=== PATIENT | male | born 1945 | race Caucasian/White ===

== ENCOUNTER 2020-09-03 13:20 | Inpatient (IN) | payer MEDICARE ==
[~2020-09-03] VITALS: Ht 175.3 cm; Wt 95.6 kg
[2020-09-03] MEDS ORDERED: IV NORMAL SALINE 1,000ML 1,000 ML IV ONE ×2 (13:30→19:00)
--- NOTE | 2020-09-03 13:43 | EKG ---
[address] [address] Test Date: 2020-09-03 Test Time: 13:32:31 Pat Name: ADONAY AUSTIN Department: Room: Gender: M Cob Sawyer: EMELIA : 1945 Requested By: SOLEDAD MAHAN Order Number: [id number] Reading MD: Rigo Schmid Measurements Intervals [place] Rate: 87 P: 11 FL: 168 QRS: -2 QRSD: 84 T: 39 QT: 340 QTc: 410 Interpretive Statements SINUS RHYTHM LEFTWARD AXIS Electronically Signed On 09-04-2020 13:36:28 CERTIFIED EMERGENCY VEHICLE TECHNICIAN by Rigo Schmid
[2020-09-03 14:07] LABS: BASO % 1 % (0-3); EOS % 0 % (0-3); HEMATOCRIT 41.8 % (39.0-53.0); HEMOGLOBIN 13.5 g/dL (13.0-17.5); LYMPH # 0.8 x10^3/uL (1.0-4.8); LYMPH % 10 % (24-48); MEAN CORPUSCULAR HEMOGLOBIN 28 pg (25-35); MEAN CORPUSCULAR HGB CONC 32 g/dL (31-37); MEAN CORPUSCULAR VOLUME 88 fL (79-100); MONO # 0.5 x10^3/uL (0.0-1.1); MONO % 7 % (0-9); NEUT # 6.6 x10^3uL (1.8-7.7); NEUT % 82 % (31-73); PLATELET COUNT 279 x10^3/uL (140-400); RED BLOOD COUNT 4.77 x10^6/uL (4.30-5.70); RED CELL DISTRIBUTION WIDTH 15.3 % (11.5-14.5)
--- NOTE | 2020-09-03 14:21 | RAD ---
EXAM: Chest, single view. HISTORY: Hyperglycemia. COMPARISON: 01/29/2017 FINDINGS: A frontal view of the chest obtained. There is suspected left basilar atelectasis. There is no infiltrate, pleural effusion or pneumothorax. There is a prominent cardiac silhouette, likely acc entuated due to decreased lung volumes. IMPRESSION: Decreased lung volumes with associated basilar atelectasis. Electronically signed by: Mandy Marcial MD (09/03/2020 2:18 PM) [id number]
[2020-09-03 14:25] LABS: CALCIUM 8.1 mg/dL (8.5-10.1); CREATININE 1.8 mg/dL (0.7-1.3); GFR 37.1; POTASSIUM 5.1 mmol/L (3.5-5.1)
[2020-09-03 14:54] LABS: ALBUMIN 2.9 g/dL (3.4-5.0); ALBUMIN/GLOBULIN RATIO 0.9 (1.0-1.7); TOTAL PROTEIN 6.2 g/dL (6.4-8.2)
[2020-09-03 14:56] LABS: TOTAL BILIRUBIN 0.6 mg/dL (0.2-1.0)
[2020-09-03 15:30] LABS: BARBITURATES NEG (NEG); BENZODIAZEPINES NEG (NEG); CANNABINOIDS NEG (NEG); COCAINE NEG (NEG); METHADONE NEG (NEG); OPIATES NEG (NEG); PHENCYCLIDINE NEG (NEG)
[2020-09-03 15:32] LABS: AMPHETAMINE/METHAMPHETAMINE NEG (NEG)
[2020-09-03 15:46] LABS: BILIRUBIN,URINE NEG (NEG); CLARITY,URINE CLEAR; COLOR,URINE COLORLESS; GLUCOSE,URINE >=1000 mg/dL (NEG)
[2020-09-03 15:47] LABS: NITRITE,URINE NEG (NEG); UROBILINOGEN,URINE 0.2 mg/dL (0.2 mg/dL)
[2020-09-03 15:49] LABS: BACTERIA,URINE 0 /HPF (0-FEW); RBC,URINE 0 /HPF (0-2); WBC,URINE 0 /HPF (0-4)
--- NOTE | 2020-09-03 16:14 | PHYS DOC ---
Past History Past Medical History: Diabetes, Hypertension Past Surgical History: No Surgical History Alcohol Use: None General Adult EDM: Chief Complaint: BLOOD SUGAR PROBLEM HPI: HPI: 75-year-old male past medical history of poorly controlled diabetes presents to the ED brought in by EMS with concern for hyperglycemia, glucose in the 600s. EMS reports 911 was called by leonardo with concern for patient's wellbeing, a welfare check. Patient is a very poor historian and cannot recall any home medications. Patient usually follows at the [facility]. RN called Junior patterson, who is known patient for more than 10 years. Patient has not been seen for approximately 1 month, was not responding to his door which is unlike him. Pt has a h/o dementia and lives alone. Review of Systems: Review of Systems: Declines all review of systems although not reliable given dementia Constitutional: Denies fever or chills Eyes: Denies change in visual acuity HENT: Denies nasal congestion or sore throat Respiratory: Denies cough or shortness of breath Cardiovascular: Denies chest pain or edema GI: Denies abdominal pain, nausea, vomiting, bloody stools or diarrhea : Denies dysuria Musculoskeletal: Denies back pain or joint pain Integument: Denies rash Neurologic: Denies headache, focal weakness or sensory changes Endocrine: Denies polyuria or polydipsia Lymphatic: Denies swollen glands Psychiatric: Denies depression or anxiety Current Medications: Current Meds: Current Medications Medications (Trade) Dose Ordered Sig/Connie Start Time Stop Time Status Last Admin Dose Admin Sodium Chloride 1,000 ml @ 1,000 mls/hr 1X ONCE 09/03/20 13:30 09/03/20 14:29 DC 09/03/20 14:09 1,000 MLS/HR Allergies: Allergies: Allergies Coded Allergies Type Severity Reaction Last Updated Verified No Known Drug Allergies 09/03/20 No Physical Exam: PE: Constitutional: Unkept, sold appearance, likely has not showered in weeks HENT: Normocephalic, atraumatic, dry mucous membranes, no signs of trauma Eyes: EOMI, conjunctiva normal, no discharge. Neck: Normal range of motion, supple, Cardiovascular: S1/2 present, regular rhythm Lungs & Thorax: Speaking in full sentences, bilateral equal chest rise, no tachypnea or increased work of breathing Abdomen: soft, no tenderness, obese Skin: Warm, dry, no erythema, no rash. [] Back: No midline tenderness, no CVA tenderness. [] Extremities: No tenderness, no cyanosis, bl equal le edema Neurologic: Alert to name but not to year, month, situation or hospital (even after repeat questioning), steady gait, moves all 4 extremities Psychologic: Affect normal, judgement normal, mood-grumpy on arrival/yellow nurse when she placed his IV Current Patient Data: Labs: Laboratory Tests Test 09/03/20 13:40 09/03/20 13:41 Urine Collection Type Unknown Urine Color Colorless Urine Clarity Clear Urine pH 6.0 Urine Specific [place] 1.010 Urine Protein Neg (NEG-TRACE) Urine Glucose (UA) >=1000 mg/dL (NEG) Urine Ketones (Stick) Neg mg/dL (NEG) Urine Blood Small (NEG) Urine Nitrite Neg (NEG) Urine Bilirubin Neg (NEG) Urine Urobilinogen Dipstick 0.2 mg/dL (0.2 mg/dL) Urine Leukocyte Esterase Neg (NEG) Urine RBC 0 /HPF (0-2) Urine WBC 0 /HPF (0-4) Urine Squamous Epithelial Cells None /LPF Urine Bacteria 0 /HPF (0-FEW) Urine Opiates Screen Neg (NEG) Urine Methadone Screen Neg (NEG) Urine Barbiturates Neg (NEG) Urine Phencyclidine Screen Neg (NEG) Urine Amphetamine/Methamphetamine Neg (NEG) Urine Benzodiazepines Screen Neg (NEG) Urine Cocaine Screen Neg (NEG) Urine Cannabinoids Screen Neg (NEG) Urine Ethyl Alcohol Neg (NEG) White Blood Count 8.0 x10^3/uL (4.0-11.0) Red Blood Count 4.77 x10^6/uL (4.30-5.70) Hemoglobin 13.5 g/dL (13.0-17.5) Hematocrit 41.8 % (39.0-53.0) Mean Corpuscular Volume 88 fL (79-100) Mean Corpuscular Hemoglobin 28 pg (25-35) Mean Corpuscular Hemoglobin Concent 32 g/dL (31-37) Red Cell Distribution Width 15.3 % (11.5-14.5) H Platelet Count 279 x10^3/uL (140-400) Neutrophils (%) (Auto) 82 % (31-73) H Lymphocytes (%) (Auto) 10 % (24-48) L Monocytes (%) (Auto) 7 % (0-9) Eosinophils (%) (Auto) 0 % (0-3) Basophils (%) (Auto) 1 % (0-3) Neutrophils # (Auto) 6.6 x10^3uL (1.8-7.7) Lymphocytes # (Auto) 0.8 x10^3/uL (1.0-4.8) L Monocytes # (Auto) 0.5 x10^3/uL (0.0-1.1) Eosinophils # (Auto) 0.0 x10^3/uL (0.0-0.7) Basophils # (Auto) 0.0 x10^3/uL (0.0-0.2) Sodium Level 124 mmol/L (136-145) L Potassium Level 5.1 mmol/L (3.5-5.1) Chloride Level 88 mmol/L (98-107) L Carbon Dioxide Level 29 mmol/L (21-32) Anion Gap 7 (6-14) Blood Urea Nitrogen 26 mg/dL (8-26) Creatinine 1.8 mg/dL (0.7-1.3) H Estimated GFR (Cockcroft-Gault) 37.1 BUN/Creatinine Ratio 14 (6-20) Glucose Level 498 mg/dL (70-99) H Calcium Level 8.1 mg/dL (8.5-10.1) L Total Bilirubin 0.6 mg/dL (0.2-1.0) Aspartate Amino Transferase (AST) 8 U/L (15-37) L Alanine Aminotransferase (ALT) 20 U/L (16-63) Alkaline Phosphatase 167 U/L (46-116) H Creatine Kinase 29 U/L (39-308) L Troponin I Quantitative < 0.017 ng/mL (0-0.055) Total Protein 6.2 g/dL (6.4-8.2) L Albumin 2.9 g/dL (3.4-5.0) L Albumin/Globulin Ratio 0.9 (1.0-1.7) L Lipase 171 U/L (73-393) Acetone Level Neg (NEG) Vital Signs: Vital Signs Date Time Temp Pulse Resp B/P (MAP) Pulse Ox O2 Delivery O2 Flow Rate FiO2 09/03/20 15:56 84 17 147/90 (109) 96 Room Air 09/03/20 13:35 97.6 EKG: EKG: Sinus rhythm 87 bpm, left axis deviation, normal intervals, no T wave inversions, no ST elevations or ST depressions Radiology/Procedures: Radiology/Procedures: IMAGING REPORT Signed PATIENT: ADONAY AUSTIN ACCOUNT: [id number] : 1945 LOCATION: ER AGE: 75 SEX: M EXAM STATUS: REG ER ORD. PHYSICIAN: SOLEDAD MAHAN DO REASON: ALTERED MENTAL STATUS PROCEDURE: CT HEAD WO CONTRAST EXAM: Head CT without contrast. HISTORY: Altered mental status. TECHNIQUE: Computed tomographic images of the head were obtained without contrast. *One or more of the following individualized dose reduction techniques were utilized for this examination: 1. Automated exposure control. 2. Adjustment of the mA and/or kV according to patient size. 3. Use of iterative reconstruction technique. COMPARISON: None. FINDINGS: There is no acute or subacute extra-axial or intraparenchymal hemorrhage. There is no mass effect or midline shift. There is no hydrocephalus. There are extensive areas of decreased attenuation within the cerebral white matter, nonspecific and likely related to chronic small vessel disease. There is cerebral volume loss. There is focal encephalomalacia within the left cerebellum likely due to chronic infarction. The visualized portions of the orbits, paranasal sinuses and mastoid air cells are unremarkable. No suspicious calvarial lesion is seen. IMPRESSION: 1. No acute intracranial finding. Note is made that MRI is more sensitive for acute infarction. 2. Bilateral cerebral white matter changes, likely due to chronic small vessel disease. 3. Cerebral volume loss. 4. 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 Electronically signed by: Mandy Jernigan MD (09/03/2020 5:12 PM) [id number] DICTATED AND SIGNED BY: MANDY JERNIGAN MD DATE: 09/03/201710 CC: PCP,NO; SOLEDAD MAHAN DO ~MTH0 0 IMAGING REPORT Signed PATIENT: ADONAY AUSTIN ACCOUNT: [id number] : 1945 LOCATION: ER AGE: 75 SEX: M EXAM STATUS: REG ER ORD. PHYSICIAN: SOLEDAD MAHAN DO REASON: high glucosde PROCEDURE: PORTABLE CHEST 1V EXAM: Chest, single view. HISTORY: Hyperglycemia. COMPARISON: 01/29/2017 FINDINGS: A frontal view of the chest obtained. There is suspected left basilar atelectasis. There is no infiltrate, pleural effusion or pneumothorax. There is a prominent cardiac silhouette, likely accentuated due to decreased lung vol umes. IMPRESSION: Decreased lung volumes with associated basilar atelectasis. Electronically signed by: Mandy Jernigan MD (09/03/2020 2:18 PM) [id number] DICTATED AND SIGNED BY: MANDY JERNIGAN MD DATE: 09/03/20 1418 CC: [facility]CP[facility]; SOLEDAD MAHAN DO ~MTH0 0 Heart Score: Risk Factors: Risk Factors: DM, Current or recent (<one month) smoker, HTN, HLP, family history of CAD, obesity. Risk Scores: Score 0 - 3: 2.5% MACE over next 6 weeks - Discharge Home Score 4 - 6: 20.3% MACE over next 6 weeks - Admit for Clinical Observation Score 7 - 10: 72.7% MACE over next 6 weeks - Early Invasive Strategies Course & Med Decision Making: Course & Med Decision Making Pertinent Labs and Imaging studies reviewed. (See chart for details) Concern for dementia, patient not alert to date, month, year, situation or location. Was found at home down at covered in stool, suspect hasn't eaten in awhile. Labs show nonketotic uncontrolled diabetes with renal insufficiency (no baseline for comparison), and hyponatremia. Pt not safe to dc home-Adult Protective Services were called. Will admit for further medical management, accepted by Dr. Leroy. Yu Disclaimer: Yu Disclaimer: This electronic medical record was generated, in whole or in part, using a voice recognition dictation system. Departure Departure: Impression: Primary Impression: Nonketotic hyperglycinemia Additional Impressions: Uncontrolled diabetes mellitus Renal insufficiency Hyponatremia Dementia Disposition: ADMITTED INPT THIS HOSP Admitting Physician: Gokul eLroy Condition: STABLE Referrals: [facility] (PCP) SOLEDAD MAHAN DO Sep 03, 2020 16:14
--- NOTE | 2020-09-03 17:15 | RAD ---
EXAM: Head CT without contrast. HISTORY: Altered mental status. TECHNIQUE: Computed tomographic images of the head were obtained without contrast. *One or more of the following individualized dose reduction techniques were utilized for this examina tion: 1. Automated exposure control. 2. Adjustment of the mA and/or kV according to patient size. 3. Use of iterative reconstruction technique. COMPARISON: None. FINDINGS: There is no acute or subacute extra-axial or intraparenchymal hemorrhage. There is no mass effect or midline shift. There is no hydrocephalus. There are extensive areas of decreased attenuation within the cerebral white matter, nonspecific and likely related to chronic small vessel disease. There is cerebral volume loss. There is focal encepha lomalacia within the left cerebellum likely due to chronic infarction. The visualized portions of the orbits, paranasal sinuses and mastoid air cells are unremarkable. No s uspicious calvarial lesion is seen. IMPRESSION: 1. No acute intracranial finding. Note is made that MRI is more sensitive for acute infarction. 2. Bilateral cerebral white matter changes, likely due to chronic small vessel disease. 3. Cerebral volume loss. 4. 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 Electronically signed by: Mandy Marcial MD (09/03/2020 5:12 PM) [id number]
[2020-09-03 18:31] VITALS: BP 144/84
--- NOTE | 2020-09-03 19:05 | HP ---
ADMIT DATE: 09/03/2020 HISTORY OF PRESENT ILLNESS: The patient is a 75-year-old male patient, a resident at [facility]. He was brought by the EMS with concern for hyperglycemia. His glucose was 600. Per EMS report, 911 was called by the landlord with concern for the patient's well-being, a welfare check. The patient is a very poor historian and cannot recall any home medications. He usually follows at the [facility]. He was investigated in the Emergency Room, the patient was very unkempt. He was found covered in his feces according to the ER physician. He was extensively investigated in the Emergency Room, has had lab work done, which showed that he has hyperglycemia and probably dilutional hyponatremia, mild hyperkalemia and impaired kidney function. His white cell count was normal. Urinalysis was unremarkable. Toxic screen was negative. He has had a CT scan of the head that showed no acute intracranial finding, bilateral cerebral white matter changes, likely to chronic small vessel disease, cerebral volume loss, suspect a small chronic infarct within the left cerebellum. His chest x-ray was unremarkable and the patient was admitted with nonketotic hyperosmolar hyperglycemia, uncontrolled diabetes mellitus, renal insufficiency, dilutional hyponatremia and altered mental status, probably dementia. PAST MEDICAL HISTORY: Significant for type 2 diabetes mellitus and hypertension according to him. SURGICAL HISTORY: Unremarkable. ALLERGIES: He has no known drug allergies. MEDICATIONS: He is currently on the following medications: He is on glipizide 10 mg twice a day, metformin 1000 mg twice a day, amlodipine 10 mg once a day and lisinopril 40 mg, takes half a tablet daily. REVIEW OF SYSTEMS: The patient is very demented, does not really give any useful information. FAMILY HISTORY/SOCIAL HISTORY: He said he used to live with a girlfriend but that is no longer the case. He now lives with his friend that takes care of him. He used to smoke and drink alcohol, but that is long time ago. 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 PHYSICAL EXAMINATION: GENERAL: When I saw him this afternoon on arrival to the hospital, he was resting slightly propped up in bed, in no apparent distress. There was no pallor, jaundice, cyanosis or thyromegaly. No jugular venous distention. Mild bilateral lower limb edema. VITAL SIGNS: Her heart rate was 78, blood pressure 144/84, temperature was 97.5, respiratory rate was 18, and oxygen saturation 100%. HEAD, EYES, EARS, NOSE AND THROAT: Normocephalic, atraumatic. NECK: Supple. HEART: Showed normal first and second heart sounds. No gallop or murmur. CHEST: Clear to auscultation. No crepitation or rhonchi. ABDOMEN: Distended, soft, nontender. NEUROLOGIC: He was awake, alert, but very confused and does not really give any useful information. All his cranial nerves are intact. He moves his upper extremities to much good extent than lower extremities. He has both lower extremities are swollen and red. The right leg and foot is warm to touch. He has also some superficial laceration of the left leg. LABORATORY DATA: Showed a white cell count of 8000, hemoglobin 13.5, hematocrit 42, MCV 88 and platelet count 279,000. Serum sodium was 124, potassium 5.1, chloride 88, bicarbonate 29, anion gap of 7, BUN 26, creatinine 1.8, estimated GFR was 37 mL per minute. His glucose was 498, calcium was 8.1. Total bilirubin, AST, ALT, alkaline phosphatase were normal. His total protein was 6.2, albumin was 2.9. Serum lipase is 171. Urinalysis showed the urine was colorless, clear with a pH of 6, specific gravity of 1.010. The urine was negative for protein. There was large amount of glucose, negative for ketones, small amount of blood, negative for nitrite and leukocyte esterase. There are no rbc's, no wbc's, and no bacteria and urine toxic screen was essentially negative. His chest x-ray showed decreased lung volumes with associated bibasilar atelectasis and his CT scan of the head showed that the patient has no acute intracranial finding, bilateral cerebral white matter changes, likely to chronic small vessel disease, cerebral volume loss and suspected small chronic infarct within the left cerebellum. The patient was given a liter of normal saline. We will continue give another liter of normal saline and continue with IV fluid in the form of normal saline at 150 mL per hour. We will start him on sliding scale every 4 hours overnight and we will start him also on IV antibiotic for possible cellulitis in the right leg. I will start him also on heparin for DVT prophylaxis and we will repeat all his labs tomorrow. PATSY OSULLIVAN MD DR: JAN/christine JOB#: [id number] / [id number]
[2020-09-03] MEDS ORDERED: DEXTROSE 50% 25 GM / 50ML DISP.SYRIN. IV PRN (19:30)
[2020-09-03] MEDS: INSULIN LISPRO 300 UNITS/3 ML VIAL. SQ SCH ×2 (19:42→21:20)
[2020-09-03] MEDS: IV NORMAL SALINE 1,000ML 1,000 ML IV SCH (19:44)
[2020-09-03 20:21] LABS: ALBUMIN 2.7 g/dL (3.4-5.0); ALBUMIN/GLOBULIN RATIO 0.9 (1.0-1.7); CALCIUM 7.9 mg/dL (8.5-10.1); CREATININE 1.5 mg/dL (0.7-1.3); GFR 45.7; TOTAL BILIRUBIN 0.7 mg/dL (0.2-1.0); TOTAL PROTEIN 5.7 g/dL (6.4-8.2)
[2020-09-03] MEDS: VANCOMYCIN PER PHARMACY MC PRN (20:36)
[2020-09-03] MEDS ORDERED: INSULIN LISPRO 300 UNITS/3 ML VIAL. SQ ONE (20:45)
[2020-09-03] MEDS ORDERED: VANCOMYCIN 2 GM in IV NORMAL SALINE 500ML 500 ML IV ONE (21:00)
[2020-09-03] MEDS: HEPARIN for SUB-Q USE 5,000 UNIT/ML VIAL. SQ SCH (21:21)
--- NOTE | 2020-09-03 21:43 | NUR ---
Pharmacy Vancomycin Dosing Note S:Consulted to monitor and dose vancomycin started 09/03/20. O:ADONAY AUSTIN is a 75 year old M with Cellulitis, . Height: 5 feet, 9 inches Weight: 95.6 kg Silas Body Weight: 70.70 Adjusted Body Weight: 80.66 Dosing Weight: Actual Other Antibiotics: LABS: Last BUN: 26 Last Creatinine: 1.8 Creatinine Clearance: 41.08 Last WBC: 8.0 Vancomycin Dosing: Loading Dose: 2000 mg x1 Dosing Weight: Actual Target Trough: 10-20 A: Based on: Actual weight, renal function, and diagnosi P: 1. Begin Vancomycin 1500 mg IV q24h 2. Follow up Trough level on 09/05/20 at 2030 3. Pharmacy will continue to monitor, follow and adjust therapy as needed. ALEXI PATTERSON, 09/03/20 [id number]
--- NOTE | 2020-09-03 22:25 | NUR ---
Pt admitted to 111 before shift change. Pt was calm and cooperative during assessment but only orientated to self. Pt had no complaints of pain during assessment. Pt has BLE cellulitis. Pictures taken and placed in chart. Call light in reach, will continue to monitor.
[2020-09-04 00:11] VITALS: BP 134/93
[2020-09-04] MEDS: INSULIN LISPRO 300 UNITS/3 ML VIAL. SQ SCH ×7 (00:15→20:43)
[2020-09-04] MEDS: IV NORMAL SALINE 1,000ML 1,000 ML IV SCH ×2 (01:55→08:35)
[2020-09-04] MEDS: HEPARIN for SUB-Q USE 5,000 UNIT/ML VIAL. SQ SCH ×3 (05:07→21:30)
[2020-09-04 05:36] VITALS: BP 138/83
[2020-09-04 07:48] LABS: CALCIUM 7.8 mg/dL (8.5-10.1); CREATININE 1.3 mg/dL (0.7-1.3); POTASSIUM 4.3 mmol/L (3.5-5.1)
--- NOTE | 2020-09-04 09:26 | NUR ---
THIS RN SPOKE TO ADULT PROTECTION SERVICES SPECIALIST DENISHA STEVENS WHO INFORMED THAT PATIENT WAS NOT ABLE TO TAKE CARE OF HIMSELF FOR THE LAST TWO MONTHS, PATIENT HAS [employer] WHO IS ALSO HIS FRIEND THAT WOULD USUALLY COME AND BRING SOME FOOD AND OTHER PATIENT CARE SUPPLIES SUCH DIAPERS. PATIENT IS NOT COMPLIANT WITH HIS MEDICATIONS. CASE MANAGEMENT NOTIFIED.
[2020-09-04 10:30] VITALS: BP 125/76
[2020-09-04] MEDS: ACETAMINOPHEN 325 MG TABLET PO PRN (13:05)
[2020-09-04 14:40] VITALS: BP 135/84
--- NOTE | 2020-09-04 16:44 | RAD ---
Examination: Bilateral venous Doppler Indication: Leg swelling Technique: Ultrasound evaluation of the bilateral lower extremities was performed from the groin to t he upper calf with ferris scale, spectral and color doppler evaluation. Comparison: None Findings: There is normal venous flow and compressibility of bilateral common femoral veins, femoral veins, popliteal veins, and visualized proximal calf veins. Impression: No evidence for deep vein thrombosis of bilateral lower extremities from the level of the calf veins to the groins. Electronically signed by: Alessandro Tran MD (09/04/2020 4:41 PM) [id number]
--- NOTE | 2020-09-04 18:00 | NUR ---
Wound Care Wound Type/Assessment: patient seen per wound care consult. see wound assessment. patient has bilateral lower leg stasis ulcers- the patient has multiple small open areas on the legs, the areas were cleaned, measured, pictured and redressed with recommendations of Medihoney alginate with abd pads, Kerlix and tape, change every 2-3 days. patient also has DFU to the right great toe- no open area noted the wound is a blanched dusky red and purple area, recommendations of skin prep daily and leave CAFE [employer]ER Treatment Recommendations/Plan: left and right lower leg- Recommendations of cleansing the wounds then apply Medihoney alginate with abd pads with Kerlix and tape, change every 2-3 days. right great toe- recommendations of skin prep daily and leave KATARINA. Recommended Referrals/Tests: Referral to wound care factory superintendent. Notified RN about the POC and wound care will continue to f/u for changes.
--- NOTE | 2020-09-04 18:29 | PN ---
DATE: SUBJECTIVE: The patient is resting, slightly propped up in bed, in no apparent distress. He is definitely more awake, alert, responding appropriately. His main complaint is that he is hungry and would like more food. His legs are more swollen, erythematous with blisters, so we are going to stop the IV fluid. PHYSICAL EXAMINATION: GENERAL: When I examined him, he looked well and was clearly in no apparent distress. No pallor, jaundice, cyanosis or thyromegaly. No jugular venous distention. With bilateral lower limb edema. VITAL SIGNS: His heart rate was 103, blood pressure was 135/84, temperature was 98, respiratory rate was 24, and oxygen saturation was 97% on room air. HEAD, EYES, EARS, NOSE, AND THROAT: Showed normocephalic, atraumatic. NECK: Supple. HEART: Showed normal first and second heart sounds. No gallop, rub or murmur. CHEST: Clear to auscultation. No crepitation or rhonchi. ABDOMEN: Distended, soft, nontender. NEUROLOGIC: He is definitely more awake, alert, responding appropriately. All cranial nerves are intact. EXTREMITIES: He moves his upper extremities to much good extent than lower extremities. Examination of the lower extremities showed no clubbing, cyanosis, but he has bilateral lower limb edema with erythema and blisters. His intake over the last 24 hours was 1840, no output was recorded. LABORATORY DATA: As of yesterday showed a white cell count of 8000, hemoglobin 13.5, hematocrit 42, MCV 88 and platelet count 279,000 with a manual differential showed 82% polymorphs, 10% lymphocytes. His chemistry this morning showed a serum sodium 130, potassium 4.3, chloride 96, bicarbonate 26, anion gap of 8, BUN 20, creatinine 1.3, estimated GFR was 54 mL per minute. His glucose 246. Calcium was 7.8. His rapid coronavirus testing was negative. IMAGING DATA: Chest x-ray was unremarkable and CT scan of the head was unremarkable. ASSESSMENT: 1. Nonketotic hyperosmolar hyperglycemia, improving slowly. 2. Dilutional hyponatremia, improving. His serum sodium is up from 24 to 130. 3. Acute kidney injury. His creatinine is down from 1.8 to 1.3. 4. The patient is known to have hypertension. 5. The patient has bilateral lower extremity cellulitis and bilateral lower extremity edema with blisters and wounds, mostly on the anterior aspect of the left leg. PLAN: My plan is to arrange for him to have a venous Doppler ultrasound of both lower extremities. We will discontinue IV fluid. I will increase the coverage for his antibiotic adding perhaps ertapenem as well as to continue with vancomycin. I will also adjust his insulin sliding scale and adding scheduled insulin, both short and longer acting. Our social media specialist is working on placement. PATSY OSULLIVAN MD DR: JAN/christine JOB#: [id number] / [id number]
[2020-09-04 19:40] VITALS: BP 126/78
[2020-09-04] MEDS: VANCOMYCIN 1.5 GM in IV NORMAL SALINE 500ML 500 ML IV SCH (20:44)
[2020-09-04] MEDS: INSULIN GLARGINE SYRINGE. SQ SCH (21:00)
[2020-09-04] MEDS: PIPERACILLIN/TAZOBACTAM 3.375 GM in IV NORMAL SALINE 50ML 50 ML IV SCH (21:31)
[2020-09-05 00:30] VITALS: BP 127/79
[2020-09-05] MEDS: INSULIN LISPRO 300 UNITS/3 ML VIAL. SQ SCH ×9 (04:55→22:02)
[2020-09-05] MEDS: PIPERACILLIN/TAZOBACTAM 3.375 GM in IV NORMAL SALINE 50ML 50 ML IV SCH ×3 (05:14→22:00)
[2020-09-05] MEDS: HEPARIN for SUB-Q USE 5,000 UNIT/ML VIAL. SQ SCH ×3 (05:14→22:02)
[2020-09-05 05:43] VITALS: BP 137/80
[2020-09-05 06:52] LABS: HEMATOCRIT 36.5 % (39.0-53.0); HEMOGLOBIN 12.1 g/dL (13.0-17.5); RED BLOOD COUNT 4.27 x10^6/uL (4.30-5.70); RED CELL DISTRIBUTION WIDTH 14.8 % (11.5-14.5); WHITE BLOOD COUNT 8.8 x10^3/uL (4.0-11.0)
[2020-09-05 06:56] LABS: ALBUMIN 2.1 g/dL (3.4-5.0); ALBUMIN/GLOBULIN RATIO 0.6 (1.0-1.7); CALCIUM 7.6 mg/dL (8.5-10.1); CREATININE 1.5 mg/dL (0.7-1.3); GFR 45.7; POTASSIUM 3.8 mmol/L (3.5-5.1); TOTAL BILIRUBIN 0.6 mg/dL (0.2-1.0); TOTAL PROTEIN 5.7 g/dL (6.4-8.2)
--- NOTE | 2020-09-05 08:57 | PN ---
DATE: 09/05/2020 ATTENDING PHYSICIAN: Dr. Leroy and Dr. Loredo. SUBJECTIVE: The patient is relatively alert. He is confused. His thought process is very tangential. He does not want to go to a rehab, but unfortunately he lives alone and cannot take care of himself. OBJECTIVE: VITAL SIGNS: Blood pressure is 127/79, pulse is 89 and regular, temperature 97.6 degrees Fahrenheit, oxygen saturation 96% on room air. HEENT: Head is without trauma. Pupils are reactive. Sclerae nonicteric. Oropharynx clear. NECK: Supple, no bruits. LUNGS: Clear. CARDIOVASCULAR: Showed regular heart tones. No gallops. ABDOMEN: Soft. EXTREMITIES: Show 3+ pitting edema with stasis dermatitis, horrible neglect and the hygiene. SKIN: Warm and dry. LABORATORY STUDIES: Nonfasting blood sugar is 347 today. The sodium is up to 127. Transaminases were normal. Potassium 3.8 mEq. ASSESSMENT: 1. A 75-year-old gentleman with hyperosmolar nonketotic coma. 2. Neglect. 3. Underlying dementia. 4. Type 2 diabetes with poor control. 5. Stasis dermatitis. 6. Generalized debilitation. PLAN: 1. Continue antibiotics ordered. 2. Serial chemistries. 3. He will need some diuretics at some time. 4. Diet as tolerated. 5. Working on placement, but he is not competent and therefore is not willing to go. We will see how he responds to get into rehabilitation. JULIANA LOREDO MD DR: LYNNETTE/christine JOB#: [id number] / [id number]
[2020-09-05] MEDS: ACETAMINOPHEN 325 MG TABLET PO PRN ×3 (10:04→23:54)
[2020-09-05 11:12] VITALS: BP 126/82
--- NOTE | 2020-09-05 14:37 | PDOC2 ---
CONSULT DOS: DATE: 09/05/20 TIME: 14:23 Reason for Consult: BLE wounds with associated cellulitis Referring Physician: Dr Leroy Chief Complaint Bilateral lower extremity cellulitis with open wounds Source: Chart review, Patient Problem List Problems Medical Problems: (1) AMS (altered mental status) Status: Acute (2) Dementia Status: Acute (3) Hyponatremia Status: Acute (4) Nonketotic hyperglycinemia Status: Acute (5) Renal insufficiency Status: Acute (6) Uncontrolled diabetes mellitus Status: Acute History of Present Illness Patient admitted to [facility] following ER visit for hyperglycemia and hyponatremia. Patient with bilateral lower extremity cellulitis with open wounds. Patient with underlying dementia and is a poor historian. Patient denies painful symptoms of his legs at the current time. Patient ambulates with a 4 cane walker. Patient does not have family who looks after him however has a landlord who was checking on him frequently and expressed concerns of patient's decline in mental status. Adult Protective Services has been notified of pat yoelnt's steady decline and inability to care for self at home. Past Medical History Per patient, diabetes and hypertension. Family History Unknown Social History As noted in HPI, patient lived at home and was independent with ADLs. Patient had landlord who check on him frequently and was concerned of patient's date Matias in mental status. Adult Protective Services has been notified. Patient states history of alcohol and tobacco use however denies current use. Patient states that he was and had 1 daughter however they left him when his daughter was very young and he has not been in contact with him since. Current Medications Current Medications Sodium Chloride 1,000 ml @ 1,000 mls/hr 1X ONCE IV Last administered on 09/03/20at 14:09; Start 09/03/20 at 13:30; Stop 09/03/20 at 14:29; Status DC Sodium Chloride 1,000 ml @ 1,000 mls/hr 1X ONCE IV Last administered on 09/03/20at 19:00; Start 09/03/20 at 19:00; Stop 09/03/20 at 19:59; Status DC Sodium Chloride 1,000 ml @ 150 mls/hr Q6H40M IV Last administered on 09/04/20at 08:35; Start 09/03/20 at 19:15; Stop 09/04/20 at 15:01; Status DC Heparin Sodium (Porcine) (Heparin Sodium) 5,000 unit Q8HRS SQ Last administered on 09/05/20at 13:19; Start 09/03/20 at 22:00 Vancomycin HCl (Vanco Per Pharmacy) 1 each PRN DAILY PRN MC SEE COMMENTS Last administered on 09/03/20at 20:36; Start 09/03/20 at 19:15 Insulin Human Lispro (HumaLOG) 0-9 UNITS Q4HRS SQ Last administered on 09/05/20at 04:55; Start 09/03/20 at 20:00; Stop 09/05/20 at 07:41; Status DC Dextrose (Dextrose 50%-Water Syringe) 12.5 gm PRN Q15MIN PRN IV SEE COMMENTS; Start 09/03/20 at 19:30 Vancomycin HCl 2 gm/Sodium Chloride 500 ml @ 250 mls/hr 1X ONCE IV Last administered on 09/03/20at 22:09; Start 09/03/20 at 21:00; Stop 09/03/20 at 22:59; Status DC Vancomycin HCl 1.5 gm/Sodium Chloride 500 ml @ 250 mls/hr Q24H IV Last administered on 09/04/20at 20:44; Start 09/04/20 at 21:00 Vancomycin HCl (Vancomycin Trough Level) 1 each 1X ONCE MC ; Start 09/05/20 at 20:30; Stop 09/05/20 at 20:31 Insulin Human Lispro (HumaLOG) 15 units 1X ONCE SQ Last administered on 09/03/20at 20:45; Start 09/03/20 at 20:45; Stop 09/03/20 at 20:54; Status DC Acetaminophen (Tylenol) 650 mg PRN Q6HRS PRN PO MILD PAIN / TEMP > 100.3'F Last administered on 09/05/20at 10:04; Start 09/04/20 at 13:00 Insulin Human Lispro (HumaLOG) 10 units TIDAC SQ Last administered on 09/05/20at 11:49; Start 09/04/20 at 16:30 Insulin Glargine (Lantus Syringe) 30 unit QHS SQ Last administered on 09/04/20at 21:00; Start 09/04/20 at 21:00 Piperacillin Sod/ Tazobactam Sod 3.375 gm/Sodium Chloride 50 ml @ 100 mls/hr Q8HRS IV Last administered on 09/05/20at 13:12; Start 09/04/20 at 22:00 Insulin Human Lispro (HumaLOG) 0-9 UNITS QIDACHS SQ Last administered on 09/05/20at 11:50; Start 09/05/20 at 07:45 Active Scripts Active Reported No Known Medications Prior To Admisstion (Info) Each 1 Each Allergies: Coded Allergies: No Known Drug Allergies (Unverified , 09/03/20) Review of System May be unreliable secondary to patient's underlying dementia. Patient denies pain at this time. Patient states that he has had a good appetite without nausea, vomiting or diarrhea. Patient denies cough or shortness of breath. Patient states that he has been sleeping well. Physical Exam Patient awake and alert 75-year-old male in no apparent distress. Patient pleasant in conversation however is demented and frequently repeats self. Vital signs are stable. Patient is afebrile. WBC remains within normal limits. Upon admission fingerstick blood sugars were 600. Now are in the 300s. Respirations are even and unlabored. Patient is on room air not requiring supplemental oxygen. Abdomen is soft, nondistended and nontender. Skin is warm, dry and pink. Toenails are overgrown with underlying onychomycosis. Bilateral lower extremities with erythema and warmth and associated edema. The left lower extremity presents with an open wound measuring 1.2 x 1.2 which is 100% slough covered. The medial aspect of the left lower extremity with multiple small vesicles. The entire area is oozing serous drainage, mild maceration noted of area. There is no odor following cleansing. The right lower extremity presents with erythema around the ankle area. This is warm to touch and has associated edema. There are multiple small, less than 1 cm open ulcerations which are covered with 100% slough. Area is oozing serous drainage, mild maceration of areas noted. There is no odor following cleansing. Following application of topical lidocaine and patient consent, slough covered wounds debrided with sterile curette. Nonviable tissue and minimal viable tissue removed. Patient tolerated without painful symptoms. Minimal bleeding controlled with pressure. Following bedside debridement, wound is now 100% granulated tissue. Wounds remain superficial with a max depth of 0.2 cm. VITALS Vital Signs Date Time Temp Pulse Resp B/P (MAP) Pulse Ox O2 Delivery O2 Flow Rate FiO2 09/05/20 11:12 98.6 110 20 126/82 (97) 96 Room Air Labs Laboratory Tests Test 09/03/20 18:11 09/03/20 21:43 09/04/20 00:03 09/04/20 03:50 Sodium Level 126 mmol/L (136-145) Potassium Level 5.0 mmol/L (3.5-5.1) Chloride Level 92 mmol/L (98-107) Carbon Dioxide Level 29 mmol/L (21-32) Anion Gap 5 (6-14) Blood Urea Nitrogen 25 mg/dL (8-26) Creatinine 1.5 mg/dL (0.7-1.3) Estimated GFR (Cockcroft-Gault) 45.7 BUN/Creatinine Ratio 17 (6-20) Glucose Level 712 mg/dL (70-99) Calcium Level 7.9 mg/dL (8.5-10.1) Total Bilirubin 0.7 mg/dL (0.2-1.0) Aspartate Amino Transf (AST/SGOT) 10 U/L (15-37) Alanine Aminotransferase (ALT/SGPT) 19 U/L (16-63) Alkaline Phosphatase 141 U/L (46-116) Troponin I Quantitative < 0.017 ng/mL (0-0.055) < 0.017 ng/mL (0-0.055) Total Protein 5.7 g/dL (6.4-8.2) Albumin 2.7 g/dL (3.4-5.0) Albumin/Globulin Ratio 0.9 (1.0-1.7) Glucose (Fingerstick) 246 mg/dL (70-99) 161 mg/dL (70-99) Test 09/04/20 07:10 09/04/20 07:43 09/04/20 11:40 09/04/20 12:58 Sodium Level 130 mmol/L (136-145) Potassium Level 4.3 mmol/L (3.5-5.1) Chloride Level 96 mmol/L (98-107) Carbon Dioxide Level 26 mmol/L (21-32) Anion Gap 8 (6-14) Blood Urea Nitrogen 20 mg/dL (8-26) Creatinine 1.3 mg/dL (0.7-1.3) Estimated GFR (Cockcroft-Gault) 54.0 Glucose Level 246 mg/dL (70-99) Calcium Level 7.8 mg/dL (8.5-10.1) Glucose (Fingerstick) 245 mg/dL (70-99) 393 mg/dL (70-99) SARS-CoV-2 Antigen (Rapid) Negative (NEGATIVE) Test 09/04/20 15:44 09/04/20 20:39 09/04/20 21:04 09/04/20 23:21 Glucose (Fingerstick) 354 mg/dL (70-99) 389 mg/dL (70-99) 429 mg/dL (70-99) 376 mg/dL (70-99) Test 09/05/20 04:49 09/05/20 06:25 09/05/20 07:59 09/05/20 11:45 Glucose (Fingerstick) 334 mg/dL (70-99) 347 mg/dL (70-99) 323 mg/dL (70-99) White Blood Count 8.8 x10^3/uL (4.0-11.0) Red Blood Count 4.27 x10^6/uL (4.30-5.70) Hemoglobin 12.1 g/dL (13.0-17.5) Hematocrit 36.5 % (39.0-53.0) Mean Corpuscular Volume 86 fL (79-100) Mean Corpuscular Hemoglobin 28 pg (25-35) Mean Corpuscular Hemoglobin Concent 33 g/dL (31-37) Red Cell Distribution Width 14.8 % (11.5-14.5) Platelet Count 250 x10^3/uL (140-400) Sodium Level 127 mmol/L (136-145) Potassium Level 3.8 mmol/L (3.5-5.1) Chloride Level 96 mmol/L (98-107) Carbon Dioxide Level 25 mmol/L (21-32) Anion Gap 6 (6-14) Blood Urea Nitrogen 24 mg/dL (8-26) Creatinine 1.5 mg/dL (0.7-1.3) Estimated GFR (Cockcroft-Gault) 45.7 BUN/Creatinine Ratio 16 (6-20) Glucose Level 279 mg/dL (70-99) Calcium Level 7.6 mg/dL (8.5-10.1) Total Bilirubin 0.6 mg/dL (0.2-1.0) Aspartate Amino Transf (AST/SGOT) 13 U/L (15-37) Alanine Aminotransferase (ALT/SGPT) 16 U/L (16-63) Alkaline Phosphatase 108 U/L (46-116) Total Protein 5.7 g/dL (6.4-8.2) Albumin 2.1 g/dL (3.4-5.0) Albumin/Globulin Ratio 0.6 (1.0-1.7) Assessment/Plan Bilateral lower extremity cellulitis with open wounds -Nonviable tissue and minimal viable tissue removed at bedside using sterile curette. Patient tolerated without painful symptoms. -DC Medihoney alginate due to maceration. Cleanse and pat dry. Apply skin prep to surrounding tissue. Cover with ABD and secure with Kerlix. Change twice daily or as needed if dressing loose or saturated. -Size F Tubigrip's for mild compression, change daily. Encourage patient to keep legs up and elevated to encourage natural lymph drainage -Due to patient's underlying history of diabetes and hypertension, obtain arterial Doppler to rule out arterial insufficiency. Venous Doppler negative for DVTs. -PCP addressing diabetic concerns -Patient currently on vancomycin and Zosyn IV for cellulitis [facility] wound care team will continue to follow patient until discharge. Pending arterial Doppler results and resolution of cellulitis, patient may benefit from lymph wraps or Unna boots for lower extremity edema. SOLEDAD ESQUEDA SHIP RUNNER Sep 05, 2020 14:37
[2020-09-05 15:47] VITALS: BP 134/83
--- NOTE | 2020-09-05 16:08 | RAD ---
EXAM: Lower extremity arterial Doppler sonogram. HISTORY: Nonhealing leg wound. Peripheral vascular disease. TECHNIQUE: Doppler sonographic evaluation of the lower extremities was performed and pressure reading s were assessed. FINDINGS: There are normal triphasic and biphasic waveforms and peak systolic velocities throughout t he bilateral lower extremity arteries. The left peroneal artery is not seen, possibly obscured due to soft tissue edema. IMPRESSION: 1. Nonvisualization of the left peroneal artery. This may be obscured due to soft tissue edema. 2. Normal waveforms and peak systolic velocities throughout the remainder of the lower extremity deirdre ginny. No severe stenosis or occlusion is seen. Electronically signed by: Mandy Marcial MD (09/05/2020 4:06 PM) [id number]
[2020-09-05 19:29] VITALS: BP 145/79
[2020-09-05 21:55] LABS: VANC TR 11.7 mcg/mL (10.0-20.0)
[2020-09-05] MEDS: INSULIN GLARGINE SYRINGE. SQ SCH (22:01)
[2020-09-05] MEDS: VANCOMYCIN PER PHARMACY MC PRN (22:26)
[2020-09-05] MEDS: VANCOMYCIN 1.5 GM in IV NORMAL SALINE 500ML 500 ML IV SCH (22:29)
--- NOTE | 2020-09-05 22:29 | NUR ---
Pharmacy Vancomycin Dosing Note S:Consulted to monitor and dose vancomycin started 09/03/20. O:ADONAY AUSTIN is a 75 year old M with Cellulitis, . Height: 5 feet, 9 inches Weight: 95.6 kg Rosalia Body Weight: 70.70 Adjusted Body Weight: 80.66 Dosing Weight: Actual Other Antibiotics: Zosyn LABS: Last BUN: 24 Last Creatinine: 1.5 Creatinine Clearance: 49.29 Last WBC: 8.8 Last Procalcitonin: Tmax (past 24 hours): Microbiology: I/O: Drug Levels: Last Trough level: 11.7 on 09/05/20 at 2030 Last dose given at Vancomycin Dosing: Loading Dose: 2000 mg x1 Dosing Weight: Actual Target Trough: 10-20 A: Based on: Trough, renal function, and indication P: 1. Continue Vancomycin 1500 mg IV q24h 2. Follow up Trough level on 09/07/20 at 2030 3. Pharmacy will continue to monitor, follow and adjust therapy as needed. ALEXI PATTERSON, 09/05/20 [id number]
[2020-09-05 23:35] VITALS: BP 138/74
[2020-09-06] MEDS: PIPERACILLIN/TAZOBACTAM 3.375 GM in IV NORMAL SALINE 50ML 50 ML IV SCH (06:00)
[2020-09-06] MEDS: HEPARIN for SUB-Q USE 5,000 UNIT/ML VIAL. SQ SCH (06:00)
[2020-09-06 06:34] VITALS: BP 151/81
[2020-09-06] MEDS: ACETAMINOPHEN 325 MG TABLET PO PRN (07:14)
[2020-09-06] MEDS: INSULIN LISPRO 300 UNITS/3 ML VIAL. SQ SCH ×4 (08:40→11:54)
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
[2020-09-06] MEDS ORDERED: FUROSEMIDE 80 MG TABLET PO SCH (09:45)
[2020-09-06] MEDS ORDERED: POTASSIUM CHLORIDE 20 MEQ TABLET.ER. PO SCH (09:45)
[2020-09-06] MEDS ORDERED: AMOXICILLIN/K CLAV 875/125MG TABLET. PO SCH (10:30)
[2020-09-06 10:51] VITALS: BP 144/88
--- NOTE | 2020-09-06 14:58 | NUR ---
NSG NOTE; DISCHARGE TO SKILLED UNIT AT [facility] [place] REPORT CALLED TO RAMONA HUFF AT 1403 PAPER COPY OF CHART INCLUDING MED REC SENT WITH PT DISCHARGED AT 1445 VIA CART ACCOMP BY EMS PERSONNEL TWO NEW BAGS OF BELONGINGS THAT WERE BROUGHT IN TODAY BY THE PT'S [place] WERE SENT WITH HIM
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
[2020-09-06] MEDS ORDERED: LACTOBACILLUS RHAMNOSUS GG 1 CAPSULE. PO SCH (21:00)
== END 2020-09-06 14:45 | DRG 637 ==
LOC: ER 13:20 → 1 SOUTH 17:21
PROVIDERS: ADMIT Internal Medicine; ATTEND Internal Medicine
PROC: 0HBNXZZ Excision of Left Foot Skin, External Approach (ICD-10-PCS; principal; 2020-09-05)
DX: E11.00 Type 2 diabetes mellitus with hyperosmolarity without nonketotic hyperglycemic-hyperosmolar coma (NKHHC) (principal); N17.0 Acute kidney failure with tubular necrosis; L03.116 Cellulitis of left lower limb; J98.11 Atelectasis; L03.115 Cellulitis of right lower limb; E11.628 Type 2 diabetes mellitus with other skin complications; L30.9 Dermatitis, unspecified; E11.51 Type 2 diabetes mellitus with diabetic peripheral angiopathy without gangrene; E11.65 Type 2 diabetes mellitus with hyperglycemia; E87.5 Hyperkalemia; F03.90 Unspecified dementia, unspecified severity, without behavioral disturbance, psychotic disturbance, mood disturbance, and anxiety; I10 Essential (primary) hypertension; I87.2 Venous insufficiency (chronic) (peripheral); Z91.14 Patient's other noncompliance with medication regimen; Z79.4 Long term (current) use of insulin; Z60.2 Problems related to living alone; S81.812A Laceration without foreign body, left lower leg, initial encounter; X58.XXXA Exposure to other specified factors, initial encounter; Y99.8 Other external cause status; Y93.89 Activity, other specified; Y92.89 Other specified places as the place of occurrence of the external cause; Z20.822 Contact with and (suspected) exposure to COVID-19
CPT/HCPCS: 36415; 70450; 71045; 80048; 80053; 80202; 80307; 81001; 82010; 82550; 82947; 83690; 84484; 85025; 85027; 87426; 93005; 93923; 93970; 96360; J1644; J1815; J2543; J3370; J7040; U0003; 97110; 97530; 97535; 99285-25; J7030

== ENCOUNTER 2020-11-03 13:04 | Inpatient (IN) | payer MEDICARE, OTHER ==
[~2020-11-03] VITALS: Ht 182.9 cm; Wt 101.6 kg
[2020-11-03] MEDS ORDERED: IV NORMAL SALINE 1,000ML 1,000 ML IV ONE ×2 (13:15→16:45)
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
[2020-11-03] MEDS ORDERED: HALOPERIDOL LACT 5 MG/ML VIAL. IVP ONE ×2 (13:30)
--- NOTE | 2020-11-03 14:15 | RAD ---
XR CHEST 1V 11/03/2020 1:21 PM INDICATION: Altered mental status, falls COMPARISON: 09/03/2020 TECHNIQUE: Portable frontal view of the chest is provided. FINDINGS: The cardiomediastinal silhouette is within normal limits. Lungs are clear. There are no significant pleural effusions. There is no pulmonary vascular congestion. No pneumothora x. No suspicious osseous abnormality. IMPRESSION: There is no acute cardiopulmonary process. Electronically signed by: Shruthi Olivas MD (11/03/2020 2:12 PM) [id number]
--- NOTE | 2020-11-03 14:17 | RAD ---
EXAM: CT Head without IV contrast CLINICAL HISTORY: Reason: Altered mental status, confusion, combative / Spl. Instructions: / History : COMPARISON: None. TECHNIQUE: Routine CT of the head without contrast. PQRS compliance statement - One or more of the following individualized dose reduction techniques wer e utilized for this study: 1. Automated exposure control 2. Adjustment of the mA and/or kV according to patient size 3. Use of iterative reconstruction technique FINDINGS: There is no evidence of hemorrhage, mass or extra-axial fluid collection. Can-white differentiation is maintained with no evidence of edema. Subcortical, periventricular as w ell as deep white matter hypoattenuation likely changes of chronic small vessel disease. There is no mass effect or shift of the intracranial structures. The ventricles, basilar cisterns and cortical sulci are normal in size and configuration for the mariam ents stated age. The brainstem is unremarkable. Left cerebellar infarct. The calvarium demonstrates no evidence of fracture or focal lesion. There is normal aeration of the visualized paranasal sinuses and mastoid air cells. The visualized portions of the orbits are normal. Atherosclerotic calcifications of the intracranial internal carotid and vertebral arteries is seen. IMPRESSION: 1. No evidence for acute intracranial process. 2. White matter changes likely chronic small vessel disease. 3. Wedge-shaped left cerebellar low attenuation likely cerebellar infarct, possibly chronic. If ther e is clinical concern for superimposed acute infarct, MRI is recommended. Electronically signed by: Alessandro Tran MD (11/03/2020 2:15 PM) MELANIE
--- NOTE | 2020-11-03 14:23 | RAD ---
XR PELVIS 1-2V 11/03/2020 1:52 PM INDICATION: Fall, altered mental status COMPARISON: None available. TECHNIQUE: AP view the pelvis is provided. FINDINGS/ IMPRESSION: There is no acute fracture or dislocation. Joint spaces are maintained. Bone mineralization is within normal limits. Regional soft tissues are within normal limits. There is no soft tissue gas or osseou s erosion. No radiopaque foreign body. Vascular calcifications are present. Electronically signed by: Shruthi Olivas MD (11/03/2020 2:21 PM) [id number]
--- NOTE | 2020-11-03 15:26 | EKG ---
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
[2020-11-03 16:23] LABS: BASO % 1 % (0-3); EOS % 0 % (0-3); HEMATOCRIT 38.6 % (39.0-53.0); HEMOGLOBIN 12.4 g/dL (13.0-17.5); LYMPH # 0.7 x10^3/uL (1.0-4.8); LYMPH % 14 % (24-48); MEAN CORPUSCULAR HEMOGLOBIN 29 pg (25-35); MEAN CORPUSCULAR HGB CONC 32 g/dL (31-37); MEAN CORPUSCULAR VOLUME 90 fL (79-100); MONO # 0.4 x10^3/uL (0.0-1.1); MONO % 8 % (0-9); NEUT # 3.7 x10^3uL (1.8-7.7); NEUT % 77 % (31-73); PLATELET COUNT 217 x10^3/uL (140-400); RED BLOOD COUNT 4.29 x10^6/uL (4.30-5.70); RED CELL DISTRIBUTION WIDTH 15.6 % (11.5-14.5); WHITE BLOOD COUNT 4.8 x10^3/uL (4.0-11.0)
[2020-11-03 16:30] LABS: CALCIUM 8.3 mg/dL (8.5-10.1); GFR 20.6; POTASSIUM 4.7 mmol/L (3.5-5.1)
[2020-11-03 16:44] LABS: ALBUMIN 3.4 g/dL (3.4-5.0); ALBUMIN/GLOBULIN RATIO 1.1 (1.0-1.7); BARBITURATES NEG (NEG); BENZODIAZEPINES NEG (NEG); CANNABINOIDS NEG (NEG); COCAINE NEG (NEG); MAGNESIUM 2.6 mg/dL (1.8-2.4); METHADONE NEG (NEG); OPIATES NEG (NEG); PHENCYCLIDINE NEG (NEG); PHOSPHORUS 4.6 mg/dL (2.6-4.7); TOTAL BILIRUBIN 0.6 mg/dL (0.2-1.0); TOTAL PROTEIN 6.5 g/dL (6.4-8.2)
[2020-11-03 16:45] LABS: CLARITY,URINE CLEAR; COLOR,URINE YELLOW
[2020-11-03 16:46] LABS: BACTERIA,URINE 0 /HPF (0-FEW); BILIRUBIN,URINE NEG (NEG); GLUCOSE,URINE >=1000 mg/dL (NEG); NITRITE,URINE NEG (NEG); RBC,URINE 0 /HPF (0-2); UROBILINOGEN,URINE 0.2 mg/dL (0.2 mg/dL); WBC,URINE 0 /HPF (0-4)
[2020-11-03 16:47] LABS: AMPHETAMINE/METHAMPHETAMINE NEG (NEG)
[2020-11-03 16:48] LABS: ACETAMIN < 2.0 mcg/mL (10-30); SALIC < 2.8 mg/dL (2.8-20.0)
[2020-11-03] MEDS ORDERED: MIDAZOLAM HCL PF 5 MG/5 ML VIAL. IV ONE ×3 (17:30→19:45)
--- NOTE | 2020-11-03 17:57 | RAD ---
EXAM: CT Abdomen and Pelvis without IV contrast CLINICAL HISTORY: Reason: mir - obstruction?, abdomen distention, combative behavior . COMPARISON: none TECHNIQUE: Helical CT of the abdomen and pelvis without intravenous contrast. Axial, coronal and sagi ttal reformatted images were generated. PQRS compliance statement - One or more of the following individualized dose reduction techniques wer e utilized for this study: 1. Automated exposure control 2. Adjustment of the mA and/or kV according to patient size 3. Use of iterative reconstruction technique FINDINGS: Lack of intravenous contrast limits evaluation of solid organs, vasculature, and lymph nodes. Lower chest: Patchy opacities lower lobes and lingula likely atelectasis or developing consolidation. Coronary destini cifications are seen. Abdomen and Pelvis: No focal liver lesion. High density material dependently within the gallbladder likely sludge or smal l gallstones. No biliary duct dilatation. Pancreas is unremarkable. Spleen is normal in appearance. A drenal glands are unremarkable. No focal renal lesion. Right upper pole renal cyst is seen. Moderate hydronephrosis and hydroureter b ilaterally. The bladder is markedly distended. No renal tract calculus. Prostate measures 4.2 cm in t ransverse dimension. No small or large bowel dilatation to suggest bowel obstruction. Eccentric soft tissue nodularity is seen within the distal rectum No abdominal or pelvic lymphadenopathy. Aortic calcifications are seen. Inguinal hernias are seen bilaterally containing fat. Small fat-containing periumbilical hernia. Bones: Decreased bone mineral density. Multilevel degenerative changes of the spine are seen. No aggressive osseous lesion is seen. IMPRESSION: 1. Moderate hydronephrosis and hydroureter bilaterally. Marked distention of bladder. Consolation of findings suggests bladder outlet obstruction although other causes of altered or involuntary urinary retention should be considered.. 2. Patchy opacities lower lobes and lingula likely atelectasis or developing consolidation. 3. Eccentric soft tissue mass within the rectum measures approximately 1.6 cm, can be correlated wit h clinical examination and colonoscopy as clinically indicated. Electronically signed by: Alessandro Tran MD (11/03/2020 5:54 PM) MELANIE
[2020-11-03] MEDS: IV NORMAL SALINE 1,000ML 1,000 ML IV SCH (18:14)
--- NOTE | 2020-11-03 20:00 | NUR ---
The patient, ADONAY AUSTIN, 75 y/o, M admitted by JULIANA LOREDO MD, to room 124, was given written information regarding hospital policies, unit procedures and contact persons. No valuables brought with the patient. Pt fluids resumed. Telemetry applied to pt. He is agitated, yelling curse words and insults. Pt made comfortable, alarm set. Will continue to monitor.
[2020-11-03 20:16] VITALS: BP 116/69
[2020-11-03] MEDS ORDERED: FURO80TA3 PO (21:12)
[2020-11-03] MEDS ORDERED: CANA300T PO (21:12)
[2020-11-03] MEDS ORDERED: POTA20TA4 PO (21:12)
[2020-11-03] MEDS ORDERED: QUET100T4 PO (21:12)
[2020-11-03] MEDS ORDERED: TRAM50TA PO (21:12)
[2020-11-03] MEDS ORDERED: VALS40TA2 PO (21:12)
[2020-11-03] MEDS ORDERED: LORA2ORA2 PO (21:12)
[2020-11-03] MEDS ORDERED: ACET500T68 PO (21:12)
[2020-11-03] MEDS ORDERED: RISP0.5T24 PO (21:12)
[2020-11-03] MEDS ORDERED: TRAZ-120 PO (21:12)
[2020-11-03 22:27] VITALS: BP 119/65
[2020-11-04 05:45] VITALS: BP 135/94
--- NOTE | 2020-11-04 06:26 | NUR ---
Pt slept soundly through the night. Pt refuses to eat anything besides vanilla ice cream. He asks for only ice cream for breakfast. Pt awoke to toilet about 0500. He is stable with standby assist. Pt refused shower this night but agrees to take a shower after breakfast. When slab puller came to draw blood, pt screamed and jerked his arm away yelling insults, looking for a reaction "whomitch, nate, Get that nigger off me!" Orientation questions: "Do you know where you are Jagjit? [place]" "Do you know what day it is? Depends on what yesterday was." "Just leave me alone and let me sleep." Will continue to monitor.
--- NOTE | 2020-11-04 06:38 | NUR ---
Pt c/o "brain hurting when you talk" and foot pain when toileting. Picture taken of right great toe wound and long toe nails growing into toes.
[2020-11-04] MEDS: IV NORMAL SALINE 1,000ML 1,000 ML IV SCH (06:42)
[2020-11-04] MEDS ORDERED: HALOPERIDOL LACT 5 MG/ML VIAL. IVP ONE ×2 (06:54→08:45)
[2020-11-04] MEDS ORDERED: HALOPERIDOL LACT 5 MG/ML VIAL. IVP PRN ×2 (07:15→08:00)
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
[2020-11-04 11:02] LABS: CALCIUM 8.3 mg/dL (8.5-10.1); CREATININE 2.4 mg/dL (0.7-1.3); GFR 26.6; POTASSIUM 4.6 mmol/L (3.5-5.1)
[2020-11-04 11:10] VITALS: BP 145/81
[2020-11-04 14:56] VITALS: BP 156/88
[2020-11-04 20:12] VITALS: BP 145/92
[2020-11-04] MEDS ORDERED: OLANZapine IM 10 MG VIAL. IM ONE (20:45)
--- NOTE | 2020-11-04 22:00 | NUR ---
PT with increased agitation, calling out, tachypneic. Upon reassessment including palpation of abdomen, distention noted to bladder. PT bladder scanned. Greater than 999 mL noted. PRN for straight cath order noted. PT straight cathed with 1550 mL out. PT's brief had also been wet. PT cleaned, changed, repositioned. Oxygen applied 2L per NC. PT with improved work of breathing noted but still agitated. Will continue to monitor.
--- NOTE | 2020-11-04 22:18 | PDOC ---
Exam Note: Marcos Note: Please also refer to the separate dictated note~for this date of service dictated separately. Discussed the patient with Nursing staff reviewed the chart.~Reviewed interim history and current functioning. Reviewed vital signs,~Labs/ Radiology~and current medications noted below. Continue current treatment with the changes noted in the dictated addendum note Assessment: Vital Signs/I&O: Vital Signs Date Time Temp Pulse Resp B/P (MAP) Pulse Ox O2 Delivery O2 Flow Rate FiO2 11/04/20 20:12 96 32 145/92 (109) 11/04/20 20:06 Room Air 11/04/20 14:56 98.8 11/04/20 11:10 92 I & O 11/03/20 11/03/20 11/04/20 14:59 22:59 06:59 Intake Total 2360 ml 1660 ml Balance 2360 ml 1660 ml Labs: Laboratory Tests Test 11/04/20 07:24 11/04/20 10:47 11/04/20 16:19 11/04/20 20:05 Glucose (Fingerstick) 276 mg/dL (70-99) H 207 mg/dL (70-99) H 169 mg/dL (70-99) H Sodium Level 140 mmol/L (136-145) Potassium Level 4.6 mmol/L (3.5-5.1) Chloride Level 104 mmol/L (98-107) Carbon Dioxide Level 26 mmol/L (21-32) Anion Gap 10 (6-14) Blood Urea Nitrogen 44 mg/dL (8-26) H Creatinine 2.4 mg/dL (0.7-1.3) H Estimated GFR (Cockcroft-Gault) 26.6 Glucose Level 268 mg/dL (70-99) H Calcium Level 8.3 mg/dL (8.5-10.1) L Current Medications: Meds: Current Medications Medications (Trade) Dose Ordered Sig/Connie Route PRN Reason Start Time Stop Time Status Last Admin Dose Admin Haloperidol Lactate (Haldol) 5 mg 1X ONCE IVP 11/04/20 06:54 11/04/20 06:58 DC 11/04/20 06:59 Haloperidol Lactate (Haldol) 5 mg PRN 1X PRN IVP agitation 11/04/20 07:15 11/04/20 07:43 DC 11/04/20 07:10 Haloperidol Lactate (Haldol) 5 mg PRN Q6HRS PRN IVP AGITATION 11/04/20 08:00 11/04/20 20:48 DC 11/04/20 08:09 Haloperidol Lactate (Haldol) 5 mg 1X ONCE IVP 11/04/20 08:45 11/04/20 08:46 DC 11/04/20 08:45 Lorazepam (Ativan Inj) 1 mg PRN Q1HR PRN IVP ANXIETY / AGITATION 11/04/20 08:45 11/04/20 15:12 DC 11/04/20 14:52 Lorazepam (Ativan Inj) 2 mg PRN Q1HR PRN IVP ANXIETY / AGITATION 11/04/20 15:15 11/04/20 18:23 I have reviewed the current psychotropics carefully including drug interactions. Risk benefit ratio favors no change other than as noted in my dictated progress note. Diagnosis: Problems: (1) Major neurocognitive disorder (2) Dementia in Alzheimer's disease with delirium (3) Dementia in Alzheimer's disease with delusions (4) Dementia in Alzheimer's disease with early onset with behavioral disturbance (5) Dementia, vascular, with delusions (6) Dementia, vascular, with depression MARIA DE JESUS LEMON MD Nov 04, 2020 22:18
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
--- NOTE | 2020-11-05 05:54 | NUR ---
PT noted incontinent but with bladder distention again. Bladder scanned. Over 900 noted. Straight cath performed. PT very resistive to any cares/procedures. Urine noted to be keyanna colored at this time.
--- NOTE | 2020-11-05 05:58 | NUR ---
Telephoned [facility] and spoke with nurse who takes care of PT on academic intern. Per nurse, PT had a fall on 11/02 at 1745 with no injury noted. PT is also supposed to use a walker but does not. PT is normally incontinent. When asked about if they bladder scan or straight cath the PT, nurse stated they do not do either at the facility. As for lack of nail care, nurse stated they cannot have a combatant diver officer at the facility at this time due to "stuff in the air from doing the nails". Nurse stated his normal orientation is only to self but is always verbally and physically aggressive to staff as well as confused and forgetful.
[2020-11-05 06:07] LABS: CREATININE 2.2 mg/dL (0.7-1.3); GFR 29.4; POTASSIUM 4.5 mmol/L (3.5-5.1)
[2020-11-05 06:09] VITALS: BP 168/77
[2020-11-05 06:18] LABS: CALCIUM 8.2 mg/dL (8.5-10.1)
[2020-11-05] MEDS ORDERED: ACETAMINOPHEN 650 MG SUPP.RECT. PR PRN (06:45)
[2020-11-05] MEDS: IV DEXTROSE 5% 1,000 ML IV SCH ×2 (07:15→21:33)
--- NOTE | 2020-11-05 07:23 | NUR ---
Pt straight cathed twice throughout night with large amounts out each time. Night RN stated that catheterization was getting harder each time and pt continued to retain Flores inserted at 07:00 with 450ml out of bloody urine initially.
[2020-11-05 09:26] VITALS: BP 113/75
--- NOTE | 2020-11-05 10:06 | RAD ---
EXAM: Chest, single view. HISTORY: Increased oxygen demand. COMPARISON: 11/03/2020. FINDINGS: A frontal view of the chest is obtained. There is a suspected trace left pleural effusion w ith bilateral basilar atelectasis or interstitial infiltrate. The superimposed on stable diffuse inte rstitial prominence. There is no pneumothorax. The heart is normal in size. IMPRESSION: Suspected trace left pleural effusion with bilateral basilar atelectasis or interstitial infiltrate. Electronically signed by: Mandy Marcial MD (11/05/2020 10:04 AM) [id number]
--- NOTE | 2020-11-05 10:54 | NUR ---
Pt physically and verbally aggressive attempting to punch and grab staff with mitts applied. Repeatedly calls staff "dirty whores" and " crazy bitch".
[2020-11-05] MEDS ORDERED: DEXTROSE 50% 25 GM / 50ML DISP.SYRIN. IV PRN (13:00)
[2020-11-05] MEDS: INSULIN LISPRO 300 UNITS/3 ML VIAL. SQ SCH ×2 (14:05→18:10)
[2020-11-05 14:09] VITALS: BP 116/75
--- NOTE | 2020-11-05 16:10 | NUR ---
NSG NOTE; ADVERSE BEHAVIORS PT YELLING OUT HELP AND CALLING STAFF "DIRTY WHORES". SWINGING TRYING TO HIT STAFF. KICKING. REFUSING CARES. ATIVAN GIVEN
[2020-11-05 18:56] VITALS: BP 117/74
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
[2020-11-05 22:27] VITALS: BP 108/71
[2020-11-06 05:14] VITALS: BP 109/69
[2020-11-06 06:03] LABS: CALCIUM 8.4 mg/dL (8.5-10.1); GFR 32.8; POTASSIUM 4.2 mmol/L (3.5-5.1)
[2020-11-06] MEDS: INSULIN LISPRO 300 UNITS/3 ML VIAL. SQ SCH ×3 (08:19→16:45)
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
--- NOTE | 2020-11-06 09:45 | NUR ---
Pt attempting to crawl out of bed and wrapping leg around Flores. Pt calling care providers "you dirty Whore".
--- NOTE | 2020-11-06 09:59 | NUR ---
Pt hitting side rales of bed and telling care providers "come here you whore" and " take these off your Whore" referring to his mitts
[2020-11-06 10:02] VITALS: BP 124/84
[2020-11-06] MEDS: IV DEXTROSE 5% 1,000 ML IV SCH ×2 (10:09→23:45)
--- NOTE | 2020-11-06 10:42 | NUR ---
Pt calling nurses "bitches" and "dirty whores". Pt pulling at IV with gloves on. Pt hitting and kicking at staff.
[2020-11-06 15:02] VITALS: BP 121/75
--- NOTE | 2020-11-06 15:47 | NUR ---
Pt awake and stated "I'm so sorry ,I'm so sorry you are good people" Pt appears calm at this time will continue to monitor
--- NOTE | 2020-11-06 16:50 | NUR ---
Pt calm and cooperative and awake with One mitt removed, and alert to person and place. will continue to monitor.
[2020-11-06 19:16] VITALS: BP 121/80
--- NOTE | 2020-11-06 21:34 | NUR ---
At start of shift, PT's urine was straw-colored and clear. Currently, urine output is keyanna, bloody with clots noted. Flores still in position draining. PT is not complaining of pain. PT is talking to staff appropriately. PT given appropriate snacks, tolerated well.
[2020-11-06 22:21] VITALS: BP 132/76
[2020-11-07 05:43] VITALS: BP 118/74
[2020-11-07] MEDS: INSULIN LISPRO 300 UNITS/3 ML VIAL. SQ SCH ×3 (08:47→17:18)
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
[2020-11-07] MEDS: LACTOBACILLUS RHAMNOSUS GG 1 CAPSULE. PO SCH ×2 (09:00→20:11)
[2020-11-07 10:04] VITALS: BP 115/74
[2020-11-07] MEDS: IV DEXTROSE 5% 1,000 ML IV SCH ×2 (12:35→20:11)
[2020-11-07 13:30] VITALS: BP 118/75
[2020-11-07 15:56] LABS: CALCIUM 8.2 mg/dL (8.5-10.1); CREATININE 1.7 mg/dL (0.7-1.3); GFR 39.6; POTASSIUM 3.8 mmol/L (3.5-5.1)
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
[2020-11-07 19:38] VITALS: BP 133/72
[2020-11-07 22:05] VITALS: BP 121/77
--- NOTE | 2020-11-08 01:56 | NUR ---
Pt dozing intermittently at beginning of shift; when awake, pt mood labile. Pt began to become restless, requesting mitts removed, attempting to get out of bed. When reoriented to reasoning for mitts and location, pt verbally aggressive to this RN. Pt also repeated "Go away" and pushing against this RN with hands. PRN Ativan given; when no/minimal improvement, prn zyprexa given. Pt currently sleeping.
[2020-11-08 05:12] VITALS: BP 134/93
[2020-11-08] MEDS: IV DEXTROSE 5% 1,000 ML IV SCH (06:41)
[2020-11-08 07:23] LABS: HEMATOCRIT 38.1 % (39.0-53.0); HEMOGLOBIN 12.4 g/dL (13.0-17.5); RED BLOOD COUNT 4.3 x10^6/uL (4.30-5.70); RED CELL DISTRIBUTION WIDTH 14.5 % (11.5-14.5); WHITE BLOOD COUNT 8.4 x10^3/uL (4.0-11.0)
[2020-11-08 07:36] LABS: ALBUMIN 2.9 g/dL (3.4-5.0); ALBUMIN/GLOBULIN RATIO 0.8 (1.0-1.7); CALCIUM 8.3 mg/dL (8.5-10.1); CREATININE 1.6 mg/dL (0.7-1.3); GFR 42.5; POTASSIUM 3.8 mmol/L (3.5-5.1); TOTAL BILIRUBIN 0.4 mg/dL (0.2-1.0); TOTAL PROTEIN 6.5 g/dL (6.4-8.2)
[2020-11-08] MEDS: LACTOBACILLUS RHAMNOSUS GG 1 CAPSULE. PO SCH ×2 (07:38→20:30)
[2020-11-08] MEDS: INSULIN LISPRO 300 UNITS/3 ML VIAL. SQ SCH ×3 (07:48→16:34)
[2020-11-08 10:28] VITALS: BP 124/74
[2020-11-08 15:31] VITALS: BP 120/76
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
[2020-11-08 20:02] VITALS: BP 121/81
[2020-11-08] MEDS: LORazepam 0.5 MG TABLET PO SCH (20:30)
[2020-11-08] MEDS: POTASSIUM CHLORIDE 20 MEQ TABLET.ER. PO SCH (20:30)
[2020-11-08] MEDS: risperiDONE 0.25 MG TABLET. PO SCH (20:30)
[2020-11-08] MEDS: QUEtiapine 100 MG TABLET. PO SCH (20:30)
[2020-11-08] MEDS: traZODone 50 MG TABLET. PO SCH (20:30)
--- NOTE | 2020-11-09 03:42 | NUR ---
PT RESTING QUIETLY IN BED WHEN APPROACHED FOR ASSESSMENT. HS MEDS WHERE CRUSHED AND MIXED IN VANILLA PUDDING. PT TOLERATED HS MEDS WELL. PT HAS BEEN SLEEPING ALL THROUGHOUT THE NIGHT W/O BEHAVIORS.
[2020-11-09 04:53] VITALS: BP 105/66
[2020-11-09 06:32] LABS: HEMATOCRIT 37.7 % (39.0-53.0); HEMOGLOBIN 12.4 g/dL (13.0-17.5); RED BLOOD COUNT 4.24 x10^6/uL (4.30-5.70); RED CELL DISTRIBUTION WIDTH 14.3 % (11.5-14.5); WHITE BLOOD COUNT 7.2 x10^3/uL (4.0-11.0)
[2020-11-09 06:54] LABS: ALBUMIN 2.7 g/dL (3.4-5.0); ALBUMIN/GLOBULIN RATIO 0.8 (1.0-1.7); CALCIUM 8.3 mg/dL (8.5-10.1); CREATININE 1.5 mg/dL (0.7-1.3); GFR 45.7; POTASSIUM 4.1 mmol/L (3.5-5.1); TOTAL BILIRUBIN 0.4 mg/dL (0.2-1.0)
[2020-11-09] MEDS: INSULIN LISPRO 300 UNITS/3 ML VIAL. SQ SCH ×3 (08:30→17:22)
[2020-11-09] MEDS: risperiDONE 0.25 MG TABLET. PO SCH ×2 (08:55→19:42)
[2020-11-09] MEDS: LORazepam 0.5 MG TABLET PO SCH ×2 (08:55→19:41)
[2020-11-09] MEDS: LACTOBACILLUS RHAMNOSUS GG 1 CAPSULE. PO SCH ×2 (08:55→19:41)
[2020-11-09] MEDS: POTASSIUM CHLORIDE 20 MEQ TABLET.ER. PO SCH ×2 (08:55→19:41)
[2020-11-09 14:46] VITALS: BP 119/85
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
[2020-11-09] MEDS: QUEtiapine 100 MG TABLET. PO SCH (19:41)
[2020-11-09] MEDS: TAMSULOSIN 0.4 MG CAP.ER.24H. PO SCH (19:41)
[2020-11-09] MEDS: traZODone 50 MG TABLET. PO SCH (19:41)
[2020-11-09 19:47] VITALS: BP 126/84
[2020-11-10] MEDS: FINASTERIDE 5 MG TABLET. PO SCH (08:16)
[2020-11-10] MEDS: LORazepam 0.5 MG TABLET PO SCH ×2 (08:16→20:05)
[2020-11-10] MEDS: LACTOBACILLUS RHAMNOSUS GG 1 CAPSULE. PO SCH ×2 (08:16→20:05)
[2020-11-10] MEDS: risperiDONE 0.25 MG TABLET. PO SCH ×2 (08:17→20:05)
[2020-11-10] MEDS: traMADol 50 MG TABLET PO PRN (08:17)
[2020-11-10] MEDS: POTASSIUM CHLORIDE 20 MEQ TABLET.ER. PO SCH ×2 (08:18→20:05)
[2020-11-10] MEDS: INSULIN LISPRO 300 UNITS/3 ML VIAL. SQ SCH ×3 (08:26→17:25)
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
[2020-11-10 16:29] VITALS: BP 115/77
[2020-11-10 17:55] LABS: CALCIUM 8.7 mg/dL (8.5-10.1); CREATININE 1.5 mg/dL (0.7-1.3); GFR 45.7; POTASSIUM 4.6 mmol/L (3.5-5.1)
[2020-11-10] MEDS: traZODone 50 MG TABLET. PO SCH (20:05)
[2020-11-10] MEDS: QUEtiapine 100 MG TABLET. PO SCH (20:05)
[2020-11-10] MEDS: TAMSULOSIN 0.4 MG CAP.ER.24H. PO SCH (20:05)
--- NOTE | 2020-11-11 05:27 | NUR ---
Pt in bed yelling, when asked what was wrong pt demand to get up to pee. Attempted to reeducated on his crowell, and pt repositioned. Pt continues to call out for help, attempted to administer PRN zyprexa. Pt spit medication out at staff, stating, "You are just a bunch of whores". PRN ativan given as ordered. Bed alarm in place.
[2020-11-11 06:10] VITALS: BP 102/62
[2020-11-11] MEDS: INSULIN LISPRO 300 UNITS/3 ML VIAL. SQ SCH ×3 (08:00→16:58)
[2020-11-11] MEDS: FINASTERIDE 5 MG TABLET. PO SCH (08:29)
[2020-11-11] MEDS: risperiDONE 0.25 MG TABLET. PO SCH ×2 (08:29→19:53)
[2020-11-11] MEDS: POTASSIUM CHLORIDE 20 MEQ TABLET.ER. PO SCH ×2 (08:29→19:55)
[2020-11-11] MEDS: LORazepam 0.5 MG TABLET PO SCH ×2 (08:29→19:54)
[2020-11-11] MEDS: LACTOBACILLUS RHAMNOSUS GG 1 CAPSULE. PO SCH ×2 (08:29→19:54)
--- NOTE | 2020-11-11 08:36 | RAD ---
EXAM: Chest, single view. HISTORY: Shortness of breath. COMPARISON: 11/05/2020 FINDINGS: A frontal view of the chest is obtained. There is a suspected stable trace left pleural eff usion and left basilar atelectasis or interstitial infiltrate. There is a stable cardiac silhouette. There is no pneumothorax. IMPRESSION: Suspected trace left pleural effusion and left basilar atelectasis or interstitial infilt rate. Electronically signed by: Mandy Marcial MD (11/11/2020 8:34 AM) [id number]
[2020-11-11 09:11] LABS: ALBUMIN 3.1 g/dL (3.4-5.0); ALBUMIN/GLOBULIN RATIO 0.8 (1.0-1.7); CALCIUM 8.7 mg/dL (8.5-10.1); CREATININE 1.7 mg/dL (0.7-1.3); GFR 39.6; POTASSIUM 5.4 mmol/L (3.5-5.1); TOTAL BILIRUBIN 0.4 mg/dL (0.2-1.0); TOTAL PROTEIN 6.8 g/dL (6.4-8.2)
[2020-11-11 09:20] LABS: BASO # 0.1 x10^3/uL (0.0-0.2); BASO % 1 % (0-3); EOS # 0.2 x10^3/uL (0.0-0.7); EOS % 2 % (0-3); HEMATOCRIT 39.7 % (39.0-53.0); HEMOGLOBIN 12.8 g/dL (13.0-17.5); LYMPH # 1.4 x10^3/uL (1.0-4.8); LYMPH % 14 % (24-48); MEAN CORPUSCULAR HEMOGLOBIN 29 pg (25-35); MEAN CORPUSCULAR HGB CONC 32 g/dL (31-37); MEAN CORPUSCULAR VOLUME 89 fL (79-100); MONO # 0.7 x10^3/uL (0.0-1.1); MONO % 7 % (0-9); NEUT # 7.2 x10^3uL (1.8-7.7); NEUT % 76 % (31-73); PLATELET COUNT 319 x10^3/uL (140-400); RED BLOOD COUNT 4.45 x10^6/uL (4.30-5.70); RED CELL DISTRIBUTION WIDTH 14.6 % (11.5-14.5); WHITE BLOOD COUNT 9.5 x10^3/uL (4.0-11.0)
[2020-11-11 09:37] VITALS: BP 118/76
[2020-11-11 13:02] LABS: % ATYL 4 % (0-0); % BANDS 4 % (0-9); % EOS 1 % (0-5); % LYMPHS 19 % (24-48); % MONOS 6 % (0-10); % MYELOS 5 % (0-0); % SEGS 61 % (35-66)
[2020-11-11 14:26] LABS: PLATELET CLUMP PRESENT; PLT ESTIMATE ADEQUATE (ADEQUATE)
--- NOTE | 2020-11-11 16:02 | RAD ---
EXAM: Bilateral lower extremity venous Doppler. HISTORY: Bilateral lower extremity pain/swelling. Hypoxia, tachycardia. COMPARISON: None. FINDINGS: Grayscale and Doppler analysis of the both lower extremity deep venous systems was performe d with graded compression and augmentation. The common femoral, greater saphenous, superficial femora l, popliteal and calf veins were assessed. There is deep venous thrombosis within a left posterior tibial vein. There is no deep venous thrombos is on the right. IMPRESSION: 1. Deep venous thrombosis within the left posterior tibial vein. These findings were called to Dr. Mercedes by Gonzalo Burrell on 11/11/2020 at 3:58 PM. FOR INTERNAL CODING PURPOSES RESULT CODE: (C) Electronically signed by: Peggy Burrell MD (11/11/2020 4:00 PM) [facility]
[2020-11-11] MEDS: PIPERACILLIN/TAZOBACTAM 2.25 GM in IV NORMAL SALINE 50ML 50 ML IV SCH (16:51)
[2020-11-11] MEDS ORDERED: VANCOMYCIN 2 GM in IV NORMAL SALINE 500ML 500 ML IV ONE (17:00)
[2020-11-11] MEDS: VANCOMYCIN PER PHARMACY MC PRN (17:45)
--- NOTE | 2020-11-11 17:46 | NUR ---
Pharmacy Vancomycin Dosing Note S:Consulted to monitor and dose vancomycin started 11/11/20. O:ADONAY AUSTIN is a 75 year old M with Pneumonia, . Height: 6 feet, 0 inches Weight: 104.0 kg [place] Body Weight: 98.30 Adjusted Body Weight: 100.58 Dosing Weight: Actual Other Antibiotics: ZOSYN 2.25GM IV Q8HR LABS: Last BUN: 22 Last Creatinine: 1.7 Creatinine Clearance: 47.54 Last WBC: 9.5 Vancomycin Dosing: Loading Dose: 2000 mg x1 Dosing Weight: Actual Target Trough: 15-20 A: Based on: Actual weight, renal function, and indication P: 1. Begin Vancomycin 1500 mg IV q24h 2. Follow up Trough level on 11/13/20 at 1730 3. Pharmacy will continue to monitor, follow and adjust therapy as needed. ALEXI PATTERSON, 11/11/20 [id number]
[2020-11-11] MEDS: TAMSULOSIN 0.4 MG CAP.ER.24H. PO SCH (19:53)
[2020-11-11] MEDS: ENOXAPARIN ** NOTE DOSE ** SYRINGE SQ SCH (19:54)
[2020-11-11] MEDS: traZODone 50 MG TABLET. PO SCH (19:54)
[2020-11-11] MEDS: QUEtiapine 100 MG TABLET. PO SCH (19:54)
--- NOTE | 2020-11-11 20:00 | NUR ---
lab called non critical troponin values. Labs are trending down. Will continue with same plan of care.
[2020-11-11 20:05] VITALS: BP 129/88
--- NOTE | 2020-11-11 23:26 | PN ---
DATE: 11/11/2020 SUBJECTIVE: The patient was noted by the nursing staff to be hypoxic, tachycardic. A chest x-ray was done, which showed suspected trace left pleural effusion, left basilar atelectasis or interstitial infiltrate. His D-dimer was found to be high at 7.87. His chemistry showed slightly elevated potassium and his troponin was slightly elevated and also his lactic acid went up to 2.9. Given the clinical presentation and the x-ray finding, pulmonary embolism is highly likely, so I did start him on Lovenox and also arrange for him to have venous Doppler ultrasound of both lower extremities and started him also on Zosyn and vancomycin to cover possibility of aspiration pneumonia as he is also a high risk aspiration. PHYSICAL EXAMINATION: GENERAL: When I saw him this afternoon, he was clearly tachypneic, tachycardic, pale, but no jaundice, cyanosis or thyromegaly. No jugular venous distention or limb edema. VITAL SIGNS: His heart rate was 123, blood pressure was 118/76, temperature was 98.2, respiratory rate was 34 and oxygen saturation was 92% on 4 liters of oxygen. HEAD, EYES, EARS, NOSE AND THROAT: Showed normocephalic, atraumatic. NECK: Supple. HEART: Showed normal first and second heart sounds. No gallop or murmur. CHEST: Shows central trachea, equal bilateral expansion, air entry, vesicular sounds. I could not appreciate any crepitation or rhonchi. However, the patient is clearly tachypneic. ABDOMEN: Distended, soft, nontender. NEUROLOGIC: He was awake, alert, responding appropriately at times, although he continued to be sometimes very combative, aggressive, calling names; however, grossly all the cranial nerves are intact. He moves extremities without difficulty. LABORATORY DATA: His lab work this morning showed a white cell count 9400, hemoglobin 12.8, hematocrit 39, MCV 89, platelet count 319,000. His D-dimer was 7.87. His chemistry showed a serum sodium 141, potassium 5.4, chloride 108, bicarbonate 24, anion gap of 9, BUN 22, creatinine 1.7, estimated GFR was 39 mL per minute. His glucose was 383, calcium was 8.7. Total bilirubin, AST, ALT, alkaline phosphatase were normal. First set of cardiac enzymes showed troponin to be 0.092. Total protein 6.8, albumin was 3.1. ASSESSMENT: 1. Acute hypoxic respiratory failure, likely due to: A. Pulmonary embolism. B. Aspiration pneumonia. 2. Other medical problems include type 2 diabetes mellitus, acute on chronic kidney injury. His creatinine has risen up from 1.5-1.7. He has lactic acidosis. PLAN: My plan is to start him on Lovenox 100 mg subcutaneously twice a day. I added also Zosyn and vancomycin. We will do stat venous Doppler ultrasound. Continue with oxygen supplementation and monitor him closely. PATSY OSULLIVAN MD DR: JAN/christine JOB#: [id number] / [id number]
[2020-11-12] MEDS: PIPERACILLIN/TAZOBACTAM 2.25 GM in IV NORMAL SALINE 50ML 50 ML IV SCH ×3 (00:30→16:40)
--- NOTE | 2020-11-12 04:31 | NUR ---
Pt was agitated at the beginning shift telling nurses to "get out of here". Pt is on 5L NC sating 92%. Pt will remove NC and not allow staff to replace it. Pt did take his HS meds crushed in vanilla pudding. Has slept all night. Will continue to monitor.
[2020-11-12 06:37] LABS: HEMOGLOBIN 12.6 g/dL (13.0-17.5); RED BLOOD COUNT 4.37 x10^6/uL (4.30-5.70); WHITE BLOOD COUNT 8.5 x10^3/uL (4.0-11.0)
[2020-11-12 06:52] LABS: ALBUMIN 2.9 g/dL (3.4-5.0); ALBUMIN/GLOBULIN RATIO 0.9 (1.0-1.7); CALCIUM 8.5 mg/dL (8.5-10.1); CREATININE 1.6 mg/dL (0.7-1.3); GFR 42.5; POTASSIUM 4.8 mmol/L (3.5-5.1); TOTAL BILIRUBIN 0.5 mg/dL (0.2-1.0); TOTAL PROTEIN 6.3 g/dL (6.4-8.2)
[2020-11-12] MEDS: LORazepam 0.5 MG TABLET PO SCH ×2 (07:35→20:40)
[2020-11-12] MEDS: POTASSIUM CHLORIDE 20 MEQ TABLET.ER. PO SCH ×2 (07:38→20:40)
[2020-11-12] MEDS: risperiDONE 0.25 MG TABLET. PO SCH ×2 (07:38→20:40)
[2020-11-12] MEDS: FINASTERIDE 5 MG TABLET. PO SCH (07:38)
[2020-11-12] MEDS: LACTOBACILLUS RHAMNOSUS GG 1 CAPSULE. PO SCH ×2 (07:38→20:40)
[2020-11-12] MEDS: ENOXAPARIN ** NOTE DOSE ** SYRINGE SQ SCH ×2 (07:55→20:41)
[2020-11-12] MEDS: INSULIN LISPRO 300 UNITS/3 ML VIAL. SQ SCH ×3 (08:04→17:00)
--- NOTE | 2020-11-12 09:08 | PDOC2 ---
JOSE DUBOIS [facility] 11/12/20 0908: CARDIAC CONSULT DATE OF CONSULT DOS: DATE: 11/12/20 TIME: 08:59 REASON FOR CONSULT Reason for Consult Elevated troponin REFERRING PHYSICIAN Referring Physician Dr. Leroy SOURCE Source: Chart review, Patient HPI History of Present Illness This is a 75 yo male who presented from [facility] secondary to altered mental status and increased agitation. Troponin was noted to be mildly elevated, which prompted this consult. He presently denies any chest pain, shortness of breath, dizziness, diaphoresis, or nausea/vomiting. Is oriented to self only and unable to provide any additional history. PAST MEDICAL HISTORY CENTRAL NERVOUS SYSTEM: Dementia Renal/: Chronic renal insuff Endocrine: Diabetes PAST SURGICAL HISTORY Past Surgical History: No pertinent history FAMILY HISTORY Family History: Family History Unknown SOCIAL HISTORY ALCOHOL: none Drugs: None Lives: Prison CURRENT MEDICATIONS Current Medications Current Medications Sodium Chloride 1,000 ml @ 1,000 mls/hr 1X ONCE IV Last administered on 11/03/20at 13:45; Start 11/03/20 at 13:15; Stop 11/03/20 at 14:14; Status DC Haloperidol Lactate (Haldol) 5 mg 1X ONCE IVP Last administered on 11/03/20at 13:32; Start 11/03/20 at 13:30; Stop 11/03/20 at 13:31; Status DC Haloperidol Lactate (Haldol) 5 mg 1X ONCE IVP Last administered on 11/03/20at 13:37; Start 11/03/20 at 13:30; Stop 11/03/20 at 13:31; Status DC Sodium Chloride 1,000 ml @ 1,000 mls/hr 1X ONCE IV Last administered on 11/03/20at 16:48; Start 11/03/20 at 16:45; Stop 11/03/20 at 17:44; Status DC Midazolam HCl (Versed) 2 mg 1X ONCE IV Last administered on 11/03/20at 17:22; Start 11/03/20 at 17:30; Stop 11/03/20 at 17:31; Status DC Midazolam HCl (Versed) 2 mg 1X ONCE IV ; Start 11/03/20 at 17:30; Stop 11/03/20 at 17:31; Status DC Sodium Chloride 1,000 ml @ 75 mls/hr [id number] IV Last administered on 11/04/20at 06:42; Start 11/03/20 at 18:00; Stop 11/04/20 at 17:59; Status DC Midazolam HCl (Versed) 3 mg 1X ONCE IV Last administered on 11/03/20at 20:15; Start 11/03/20 at 19:45; Stop 11/03/20 at 19:46; Status DC Lorazepam (Ativan Inj) 0.5 mg PRN Q2HR PRN IVP ANXIETY / AGITATION Last administered on 11/04/20at 06:56; Start 11/03/20 at 21:30; Stop 11/04/20 at 08:44; Status DC Haloperidol Lactate (Haldol) 5 mg 1X ONCE IVP Last administered on 11/04/20at 06:59; Start 11/04/20 at 06:54; Stop 11/04/20 at 06:58; Status DC Haloperidol Lactate (Haldol) 5 mg PRN 1X PRN IVP agitation Last administered on 11/04/20at 07:10; Start 11/04/20 at 07:15; Stop 11/04/20 at 07:43; Status DC Haloperidol Lactate (Haldol) 5 mg PRN Q6HRS PRN IVP AGITATION Last administered on 11/04/20at 08:09; Start 11/04/20 at 08:00; Stop 11/04/20 at 20:48; Status DC Haloperidol Lactate (Haldol) 5 mg 1X ONCE IVP Last administered on 11/04/20at 08:45; Start 11/04/20 at 08:45; Stop 11/04/20 at 08:46; Status DC Lorazepam (Ativan Inj) 1 mg PRN Q1HR PRN IVP ANXIETY / AGITATION Last administered on 11/04/20at 14:52; Start 11/04/20 at 08:45; Stop 11/04/20 at 15:12; Status DC Lorazepam (Ativan Inj) 2 mg PRN Q1HR PRN IVP ANXIETY / AGITATION Last administered on 11/11/20at 15:19; Start 11/04/20 at 15:15 Olanzapine (ZyPREXA IM) 5 mg PRN 1X ONCE IM Last administered on 11/05/20at 00:43; Start 11/04/20 at 20:45; Stop 11/04/20 at 20:53; Status DC Olanzapine (ZyPREXA ZYDIS) 2.5 mg PRN Q2HRS PRN PO PSYCHOSIS Last administered on 11/11/20at 19:53; Start 11/04/20 at 20:45 Dextrose 1,000 ml @ 75 mls/hr [id number] IV Last administered on 11/08/20at 06:41; Start 11/05/20 at 07:15; Stop 11/08/20 at 15:07; Status DC Acetaminophen (Tylenol Supp) 650 mg PRN Q6HRS PRN [place] MILD PAIN / TEMP > 100.3'F Last administered on 11/05/20at 07:15; Start 11/05/20 at 06:45 Ceftriaxone Sodium 1 gm/ Sodium Chloride 50 ml @ 100 mls/hr Q24H IV Last administered on 11/08/20at 07:38; Start 11/05/20 at 08:00; Stop 11/08/20 at 15:07; Status DC Insulin Human Lispro (HumaLOG) 0-9 UNITS TIDWMEALS SQ Last administered on 11/12/20at 08:04; Start 11/05/20 at 13:45 Dextrose (Dextrose 50%-Water Syringe) 12.5 gm PRN Q15MIN PRN IV SEE COMMENTS; Start 11/05/20 at 13:00 Lactobacillus Rhamnosus (Culturelle) 1 cap BID PO Last administered on 11/12/20at 07:38; Start 11/07/20 at 09:00 Acetaminophen (Tylenol) 500 mg PRN Q6HRS PRN PO mild pain or fever; Start 11/08/20 at 14:45 Lorazepam (Ativan) 0.25 mg BID PO Last administered on 11/12/20at 07:35; Start 11/08/20 at 21:00 Potassium Chloride (Klor-Con) 20 meq BID PO Last administered on 11/12/20 07:38; Start 11/08/20 at 21:00 Quetiapine Fumarate (SEROquel) 100 mg QHS PO Last administered on 11/11/20at 19:54; Start 11/08/20 at 21:00 Risperidone (RisperDAL) 0.25 mg BID PO Last administered on 11/12/20at 07:38; Start 11/08/20 at 21:00 Tramadol HCl (Ultram) 50 mg PRN Q6HRS PRN PO MODERATE PAIN 4-6 Last administered on 11/10/20at 08:17; Start 11/08/20 at 14:45 Trazodone HCl (Desyrel) 50 mg QHS PO Last administered on 11/11/20at 19:54; Start 11/08/20 at 21:00 Tamsulosin HCl (Flomax) 0.8 mg QHS PO Last administered on 11/11/20at 19:53; Start 11/09/20 at 21:00 Finasteride (Proscar) 5 mg DAILY PO Last administered on 11/12/20at 07:38; Start 11/10/20 at 09:00 Piperacillin Sod/ Tazobactam Sod 2.25 gm/Sodium Chloride 50 ml @ 100 mls/hr Q8H IV Last administered on 11/12/20at 07:55; Start 11/11/20 at 16:00 Vancomycin HCl (Vanco Per Pharmacy) 1 each PRN DAILY PRN MC SEE COMMENTS Last administered on 11/11/20at 17:45; Start 11/11/20 at 14:45 Enoxaparin Sodium (Lovenox 100mg Syringe) 100 mg Q12HR SQ Last administered on 11/12/20at 07:55; Start 11/11/20 at 21:00 Vancomycin HCl 2 gm/Sodium Chloride 500 ml @ 250 mls/hr 1X ONCE IV Last administered on 11/11/20at 17:41; Start 11/11/20 at 17:00; Stop 11/11/20 at 18:59; Status DC Vancomycin HCl (Vancomycin Trough Level) 1 each 1X ONCE MC ; Start 11/13/20 at 17:30; Stop 11/13/20 at 17:31 Vancomycin HCl 1.5 gm/Sodium Chloride 500 ml @ 250 mls/hr Q24H IV ; Start 11/12/20 at 18:00 Active Scripts Active Reported Trazodone Hcl 50 Mg Tablet 1 Tab PO QHS Tramadol Hcl (Tramadol HCl) 50 Mg Tablet 50 Mg PO PRN Q6HRS PRN Seroquel (Quetiapine Fumarate) 100 Mg Tablet 1 Tab PO QHS Risperdal (Risperidone) 0.5 Mg Tablet 0.5 Tab PO BID 30 Days Klor-Con M20 (Potassium Chloride) 20 Meq Tab.er.prt 20 Meq PO BID Lorazepam 2 Mg/1 Ml Oral.conc 0.25 Mg PO BID Invokana (Canagliflozin) 300 Mg Tablet 1 Tab PO DAILY 30 Days Furosemide 80 Mg Tablet 1 Tab PO BID Diovan (Valsartan) 40 Mg Tablet 1 Tab PO DAILY Acetaminophen 500 Mg Tablet 1 Tab PO PRN Q6HRS PRN 15 Days No Known Medications Prior To Admisstion (Info) Each 1 Each MC ALLERGIES Allergies: Coded Allergies: No Known Drug Allergies (Unverified , 09/03/20) ROS Review of Systems 14 point ROS conducted with pertinent positives noted above in HPI, although limited due to dementia PHYSICAL EXAM General: Alert, No acute distress, Other (oriented to self only ) Lungs: Other (diminished bases, tachypneic ) Heart: Regular rate Abdomen: Soft Extremities: Other (trace bilateral LE edema ) Neuro: Normal speech, Sensation intact Psych/Mental Status: Other (flat affect, agitated intermittently ) MUSCULOSKELETAL: Osteoarthritic changes both hands VITALS Vital Signs Vital Signs Date Time Temp Pulse Resp B/P (MAP) Pulse Ox O2 Delivery O2 Flow Rate FiO2 11/11/20 20:05 110 32 129/88 (102) 90 Nasal Cannula 5.0 11/11/20 09:37 98.2 LABS LABS Laboratory Tests Test 11/10/20 15:33 11/10/20 17:15 11/10/20 17:35 11/10/20 20:16 Glucose (Fingerstick) 266 mg/dL (70-99) 297 mg/dL (70-99) 199 mg/dL (70-99) Sodium Level 142 mmol/L (136-145) Potassium Level 4.6 mmol/L (3.5-5.1) Chloride Level 107 mmol/L (98-107) Carbon Dioxide Level 26 mmol/L (21-32) Anion Gap 9 (6-14) Blood Urea Nitrogen 21 mg/dL (8-26) Creatinine 1.5 mg/dL (0.7-1.3) Estimated GFR (Cockcroft-Gault) 45.7 Glucose Level 310 mg/dL (70-99) Calcium Level 8.7 mg/dL (8.5-10.1) Test 11/11/20 07:46 11/11/20 08:05 11/11/20 12:05 11/11/20 12:10 Glucose (Fingerstick) 324 mg/dL (70-99) 284 mg/dL (70-99) White Blood Count 9.5 x10^3/uL (4.0-11.0) Red Blood Count 4.45 x10^6/uL (4.30-5.70) Hemoglobin 12.8 g/dL (13.0-17.5) Hematocrit 39.7 % (39.0-53.0) Mean Corpuscular Volume 89 fL (79-100) Mean Corpuscular Hemoglobin 29 pg (25-35) Mean Corpuscular Hemoglobin Concent 32 g/dL (31-37) Red Cell Distribution Width 14.6 % (11.5-14.5) Platelet Count 319 x10^3/uL (140-400) Neutrophils (%) (Auto) 76 % (31-73) Lymphocytes (%) (Auto) 14 % (24-48) Monocytes (%) (Auto) 7 % (0-9) Eosinophils (%) (Auto) 2 % (0-3) Basophils (%) (Auto) 1 % (0-3) Neutrophils # (Auto) 7.2 x10^3uL (1.8-7.7) Lymphocytes # (Auto) 1.4 x10^3/uL (1.0-4.8) Monocytes # (Auto) 0.7 x10^3/uL (0.0-1.1) Eosinophils # (Auto) 0.2 x10^3/uL (0.0-0.7) Basophils # (Auto) 0.1 x10^3/uL (0.0-0.2) Segmented Neutrophils % 61 % (35-66) Band Neutrophils % 4 % (0-9) Lymphocytes % 19 % (24-48) Atypical Lymphocytes % (Manual) 4 % (0-0) Monocytes % 6 % (0-10) Eosinophils % 1 % (0-5) Myelocytes % 5 % (0-0) Platelet Estimate Adequate (ADEQUATE) Platelet Clumps, EDTA Present D-Dimer (Hansa) 7.87 mg/L (0.00-0.50) Sodium Level 141 mmol/L (136-145) Potassium Level 5.4 mmol/L (3.5-5.1) Chloride Level 108 mmol/L (98-107) Carbon Dioxide Level 24 mmol/L (21-32) Anion Gap 9 (6-14) Blood Urea Nitrogen 22 mg/dL (8-26) Creatinine 1.7 mg/dL (0.7-1.3) Estimated GFR (Cockcroft-Gault) 39.6 BUN/Creatinine Ratio 13 (6-20) Glucose Level 383 mg/dL (70-99) Lactic Acid Level 2.1 mmol/L (0.4-2.0) 2.9 mmol/L (0.4-2.0) Calcium Level 8.7 mg/dL (8.5-10.1) Total Bilirubin 0.4 mg/dL (0.2-1.0) Aspartate Amino Transf (AST/SGOT) 13 U/L (15-37) Alanine Aminotransferase (ALT/SGPT) 18 U/L (16-63) Alkaline Phosphatase 82 U/L (46-116) Troponin I Quantitative 0.092 ng/mL (0-0.055) Total Protein 6.8 g/dL (6.4-8.2) Albumin 3.1 g/dL (3.4-5.0) Albumin/Globulin Ratio 0.8 (1.0-1.7) Test 11/11/20 15:15 11/11/20 19:25 11/11/20 20:20 11/12/20 06:05 Troponin I Quantitative 0.089 ng/mL (0-0.055) 0.079 ng/mL (0-0.055) Glucose (Fingerstick) 220 mg/dL (70-99) White Blood Count 8.5 x10^3/uL (4.0-11.0) Red Blood Count 4.37 x10^6/uL (4.30-5.70) Hemoglobin 12.6 g/dL (13.0-17.5) Hematocrit 39.0 % (39.0-53.0) Mean Corpuscular Volume 89 fL (79-100) Mean Corpuscular Hemoglobin 29 pg (25-35) Mean Corpuscular Hemoglobin Concent 32 g/dL (31-37) Red Cell Distribution Width 15.0 % (11.5-14.5) Platelet Count 283 x10^3/uL (140-400) Sodium Level 144 mmol/L (136-145) Potassium Level 4.8 mmol/L (3.5-5.1) Chloride Level 110 mmol/L (98-107) Carbon Dioxide Level 26 mmol/L (21-32) Anion Gap 8 (6-14) Blood Urea Nitrogen 20 mg/dL (8-26) Creatinine 1.6 mg/dL (0.7-1.3) Estimated GFR (Cockcroft-Gault) 42.5 BUN/Creatinine Ratio 13 (6-20) Glucose Level 303 mg/dL (70-99) Calcium Level 8.5 mg/dL (8.5-10.1) Total Bilirubin 0.5 mg/dL (0.2-1.0) Aspartate Amino Transf (AST/SGOT) 10 U/L (15-37) Alanine Aminotransferase (ALT/SGPT) 18 U/L (16-63) Alkaline Phosphatase 70 U/L (46-116) Total Protein 6.3 g/dL (6.4-8.2) Albumin 2.9 g/dL (3.4-5.0) Albumin/Globulin Ratio 0.9 (1.0-1.7) Test 11/12/20 07:51 Glucose (Fingerstick) 283 mg/dL (70-99) ASSESSMENT/PLAN Assessment/Plan 1. Dementia with increased agitation 2. LOREN on CKD; improved with IVFs 3. Mild acute probable diastolic CHF 4. Mild troponin elevation; peak 0.092. Most probable type II, demand ischemia. CP free 5. Elevated d-dimer; suspicion for PE. On Lovenox. Unable to have CTA due to RI. Would not cooperate for VQ scan 6. Left posterior tibial DVT 7. Sinus tachycardia 8. Diabetes, II Recommendations TSH, Mg level Mild diuresis; monitor renal function closely Continue anticoagulation therapy Outpatient echo Supportive care SHANTI CALL MD 11/12/20 1706: CARDIAC CONSULT ASSESSMENT/PLAN Assessment/Plan Patient seen and examined. Agree with above nurse practitioner note. Supportive care. JOSE DUBOIS APRN Nov 12, 2020 09:08 SHANTI CALL MD Nov 12, 2020 17:06
[2020-11-12] MEDS ORDERED: FUROSEMIDE 40 MG/4 ML VIAL IVP ONE (09:15)
[2020-11-12 10:27] VITALS: BP 122/87
--- NOTE | 2020-11-12 11:37 | NUR ---
Pt calling staff "whores" , "Bitches" telling staff "go to hell", And " you should shoot yourself" and asking staff if they "want to be killed". Pt trying to hit at staff, hitting bed rails, and kicking staff. Pt trying to grad IV pole to "hit you with"
--- NOTE | 2020-11-12 12:17 | PN ---
DATE: 11/12/2020 SUBJECTIVE: The patient is resting, slightly propped up in bed, clearly tachypneic, tachycardic. He is pale, but no jaundice, cyanosis or thyromegaly. No jugular venous distention or limb edema. OBJECTIVE: VITAL SIGNS: His heart rate was 111, blood pressure was 122/87, temperature was 98, respiratory rate was 24, and oxygen saturation was 90% on 5 liters of oxygen. HEAD, EYES, EARS, NOSE AND THROAT: Showed normocephalic, atraumatic. NECK: Supple. HEART: Normal first and second heart sounds. No gallop or murmur. CHEST: Shows central trachea, equal bilateral expansion, air entry, vesicular breath sounds, bilateral bases crepitation could not appreciate any rhonchi. ABDOMEN: Distended, soft, nontender. NEUROLOGIC: He is demented, but without any obvious lateralizing sign. He did have a venous Doppler ultrasound showing that the patient has deep venous thrombosis within the left posterior tibial vein. There is no deep vein thrombosis on the right. LABORATORY DATA: His lab work this morning showed a white cell count of 8500; hemoglobin 13; hematocrit 39; MCV 89 and platelet count 283,000. Serum sodium 144, potassium 4.8, chloride 110, bicarbonate 26, anion gap of 8, BUN 20, creatinine 1.6, estimated GFR was 42 mL per minute. His glucose was 303, calcium was 8.5, magnesium was 1.9. Total bilirubin, AST, ALT, alkaline phosphatase were normal. Total protein was 6.3, albumin 2.9. ASSESSMENT: 1. Acute hypoxic respiratory failure. 2. Acute on chronic kidney injury, elevated D-dimer, suspicious for pulmonary embolism and I started him on Lovenox and left posterior tibial deep venous thrombosis, possible acute congestive heart failure. PLAN: My plan will start him on IV Lasix. Continue with therapeutic dose of Lovenox. Continue with vancomycin and Zosyn. We will monitor him closely on a daily basis. Unfortunately, we could not do CT angio given his impaired kidney function and I do not think he would cooperate with V/Q scan. PATSY OSULLIVAN MD DR: JAN/christine JOB#: [id number] / [id number]
--- NOTE | 2020-11-12 13:00 | NUR ---
Pt calling staff "jose m macias"
[2020-11-12] MEDS: VANCOMYCIN 1.5 GM in IV NORMAL SALINE 500ML 500 ML IV SCH (17:48)
--- NOTE | 2020-11-12 18:14 | NUR ---
Pt admitted to floor at 1350 from ED [address] [facility] for near syncope and weakness. Addendum: 11/12/20 at 1817 by ANALI MOSLEY RN incorrect pt
--- NOTE | 2020-11-12 18:33 | NUR ---
NSG NOTE; NO URINE RETENTION PT'S VILLANUEVA REMOVED AT 904. PT VOIDED AND HAD BM ON BSC THIS AM HE'S BEEN INCONT OF URINE X2. LAST CHANGED AT 1830. BLADDER SCAN AT THIS TIME SHOWS NO URINE RETENTION
[2020-11-12 20:14] VITALS: BP 123/79
[2020-11-12] MEDS: TAMSULOSIN 0.4 MG CAP.ER.24H. PO SCH (20:40)
[2020-11-12] MEDS: traZODone 50 MG TABLET. PO SCH (20:40)
[2020-11-12] MEDS: QUEtiapine 100 MG TABLET. PO SCH (20:40)
[2020-11-13] MEDS: PIPERACILLIN/TAZOBACTAM 2.25 GM in IV NORMAL SALINE 50ML 50 ML IV SCH ×3 (00:20→19:11)
--- NOTE | 2020-11-13 01:28 | NUR ---
PT WOULDN'T SWALLOW HIS MEDS CRUSHED IN PUDDING, HE SPIT THEM OUT IN TO A SHEET. PT ALSO SPAT ON AID AND CONTINUED TRYING TO SPIT ON NURSE. THIS NURSE CONTINUED TO ASK THE PT TO STOP SPITTING AND TO KEEP IN NASAL CANNULA IN. PT DID EVENTUALLY STOP SPITTING BUT WOULDN'T STOP TAKING OUT HIS CANNULA. THIS NURSE THEN APPLIED MITTS TO PTS HANDS. PT CONTINUED TO LAY IN BED EVENTUALLY FALLING ASLEEP WITH MITTS ON. WHEN PT WOKE UP HE WAS MUCH CALMING ASKING FOR MITTS TO BE OFF AND STATING HE WOULDN'T TAKE OUT HIS OXYGEN. MITTS ARE CURRENTLY OFF AND CANNULA HAS STAYED IN PTS NOSE. PT IS CURRENTLY SLEEPING IN BED. WILL CONTINUE TO MONITOR.
--- NOTE | 2020-11-13 06:05 | NUR ---
WAS ABLE TO GET PT CHANGED THIS AM BEFORE HE BECAME AGITATED AND COMBATIVE AGAIN CALLING RN A BITCH AND WHORE, TRYING TO HIT, AND BITE. UNABLE TO BLADDER SCAN PT AT THIS TIME.
--- NOTE | 2020-11-13 07:56 | PDOC ---
CARDIO Progress Notes Date & Time Date of Service DATE: 11/13/20 TIME: 07:55 Time of Evaluation 07:55 Subjective Notes Combative this morning with nursing staff Vitals Vitals Vital Signs Date Time Temp Pulse Resp B/P (MAP) Pulse Ox O2 Delivery O2 Flow Rate FiO2 11/12/20 20:14 98.9 113 24 123/79 (94) 85 Nasal Cannula 5.0 Weight Weight [ ] Input and Output I.O. Intake and Output 11/13/20 07:00 Intake Total 1990 ml Output Total 860 ml Balance 1130 ml Intake Oral 1440 ml IV Total 550 ml Output Urine Total 860 ml # Voids 4 Laboratory Labs Laboratory Tests Test 11/11/20 08:05 11/11/20 12:05 11/11/20 12:10 11/11/20 15:15 White Blood Count 9.5 x10^3/uL (4.0-11.0) Red Blood Count 4.45 x10^6/uL (4.30-5.70) Hemoglobin 12.8 g/dL (13.0-17.5) Hematocrit 39.7 % (39.0-53.0) Mean Corpuscular Volume 89 fL (79-100) Mean Corpuscular Hemoglobin 29 pg (25-35) Mean Corpuscular Hemoglobin Concent 32 g/dL (31-37) Red Cell Distribution Width 14.6 % (11.5-14.5) Platelet Count 319 x10^3/uL (140-400) Neutrophils (%) (Auto) 76 % (31-73) Lymphocytes (%) (Auto) 14 % (24-48) Monocytes (%) (Auto) 7 % (0-9) Eosinophils (%) (Auto) 2 % (0-3) Basophils (%) (Auto) 1 % (0-3) Neutrophils # (Auto) 7.2 x10^3uL (1.8-7.7) Lymphocytes # (Auto) 1.4 x10^3/uL (1.0-4.8) Monocytes # (Auto) 0.7 x10^3/uL (0.0-1.1) Eosinophils # (Auto) 0.2 x10^3/uL (0.0-0.7) Basophils # (Auto) 0.1 x10^3/uL (0.0-0.2) Segmented Neutrophils % 61 % (35-66) Band Neutrophils % 4 % (0-9) Lymphocytes % 19 % (24-48) Atypical Lymphocytes % (Manual) 4 % (0-0) Monocytes % 6 % (0-10) Eosinophils % 1 % (0-5) Myelocytes % 5 % (0-0) Platelet Estimate Adequate (ADEQUATE) Platelet Clumps, EDTA Present D-Dimer (Hansa) 7.87 mg/L (0.00-0.50) Sodium Level 141 mmol/L (136-145) Potassium Level 5.4 mmol/L (3.5-5.1) Chloride Level 108 mmol/L (98-107) Carbon Dioxide Level 24 mmol/L (21-32) Anion Gap 9 (6-14) Blood Urea Nitrogen 22 mg/dL (8-26) Creatinine 1.7 mg/dL (0.7-1.3) Estimated GFR (Cockcroft-Gault) 39.6 BUN/Creatinine Ratio 13 (6-20) Glucose Level 383 mg/dL (70-99) Lactic Acid Level 2.1 mmol/L (0.4-2.0) 2.9 mmol/L (0.4-2.0) Calcium Level 8.7 mg/dL (8.5-10.1) Total Bilirubin 0.4 mg/dL (0.2-1.0) Aspartate Amino Transf (AST/SGOT) 13 U/L (15-37) Alanine Aminotransferase (ALT/SGPT) 18 U/L (16-63) Alkaline Phosphatase 82 U/L (46-116) Troponin I Quantitative 0.092 ng/mL (0-0.055) 0.089 ng/mL (0-0.055) Total Protein 6.8 g/dL (6.4-8.2) Albumin 3.1 g/dL (3.4-5.0) Albumin/Globulin Ratio 0.8 (1.0-1.7) Glucose (Fingerstick) 284 mg/dL (70-99) Test 11/11/20 19:25 11/11/20 20:20 11/12/20 06:05 11/12/20 07:51 Troponin I Quantitative 0.079 ng/mL (0-0.055) Glucose (Fingerstick) 220 mg/dL (70-99) 283 mg/dL (70-99) White Blood Count 8.5 x10^3/uL (4.0-11.0) Red Blood Count 4.37 x10^6/uL (4.30-5.70) Hemoglobin 12.6 g/dL (13.0-17.5) Hematocrit 39.0 % (39.0-53.0) Mean Corpuscular Volume 89 fL (79-100) Mean Corpuscular Hemoglobin 29 pg (25-35) Mean Corpuscular Hemoglobin Concent 32 g/dL (31-37) Red Cell Distribution Width 15.0 % (11.5-14.5) Platelet Count 283 x10^3/uL (140-400) Sodium Level 144 mmol/L (136-145) Potassium Level 4.8 mmol/L (3.5-5.1) Chloride Level 110 mmol/L (98-107) Carbon Dioxide Level 26 mmol/L (21-32) Anion Gap 8 (6-14) Blood Urea Nitrogen 20 mg/dL (8-26) Creatinine 1.6 mg/dL (0.7-1.3) Estimated GFR (Cockcroft-Gault) 42.5 BUN/Creatinine Ratio 13 (6-20) Glucose Level 303 mg/dL (70-99) Calcium Level 8.5 mg/dL (8.5-10.1) Magnesium Level 1.9 mg/dL (1.8-2.4) Total Bilirubin 0.5 mg/dL (0.2-1.0) Aspartate Amino Transf (AST/SGOT) 10 U/L (15-37) Alanine Aminotransferase (ALT/SGPT) 18 U/L (16-63) Alkaline Phosphatase 70 U/L (46-116) Total Protein 6.3 g/dL (6.4-8.2) Albumin 2.9 g/dL (3.4-5.0) Albumin/Globulin Ratio 0.9 (1.0-1.7) Thyroid Stimulating Hormone (TSH) 1.798 uIU/mL (0.358-3.740) Test 11/12/20 12:52 11/12/20 20:52 Glucose (Fingerstick) 300 mg/dL (70-99) 288 mg/dL (70-99) Microbiology Micro Microbiology 11/03/20 Blood Culture - Final, Complete NO GROWTH AFTER 5 DAYS... Physical Exams HEENT: Neck Supple W Full Motion Chest: Symmetric Lungs: Clear to Auscultation Heart: RRR Abdomen: Soft N/T Extremities: No Edema Neurology: alert, other (agitated ) Assessment Assessment 1. Dementia with increased agitation 2. LOREN on CKD; improved with IVFs 3. Mild acute probable diastolic CHF s/p Lasix. Patient refusing repeat labs this morning 4. Mild troponin elevation; peak 0.092. Most probable type II, demand ischemia. CP free 5. Elevated d-dimer; suspicion for PE. On Lovenox. Unable to have CTA due to RI. Would not cooperate for VQ scan 6. Left posterior tibial DVT 7. Sinus tachycardia 8. Diabetes, II Recommendations Continue anticoagulation therapy Outpatient echo Supportive care JOSE DUBOIS APRN Nov 13, 2020 07:56
[2020-11-13] MEDS: POTASSIUM CHLORIDE 20 MEQ TABLET.ER. PO SCH ×2 (08:05→19:29)
[2020-11-13] MEDS: LORazepam 0.5 MG TABLET PO SCH ×2 (08:05→19:29)
[2020-11-13] MEDS: FINASTERIDE 5 MG TABLET. PO SCH (08:06)
[2020-11-13] MEDS: risperiDONE 0.25 MG TABLET. PO SCH ×2 (08:06→19:29)
[2020-11-13] MEDS: ENOXAPARIN ** NOTE DOSE ** SYRINGE SQ SCH ×2 (08:06→19:28)
[2020-11-13] MEDS: LACTOBACILLUS RHAMNOSUS GG 1 CAPSULE. PO SCH ×2 (08:06→19:28)
[2020-11-13] MEDS: INSULIN LISPRO 300 UNITS/3 ML VIAL. SQ SCH ×3 (08:36→19:16)
[2020-11-13 10:55] VITALS: BP 115/81
--- NOTE | 2020-11-13 12:49 | NUR ---
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 VERBALLY ABUSIVE. YELLING OUT AND REFUSING CARES. REFUSED TO EAT MEALS BUT DEMANDS ICE CREAM. PT DIABETIC WITH FSBS 217 AT [place] BUT REFUSES INSULIN WHILE ATTEMPING TO HIT ME AND CALLING OBSCENE NAMES. ATIVAN GIVEN
[2020-11-13 16:22] VITALS: BP 123/80
--- NOTE | 2020-11-13 17:46 | NUR ---
NSG NOTE; VILLANUEVA INSERTION PT HAS HAD SEVERAL SATURATED BRIEFS TODAY. THE BLADDER SCAN AT 1600 SHOWS 930+ URINE RETENTION. PT UNABLE TO VOID. VILLANUEVA CATH INSERTED WITH 1000+ ML URINE RETURNED
[2020-11-13 18:29] LABS: HEMATOCRIT 37.3 % (39.0-53.0); RED BLOOD COUNT 4.15 x10^6/uL (4.30-5.70); RED CELL DISTRIBUTION WIDTH 14.7 % (11.5-14.5); WHITE BLOOD COUNT 8.5 x10^3/uL (4.0-11.0)
[2020-11-13 18:40] LABS: VANC TR 14.6 mcg/mL (10.0-20.0)
[2020-11-13 18:48] LABS: ALBUMIN 2.8 g/dL (3.4-5.0); ALBUMIN/GLOBULIN RATIO 0.8 (1.0-1.7); CALCIUM 8.2 mg/dL (8.5-10.1); CREATININE 1.9 mg/dL (0.7-1.3); GFR 34.8; POTASSIUM 4.5 mmol/L (3.5-5.1); TOTAL BILIRUBIN 0.4 mg/dL (0.2-1.0); TOTAL PROTEIN 6.5 g/dL (6.4-8.2)
[2020-11-13] MEDS: VANCOMYCIN PER PHARMACY MC PRN (19:05)
--- NOTE | 2020-11-13 19:08 | NUR ---
Pharmacy Vancomycin Dosing Note S:Consulted to monitor and dose vancomycin started 11/11/20. O:ADONAY AUSTIN is a 75 year old M with Pneumonia, . Height: 6 feet, 0 inches Weight: 104.0 kg [place] Body Weight: 98.30 Adjusted Body Weight: 100.58 Dosing Weight: Actual Other Antibiotics: ZOSYN 2.25GM IV Q8HR LABS: Last BUN: 20 Last Creatinine: 1.6 Creatinine Clearance: 50.51 Last WBC: 8.5 Drug Levels: Last Trough level: 14.6 on 11/13/20 at 1730 Last dose given at Vancomycin Dosing: Loading Dose: 2000 mg x1 Dosing Weight: Actual Target Trough: 15-20 A: Based on: Trough and renal function P: 1. Continue Vancomycin 1500 mg IV q24h 2. Follow up Trough level on 11/15/20 at 1730 3. Pharmacy will continue to monitor, follow and adjust therapy as needed. ALEXI PATTERSON, 11/13/20 1712
[2020-11-13] MEDS: VANCOMYCIN 1.5 GM in IV NORMAL SALINE 500ML 500 ML IV SCH (19:12)
[2020-11-13] MEDS: traZODone 50 MG TABLET. PO SCH (19:28)
[2020-11-13] MEDS: QUEtiapine 100 MG TABLET. PO SCH (19:29)
[2020-11-13] MEDS: TAMSULOSIN 0.4 MG CAP.ER.24H. PO SCH (19:29)
[2020-11-14] MEDS: PIPERACILLIN/TAZOBACTAM 2.25 GM in IV NORMAL SALINE 50ML 50 ML IV SCH ×3 (00:59→16:08)
[2020-11-14] MEDS: LACTOBACILLUS RHAMNOSUS GG 1 CAPSULE. PO SCH ×2 (08:35→19:48)
--- NOTE | 2020-11-14 08:35 | PDOC ---
CARDIO Progress Notes Date & Time Date of Service DATE: 11/14/20 TIME: 08:32 Time of Evaluation 08:32 Subjective Notes No complaints, yelling out for help Vitals Vitals Vital Signs Date Time Temp Pulse Resp B/P (MAP) Pulse Ox O2 Delivery O2 Flow Rate FiO2 11/14/20 08:19 Nasal Cannula 5.0 11/13/20 16:22 97.9 103 24 123/80 (94) 93 Weight Weight [ ] Input and Output I.O. Intake and Output 11/14/20 07:00 Intake Total 1800 ml Output Total 1650 ml Balance 150 ml Intake Oral 1200 ml IV Total 600 ml Output Urine Total 1650 ml # Voids 1 Laboratory Labs Laboratory Tests Test 11/12/20 12:52 11/12/20 20:52 11/13/20 08:30 11/13/20 12:00 Glucose (Fingerstick) 300 mg/dL (70-99) 288 mg/dL (70-99) 268 mg/dL (70-99) 217 mg/dL (70-99) Test 11/13/20 16:59 11/13/20 18:15 Glucose (Fingerstick) 285 mg/dL (70-99) White Blood Count 8.5 x10^3/uL (4.0-11.0) Red Blood Count 4.15 x10^6/uL (4.30-5.70) Hemoglobin 12.0 g/dL (13.0-17.5) Hematocrit 37.3 % (39.0-53.0) Mean Corpuscular Volume 90 fL (79-100) Mean Corpuscular Hemoglobin 29 pg (25-35) Mean Corpuscular Hemoglobin Concent 32 g/dL (31-37) Red Cell Distribution Width 14.7 % (11.5-14.5) Platelet Count 274 x10^3/uL (140-400) Sodium Level 145 mmol/L (136-145) Potassium Level 4.5 mmol/L (3.5-5.1) Chloride Level 108 mmol/L (98-107) Carbon Dioxide Level 28 mmol/L (21-32) Anion Gap 9 (6-14) Blood Urea Nitrogen 27 mg/dL (8-26) Creatinine 1.9 mg/dL (0.7-1.3) Estimated GFR (Cockcroft-Gault) 34.8 BUN/Creatinine Ratio 14 (6-20) Glucose Level 377 mg/dL (70-99) Calcium Level 8.2 mg/dL (8.5-10.1) Total Bilirubin 0.4 mg/dL (0.2-1.0) Aspartate Amino Transf (AST/SGOT) 11 U/L (15-37) Alanine Aminotransferase (ALT/SGPT) 18 U/L (16-63) Alkaline Phosphatase 69 U/L (46-116) EM-Rmo-L-Type Natriuretic Peptide 1840 pg/mL (0-124) Total Protein 6.5 g/dL (6.4-8.2) Albumin 2.8 g/dL (3.4-5.0) Albumin/Globulin Ratio 0.8 (1.0-1.7) Vancomycin Level Trough 14.6 mcg/mL (10.0-20.0) Vancomycin Last Dose Date 11/12/20 Vancomycin Last Dose Time 1800 Microbiology Micro Microbiology 11/03/20 Blood Culture - Final, Complete NO GROWTH AFTER 5 DAYS... Physical Exams HEENT: Neck Supple W Full Motion Chest: Symmetric Lungs: Other (diminished bases) Heart: RRR Abdomen: Soft N/T Extremities: No Edema Neurology: alert, other (anxious, agitated ) Assessment Assessment 1. Dementia with increased agitation 2. LOREN on CKD; improved with IVFs 3. Mild acute probable diastolic CHF s/p Lasix. Patient refusing repeat labs this morning 4. Mild troponin elevation; peak 0.092. Most probable type II, demand ischemia. CP free 5. Elevated d-dimer; suspicion for PE. On Lovenox. Unable to have CTA due to RI. Would not cooperate for VQ scan 6. Left posterior tibial DVT 7. Diabetes, II Recommendations Continue anticoagulation therapy Outpatient echo Supportive care JOSE DUBOIS APRN Nov 14, 2020 08:35
[2020-11-14] MEDS: FINASTERIDE 5 MG TABLET. PO SCH (08:36)
[2020-11-14] MEDS: risperiDONE 0.25 MG TABLET. PO SCH ×2 (08:36→19:48)
[2020-11-14] MEDS: LORazepam 0.5 MG TABLET PO SCH ×2 (08:36→19:49)
[2020-11-14] MEDS: POTASSIUM CHLORIDE 20 MEQ TABLET.ER. PO SCH ×2 (08:36→19:48)
[2020-11-14] MEDS: ENOXAPARIN ** NOTE DOSE ** SYRINGE SQ SCH ×2 (08:37→19:48)
[2020-11-14] MEDS: INSULIN LISPRO 300 UNITS/3 ML VIAL. SQ SCH ×3 (08:39→17:05)
--- NOTE | 2020-11-14 09:24 | PN ---
DATE: 11/14/2020 ATTENDING PHYSICIAN: Dr. Loredo. SUBJECTIVE: The patient remains confused, agitated and trying to climb out of bed. He has been here 12 days now. Unfortunately, he cannot have placement because there is no guardianship. We are in the process of obtaining court appointed guardianship. OBJECTIVE FINDINGS: VITAL SIGNS: Blood pressure today is 123/80, pulse was 91 and regular. He is afebrile, oxygen saturation 94% on room air. HEENT: Head is without trauma. Pupils are reactive. Sclerae nonicteric. Oropharynx is clear. NECK: Supple. LUNGS: Coarse breath sounds bilaterally. CARDIOVASCULAR: Showed regular heart tones. No gallops. ABDOMEN: Remains soft. EXTREMITIES: Showed 2+ edema. NEUROLOGIC: Profoundly confused and agitated. LABORATORY DATA: Last creatinine was 1.9 mg/dL. Doppler did show a left tibial deep vein thrombosis. ASSESSMENT: 1. A 75-year-old gentleman with acute hypoxemic respiratory failure, now resolved with adequate saturations on room air. 2. Recent finding of deep vein thrombosis in the left posterior tibial vein, on anticoagulation. 3. Chronic alcoholism. 4. Profound dementia. 5. 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 PLAN: 1. Continue Lovenox has been ordered. 2. Await placement and guardianship for [facility] placement. 3. Diet as tolerated. 4. Antibiotics will be continued. JULIANA LOREDO MD DR: LYNNETTE/christine JOB#: [id number] / [id number]
[2020-11-14] MEDS: INSULIN GLARGINE SYRINGE. SQ SCH ×2 (09:43→20:11)
[2020-11-14 10:05] VITALS: BP 116/78
[2020-11-14] MEDS ORDERED: HALOPERIDOL LACT 5 MG/ML VIAL. IVP PRN (10:15)
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
[2020-11-14] MEDS: VANCOMYCIN 1.5 GM in IV NORMAL SALINE 500ML 500 ML IV SCH (18:02)
[2020-11-14] MEDS: QUEtiapine 100 MG TABLET. PO SCH (19:48)
[2020-11-14] MEDS: AMOXICILLIN/K CLAV 875/125MG TABLET. PO SCH (19:48)
[2020-11-14] MEDS: TAMSULOSIN 0.4 MG CAP.ER.24H. PO SCH (19:48)
[2020-11-14] MEDS: traZODone 50 MG TABLET. PO SCH (19:49)
[2020-11-14 20:13] VITALS: BP 141/88
[2020-11-15] MEDS: LACTOBACILLUS RHAMNOSUS GG 1 CAPSULE. PO SCH ×2 (07:56→19:57)
[2020-11-15] MEDS: ENOXAPARIN ** NOTE DOSE ** SYRINGE SQ SCH ×2 (07:56→19:58)
[2020-11-15] MEDS: POTASSIUM CHLORIDE 20 MEQ TABLET.ER. PO SCH ×2 (07:56→19:55)
[2020-11-15] MEDS: INSULIN LISPRO 300 UNITS/3 ML VIAL. SQ SCH ×3 (07:57→16:48)
[2020-11-15] MEDS: FINASTERIDE 5 MG TABLET. PO SCH (07:57)
[2020-11-15] MEDS: LORazepam 0.5 MG TABLET PO SCH ×2 (07:57→19:57)
[2020-11-15] MEDS: risperiDONE 0.25 MG TABLET. PO SCH ×2 (07:57→19:58)
[2020-11-15] MEDS: AMOXICILLIN/K CLAV 875/125MG TABLET. PO SCH ×2 (07:57→19:58)
--- NOTE | 2020-11-15 08:44 | PN ---
DATE: 11/15/2020 ATTENDING PHYSICIAN: Dr. Loredo. SUBJECTIVE: The patient is snoring. He had to be sedated last night because he was very agitated, requiring the security forces to calm him down. He pulled his IVs out. We had to give intramuscular as well as oral doses of sedatives. OBJECTIVE FINDINGS: This morning: VITAL SIGNS: His blood pressure is 141/66, pulse 90 and regular, temperature 98.9 degrees Fahrenheit, oxygen saturation 92% on 5 liters by nasal cannula. HEENT: Head is without trauma. Pupils are reactive. Sclerae nonicteric. Oropharynx clear. NECK: Supple, no bruits identified. LUNGS: Otherwise clear with shallow respirations. CARDIOVASCULAR: Showed distant heart tones. No gallops. ABDOMEN: Soft. EXTREMITIES: Without edema. NEUROLOGIC: The patient is asleep, we cannot assess his full neurologic exam. SKIN: Otherwise warm and dry. LABORATORY DATA: Repeat CBC and chem basic has been ordered for tomorrow morning. ASSESSMENT: 1. A 75-year-old gentleman with hypoxemic respiratory failure. 2. Recent deep vein thrombosis in the left posterior tibial vein, on anticoagulation. 3. Chronic alcoholism. 4. Profound dementia. 5. Wernicke-Korsakoff syndrome. 6. Initial admission with dehydration. 7. Chronic kidney disease. Last creatinine was 1.9 mg/dL. PLAN: 1. He will need to continue the subcutaneous Lovenox as he is asleep right now, and cannot take his medications. 2. We are still awaiting guardianship for placement. 3. Recommendations by Psychiatry services for sedation and agitation. 4. Prognosis remains poor. We have no discharge plans because there is no guardian that can sign any papers for him. JULIANA LOREDO MD DR: LYNNETTE/christine JOB#: [id number] / [id number]
[2020-11-15] MEDS: INSULIN GLARGINE SYRINGE. SQ SCH ×2 (09:28→19:55)
[2020-11-15 11:29] VITALS: BP 138/82
[2020-11-15 19:07] VITALS: BP 141/84
[2020-11-15] MEDS: TAMSULOSIN 0.4 MG CAP.ER.24H. PO SCH (19:57)
[2020-11-15] MEDS: traZODone 50 MG TABLET. PO SCH (19:57)
[2020-11-15] MEDS: QUEtiapine 100 MG TABLET. PO SCH (19:58)
[2020-11-16] MEDS: LORazepam 0.5 MG TABLET PO SCH ×2 (07:41→20:27)
[2020-11-16] MEDS: LACTOBACILLUS RHAMNOSUS GG 1 CAPSULE. PO SCH ×2 (07:41→20:26)
[2020-11-16] MEDS: AMOXICILLIN/K CLAV 875/125MG TABLET. PO SCH ×2 (07:41→20:27)
[2020-11-16] MEDS: FINASTERIDE 5 MG TABLET. PO SCH (07:42)
[2020-11-16] MEDS: risperiDONE 0.25 MG TABLET. PO SCH ×2 (07:42→20:26)
[2020-11-16] MEDS: POTASSIUM CHLORIDE 20 MEQ TABLET.ER. PO SCH ×2 (07:42→20:26)
[2020-11-16] MEDS: INSULIN GLARGINE SYRINGE. SQ SCH ×2 (07:43→20:41)
[2020-11-16] MEDS: ENOXAPARIN ** NOTE DOSE ** SYRINGE SQ SCH (07:44)
[2020-11-16] MEDS: INSULIN LISPRO 300 UNITS/3 ML VIAL. SQ SCH ×3 (07:44→16:54)
[2020-11-16 09:17] VITALS: BP 131/83
--- NOTE | 2020-11-16 10:49 | PN ---
DATE: 11/16/2020 ATTENDING PHYSICIAN: Dr. Juliana Loredo SUBJECTIVE: He is calmer today. He is actually awake. He is asking when he will be released. We had actually normal conversation. He is still taking swings of the nurses, but he is rather cooperative this morning. OBJECTIVE FINDINGS: VITAL SIGNS: Blood pressure today is 141/84, pulse 80 and regular, temperature 98.5 degrees Fahrenheit, and his oxygen saturation are 93% on 5 liters of nasal cannula. HEENT: Head is without trauma. Pupils are reactive. Sclerae nonicteric. Oropharynx clear. NECK: Supple. LUNGS: Good breath sounds. CARDIOVASCULAR: Showed regular heart tones. No gallops. ABDOMEN: Soft. EXTREMITIES: Without edema. NEUROLOGIC: Profound confusion. SKIN: Otherwise warm and dry. LABORATORY DATA: I ordered lab work this morning, he refused to be stopped. We will try again later. ASSESSMENT: 1. A 75-year-old gentleman with acute on chronic hypoxemic respiratory failure. 2. Recent deep venous thrombosis. 3. Chronic alcoholism. 4. Profound dementia. 5. Wernicke-Korsakoff syndrome. 6. Dehydration. 7. Chronic kidney disease. PLAN: 1. We will switch to subcutaneous Lovenox to oral Eliquis. 2. Awaiting guardianship for placement. 3. Recommendations per Psychiatry. 4. Sedation agitation. 5. Diet as tolerated. JULIANA LOREDO MD DR: LYNNETTE/christine JOB#: [id number] / [id number]
[2020-11-16 16:36] LABS: BASO # 0.1 x10^3/uL (0.0-0.2); BASO % 1 % (0-3); EOS # 0.2 x10^3/uL (0.0-0.7); EOS % 3 % (0-3); HEMATOCRIT 38.7 % (39.0-53.0); HEMOGLOBIN 12.5 g/dL (13.0-17.5); LYMPH % 13 % (24-48); MEAN CORPUSCULAR HEMOGLOBIN 29 pg (25-35); MEAN CORPUSCULAR HGB CONC 32 g/dL (31-37); MEAN CORPUSCULAR VOLUME 89 fL (79-100); MONO # 0.5 x10^3/uL (0.0-1.1); MONO % 6 % (0-9); NEUT # 6.3 x10^3uL (1.8-7.7); NEUT % 78 % (31-73); PLATELET COUNT 288 x10^3/uL (140-400); RED BLOOD COUNT 4.34 x10^6/uL (4.30-5.70); RED CELL DISTRIBUTION WIDTH 14.8 % (11.5-14.5); WHITE BLOOD COUNT 8.1 x10^3/uL (4.0-11.0)
[2020-11-16 16:46] LABS: CALCIUM 8.6 mg/dL (8.5-10.1); CREATININE 1.4 mg/dL (0.7-1.3); GFR 49.5; POTASSIUM 4.9 mmol/L (3.5-5.1)
[2020-11-16 16:48] VITALS: BP 146/90
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
[2020-11-16] MEDS: QUEtiapine 100 MG TABLET. PO SCH (20:26)
[2020-11-16] MEDS: TAMSULOSIN 0.4 MG CAP.ER.24H. PO SCH (20:26)
[2020-11-16] MEDS: traZODone 50 MG TABLET. PO SCH (20:27)
[2020-11-16] MEDS: APIXABAN 5 MG TABLET. PO SCH (20:27)
[2020-11-17] MEDS: LORazepam 0.5 MG TABLET PO SCH ×2 (08:11→20:01)
[2020-11-17] MEDS: FINASTERIDE 5 MG TABLET. PO SCH (08:12)
[2020-11-17] MEDS: LACTOBACILLUS RHAMNOSUS GG 1 CAPSULE. PO SCH ×2 (08:12→20:02)
[2020-11-17] MEDS: POTASSIUM CHLORIDE 20 MEQ TABLET.ER. PO SCH ×2 (08:12→20:02)
[2020-11-17] MEDS: AMOXICILLIN/K CLAV 875/125MG TABLET. PO SCH ×2 (08:12→20:02)
[2020-11-17] MEDS: APIXABAN 5 MG TABLET. PO SCH ×2 (08:12→20:02)
[2020-11-17] MEDS: risperiDONE 0.25 MG TABLET. PO SCH ×2 (08:12→20:02)
[2020-11-17] MEDS: INSULIN LISPRO 300 UNITS/3 ML VIAL. SQ SCH ×3 (08:13→17:05)
[2020-11-17] MEDS: INSULIN GLARGINE SYRINGE. SQ SCH ×2 (08:14→20:03)
--- NOTE | 2020-11-17 08:47 | PN ---
DATE: 11/17/2020 ATTENDING PHYSICIAN: Dr. Loredo. SUBJECTIVE: He is less talkative today. Yesterday, he was rather pleasant. Today, he seems a bit short. He has no acute distress. OBJECTIVE FINDINGS: VITAL SIGNS: Blood pressure this morning is 146/90 mmHg, pulse 90 and regular. He is afebrile. Oxygen saturation 93% on 4 liters by nasal cannula. HEENT: Head is without trauma. Pupils are reactive. Sclerae nonicteric. Oropharynx is clear. NECK: Supple. LUNGS: Shallow respirations. CARDIOVASCULAR: Showed regular heart tones. No gallops. ABDOMEN: Soft. EXTREMITIES: Without edema. NEUROLOGIC: Pleasantly confused. SKIN: Otherwise warm and dry. ASSESSMENT: 1. A 75-year-old gentleman with acute on chronic hypoxemic respiratory failure, improved with decreased oxygen requirements. 2. Recent deep venous thrombosis, on anticoagulation. 3. Chronic alcoholism. 4. Profound dementia. 5. Wernicke-Korsakoff syndrome. 6. Dehydration, rehydrated. 7. Chronic kidney disease. PLAN: 1. I have switched him to oral Eliquis. 2. Await guardianship. 3. Recommendation per Psychiatry. 4. Sedation for agitation. 5. Diet as tolerated. JULIANA LOREDO MD DR: LYNNETTE/christine JOB#: [id number] / [id number]
--- NOTE | 2020-11-17 09:24 | NUR ---
Pt up and sitting in broda chair in his room. He has been cooperative and pleasant at times this morning but has also had many outbursts of foul language and aggression towards staff. He has attempted to bunch, bite, and grab staff a few times. These are not always directly related to ADL cares. Pt took his medications crushed in applesauce without difficult this am. Pt eats very well and is able to feed himself. Pt was given Ativan IM to help with the aggression and agitation. Pt is sitting in chair watching tv and was given juice; will continue to monitor closely.
[2020-11-17 15:00] VITALS: BP 130/83
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
[2020-11-17] MEDS: traZODone 50 MG TABLET. PO SCH (20:02)
[2020-11-17] MEDS: TAMSULOSIN 0.4 MG CAP.ER.24H. PO SCH (20:02)
[2020-11-17] MEDS: QUEtiapine 100 MG TABLET. PO SCH (20:02)
[2020-11-17 20:19] VITALS: BP 133/87
--- NOTE | 2020-11-18 03:15 | NUR ---
Nursing note: Pt calling out at beginning of shift for ice cream/snacks. Pt given multiple snacks and medications crushed in applesauce. Pt compliant with assessment, medications. Pt rested comfortably through much of shift.
[2020-11-18 05:21] VITALS: BP 131/85
[2020-11-18] MEDS: HALOPERIDOL LACT 5 MG/ML VIAL. IM PRN ×2 (07:38→16:26)
[2020-11-18] MEDS: LORazepam 0.5 MG TABLET PO SCH ×2 (08:33→19:47)
[2020-11-18] MEDS: LACTOBACILLUS RHAMNOSUS GG 1 CAPSULE. PO SCH ×2 (08:33→19:47)
[2020-11-18] MEDS: AMOXICILLIN/K CLAV 875/125MG TABLET. PO SCH ×2 (08:33→19:48)
[2020-11-18] MEDS: FINASTERIDE 5 MG TABLET. PO SCH (08:33)
[2020-11-18] MEDS: risperiDONE 0.25 MG TABLET. PO SCH ×2 (08:33→19:48)
[2020-11-18] MEDS: APIXABAN 5 MG TABLET. PO SCH ×2 (08:33→19:47)
[2020-11-18] MEDS: INSULIN LISPRO 300 UNITS/3 ML VIAL. SQ SCH ×3 (08:34→17:00)
[2020-11-18] MEDS: POTASSIUM CHLORIDE 20 MEQ TABLET.ER. PO SCH ×2 (08:34→19:47)
[2020-11-18] MEDS: INSULIN GLARGINE SYRINGE. SQ SCH ×2 (09:14→21:31)
--- NOTE | 2020-11-18 10:19 | PN ---
DATE: 11/18/2020 SUBJECTIVE: The patient is sedated. He is sleeping and snoring, still agitated, requiring sedation. OBJECTIVE FINDINGS: VITAL SIGNS: Blood pressure today is 131/85, pulse 100 and regular, temperature 97.8 degrees Fahrenheit, oxygen saturation 94% on 4 liters by nasal cannula. HEENT: Head is without trauma. Pupils are reactive. NECK: Supple. No stridor. LUNGS: Shallow respirations. CARDIOVASCULAR: Regular heart tones. No gallops. ABDOMEN: Soft. EXTREMITIES: Show trace edema. NEUROLOGIC: Profoundly confused, currently sedated and sleeping. Sugars are adequate. ASSESSMENT: 1. A 75-year-old gentleman with [id number] hypoxemic respiratory failure, improved. 2. Recent deep vein thrombosis, switched to Eliquis. 3. Chronic alcoholism. 4. Profound dementia. 5. Wernicke-Korsakoff syndrome. 6. Dehydration, rehydrated. 7. Chronic kidney disease. PLAN: 1. Continue p.o. Eliquis if he is able to take it. 2. Await guardianship. 3. Supplemental oxygen. 4. Sedation per Psychiatry. JULIANA LOREDO MD DR: LYNNETTE/christine JOB#: [id number] / [id number]
[2020-11-18 15:07] VITALS: BP 127/83
[2020-11-18] MEDS: traZODone 50 MG TABLET. PO SCH (19:47)
[2020-11-18] MEDS: QUEtiapine 100 MG TABLET. PO SCH (19:48)
[2020-11-18] MEDS: TAMSULOSIN 0.4 MG CAP.ER.24H. PO SCH (19:48)
[2020-11-19 06:29] VITALS: BP 124/83
[2020-11-19] MEDS: LORazepam 0.5 MG TABLET PO SCH ×2 (08:06→20:01)
[2020-11-19] MEDS: LACTOBACILLUS RHAMNOSUS GG 1 CAPSULE. PO SCH ×2 (08:06→20:01)
[2020-11-19] MEDS: APIXABAN 5 MG TABLET. PO SCH ×2 (08:06→20:01)
[2020-11-19] MEDS: AMOXICILLIN/K CLAV 875/125MG TABLET. PO SCH ×2 (08:06→20:01)
[2020-11-19] MEDS: risperiDONE 0.25 MG TABLET. PO SCH ×2 (08:06→20:01)
[2020-11-19] MEDS: FINASTERIDE 5 MG TABLET. PO SCH (08:07)
[2020-11-19] MEDS: POTASSIUM CHLORIDE 20 MEQ TABLET.ER. PO SCH ×2 (08:07→20:01)
[2020-11-19] MEDS: INSULIN LISPRO 300 UNITS/3 ML VIAL. SQ SCH ×3 (08:16→17:00)
[2020-11-19] MEDS: INSULIN GLARGINE SYRINGE. SQ SCH ×2 (09:42→20:02)
--- NOTE | 2020-11-19 11:07 | PN ---
DATE: 11/19/2020 ATTENDING PHYSICIAN: Dr. Loredo. SUBJECTIVE: The patient is little more agitated today. He is trying to climb out of bed and screaming. He remains quite confused to person and time. OBJECTIVE FINDINGS: VITAL SIGNS: Blood pressure this morning is 124/83. He is afebrile, pulse is 92 and regular, oxygen saturation 96% on 4 liters nasal cannula. HEENT: Head is without trauma. Pupils are reactive. Sclerae nonicteric. Oropharynx clear. NECK: Supple. No stridor. LUNGS: Actually clear with good breath sounds. CARDIOVASCULAR: Showed regular heart tones. No gallops or murmurs. Peripheral pulses are palpable and full. ABDOMEN: Soft, scaphoid, nontender, no organomegaly. Bowel sounds are hypoactive. EXTREMITIES: Showed no edema. NEUROLOGIC: Profoundly agitated, trying to climb out of bed. ASSESSMENT: 1. A 75-year-old gentleman with acute on chronic respiratory failure, improved, still requiring supplemental oxygen by nasal cannula. 2. Recent deep vein thrombosis, switch to Eliquis. 3. Chronic alcoholism. 4. Wernicke-Korsakoff syndrome. 5. Dementia. 6. Dehydration, rehydrated. 7. Chronic kidney disease. PLAN: 1. We are sedating him to the minimum as we can so that he does not hurt himself. 2. Continue Eliquis. 3. Trying to wean down supplemental oxygen. 4. Recs for Psychiatry. 5. We are waiting for placement to [facility]. JULIANA LOREDO MD DR: LYNNETTE/christine JOB#: [id number] / [id number]
[2020-11-19] MEDS: HALOPERIDOL LACT 5 MG/ML VIAL. IM PRN (11:55)
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
[2020-11-19 13:33] VITALS: BP 124/81
[2020-11-19] MEDS: traMADol 50 MG TABLET PO PRN (14:51)
--- NOTE | 2020-11-19 14:53 | NUR ---
NURSING NOTE PT C/O PAIN IN PENIS AREA AFTER ATTEMPTING TO PULL CATHETER OUT. THIS NURSE GOT BACK FROM LUNCH AND FOUND PT BED ALARM OFF AND PT IN THE BATHROOM WITH THE DOOR LOCKED. THIS NURSE PHONED SECURITY TO UNLOCK THE DOOR AND EDUCATED NURSING AID THAT BED ALARM MUST BE ON AT ALL TIMES. PT FINALLY OPENED THE DOOR, ASSISTED PT BACK TO BED, PT YELLING "MY PENIS HURTS", AND WHEN OFFERED PAIN MEDS PT STATED YES PLEASE. PT GIVEN PRN TRAMADOL AND PRN ZYPREXA. PT MITS PUT ON D/T PT ATTEMPTING TO HIT STAFF AND PULLING OUT CATHETER. WILL CONTINUE TO MONITOR. REFUGIO FRANCO.
--- NOTE | 2020-11-19 15:34 | NUR ---
NURSING NOTE PT CONTINUING TO YELL OUT, RESTLESS, CURSING AT STAFF WITH CARES, STATING "JUST KILL ME NOW". PT PULLED MITS OFF WITH HIS TEETH AND CONTINUING TO PULL ON CATHETER. PRN ATIVAN WILL BE ADMINISTERED TO HELP PT RELAX. REFUGIO FRANCO.
[2020-11-19 19:00] VITALS: BP 135/87
[2020-11-19] MEDS: QUEtiapine 100 MG TABLET. PO SCH (20:01)
[2020-11-19] MEDS: TAMSULOSIN 0.4 MG CAP.ER.24H. PO SCH (20:01)
[2020-11-19] MEDS: traZODone 50 MG TABLET. PO SCH (20:01)
[2020-11-20] MEDS: traMADol 50 MG TABLET PO PRN (05:41)
[2020-11-20] MEDS: INSULIN LISPRO 300 UNITS/3 ML VIAL. SQ SCH ×4 (08:26→20:09)
[2020-11-20] MEDS: INSULIN GLARGINE SYRINGE. SQ SCH ×2 (08:26→21:32)
[2020-11-20] MEDS: POTASSIUM CHLORIDE 20 MEQ TABLET.ER. PO SCH ×2 (08:30→20:07)
[2020-11-20] MEDS: APIXABAN 5 MG TABLET. PO SCH ×2 (08:30→20:08)
[2020-11-20] MEDS: LORazepam 0.5 MG TABLET PO SCH ×2 (08:30→20:08)
[2020-11-20] MEDS: risperiDONE 0.25 MG TABLET. PO SCH ×2 (08:30→20:08)
[2020-11-20] MEDS: LACTOBACILLUS RHAMNOSUS GG 1 CAPSULE. PO SCH ×2 (08:30→20:08)
[2020-11-20] MEDS: FINASTERIDE 5 MG TABLET. PO SCH (08:30)
[2020-11-20] MEDS: AMOXICILLIN/K CLAV 875/125MG TABLET. PO SCH ×2 (08:31→20:07)
[2020-11-20 10:11] VITALS: BP 113/73
--- NOTE | 2020-11-20 10:58 | PN ---
DATE: 11/20/2020 ATTENDING PHYSICIAN: Dr. Loredo SUBJECTIVE: The patient is still agitated, confused, requiring one-on-one patient's safety representative. He has been here since 11/04. We do not have guardianship yet, in the process of getting guardianship for him to [facility]. He is agitated still and taking ____ at nurses, cussing them out and being fairly uncooperative. OBJECTIVE FINDINGS: VITAL SIGNS: Blood pressure is 135/87, temperature 97.9, pulse ranges between 60 and 100, oxygen saturation 98% on 4 liters nasal cannula. HEENT: Head is without trauma. Pupils are reactive. Sclerae nonicteric. Oropharynx clear. LUNGS: Good breath sounds. CARDIOVASCULAR: Showed regular heart tones. ABDOMEN: Soft. EXTREMITIES: Without edema. NEUROLOGIC: Confused and agitated, requiring sedation. ASSESSMENT: 1. A 75-year-old gentleman with acute on chronic respiratory failure, improving, still requiring supplemental oxygen. 2. Recent deep vein thrombosis, on Eliquis. 3. Chronic alcoholism. 4. Wernicke-Korsakoff syndrome. 5. Profound dementia. 6. Dehydration, rehydrated. 7. Chronic kidney disease. PLAN: 1. We are sedating him as ordered. 2. Continue Eliquis. 3. Trying to wean down supplemental oxygen. 4. Rx per Psychiatry service. 5. We are awaiting for guardianship and placement. JULIANA LOREDO MD DR: LYNNETTE/christine JOB#: [id number] / [id number]
--- NOTE | 2020-11-20 14:39 | NUR ---
PATIENT IS RESTLESS , YELLING OUT, CURSING AT STAFF, CONTINUOUSLY TRYING TO PULL THE [place] CATHETER OUT. PATIENT WAS GIVEN ZYPREXA REPEATEDLY AND ATIVAN IM WITHOUT ANY THERAPEUTIC EFFECT NOTED. PATIENT KEEPS SWINGING HIS LEGS OVER THE BED RAIL TO GET UP. PATIENT WAS REDIRECTED AND REPOSITION SEVERAL TIMES , EDUCATED ABOUT FALL RISK AND SAFETY , EDUCATION WAS UNSUCCESSFUL. PATIENT IS ON 1: 1 OBSERVATION. CONTINUE TO MONITOR.
[2020-11-20] MEDS: ACETAMINOPHEN 500 MG TABLET PO PRN (18:56)
[2020-11-20 19:45] VITALS: BP 132/80
[2020-11-20] MEDS: TAMSULOSIN 0.4 MG CAP.ER.24H. PO SCH (20:07)
[2020-11-20] MEDS: traZODone 50 MG TABLET. PO SCH (20:08)
[2020-11-20] MEDS: QUEtiapine 100 MG TABLET. PO SCH (20:08)
[2020-11-21 03:55] VITALS: BP 109/72
--- NOTE | 2020-11-21 04:30 | NUR ---
At change of shift, pt yelling out and verbally aggressive with staff. Pt yelling out "Help...Help me...Help". When asked what Pt needed help with, Pt yelled "get out of here you dirty whore and get me food." Pt demanding to eat and offered ice cream and yogurt, which he ate independently with HS medications crushed in. Pt dozing intermittently after eating HS snack. After HS medications, Pt cooperative with vitals and assessment. Pt did finally fall asleep around 2115 till about 0230. When awake at 0230, pt's mood very labile. Pt became restless, pulling O2 off and attempting to get out of bed. When attempting to reorient and place O2 back on, pt verbally aggressive to staff, yelling "Go away....get out of here....GO!" and pushing against staff with hands and kicking legs in air. PRN IM Ativan given, with minimal improvement. Pt now requesting pudding, PRN Zyprexa given in pudding. Pt now calm resting in bed. Pt allowed AM vitals and gown/linen change. Pt back asleep around 0445. 1:1 staff at bedside and bed alarm on.
[2020-11-21] MEDS: HALOPERIDOL LACT 5 MG/ML VIAL. IM PRN ×2 (07:35→12:50)
[2020-11-21] MEDS: LACTOBACILLUS RHAMNOSUS GG 1 CAPSULE. PO SCH ×2 (08:05→21:00)
[2020-11-21] MEDS: LORazepam 0.5 MG TABLET PO SCH ×2 (08:05→21:00)
[2020-11-21] MEDS: AMOXICILLIN/K CLAV 875/125MG TABLET. PO SCH ×2 (08:05→21:00)
[2020-11-21] MEDS: POTASSIUM CHLORIDE 20 MEQ TABLET.ER. PO SCH ×2 (08:06→21:00)
[2020-11-21] MEDS: APIXABAN 5 MG TABLET. PO SCH ×2 (08:06→21:00)
[2020-11-21] MEDS: risperiDONE 0.25 MG TABLET. PO SCH ×2 (08:06→21:00)
[2020-11-21] MEDS: FINASTERIDE 5 MG TABLET. PO SCH (08:06)
[2020-11-21] MEDS: INSULIN LISPRO 300 UNITS/3 ML VIAL. SQ SCH ×3 (08:16→17:00)
[2020-11-21] MEDS ORDERED: OLANZapine IM 10 MG VIAL. IM SCH (09:00)
[2020-11-21] MEDS: INSULIN GLARGINE SYRINGE. SQ SCH ×2 (09:24→21:00)
--- NOTE | 2020-11-21 13:30 | NUR ---
Pt very agitated and aggressive, pulling on crowell catheter causing trauma to urethra, as a result there is bleeding in crowell bag and around tip of catheter. Pt yelling and cursing at nursing staff, attempted calm pt and get to get catheter away from pt, however pt hitting, kicking and pinching and inconsolable. Pt given IM Zyprexa, awaiting for pt to calm down to assess trauma. 1445 Pt more calm and able to redirect. No urine draining in bag, flushed crowell with 60ml of sterile water, 3-4 small clots in syringe. Urine now light pink and draining in bag. Pt rewarded with snack and is more calm and cooperative.
[2020-11-21] MEDS ORDERED: ZIPRASIDONE IM 20 MG VIAL. IM PRN (15:30)
[2020-11-21 15:43] VITALS: BP 130/82
--- NOTE | 2020-11-21 17:07 | PN ---
DATE: 11/21/2020 SUBJECTIVE: The patient is resting flat in bed, continued to be extremely agitated, restless and combative, swinging at the nursing staff and other healthcare provider, attempts to pull his catheter. He requires mittens and was treated with Ativan and Zyprexa. PHYSICAL EXAMINATION: GENERAL: When I examined him this afternoon, he looked well and was clearly in no apparent respiratory distress. No pallor, jaundice or cyanosis. No lymphadenopathy, no thyromegaly. No jugular venous distention. No lower limb edema. VITAL SIGNS: Her heart rate was 92, blood pressure was 109/72, temperature was 98.5, respiratory rate was 20, and oxygen saturation was 93% on 4 liters of oxygen by nasal cannula. HEAD, EYES, EARS, NOSE, AND THROAT: Showed normocephalic, atraumatic. NECK: Supple. HEART: Normal first and second heart sounds. No gallop, rub or murmur. CHEST: Clear to auscultation. No crepitation or rhonchi. ABDOMEN: Distended, soft, nontender. No guarding or rigidity. No organomegaly. All hernial orifice intact. Bowel sounds normal. NEUROLOGIC: He is awake, alert, but very confused, agitated. All his cranial nerves are intact. He moves extremities without difficulty, although he is mostly bedbound. He is very unsteady on his feet. He has an indwelling Flores catheter. His intake was 1270, output was 350. No lab works were done. Most recent lab work showed a white cell count of 8100, hemoglobin 13, hematocrit 39, MCV 89 and platelet count 288,000. His chemistry showed serum sodium 140, potassium 4.9, chloride 106, bicarbonate 25, anion gap of 9, BUN 14, creatinine 1.4, estimated GFR was 49 mL per minute. His glucose 162 and calcium was 8.6. ASSESSMENT: 1. A 75-year-old gentleman with [id number] respiratory failure, hypoxic, improving; however, continues to require 4 liters of oxygen. 2. Recent deep vein thrombosis, on Eliquis. 3. Chronic alcoholism. 4. Wernicke-Korsakoff syndrome. 5. Profound dementia. 5. Dehydration, resolved. 6. Chronic kidney disease. PLAN: I started him on ___ Geodon given that Haldol and Zyprexa not really effective. Continue with Eliquis. Continue with indwelling Flores catheter. Continue with psychotropic medication. Apparently, the patient has a court appointed guardian now and I have reconsulted Dr. Galvez to evaluate him and perhaps transfer [facility] to [facility] for [facility] psychiatric stabilization. PATSY OSULLIVAN MD DR: JAN/christine JOB#: [id number] / [id number]
[2020-11-21] MEDS: traMADol 50 MG TABLET PO PRN (18:34)
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
[2020-11-21] MEDS: TAMSULOSIN 0.4 MG CAP.ER.24H. PO SCH (21:00)
[2020-11-21] MEDS: traZODone 50 MG TABLET. PO SCH (21:00)
[2020-11-21] MEDS: QUEtiapine 100 MG TABLET. PO SCH (21:00)
--- NOTE | 2020-11-21 22:06 | PDOC ---
Exam Note: Marcos Note: Please also refer to the separate dictated note~for this date of service dictated separately.~Patient seen individually. Discussed the patient with Nursing staff reviewed the chart.~Reviewed interim history and current functioning. Reviewed vital signs,~Labs/ Radiology~and current medications noted below. Continue current treatment with the changes noted in the dictated addendum note Assessment: Vital Signs/I&O: Vital Signs Date Time Temp Pulse Resp B/P (MAP) Pulse Ox O2 Delivery O2 Flow Rate FiO2 11/21/20 19:34 93 Nasal Cannula 4.0 11/21/20 18:34 14 11/21/20 15:43 98.3 103 130/82 (98) I & O0 11/20/20 11/20/20 11/21/20 15:00 23:00 07:00 Intake Total 480 ml 240 ml 0 ml Output Total 400 ml 1125 ml Balance 480 ml -160 ml -1125 ml Labs: Laboratory Tests Test 11/21/20 07:26 11/21/20 12:24 11/21/20 16:38 11/21/20 20:01 Glucose (Fingerstick) 183 mg/dL (70-99) H 175 mg/dL (70-99) H 211 mg/dL (70-99) H 206 mg/dL (70-99) H Current Medications: Meds: Laboratory Tests Test 11/21/20 07:26 11/21/20 12:24 11/21/20 16:38 11/21/20 20:01 Glucose (Fingerstick) 183 mg/dL 175 mg/dL 211 mg/dL 206 mg/dL Current Medications Medications (Trade) Dose Ordered Sig/Connie Route PRN Reason Start Time Stop Time Status Last Admin Dose Admin Sodium Chloride 1,000 ml @ 1,000 mls/hr 1X ONCE IV 11/03/20 13:15 11/03/20 14:14 DC 11/03/20 13:45 Haloperidol Lactate (Haldol) 5 mg 1X ONCE IVP 11/03/20 13:30 11/03/20 13:31 DC 11/03/20 13:32 Haloperidol Lactate (Haldol) 5 mg 1X ONCE IVP 11/03/20 13:30 11/03/20 13:31 DC 11/03/20 13:37 Sodium Chloride 1,000 ml @ 1,000 mls/hr 1X ONCE IV 11/03/20 16:45 11/03/20 17:44 DC 11/03/20 16:48 Midazolam HCl (Versed) 2 mg 1X ONCE IV 11/03/20 17:30 11/03/20 17:31 DC 11/03/20 17:22 Midazolam HCl (Versed) 2 mg 1X ONCE IV 11/03/20 17:30 11/03/20 17:31 DC Sodium Chloride 1,000 ml @ 75 mls/hr [id number] IV 11/03/20 18:00 11/04/20 17:59 DC 11/04/20 06:42 Midazolam HCl (Versed) 3 mg 1X ONCE IV 11/03/20 19:45 11/03/20 19:46 DC 11/03/20 20:15 Lorazepam (Ativan Inj) 0.5 mg PRN Q2HR PRN IVP ANXIETY / AGITATION 11/03/20 21:30 11/04/20 08:44 DC 11/04/20 06:56 Haloperidol Lactate (Haldol) 5 mg 1X ONCE IVP 11/04/20 06:54 11/04/20 06:58 DC 11/04/20 06:59 Haloperidol Lactate (Haldol) 5 mg PRN 1X PRN IVP agitation 11/04/20 07:15 11/04/20 07:43 DC 11/04/20 07:10 Haloperidol Lactate (Haldol) 5 mg PRN Q6HRS PRN IVP AGITATION 11/04/20 08:00 11/04/20 20:48 DC 11/04/20 08:09 Haloperidol Lactate (Haldol) 5 mg 1X ONCE IVP 11/04/20 08:45 11/04/20 08:46 DC 11/04/20 08:45 Lorazepam (Ativan Inj) 1 mg PRN Q1HR PRN IVP ANXIETY / AGITATION 11/04/20 08:45 11/04/20 15:12 DC 11/04/20 14:52 Lorazepam (Ativan Inj) 2 mg PRN Q1HR PRN IVP ANXIETY / AGITATION 11/04/20 15:15 11/17/20 08:52 DC 11/14/20 16:00 Olanzapine (ZyPREXA IM) 5 mg PRN 1X ONCE IM 11/04/20 20:45 11/04/20 20:53 DC 11/05/20 00:43 Olanzapine (ZyPREXA ZYDIS) 2.5 mg PRN Q2HRS PRN PO PSYCHOSIS 11/04/20 20:45 11/21/20 15:30 DC 11/21/20 07:37 Dextrose 1,000 ml @ 75 mls/hr [id number] IV 11/05/20 07:15 11/08/20 15:07 DC 11/08/20 06:41 Acetaminophen (Tylenol Supp) 650 mg PRN Q6HRS PRN [place] MILD PAIN / TEMP > 100.3'F 11/05/20 06:45 11/05/20 07:15 Ceftriaxone Sodium 1 gm/ Sodium Chloride 50 ml @ 100 mls/hr Q24H IV 11/05/20 08:00 11/08/20 15:07 DC 11/08/20 07:38 Insulin Human Lispro (HumaLOG) 0-9 UNITS TIDWMEALS SQ 11/05/20 13:45 11/21/20 17:00 Dextrose (Dextrose 50%-Water Syringe) 12.5 gm PRN Q15MIN PRN IV SEE COMMENTS 11/05/20 13:00 Lactobacillus Rhamnosus (Culturelle) 1 cap BID PO 11/07/20 09:00 11/21/20 08:05 Acetaminophen (Tylenol) 500 mg PRN Q6HRS PRN PO mild pain or fever 11/08/20 14:45 11/20/20 18:56 Lorazepam (Ativan) 0.25 mg BID PO 11/08/20 21:00 11/21/20 08:05 Potassium Chloride (Klor-Con) 20 meq BID PO 11/08/20 21:00 11/21/20 08:06 Quetiapine Fumarate (SEROquel) 100 mg QHS PO 11/08/20 21:00 11/20/20 20:08 Risperidone (RisperDAL) 0.25 mg BID PO 11/08/20 21:00 11/21/20 08:06 Tramadol HCl (Ultram) 50 mg PRN Q6HRS PRN PO MODERATE PAIN 4-6 11/08/20 14:45 11/21/20 18:34 Trazodone HCl (Desyrel) 50 mg QHS PO 11/08/20 21:00 11/20/20 20:08 Tamsulosin HCl (Flomax) 0.8 mg QHS PO 11/09/20 21:00 11/20/20 20:07 Finasteride (Proscar) 5 mg DAILY PO 11/10/20 09:00 11/21/20 08:06 Piperacillin Sod/ Tazobactam Sod 2.25 gm/Sodium Chloride 50 ml @ 100 mls/hr Q8H IV 11/11/20 16:00 11/14/20 19:19 DC 11/14/20 16:08 Vancomycin HCl (Vanco Per Pharmacy) 1 each PRN DAILY PRN MC SEE COMMENTS 11/11/20 14:45 11/15/20 14:35 DC 11/13/20 19:05 Enoxaparin Sodium (Lovenox 100mg Syringe) 100 mg Q12HR SQ 11/11/20 21:00 11/16/20 09:22 DC 11/16/20 07:44 Vancomycin HCl 2 gm/Sodium Chloride 500 ml @ 250 mls/hr 1X ONCE IV 11/11/20 17:00 11/11/20 18:59 DC 11/11/20 17:41 Vancomycin HCl (Vancomycin Trough Level) 1 each 1X ONCE MC 11/13/20 17:30 11/13/20 17:31 DC 11/13/20 17:30 Vancomycin HCl 1.5 gm/Sodium Chloride 500 ml @ 250 mls/hr Q24H IV 11/12/20 18:00 11/14/20 19:19 DC 11/14/20 18:02 Furosemide (Lasix) 40 mg 1X ONCE IVP 11/12/20 09:15 11/12/20 09:18 DC 11/12/20 11:36 Vancomycin HCl (Vancomycin Trough Level) 1 each 1X ONCE MC 11/15/20 17:30 11/15/20 14:35 DC Insulin Glargine (Lantus Syringe) 20 unit BID SQ 11/14/20 09:00 11/21/20 09:24 Haloperidol Lactate (Haldol) 5 mg PRN Q6HRS PRN IVP AGITATION 11/14/20 10:15 11/18/20 06:21 DC 11/14/20 16:47 Amoxicillin/ Clavulanate Potassium (Augmentin 875/ 125mg) 1 tab BID PO 11/14/20 21:00 11/21/20 08:05 Apixaban (Eliquis) 5 mg BID PO 11/16/20 21:00 11/21/20 08:06 Lorazepam (Ativan Inj) 2 mg PRN Q1HR PRN IM ANXIETY / AGITATION 11/17/20 09:00 11/21/20 18:34 Haloperidol Lactate (Haldol) 5 mg PRN Q6HRS PRN IM AGITATION 11/18/20 06:30 11/21/20 15:30 DC 11/21/20 12:50 Olanzapine (ZyPREXA IM) 2.5 mg DAILY IM 11/21/20 09:00 11/21/20 16:09 DC 11/21/20 09:34 Ziprasidone (Geodon Im) 10 mg PRN Q4HRS PRN IM AGITATION 11/21/20 15:30 11/21/20 17:23 Olanzapine (ZyPREXA ZYDIS) 2.5 mg PRN Q2HRS PRN PO psychosis and aggitation 11/21/20 20:15 Current Medications Medications (Trade) Dose Ordered Sig/Connie Route PRN Reason Start Time Stop Time Status Last Admin Dose Admin Olanzapine (ZyPREXA IM) 2.5 mg DAILY IM 11/21/20 09:00 11/21/20 16:09 DC 11/21/20 09:34 Ziprasidone (Geodon Im) 10 mg PRN Q4HRS PRN IM AGITATION 11/21/20 15:30 11/21/20 17:23 I have reviewed the current psychotropics carefully including drug interactions. Risk benefit ratio favors no change other than as noted in my dictated progress note. Diagnosis: Problems: (1) Dementia, vascular, with depression (2) Dementia, vascular, with delusions (3) Dementia in Alzheimer's disease with delusions (4) Major neurocognitive disorder (5) Dementia in Alzheimer's disease with early onset with behavioral disturbance MARIA DE EJSUS LEMON MD Nov 21, 2020 22:06
--- NOTE | 2020-11-22 00:17 | NUR ---
Pt has been asleep since 194, no nighttime medications administered.
[2020-11-22 05:42] VITALS: BP 126/80
[2020-11-22] MEDS: traMADol 50 MG TABLET PO PRN ×3 (06:15→19:53)
[2020-11-22 06:50] LABS: BASO # 0.1 x10^3/uL (0.0-0.2); BASO % 1 % (0-3); EOS # 0.2 x10^3/uL (0.0-0.7); EOS % 3 % (0-3); HEMATOCRIT 37.5 % (39.0-53.0); HEMOGLOBIN 12.1 g/dL (13.0-17.5); LYMPH # 1.2 x10^3/uL (1.0-4.8); LYMPH % 16 % (24-48); MEAN CORPUSCULAR HEMOGLOBIN 29 pg (25-35); MEAN CORPUSCULAR HGB CONC 32 g/dL (31-37); MEAN CORPUSCULAR VOLUME 89 fL (79-100); MONO # 0.6 x10^3/uL (0.0-1.1); MONO % 8 % (0-9); NEUT # 5.2 x10^3uL (1.8-7.7); NEUT % 72 % (31-73); PLATELET COUNT 295 x10^3/uL (140-400); RED BLOOD COUNT 4.22 x10^6/uL (4.30-5.70); WHITE BLOOD COUNT 7.3 x10^3/uL (4.0-11.0)
[2020-11-22 06:52] LABS: ALBUMIN 2.7 g/dL (3.4-5.0); ALBUMIN/GLOBULIN RATIO 0.7 (1.0-1.7); CALCIUM 8.7 mg/dL (8.5-10.1); CREATININE 1.5 mg/dL (0.7-1.3); GFR 45.7; POTASSIUM 4.7 mmol/L (3.5-5.1); TOTAL BILIRUBIN 0.3 mg/dL (0.2-1.0); TOTAL PROTEIN 6.5 g/dL (6.4-8.2)
[2020-11-22] MEDS: AMOXICILLIN/K CLAV 875/125MG TABLET. PO SCH ×2 (08:05→19:29)
[2020-11-22] MEDS: FINASTERIDE 5 MG TABLET. PO SCH (08:06)
[2020-11-22] MEDS: LORazepam 0.5 MG TABLET PO SCH ×2 (08:06→19:29)
[2020-11-22] MEDS: APIXABAN 5 MG TABLET. PO SCH ×2 (08:06→19:29)
[2020-11-22] MEDS: LACTOBACILLUS RHAMNOSUS GG 1 CAPSULE. PO SCH ×2 (08:06→19:29)
[2020-11-22] MEDS: risperiDONE 0.25 MG TABLET. PO SCH ×2 (08:06→19:29)
[2020-11-22] MEDS: POTASSIUM CHLORIDE 20 MEQ TABLET.ER. PO SCH ×2 (08:06→19:29)
[2020-11-22] MEDS: INSULIN LISPRO 300 UNITS/3 ML VIAL. SQ SCH ×3 (08:15→17:00)
[2020-11-22] MEDS: INSULIN GLARGINE SYRINGE. SQ SCH ×2 (12:11→20:14)
--- NOTE | 2020-11-22 18:34 | NUR ---
Pt had a fairly good day today. Pt mood grumpy, although no name calling or cursing, minimal yelling out, and no hitting or kicking. Pt responded with please and thank you. Up to chair with lunch and dinner x2 assistance. Atempted to use commode twice with no bowel movement.
--- NOTE | 2020-11-22 18:39 | NUR ---
Assessment intake completed with Peggy on [facility], guardianship paperwork faxed to [facility].
--- NOTE | 2020-11-22 18:53 | PN ---
DATE: 11/22/2020 SUBJECTIVE: The patient is resting flat, sleeping comfortably, in no apparent distress. Nursing staff stated that he has been more pleasant and cooperative. He has managed to feed himself and he was not aggressive or combative, did not use any obscene words. Did complain of abdominal pain, but apparently has had bowel movement only 2 days ago. PHYSICAL EXAMINATION: GENERAL: When I examined him, he looked well and was clearly in no apparent respiratory distress, slightly pale, but no jaundice, cyanosis or thyromegaly. No jugular venous distension. No limb edema. VITAL SIGNS: His heart rate was 100, blood pressure was 126/80, temperature was 98.3, respiratory rate 20, and oxygen saturation was 92% on 4 liters of oxygen. HEENT: Showed normocephalic, atraumatic. NECK: Supple. HEART: Showed normal first and second heart sounds. No gallop, rub or murmur. CHEST: Showed central trachea, equal bilateral chest expansion, air entry, vesicular sounds. No crepitation or rhonchi. ABDOMEN: Distended, soft, nontender. NEUROLOGIC: He was sleepy, but arousable. All cranial nerves are intact. He moves extremities without difficulty. Has an indwelling Flores catheter. He is mostly bedbound, chair bound. His intake was 720, output was 1500. LABORATORY DATA: As of this morning showed a white cell count 7300, hemoglobin 12, hematocrit 37, MCV 89 and platelet count 295,000 with normal manual differential. His chemistry showed a serum sodium of 145, potassium 4.7, chloride 109, bicarbonate 30, anion gap of 6, BUN 18, creatinine 1.5, estimated GFR was 45 mL per minute. His glucose was 256, calcium was 8.7. Total bilirubin, AST, ALT, alkaline phosphatase were normal. Total protein 6.5, albumin was 2.7, his D-dimer was high at 0.87. ASSESSMENT: 1. A 75-year-old gentleman with acute on chronic respiratory failure, hypoxic, improving; however, he continues to require 4 liters of oxygen. 2. Recent deep vein thrombosis, questionable pulmonary emboli, on Eliquis. 3. Chronic alcoholism. 4. Chronic kidney disease. 5. Wernicke-Korsakoff psychosis. 6. Profound dementia. 7. Dehydration that has resolved. PLAN: To continue with Eliquis. Continue with an indwelling Flores catheter. Continue with psychotropic medication as recommended by Dr. Galvez and await evaluation for him to be transferred [facility]. PATSY OSULLIVAN MD DR: JAN/christine JOB#: [id number] / [id number]
[2020-11-22] MEDS: ACETAMINOPHEN 500 MG TABLET PO PRN (19:09)
[2020-11-22] MEDS: TAMSULOSIN 0.4 MG CAP.ER.24H. PO SCH (19:29)
[2020-11-22] MEDS: traZODone 50 MG TABLET. PO SCH (19:29)
[2020-11-22] MEDS: QUEtiapine 100 MG TABLET. PO SCH (19:29)
[2020-11-22 20:00] VITALS: BP 129/74
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
[2020-11-23] MEDS: traMADol 50 MG TABLET PO PRN (02:59)
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
[2020-11-23 07:00] VITALS: BP 124/82
[2020-11-23] MEDS: APIXABAN 5 MG TABLET. PO SCH (08:41)
[2020-11-23] MEDS: LACTOBACILLUS RHAMNOSUS GG 1 CAPSULE. PO SCH (08:41)
[2020-11-23] MEDS: FINASTERIDE 5 MG TABLET. PO SCH (08:41)
[2020-11-23] MEDS: LORazepam 0.5 MG TABLET PO SCH (08:42)
[2020-11-23] MEDS: risperiDONE 0.25 MG TABLET. PO SCH (08:42)
[2020-11-23] MEDS: INSULIN GLARGINE SYRINGE. SQ SCH (08:55)
[2020-11-23] MEDS: INSULIN LISPRO 300 UNITS/3 ML VIAL. SQ SCH ×2 (08:57→12:10)
--- NOTE | 2020-11-23 09:04 | PDOC ---
Exam Note: Marcos Note: This note is a late entry for 11/22/2020 covers elements not covered in my initial note. Subjective: The patient was reviewed on rounds on 11/22/2020. Discussed with nursing staff and reviewed the chart. He continues to be intermittently agitated, confused, aggressive. I had communicated a couple of times with Peggy Cole, environmental services coordinator of [facility] and coordination has been done with the patients guardian for possible transition to his [facility] ([facility]). Plan was to transition him to [facility] on 11/22 but I have been informed that this may be postponed to 11/23. Review of Systems: No CV, , pulmonary, eye system symptoms on review. Mental Status Exam: The patient is oriented to himself. He remains confused. Insight, judgment, recent and remote memory, attention and concentration, fund of knowledge is poor consistent with his diagnoses. Laboratory Data: Reviewed. Impression: Major neurocognitive disorder Alzheimer vascular with delusion, depression, behavioral disturbance. Past history of alcohol abuse. Plan: Continue current psychotropics. Transition to [facility] when medically stable. Assessment: Vital Signs/I&O: Vital Signs Date Time Temp Pulse Resp B/P (MAP) Pulse Ox O2 Delivery O2 Flow Rate FiO2 11/23/20 08:00 Nasal Cannula 4.0 11/23/20 03:59 94 11/22/20 20:00 98.2 99 20 129/74 (92) I & O 11/22/20 11/22/20 11/23/20 15:00 23:00 07:00 Intake Total 620 ml 240 ml Output Total 700 ml 500 ml Balance 620 ml -460 ml -500 ml Labs: Laboratory Tests Test 11/22/20 11:34 11/22/20 20:10 11/23/20 08:11 Glucose (Fingerstick) 230 mg/dL (70-99) H 335 mg/dL (70-99) H 185 mg/dL (70-99) H Current Medications: Meds: Laboratory Tests Test 11/22/20 11:34 11/22/20 20:10 11/23/20 08:11 Glucose (Fingerstick) 230 mg/dL 335 mg/dL 185 mg/dL Current Medications Medications (Trade) Dose Ordered Sig/Connie Route PRN Reason Start Time Stop Time Status Last Admin Dose Admin Sodium Chloride 1,000 ml @ 1,000 mls/hr 1X ONCE IV 11/03/20 13:15 11/03/20 14:14 DC 11/03/20 13:45 Haloperidol Lactate (Haldol) 5 mg 1X ONCE IVP 11/03/20 13:30 11/03/20 13:31 DC 11/03/20 13:32 Haloperidol Lactate (Haldol) 5 mg 1X ONCE IVP 11/03/20 13:30 11/03/20 13:31 DC 11/03/20 13:37 Sodium Chloride 1,000 ml @ 1,000 mls/hr 1X ONCE IV 11/03/20 16:45 11/03/20 17:44 DC 11/03/20 16:48 Midazolam HCl (Versed) 2 mg 1X ONCE IV 11/03/20 17:30 11/03/20 17:31 DC 11/03/20 17:22 Midazolam HCl (Versed) 2 mg 1X ONCE IV 11/03/20 17:30 11/03/20 17:31 DC Sodium Chloride 1,000 ml @ 75 mls/hr [id number] IV 11/03/20 18:00 11/04/20 17:59 DC 11/04/20 06:42 Midazolam HCl (Versed) 3 mg 1X ONCE IV 11/03/20 19:45 11/03/20 19:46 DC 11/03/20 20:15 Lorazepam (Ativan Inj) 0.5 mg PRN Q2HR PRN IVP ANXIETY / AGITATION 11/03/20 21:30 11/04/20 08:44 DC 11/04/20 06:56 Haloperidol Lactate (Haldol) 5 mg 1X ONCE IVP 11/04/20 06:54 11/04/20 06:58 DC 11/04/20 06:59 Haloperidol Lactate (Haldol) 5 mg PRN 1X PRN IVP agitation 11/04/20 07:15 11/04/20 07:43 DC 11/04/20 07:10 Haloperidol Lactate (Haldol) 5 mg PRN Q6HRS PRN IVP AGITATION 11/04/20 08:00 11/04/20 20:48 DC 11/04/20 08:09 Haloperidol Lactate (Haldol) 5 mg 1X ONCE IVP 11/04/20 08:45 11/04/20 08:46 DC 11/04/20 08:45 Lorazepam (Ativan Inj) 1 mg PRN Q1HR PRN IVP ANXIETY / AGITATION 11/04/20 08:45 11/04/20 15:12 DC 11/04/20 14:52 Lorazepam (Ativan Inj) 2 mg PRN Q1HR PRN IVP ANXIETY / AGITATION 11/04/20 15:15 11/17/20 08:52 DC 11/14/20 16:00 Olanzapine (ZyPREXA IM) 5 mg PRN 1X ONCE IM 11/04/20 20:45 11/04/20 20:53 DC 11/05/20 00:43 Olanzapine (ZyPREXA ZYDIS) 2.5 mg PRN Q2HRS PRN PO PSYCHOSIS 11/04/20 20:45 11/21/20 15:30 DC 11/21/20 07:37 Dextrose 1,000 ml @ 75 mls/hr [id number] IV 11/05/20 07:15 11/08/20 15:07 DC 11/08/20 06:41 Acetaminophen (Tylenol Supp) 650 mg PRN Q6HRS PRN FL MILD PAIN / TEMP > 100.3'F 11/05/20 06:45 11/05/20 07:15 Ceftriaxone Sodium 1 gm/ Sodium Chloride 50 ml @ 100 mls/hr Q24H IV 11/05/20 08:00 11/08/20 15:07 DC 11/08/20 07:38 Insulin Human Lispro (HumaLOG) 0-9 UNITS TIDWMEALS SQ 11/05/20 13:45 11/23/20 08:57 Dextrose (Dextrose 50%-Water Syringe) 12.5 gm PRN Q15MIN PRN IV SEE COMMENTS 11/05/20 13:00 Lactobacillus Rhamnosus (Culturelle) 1 cap BID PO 11/07/20 09:00 11/23/20 08:41 Acetaminophen (Tylenol) 500 mg PRN Q6HRS PRN PO mild pain or fever 11/08/20 14:45 11/22/20 19:09 Lorazepam (Ativan) 0.25 mg BID PO 11/08/20 21:00 11/23/20 08:42 Potassium Chloride (Klor-Con) 20 meq BID PO 11/08/20 21:00 11/22/20 19:29 Quetiapine Fumarate (SEROquel) 100 mg QHS PO 11/08/20 21:00 11/22/20 19:29 Risperidone (RisperDAL) 0.25 mg BID PO 11/08/20 21:00 11/23/20 08:42 Tramadol HCl (Ultram) 50 mg PRN Q6HRS PRN PO MODERATE PAIN 4-6 11/08/20 14:45 11/23/20 02:59 Trazodone HCl (Desyrel) 50 mg QHS PO 11/08/20 21:00 11/22/20 19:29 Tamsulosin HCl (Flomax) 0.8 mg QHS PO 11/09/20 21:00 11/22/20 19:29 Finasteride (Proscar) 5 mg DAILY PO 11/10/20 09:00 11/23/20 08:41 Piperacillin Sod/ Tazobactam Sod 2.25 gm/Sodium Chloride 50 ml @ 100 mls/hr Q8H IV 11/11/20 16:00 11/14/20 19:19 DC 11/14/20 16:08 Vancomycin HCl (Vanco Per Pharmacy) 1 each PRN DAILY PRN MC SEE COMMENTS 11/11/20 14:45 11/15/20 14:35 DC 11/13/20 19:05 Enoxaparin Sodium (Lovenox 100mg Syringe) 100 mg Q12HR SQ 11/11/20 21:00 11/16/20 09:22 DC 11/16/20 07:44 Vancomycin HCl 2 gm/Sodium Chloride 500 ml @ 250 mls/hr 1X ONCE IV 11/11/20 17:00 11/11/20 18:59 DC 11/11/20 17:41 Vancomycin HCl (Vancomycin Trough Level) 1 each 1X ONCE MC 11/13/20 17:30 11/13/20 17:31 DC 11/13/20 17:30 Vancomycin HCl 1.5 gm/Sodium Chloride 500 ml @ 250 mls/hr Q24H IV 11/12/20 18:00 11/14/20 19:19 DC 11/14/20 18:02 Furosemide (Lasix) 40 mg 1X ONCE IVP 11/12/20 09:15 11/12/20 09:18 DC 11/12/20 11:36 Vancomycin HCl (Vancomycin Trough Level) 1 each 1X ONCE MC 11/15/20 17:30 11/15/20 14:35 DC Insulin Glargine (Lantus Syringe) 20 unit BID SQ 11/14/20 09:00 11/23/20 08:55 Haloperidol Lactate (Haldol) 5 mg PRN Q6HRS PRN IVP AGITATION 11/14/20 10:15 11/18/20 06:21 DC 11/14/20 16:47 Amoxicillin/ Clavulanate Potassium (Augmentin 875/ 125mg) 1 tab BID PO 11/14/20 21:00 11/23/20 08:14 DC 11/22/20 19:29 Apixaban (Eliquis) 5 mg BID PO 11/16/20 21:00 11/23/20 08:41 Lorazepam (Ativan Inj) 2 mg PRN Q1HR PRN IM ANXIETY / AGITATION 11/17/20 09:00 11/23/20 06:18 Haloperidol Lactate (Haldol) 5 mg PRN Q6HRS PRN IM AGITATION 11/18/20 06:30 11/21/20 15:30 DC 11/21/20 12:50 Olanzapine (ZyPREXA IM) 2.5 mg DAILY IM 11/21/20 09:00 11/21/20 16:09 DC 11/21/20 09:34 Ziprasidone (Geodon Im) 10 mg PRN Q4HRS PRN IM AGITATION 11/21/20 15:30 11/21/20 17:23 Olanzapine (ZyPREXA ZYDIS) 2.5 mg PRN Q2HRS PRN PO psychosis and aggitation 11/21/20 20:15 11/23/20 08:42 I have reviewed the current psychotropics carefully including drug interactions. Risk benefit ratio favors no change other than as noted in my dictated progress note. Diagnosis: Problems: (1) Dementia, vascular, with depression (2) Dementia, vascular, with delusions (3) Dementia in Alzheimer's disease with delusions (4) Dementia in Alzheimer's disease with delirium (5) Major neurocognitive disorder (6) Dementia in Alzheimer's disease with early onset with behavioral disturbance MARIA DE JESUS LEMON MD Nov 23, 2020 09:04
--- NOTE | 2020-11-23 10:54 | DS ---
DATE OF DISCHARGE: 11/23/2020 HOSPITAL COURSE: The patient is a 75-year-old male patient who was originally admitted on 11/04/2020, he was sent from a [facility] with altered mental status, psychosis with delusional behavior. He was found to have a creatinine of 3 mg %. Blood pressure was marginal. He is a full code. He was admitted for hydration. He continued to be very agitated, throwing things around. He actually broke a window in his first hospital room. He had also to be restrained and Haldol and Ativan administered to have some calming effect. Anyhow, the patient's kidney function has dramatically improved. In fact, his creatinine came down from 3 to 1.5. He required obviously an indwelling Flores catheter as he was retaining urine and he also developed acute hypoxic respiratory failure and has had a venous Doppler ultrasound of his lower extremity, which showed that he has deep vein thrombosis within the left posterior tibial vein. Clinically, however, the patient also seemed to have pulmonary emboli because he became hypoxic and he continued to require 4 liters of oxygen. The patient continued to be extremely agitated, combative, restless, and he was evaluated by the psychiatrist, who felt that the patient might benefit from inpatient psychiatric stabilization and therefore, the patient was transferred to [facility] for inpatient psychiatric stabilization. PHYSICAL EXAMINATION: GENERAL: When I saw him today, he looked well and was clearly in no apparent respiratory distress. No pallor, jaundice, cyanosis or thyromegaly. No jugular venous distention. No lower limb edema. VITAL SIGNS: His heart rate was 105, blood pressure was 124/82, temperature was 98.2, respiratory rate 20, and oxygen saturation was 93% on 4 liters of oxygen. HEAD, EYES, EARS, NOSE AND THROAT: Showed normocephalic, atraumatic. NECK: Supple. HEART: Showed normal first and second heart sounds. No gallop, rub or murmur. CHEST: Clear to auscultation. No crepitation or rhonchi. ABDOMEN: Distended, soft, nontender. NEUROLOGIC: He was sleepy, but arousable. All cranial nerves intact. EXTREMITIES: He moves extremities spontaneously, although he is mostly bedbound. He has an indwelling Flores catheter. LABORATORY DATA: His most recent lab work showed a serum sodium 145, potassium 4.7, chloride 109, bicarbonate 30, anion gap of 6, BUN 18, creatinine 1.5, estimated GFR was 45 mL per minute. His glucose was 256, calcium was 8.7. Total bilirubin, AST, ALT, alkaline phosphatase were normal. Total protein 6.5, albumin was 2.7. His white cell count was 7300, hemoglobin 12, hematocrit 37, MCV 89 and platelet count 295,000. DISCHARGE MEDICATIONS: He was transferred to [facility] to continue olanzapine 2.5 mg every 2 hours as needed, lorazepam 2 mg every hour intramuscular as needed. He is on apixaban 5 mg twice a day, Lantus insulin 20 units twice a day, finasteride 5 mg daily, tamsulosin 0.8 mg at bedtime, trazodone 50 mg at bedtime, risperidone 0.25 mg twice a day, quetiapine fumarate 100 mg at bedtime, potassium chloride 20 mEq twice a day, lorazepam 0.25 mg twice a day, tramadol 50 mg every 6 hours, acetaminophen 500 mg every 6 hours, lactobacillus rhamnosus 1 capsule twice a day. He is on Humalog insulin as insulin sliding scale before meals and acetaminophen 650 mg every 6 hours. FINAL DISCHARGE DIAGNOSES: 1. [id number] hypoxic respiratory failure for which he continues to be on 4 liters of oxygen. 2. Recent deep vein thrombosis and questionable pulmonary emboli for which he is on Eliquis. 3. Chronic alcoholism. 4. Chronic kidney disease. 5. Wernicke-Korsakoff psychosis. 6. Profound dementia. 7. Acute kidney injury that has resolved. PATSY OSULLIVAN MD DR: JAN/christine JOB#: [id number] / [id number]
--- NOTE | 2020-11-23 12:45 | NUR ---
Discharged pt to [facility] report given to REFUGIO Eaton. Pt transferred in Bro chair to [facility] [address] [facility]. A/S, vital signs stable, very pleasant this morning zero hitting, kicking or name calling. Pt has no belongings.
[2020-11-23] MEDS ORDERED: FINA5TAB4 PO (16:14)
[2020-11-23] MEDS ORDERED: OLAN5TAB9 PO (16:14)
[2020-11-23] MEDS ORDERED: LACT1CAP14 PO (16:14)
[2020-11-23] MEDS ORDERED: APIX5TAB3 PO (16:14)
[2020-11-23] MEDS ORDERED: ZIPR20VI IM (16:14)
[2020-11-23] MEDS ORDERED: INSU100I13 SQ (16:14)
[2020-11-23] MEDS ORDERED: TAMS0.4C97 PO (16:14)
[2020-11-23] MEDS ORDERED: LORA0.5T21 PO (16:14)
== END 2020-11-23 12:44 | DRG 291 ==
LOC: ER 13:04 → 1 SOUTH 18:06
PROVIDERS: ADMIT Hospitalist; ATTEND Hospitalist
DX: I13.0 Hypertensive heart and chronic kidney disease with heart failure and stage 1 through stage 4 chronic kidney disease, or unspecified chronic kidney disease (principal); I26.99 Other pulmonary embolism without acute cor pulmonale; J69.0 Pneumonitis due to inhalation of food and vomit; J96.21 Acute and chronic respiratory failure with hypoxia; I50.31 Acute diastolic (congestive) heart failure; N17.9 Acute kidney failure, unspecified; F01.51 Vascular dementia, unspecified severity, with behavioral disturbance; E87.0 Hyperosmolality and hypernatremia; E87.2 Acidosis; F02.81 Dementia in other diseases classified elsewhere, unspecified severity, with behavioral disturbance; F23 Brief psychotic disorder; I24.8 Other forms of acute ischemic heart disease; E11.22 Type 2 diabetes mellitus with diabetic chronic kidney disease; E11.51 Type 2 diabetes mellitus with diabetic peripheral angiopathy without gangrene; E86.0 Dehydration; F10.26 Alcohol dependence with alcohol-induced persisting amnestic disorder; F32.9 Major depressive disorder, single episode, unspecified; G30.9 Alzheimer's disease, unspecified; N18.9 Chronic kidney disease, unspecified; R31.0 Gross hematuria; Z86.718 Personal history of other venous thrombosis and embolism; Z20.822 Contact with and (suspected) exposure to COVID-19; W18.39XA Other fall on same level, initial encounter; Y93.89 Activity, other specified; Y92.89 Other specified places as the place of occurrence of the external cause; Y99.8 Other external cause status
CPT/HCPCS: 36415; 70450; 71045; 72170; 74176; 80048; 80053; 80202; 80307; 80329; 81001; 82010; 82550; 82947; 83605; 83735; 83880; 84100; 84443; 84484; 85007; 85025; 85027; 85379; 85730; 87040; 87426; 93005; 93970; 96361; 96374; 96375; J0696; J1630; J1650; J1815; J1940; J2060; J2250; J2543; J3370; J3486; J3490; J7040; U0003; 99285-25; G0480; J7030

== ENCOUNTER 2020-11-23 12:00 | Inpatient (IN) | payer MEDICARE, OTHER ==
[~2020-11-23] VITALS: Ht 185.4 cm; Wt 104.7 kg
[~2020-11-23 12:00] MED LIST: ACET500T68 PO; CANA300T PO; FURO80TA3 PO; LORA2ORA2 PO; POTA20TA4 PO; QUET100T4 PO; RISP0.5T24 PO; TRAM50TA PO; TRAZ-120 PO; VALS40TA2 PO
[2020-11-23] MEDS ORDERED: MAG HYDROX/AL HYDROX/SIMETH 30 ML ORAL.SUSP PO PRN (13:00)
[2020-11-23] MEDS ORDERED: MAGNESIUM HYDROXIDE 2,400 MG/30 ML ORAL.SUSP. PO PRN (13:00)
[2020-11-23] MEDS ORDERED: METHYL SALICYLATE/MENTHOL TOPICAL OINTMENT 57GM TUBE. TP PRN (13:00)
--- NOTE | 2020-11-23 13:21 | NUR ---
Admission Note with Justification for Admission to [facility] Patient admitted to [facility] for protective oversight for emergency stabilization of acute psychiatric crisis. Pt admitted from: [facility] [address] Mode of arrival: Broda chair Accompanied By: [facility] Staff Precipitating behaviors that initiated intake and admission: Aggressive, punching and kicking staff, cursing, name calling, yelling, resisting cares Description of failure of out patient attempts at stabilization in previous setting list behavior and medication trials: Meds, calm environment, snacks, PRN medications Behaviors and assessment findings upon admission: Yelling out "help me", denies SI/HI, hitting nurse's hand, stating he wants to go home. A&OX4 Plan: Admit for protective oversight for adjustment and stabilization of medications, behaviors and mood. Intense treatment regimen including groups, medication adjustments, therapy, consistent regimen for ADL's, self care, and sleep hygiene. Daily monitoring by Inpatient staff, Psychiatry, and Medical Physician.
[2020-11-23 15:27] VITALS: BP 142/78
[2020-11-23] MEDS ORDERED: ACETAMINOPHEN 500 MG TABLET PO PRN (16:00)
[2020-11-23] MEDS ORDERED: LORA0.5T21 PO (16:14)
[2020-11-23] MEDS ORDERED: TAMS0.4C97 PO (16:14)
[2020-11-23] MEDS ORDERED: FINA5TAB4 PO (16:14)
[2020-11-23] MEDS ORDERED: INSU100I13 SQ (16:14)
[2020-11-23] MEDS ORDERED: OLAN5TAB9 PO (16:14)
[2020-11-23] MEDS ORDERED: LACT1CAP14 PO (16:14)
[2020-11-23] MEDS ORDERED: APIX5TAB3 PO (16:14)
[2020-11-23] MEDS ORDERED: ZIPR20VI IM (16:14)
[2020-11-23] MEDS ORDERED: DEXTROSE 50% 25 GM / 50ML DISP.SYRIN. IV PRN (16:15)
[2020-11-23] MEDS: INSULIN LISPRO 300 UNITS/3 ML VIAL. SQ SCH (17:00)
--- NOTE | 2020-11-23 18:14 | NUR ---
Pt has been restless most of afternoon. Yelling out at times. Pt trying to convince peers to help him out of chair. Also asking staff to give him scissors to cut off his arm band. Has not been combative.
[2020-11-23] MEDS ORDERED: ZIPRASIDONE IM 20 MG VIAL. IM PRN (18:30)
[2020-11-23] MEDS: QUEtiapine 100 MG TABLET. PO SCH (20:13)
[2020-11-23] MEDS: LACTOBACILLUS RHAMNOSUS GG 1 CAPSULE. PO SCH (20:13)
[2020-11-23] MEDS: POTASSIUM CHLORIDE 20 MEQ TABLET.ER. PO SCH (20:13)
[2020-11-23] MEDS: risperiDONE 0.25 MG TABLET. PO SCH (20:13)
[2020-11-23] MEDS: APIXABAN 5 MG TABLET. PO SCH (20:14)
[2020-11-23] MEDS: traZODone 50 MG TABLET. PO SCH (20:14)
[2020-11-23] MEDS: TAMSULOSIN 0.4 MG CAP.ER.24H. PO SCH (20:14)
[2020-11-23] MEDS: INSULIN GLARGINE SYRINGE. SQ SCH (21:26)
--- NOTE | 2020-11-23 21:34 | PDOC ---
Exam Note: Marcos Note: Please also refer to the separate dictated note~for this date of service dictated separately.~Patient seen individually. Discussed the patient with Nursing staff reviewed the chart.~Reviewed interim history and current functioning. Reviewed vital signs,~Labs/ Radiology~and current medications noted below. Continue current treatment with the changes noted in the dictated addendum note Assessment: Vital Signs/I&O: Vital Signs Date Time Temp Pulse Resp B/P (MAP) Pulse Ox O2 Delivery O2 Flow Rate FiO2 11/23/20 15:27 98.8 110 20 142/78 (99) 95 Nasal Cannula Labs: Laboratory Tests Test 11/23/20 16:23 11/23/20 21:23 Glucose (Fingerstick) 118 mg/dL (70-99) H 338 mg/dL (70-99) H Current Medications: Meds: Current Medications Medications (Trade) Dose Ordered Sig/Connie Route PRN Reason Start Time Stop Time Status Last Admin Dose Admin Potassium Chloride (Klor-Con) 20 meq BID PO 11/23/20 21:00 11/23/20 20:13 Quetiapine Fumarate (SEROquel) 100 mg QHS PO 11/23/20 21:00 11/23/20 20:13 Risperidone (RisperDAL) 0.25 mg BID PO 11/23/20 21:00 11/23/20 20:13 Trazodone HCl (Desyrel) 50 mg QHS PO 11/23/20 21:00 11/23/20 20:14 Apixaban (Eliquis) 5 mg BID PO 11/23/20 21:00 11/23/20 20:14 Tamsulosin HCl (Flomax) 0.8 mg HS PO 11/23/20 21:00 11/23/20 20:14 Insulin Glargine (Lantus Syringe) 20 unit BID SQ 11/23/20 21:00 11/23/20 21:26 Lactobacillus Rhamnosus (Culturelle) 1 cap BID PO 11/23/20 21:00 11/23/20 20:13 I have reviewed the current psychotropics carefully including drug interactions. Risk benefit ratio favors no change other than as noted in my dictated progress note. Diagnosis: Problems: (1) Dementia, vascular, with depression (2) Dementia, vascular, with delusions (3) Dementia in Alzheimer's disease with delusions (4) Dementia in Alzheimer's disease with delirium (5) Major neurocognitive disorder (6) Dementia in Alzheimer's disease with early onset with behavioral disturbance (7) Dementia with behavioral disturbance MARIA DE JESUS LEMON MD Nov 23, 2020 21:34
--- NOTE | 2020-11-23 22:44 | HP ---
ADMIT DATE: 11/23/2020 PSYCHIATRIC ADMISSION HISTORY/EVALUATION This note covers elements not covered in my initial note 11/23/2020. IDENTIFYING DATA: The patient is a 75-year-old male from [facility] in [place], referred by his family physician and psychiatrist on account of worsening confusion. DICTATION ENDS HERE MAN Pablo LEMON MD DR: LUCIEN/christine JOB#: [id number] / [id number]
--- NOTE | 2020-11-23 23:01 | HP ---
ADMIT DATE: 11/23/2020 PSYCHIATRIC ADMISSION HISTORY/EVALUATION IDENTIFYING DATA: The patient is a 75-year-old male, referred to us from [facility] by his primary care physician/psychiatrist on account of worsening confusion, agitation and aggression. The patient had been combative with staff, name calling and yelling out. He was repeatedly trying to get out of his Broda chair to ambulate himself and has a significant fall risk. He is wanting to go home, aggressive, disruptive, unmanageable at the facility, having failed outpatient psychiatric interventions. He was referred for inpatient psychiatric stabilization. CHIEF COMPLAINT: "Get me water." The patient was repeatedly obsessing about this as I initially went to visit with him. He is in a Broda chair. Oriented just to himself, anxious, restless, paranoid. HISTORY OF PRESENT ILLNESS: The patient has a history of dementia, Alzheimer's vascular type. He has been residing at the above facility for some time, recently getting more confused, paranoid, agitated and aggressive and disruptive. He has had sleep and appetite changes. No active suicidal or homicidal ideation. No clear history of bipolar disorder. PAST PSYCHIATRIC HISTORY: As above. MEDICAL HISTORY: History of cellulitis, diabetes mellitus, peripheral vascular disease, hypertension, hypernatremia, psychosis. ALLERGIES: Negative. CODE STATUS: Full code. DIET: Ground nectar. ACCU-CHEKS: Before meals and at bedtime. He is on Lantus and an SSRI. Ambulates x 2 assist. UA negative at admission. CURRENT PSYCHOTROPICS: Ativan 0.25 mg b.i.d., Zyprexa 2.5 mg q.2 hours p.r.n. psychosis, agitation; Seroquel 100 mg at bedtime, Geodon 10 mg IM q.4 hours p.r.n. was discontinued, Risperdal 0.25 mg b.i.d., trazodone 50 mg at bedtime. He is on 2 atypical antipsychotics, Seroquel and Risperdal, and after baseline assessment, we will attempt to discontinue one of these, perhaps use Depakote as a mood stabilizer and an SSRI agent as noted below. FAMILY HISTORY: Noncontributory. SOCIAL HISTORY: No history of alcohol, drug abuse, physical, sexual or elder abuse. He is not known to be a perpetrator. REACTION TO HOSPITALIZATION: The patient oblivious of this. ASSETS: Supportive family, stable living at the longterm. REVIEW OF SYSTEMS: Ambulation impaired. No CV, , pulmonary, eye, ENT system symptoms on review. MENTAL STATUS EXAMINATION: The patient is oriented to himself. Insight, judgment, recent and remote memory, attention, concentration, fund of knowledge poor, consistent with his diagnosis. IMPRESSION: Major neurocognitive disorder, Alzheimer vascular with delusion, depression, behavioral disturbance; anxiety disorder, unspecified; impulse control disorder, unspecified. Rest unchanged as above. PLAN: Admit to Gerops[facility]iatry Unit at [facility]. I will see the patient daily individually from a psychiatric standpoint. Medical followup with Dr. Leroy/Dr. Roman. Continue the patient on his current psychotropic. Stop the IM p.r.n. Geodon. Simplify the atypicals as noted above. Consider SSRIs and/or Depakote as a mood stabilizer. Make further adjustments as clinically indicated. ESTIMATED LENGTH OF STAY: 10-12 days. DISPOSITION: Plans back to longterm when stable. MAN Pablo LEMON MD DR: LUCIEN/christine JOB#: [id number] / [id number]
--- NOTE | 2020-11-24 | NUR ---
Pt was in the day room until bed time and was coopoerative with staff. Mes were given crushed in pudding. He was fairly cooperative with HS care and has been sleeping off and on. At times he calls out for help then doesn't need anything.
[2020-11-24 06:33] VITALS: BP 124/80
[2020-11-24] MEDS: ACETAMINOPHEN 325 MG TABLET PO PRN (08:34)
[2020-11-24] MEDS: APIXABAN 5 MG TABLET. PO SCH ×2 (08:34→19:26)
[2020-11-24] MEDS: LACTOBACILLUS RHAMNOSUS GG 1 CAPSULE. PO SCH ×2 (08:34→19:28)
[2020-11-24] MEDS: FINASTERIDE 5 MG TABLET. PO SCH (08:35)
[2020-11-24] MEDS: POTASSIUM CHLORIDE 20 MEQ TABLET.ER. PO SCH ×3 (08:35→19:33)
[2020-11-24] MEDS: SERTRALINE 25 MG TABLET. PO SCH (08:35)
[2020-11-24] MEDS: INSULIN GLARGINE SYRINGE. SQ SCH ×2 (08:35→19:33)
[2020-11-24] MEDS: risperiDONE 0.25 MG TABLET. PO SCH ×2 (08:35→19:31)
[2020-11-24] MEDS: INSULIN LISPRO 300 UNITS/3 ML VIAL. SQ SCH ×3 (08:36→17:00)
[2020-11-24] MEDS: LORazepam 0.5 MG TABLET PO PRN (12:26)
--- NOTE | 2020-11-24 13:15 | CONS ---
DATE OF CONSULTATION: 11/24/2020 REASON FOR CONSULTATION: Medical management. HISTORY OF PRESENT ILLNESS: The patient is a 75-year-old male patient who was transferred from [facility] after a prolonged stay there. The patient originally was brought by EMS with concern for hyperglycemia. His glucose was 600 per EMS report. 911 was called by the landlord with concern for the patient's well-being. He apparently was sent over from [facility] with altered mental status, psychosis with delusional behavior. He was found to have creatinine of 3 mg. His blood pressure was marginal. He is a full code. He was admitted for hydration and on the floor, the patient was very agitated, throwing things around. He actually broke the window in his first hospital room, had be restrained and Haldol and Ativan administered. He was started on IV fluid and his kidney function has gradually improved. He also developed the urine retention, has an indwelling Flores catheter and at one point in time, he became extremely tachypneic, hypoxic and his D-dimer was high at 7.87. At that time, he did also a Doppler ultrasound of his lower extremities and did show that the patient has deep vein thrombosis. The suspicion for pulmonary embolism was very high; however unfortunately, his kidney function was abnormal and the patient was very combative and was unlikely to cooperate with the V/Q scan and therefore, the patient was started empirically on Eliquis as the patient continued to be extremely agitated, combative, yelling, calling all the nurses' name. A decision was made to admit him to [facility] for inpatient psychiatric stabilization. PAST MEDICAL HISTORY: Significant for type 2 diabetes mellitus, hypertension, benign prostatic hypertrophy with bladder outlet obstruction. He has also DVT and pulmonary embolism and acute hypoxic respiratory failure. PAST SURGICAL HISTORY: Unremarkable. PAST PSYCHIATRIC HISTORY: Significant for progressive dementia. ALLERGIES: He has no known drug allergies. FAMILY HISTORY: Noncontributory. SOCIAL HISTORY: The patient is apparently residing at [facility]. He does not smoke, drink alcohol or use any recreational drugs. PHYSICAL EXAMINATION: GENERAL: When I examined him today, he looked well and was clearly in no apparent respiratory distress. He was pale. No jaundice, cyanosis or thyromegaly. No jugular venous distention or limb edema. VITAL SIGNS: Her heart rate was 96, blood pressure was 124/80, temperature 97.9, respiratory rate was 18 and oxygen saturation was 92% with 2 liters of oxygen. HEAD, EYES, EARS, NOSE AND THROAT: Showed normocephalic, atraumatic. NECK: Supple. HEART: Showed normal first and second heart sounds. No gallop or murmur. CHEST: Clear to auscultation. No crepitation or rhonchi. ABDOMEN: Distended, soft, nontender. NEUROLOGIC: He is awake, alert, very confused at times. All cranial nerves intact. EXTREMITIES: He moves his upper extremities to much good extent greater extent than his lower extremities. He is mostly bed bound, wheelchair bound. He has an indwelling Flores catheter. LABORATORY DATA: Showed white cell count 7300, hemoglobin 12, hematocrit 37, MCV 89 and platelet count of 295,000 with normal manual differential. His chemistry showed serum sodium of 145, potassium 4.7, chloride 109, bicarbonate 30, anion gap of 6, BUN 18, creatinine 1.5, estimated GFR was 45 mL per minute, his glucose 256, calcium was 8.7, phosphorus 4.6, magnesium was 1.9. Total bilirubin, AST, ALT, alkaline phosphatase were normal. His total protein is 6.5, albumin 2.7 and TSH was 1.798. His D-dimer was extremely high at 7.87. Urinalysis was essentially unremarkable and toxic screen was also unremarkable. IMPRESSION: In summary, this is a 75-year-old male patient who was admitted to [facility] for worsening agitation, confusion and aggression. The patient has been combative with staff, name calling and yelling out. He was repeatedly trying to get out of his Broda chair to ambulate himself. Has a significant fall risk. His past medical history significant for type 2 diabetes mellitus, peripheral vascular disease, hypertension, acute kidney injury on chronic kidney disease. He has also deep venous thrombosis and pulmonary emboli in acute hypoxic respiratory failure. PLAN: My plan is to continue with all his current management and we will follow him closely and decide the further management accordingly. PATSY OSULLIVAN MD DR: JAN/christine JOB#: [id number] / [id number]
[2020-11-24 16:33] VITALS: BP 148/95
--- NOTE | 2020-11-24 18:09 | PN ---
DATE: 11/24/2020 SUBJECTIVE: The patient was seen today, met with the staff, and also covering for Dr. Galvez. The patient continues to have problems with anxiety, increased agitation and she has been combative with the staff before. The patient also verbally abusive towards staff, screaming, yelling and increased agitation. The patient was given Ativan p.r.n. to calm her down. Staff reports no falls and no side effects to medications. OBSERVATION: VITAL SIGNS: Temperature 97.4, blood pressure 124/80, pulse 96, respiration 18, O2 sat 92%. Slept about 6 hours last night. The patient is also confused, constantly wanting to get out of his chair. He is a fall risk. MEDICATIONS: The patient's current medications include Seroquel 25 mg q. 6 hours p.r.n. started today and she will continue on Zoloft 25 mg daily, trazodone 50 mg at night, Risperdal 0.25 mg twice a day, Seroquel 100 mg at night, lorazepam 0.25 mg p.r.n. that will be discontinued. LABORATORY DATA: The patient's lab reviewed. ASSESSMENT: Dementia, Alzheimer's type with delirium, delusions, depression and behavior problems. Generalized anxiety disorder. PLAN: To continue with the current treatment. LENGTH OF STAY: 7-10 days. JAMILAH CONWAY MD DR: MARLO/christine JOB#: [id number] / [id number] TOMASZ
[2020-11-24] MEDS: QUEtiapine 100 MG TABLET. PO SCH (19:28)
[2020-11-24] MEDS: TAMSULOSIN 0.4 MG CAP.ER.24H. PO SCH (19:28)
[2020-11-24] MEDS: traZODone 50 MG TABLET. PO SCH (19:28)
--- NOTE | 2020-11-25 02:15 | NUR ---
Priyanka carlos has been sleeping without waking up and yelling as he did last night. He took meds crushed in ice cream and was cooperative with cares.
[2020-11-25 05:41] VITALS: BP 130/84
[2020-11-25] MEDS: INSULIN LISPRO 300 UNITS/3 ML VIAL. SQ SCH ×3 (08:00→17:00)
[2020-11-25] MEDS: SERTRALINE 25 MG TABLET. PO SCH (08:32)
[2020-11-25] MEDS: APIXABAN 5 MG TABLET. PO SCH ×2 (08:32→19:38)
[2020-11-25] MEDS: LACTOBACILLUS RHAMNOSUS GG 1 CAPSULE. PO SCH ×2 (08:32→19:38)
[2020-11-25] MEDS: FINASTERIDE 5 MG TABLET. PO SCH (08:32)
[2020-11-25] MEDS: risperiDONE 0.25 MG TABLET. PO SCH ×2 (08:32→19:38)
[2020-11-25] MEDS: traMADol 50 MG TABLET PO PRN (08:32)
[2020-11-25] MEDS: INSULIN GLARGINE SYRINGE. SQ SCH ×2 (09:00→19:40)
[2020-11-25 16:18] VITALS: BP 146/96
[2020-11-25] MEDS: TAMSULOSIN 0.4 MG CAP.ER.24H. PO SCH (19:38)
[2020-11-25] MEDS: QUEtiapine 100 MG TABLET. PO SCH (19:38)
[2020-11-25] MEDS: POTASSIUM CHLORIDE 20 MEQ TABLET.ER. PO SCH (19:38)
[2020-11-25] MEDS: traZODone 50 MG TABLET. PO SCH (19:38)
--- NOTE | 2020-11-25 19:48 | PN ---
DATE: 11/25/2020 SUBJECTIVE: The patient was seen today, met with the staff, chart reviewed and also covering for Dr. Galvez. The patient's behavior remains the same, get confused, also agitated easily, constantly trying to get out of his chair, but no falls recently. He also pulled his catheter last night. OBSERVATION: VITAL SIGNS: Temperature 97.5, blood pressure 130/84, pulse 91, respirations 20, O2 sat 95%. Slept about 4-1/2 hours last night. LABORATORY DATA: The patient's lab reviewed. The patient's glucose fingerstick was 287 this morning. MEDICATIONS: The patient's current medications include Seroquel 25 mg q. 6 hours p.r.n., Zoloft 25 mg daily, trazodone 50 mg at night, Risperdal 0.25 mg twice a day and Seroquel 100 mg at night. The patient is also on lorazepam 0.25 mg twice a day p.r.n. ASSESSMENT: 1. Dementia, most likely Alzheimer's with a delirium delusions, depression, and behavioral problems. 2. Generalized anxiety disorder. PLAN: To continue with the treatment. LENGTH OF STAY: 7-10 days. JAMILAH CONWAY MD DR: MARLO/christine JOB#: [id number] / [id number] TOMASZ
--- NOTE | 2020-11-25 22:16 | NUR ---
PT in his bathroom at time of assessment. PT was cooperative with medications crushed in pudding.
--- NOTE | 2020-11-26 03:55 | NUR ---
PT straight cath'd with 625 output, blood tinged.
[2020-11-26 06:37] VITALS: BP 121/70
[2020-11-26] MEDS: INSULIN LISPRO 300 UNITS/3 ML VIAL. SQ SCH ×3 (08:00→17:21)
[2020-11-26] MEDS: LACTOBACILLUS RHAMNOSUS GG 1 CAPSULE. PO SCH ×2 (08:54→20:55)
[2020-11-26] MEDS: risperiDONE 0.25 MG TABLET. PO SCH ×2 (08:54→20:55)
[2020-11-26] MEDS: SERTRALINE 25 MG TABLET. PO SCH (08:55)
[2020-11-26] MEDS: FINASTERIDE 5 MG TABLET. PO SCH (08:55)
[2020-11-26] MEDS: APIXABAN 5 MG TABLET. PO SCH ×2 (08:55→20:55)
[2020-11-26] MEDS: POTASSIUM CHLORIDE 20 MEQ TABLET.ER. PO SCH ×2 (08:55→20:55)
[2020-11-26] MEDS: INSULIN GLARGINE SYRINGE. SQ SCH ×2 (09:54→20:59)
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
--- NOTE | 2020-11-26 11:54 | NUR ---
Nursing note: Pt in the dining room for AM med pass and assessment. He is compliant with meds crushed in pudding and cooperative with assessment. He denies having any pain. While in the dining room, pt was continuously calling out. Pt was informed multiple times that he would get his meds, but I was working with other pt's at the time. Pt later worked with and was cooperative with physical therapy. Per physical therapy report, pt made a statement regarding wanting a gun to shoot self with. Upon reassessment, pt was in pleasant spirits and was no longer feeling this way. He is currently in the dining room for lunch. Will continue to monitor.
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
--- NOTE | 2020-11-26 12:42 | NUR ---
WEEKLY ACTIVITY THERAPY NOTE Date of Admission: 11/23/20 Date of AT Assessment: TBD Precipitating behaviors that initiated intake and admission:Aggressive, punching and kicking staff, cursing, name calling, yelling, resisting cares Goal aimed: TBD Initial Goal:TBD Weekly progress towards goal: NA Group participation level: NA Weekly highlights: arrived on [facility] Behaviors observed: Plan: meet/assess pt Beneficial adaptations:
[2020-11-26] MEDS: LORazepam 0.5 MG TABLET PO PRN ×2 (13:06→22:23)
--- NOTE | 2020-11-26 13:30 | NUR ---
Nursing note: Pt was bladder scanned and it showed >457mL. Straight cath completed with 700mL output. Pt tolerated procedure well.
--- NOTE | 2020-11-26 13:30 | NUR ---
ACTIVITY THERAPY ASSESSMENT completed based on notes, observation and interview. Pt was sitting in the day room where he was escorted to his room for being combative. Once in room pt was laid down by FOSTER CARE WORKER's and he requested to use the restroom. Pt did not urinate when assisted by CNAs. Pt was covered by blanket and then AT started to ask assessment questions. AT asked pt what activities he likes to do and he said games and "having sex with women who love me with condoms so they don't get " AT redirected pt and pt said that he liked to play volleyball. At this point in time pt had pulled penis out and started to shake it saying he had to urinate. AT told pt that he needed to put it away so he did. Pt repeatedly asked to urinate but AT explained that staff tried to let him urinate. Pt continued to pull penis out and said "as long as they don't cut it off." AT tried to redirect pt and asked about his family and he reports that he does not have much of a support system. Pt repeatedly pulled penis out even with directions to put it away so assessment was concluded. Per notes pt has been making SI statements and is agitated. Pt is taking his oxygen off as well. Pt did participate in an Activity Therapy group and was able to finish the phrases independently. Pt needed redirection during the beginning of group because he did not understand group rules yet pertaining to the TV. Initial goal aimed to increase socialization and relaxation skills. Pt will participate in at least three individual or group Activity Therapy sessions per week.
[2020-11-26] MEDS: QUEtiapine 25 MG TABLET. PO PRN (15:06)
--- NOTE | 2020-11-26 16:03 | NUR ---
PSYCHOSOCIAL ASSESSMENT ADMISSION DATE: 11/23/20 CONTACT INFORMATION: DPOA/Guardian Contact Name: Mohini Palma Contact Address: [address]; [place] [address] Contact Phone #: ETHNIC ORIGIN: REASONS FOR ADMISSION: Aggressive Combative Confusion/Disoriented Poor impulse control ADDITIONAL ADMISSION COMMENTS: According to the intake, pt is aggressive, pinching and kicking at nursing staff, cursing, name calling, yelling, resistive to cares. REASON FOR ADMISSION IN PATIENT/FAMILY'S OWN WORDS: He has been on a steady decline since July per neighbor's report PATIENT/FAMILY EXPECTATIONS FOR ADMISSION: Guardian request for medication and behavioral management; as well as placement LIVING SITUATION: Patient lives with: Alone Other living arrangements: Came to hospital from a brief SNF ([facility]) FAMILY RELATIONS: Marital Status: Single # of Marriages: 1 # of Children: 2 [facility] Family Support: Unavailable Additional Comments r/t Family: It is unknown as to where family is at this time. According to the guardian, reports show that pt lived in [place] for over 20 years where he was and had a few children; but unknown now where they are. SIGNIFICANT PSYCHIATRIC/MEDICAL HISTORY: Psychiatric/Treatment History: This is pt first psychiatric stay on [facility]. Pertinent Family History: Unknown HISTORICAL DATA: Childhood Environment: Other-see below; childhood hx unknown Childhood Environment Additional Comments: Unknown Trauma History: None Is Trauma: Additional Comments: Unknown Drug Abuse History last 12 months: Unknown Comment: records show possible alcoholism; cannot confirm PERSONAL HISTORY: Vocational history: Random jobs here and there service: [employer] background: Unknown Sexual orientation: Heterosexual Educational Level: Unknown Past/Present Interests/Hobbies: Unknown Financial support/resources: SS Disability [place] Benefits Monthly income: Person handling finances: conservator assigned by the courts Do you have a history of legal problems: N Cultural considerations: None SOCIAL RELATIONSHIPS-CURRENT/PAST: Psychiatrist: None PCP: Unknown; seen by facility PCP at [facility] Counselor/Therapist: None [facility] ER services; no current providers Support Group: None Labor Operator/Trouble Tracer: None Other relationships: None STRENGTHS & WEAKNESSES: Patient's strengths: Other Approachable Other patient strengths: received a court appointed guardian Patient's weaknesses: Lack of housing Poor family support Impulsive Health problems Physically Aggressive Verbally Aggressive Other patient weaknesses: PRELIMINARY PLAN OF TREATMENT: Preliminary plan: Promote Coping Skill Medication Stabilization Monitor Med Effects Dec. Outbursts Dec. Aggression Other preliminary treatment comments: DISCHARGE PLANNING: Discharge planning/disposition: Placement Needed Additional discharge needs identified: Psychiatric services ADDITIONAL INFORMATION: Other Pertinent Data: GAIL contacted Mohini to update her on treatment team and discussed what GAIL learned from the CT. Mohini reports that pt Medicaid application is to be fast tracked in order to aid in placement. GAIL was able to receive some information on pt background. Mohini reported that she is temporary and getting things started; however, pt neighbors have shown interest in being pt guardian as he has lived there for over the last 8 years and they have gotten to know him well. GAIL did question Mohini if she knows of any alcoholism and she said her reports do not show any. It is unknown if pt drank or had issues with that; despite the intake mentioning alcoholism and Werneke Korsakoff Dementia. GAIL will make sure to follow up on this to see where that dx came from.
--- NOTE | 2020-11-26 16:14 | TX PLAN ---
Interdisciplinary Tx Plan Admission Information Nov 23, 2020 at 12:00 Legal Status (on Admission): Voluntary DPOA/Guardian Name: Mohini Palma Contact Verified Code Status: Full Code Allergies: Coded Allergies: No Known Drug Allergies (Unverified , 09/03/20) Diagnoses Primary Diagnosis: Major Neurocognitive D/O, vascular alzheimers with delusions, depression and behavioral disturbance Reasons for Admission: Aggressive, Combative, Confusion/Disoriented, Poor impulse control Problem in Patient's Words: He has been on a steady decline since July per neighbor's report Additional Admission Comments: According to the intake, pt is aggressive, pinching and kicking at nursing staff, cursing, name calling, yelling, resistive to cares. Problems Active Problems: cursing yelling restless agitated confused Inactive Problems: medication compliance Pt Strengths/Limitations Ability for [place]: Poor Cognitive Functioning/Ability: Poor Communication Skills/Ability: Fair Financial Resources: Poor Insight/Judgement: Poor Intellectual Ability: Fair Physical Health: Poor Social Skills: Fair Stability in Family: Poor Stability in School/Work: Poor Verbal Skills: Fair Discharge Criteria Discharge Criteria: No need for close observ., Adequate arrangements @DC, Improved behavior, Improved mood/thought Preliminary Discharge Plan Preliminary DC Plan: Placement Needed Special Precautions Fall Risk: Moderate Initial D/C Plan Referrals for placement will need to be sent once stable. Identified Discharge Needs: Psychiatric services Currently Utilized Resources Currently Utilized Resources/P: Primary Care Physician Referrals Community Resources: Psychiatric services Potential VA services Identified Problems/Hx/Goals Objectives/Short-Term Goals Short Term Goals: Dec. Aggression, Dec. Outbursts, Medication Stabilization, Monitor Med Effects, Promote Coping Skill Short Term Goals in Patient's: NA Interventions/Frequency Staff Interventions/Frequency&: Psychiatrist to assess pt at least 3x per week for medication management. Social Work to assess pt at least 2x per week to identify barriers to care and discharge planning. Nursing to assess medication effects, behavior modification and completion of 15 minute checks. Encourage participation in group activities (if applicable) or 1:1 engagement based off Activity Dept goals. 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 Treatment Plan Explained Patient/Char Filter Tank Tender had this treatment plan explained to him/her as indicated by the signature below and has been given the opportunity to ask questions and make suggestions: Date: Patient/Char Filter Tank Tender Signature: Patient/Char Filter Tank Tender Decline: No (Guardian to participate in pt care.) ASHA LAND Nov 26, 2020 16:14
--- NOTE | 2020-11-26 18:01 | NUR ---
Nursing note: During lunch, pt became very restless, agitated and aggressive. He attempted to flip the table while in the dining room and grabbed staff's arms and attempted to hit staff. PRN ativan given at that time. Pt was very resistive and attempted to grab the spoon of pudding and grabbed staff. He was eventually compliant in taking it. He was brought to the quiet magallanes for deescalation. Pt was laying on the mattress and then proceeded to crawl out of the quiet room and into the hallway. He began to bang on the doors and windows as he was yelling, as well as door checking. PRN seroquel given with no effect. Dr. Herrmann notified of pt's behavior and new order received for Zyprexa zydis 5mg X1. Zyprexa zydis given with good effect. He was able to be redirected and was taken to the dining room for supper.
[2020-11-26] MEDS: traZODone 50 MG TABLET. PO SCH (20:55)
[2020-11-26] MEDS: QUEtiapine 100 MG TABLET. PO SCH (20:55)
[2020-11-26] MEDS: TAMSULOSIN 0.4 MG CAP.ER.24H. PO SCH (20:55)
[2020-11-26] MEDS: traMADol 50 MG TABLET PO PRN (20:55)
--- NOTE | 2020-11-26 23:28 | PN ---
DATE: 11/26/2020 SUBJECTIVE: The patient was seen today, met with the staff, chart reviewed and also covering for Dr. Galvez. Staff reports no major behavioral problems. He is compliant with medications. The patient also makes frequent suicidal statements including "wanting to shoot himself". His guardian is looking into placement problems. OBSERVATION: VITAL SIGNS: Temperature 97.6, blood pressure 121/70, pulse 90, respirations 18, O2 sat 97%. GENERAL: Slept about 6 hours last night. His appetite has improved. MEDICATIONS: The patient's current medications include Seroquel 25 mg q. 4 hours p.r.n., Zoloft 25 mg daily, trazodone 50 mg at night, Risperdal 0.25 mg twice a day and Seroquel 100 mg at night. The patient is also on lorazepam 0.25 mg twice a day p.r.n. The patient denies of any side effects. LABORATORY DATA: The patient's lab reviewed. ASSESSMENT: 1. Dementia, most likely Alzheimer's with a delirium, delusions, depression, and behavior problems. 2. Generalized anxiety disorder. PLAN: Continue with the treatment. LENGTH OF STAY: 7-10 days. Awaiting for placement. JAMILAH CONWAY MD DR: MARLO/christine JOB#: [id number] / [id number]
--- NOTE | 2020-11-27 00:44 | NUR ---
Nurses Note: Pt pleasant during assessment and med pass sitting on side of bed. Pt compliant taking medications crushed in ice cream. Pt did have trouble urinating, pt straight cathed and 500mls out, will continue to monitor. Pt cont to be impulsive and yelling out at bed time, pt allowed to sleep in quiet room close to nurses station, pt then quiet and was able to sleep.
[2020-11-27] MEDS: INSULIN LISPRO 300 UNITS/3 ML VIAL. SQ SCH ×3 (07:44→17:00)
[2020-11-27] MEDS: SERTRALINE 25 MG TABLET. PO SCH (08:54)
[2020-11-27] MEDS: LACTOBACILLUS RHAMNOSUS GG 1 CAPSULE. PO SCH ×2 (08:54→19:37)
[2020-11-27] MEDS: POTASSIUM CHLORIDE 20 MEQ TABLET.ER. PO SCH ×2 (08:54→19:37)
[2020-11-27] MEDS: FINASTERIDE 5 MG TABLET. PO SCH (08:54)
[2020-11-27] MEDS: APIXABAN 5 MG TABLET. PO SCH ×2 (08:54→19:38)
[2020-11-27] MEDS: risperiDONE 0.25 MG TABLET. PO SCH ×2 (08:54→19:37)
[2020-11-27] MEDS: INSULIN GLARGINE SYRINGE. SQ SCH ×2 (09:00→20:53)
--- NOTE | 2020-11-27 09:46 | NUR ---
Pt med compliant and cooperative this shift. He denies SI/HI/VH/AH/delusions/pain. He is interactive with staff and is able to make his needs known. After medication administration pt replied "I have two words to say to you....thank you." His behaviors this far have been appropriate and absent of verbal/physical aggression. Plan of care continues, will pass on to next shift.
[2020-11-27 16:02] VITALS: BP 132/77
--- NOTE | 2020-11-27 17:40 | NUR ---
Bladder scan report 467 mL of urine retention. Pt's pants and brief are wet, a strong foul smell from his urine could be detected from down the magallanes. Straight cath performed; approx 450 mL of dark orange and blood tinged urine was retrieved. Pt did not tolerate procedure well; he yelled at staff, attempted to hit and kick staff, and threatened to murder staff members present. Urine sample was sent to lab for UA C&S if indicated.
[2020-11-27 18:36] LABS: BILIRUBIN,URINE NEG (NEG); CLARITY,URINE TURBID; COLOR,URINE AMBER; GLUCOSE,URINE NEG (NEG)
[2020-11-27 18:37] LABS: BACTERIA,URINE MANY /HPF (0-FEW); NITRITE,URINE POS (NEG); RBC,URINE >40 /HPF (0-2)
--- NOTE | 2020-11-27 18:43 | NUR ---
Pt has been intermittently yelling "help" from his room. When addressed, he states he is yelling because he wants to know why he is at [facility]. About 30 minutes later he will yell for help again for the same reason as prior. This nurse explained to him 3 times the purpose of his admission and firmly explained boundaries and expectations for appropriate behavior in a hospital, which includes not yelling out of respect for fellow patients. Approx 20 minutes after this conversation pt was observed laying flat on his stomach in the doorway of his room half into the hallway. When addressed, he stated he laid himself onto the floor and will not get up until someone tells him why he is at [facility]. This nurse explained again the purpose of his hospitalization, and stated that behaviors such as what he was displaying is only showing he is not psychologically or behaviorally safe/stable and that is a cannon factor in preparing for d/c and if his facility feels comfortable with him returning. Pt verbally agreed to not behave in a way that is compulsive or dangerous for himself or others. He was assisted back into bed by staff.
[2020-11-27] MEDS: TAMSULOSIN 0.4 MG CAP.ER.24H. PO SCH (19:37)
[2020-11-27] MEDS: QUEtiapine 100 MG TABLET. PO SCH (19:38)
[2020-11-27] MEDS: traZODone 50 MG TABLET. PO SCH (19:39)
--- NOTE | 2020-11-27 22:54 | NUR ---
Pt up wandering magallanes at time of assessment. Pt easily directed to sit in day room, compliant with meds crushed in pudding. Pt intermittently irritable, laid self on floor in room. Currently resting with eyes closed.
[2020-11-28 01:09] LABS: HEMOGLOBIN A1C 9.1 % (4.8-5.6)
--- NOTE | 2020-11-28 01:17 | PN ---
DATE: 11/27/2020 SUBJECTIVE: The patient was seen today, met with the staff, chart reviewed and covering for Dr. Galvez. Staff reports no major behavior problems, compliant with medications. He still made suicidal statements. He walks with a walker. Still has episodes where he starts yelling and also confusion. Staff reports overall some improvement. OBSERVATION: VITAL SIGNS: The patient refused vitals. The patient slept about 2 hours last night. CURRENT MEDICATIONS: The patient's current medications include Seroquel 25 mg q. 4 hours p.r.n., Zoloft 25 mg daily, trazodone 50 mg at night and Risperdal 0.25 mg twice a day, Seroquel 100 mg at night. The patient is not having any side effects. LABORATORY DATA: Reviewed. ASSESSMENT: 1. Dementia, most likely Alzheimer's with delusions, depression and behavioral disturbances. 2. Generalized anxiety disorder. PLAN: To continue with the treatment. LENGTH OF STAY: 7 days. JAMILAH CONWAY MD DR: MARLO/christine JOB#: [id number] / [id number]
[2020-11-28] MEDS: LORazepam 0.5 MG TABLET PO PRN (01:40)
--- NOTE | 2020-11-28 01:46 | NUR ---
Pt awoke yelling out, banging on cortes--disturbing peers. Pt demanding food. Pt easily redirected, but continues to yell shortly after staff leaves room. Offered vanilla ice cream. PRN Ativan given as indicated.
[2020-11-28 05:48] VITALS: BP 142/78
--- NOTE | 2020-11-28 06:38 | NUR ---
Pt awake through much of the night, laying on floor mat as he declined to get into bed. Voided twice in brief. Bladder scan performed this AM showing >344mL residual. Straight cath performed with return of 300mL blood-tinged, cloudy, foul-smelling urine. Pt tolerated procedure fair x4 assist. Bed bath performed. Pt now slowly ambulating with walker and standby assist to day room.
[2020-11-28] MEDS: SERTRALINE 25 MG TABLET. PO SCH (07:39)
[2020-11-28] MEDS: risperiDONE 0.25 MG TABLET. PO SCH ×2 (07:39→19:18)
[2020-11-28] MEDS: LACTOBACILLUS RHAMNOSUS GG 1 CAPSULE. PO SCH ×2 (07:39→19:18)
[2020-11-28] MEDS: FINASTERIDE 5 MG TABLET. PO SCH (07:39)
[2020-11-28] MEDS: POTASSIUM CHLORIDE 20 MEQ TABLET.ER. PO SCH ×2 (07:39→19:18)
[2020-11-28] MEDS: APIXABAN 5 MG TABLET. PO SCH ×2 (07:44→19:18)
[2020-11-28] MEDS: INSULIN LISPRO 300 UNITS/3 ML VIAL. SQ SCH ×3 (08:00→17:00)
[2020-11-28] MEDS: INSULIN GLARGINE SYRINGE. SQ SCH ×2 (09:00→21:10)
--- NOTE | 2020-11-28 10:00 | NUR ---
PT IS LOCATED IN DINININGROOM AT TIME OF ASSESSMENT AND MEDICATION ADMINISTRATION. PT IS COOPERATIVE WITH MEDICATIONS WHOLE WITH WATER. PT IS SEXUALLY INAPPROPRIATE WITH THIS NURSE DURING BREAKFAST. MAKING SEXYAL HAND GESTURES. PT IS AMBULATING IN HALLWAY AT THIS TIME. WILL CONTINUE TO MONITOR.
--- NOTE | 2020-11-28 11:20 | NUR ---
GAIL attempted to contact [facility] with [facility] re[facility] at [facility]. GAIL requested that Luisana call GAIL back when possible.
--- NOTE | 2020-11-28 11:30 | NUR ---
PT IS STRAIGHT CATHED AFTER SEVERAL ATTEMPTS TO URINATE UNSUCCESSFULLY. 200CC DRAINED FROM BLADDER DURING STRAIGHT CATH. WILL CONTINUE TO MONITOR.
[2020-11-28 15:20] VITALS: BP 131/69
--- NOTE | 2020-11-28 16:30 | NUR ---
GAIL participated in a conference meeting with pt temporary guardian (Mohini), pt neighbors (Junior and Deepti), staff members from [facility] and a liaison from the [facility]. GAIL gave them an update on pt and how he is doing. It appears that pt prior to was a lot calmer and did not display the behaviors that staff have been seeing. Pt neighbors reported that they noted pt for the last 18 months has declined, as he has been losing weight and needing more assistance for things. GAIL explained that pt may have had undiagnosed Dementia and this is the decline that has come about; dementia can be slow decline or can take a major nosedive, depending on the pt and the circumstances surrounding them. Junior reports that pt does not wish to go to a senior living; however, GAIL explained that due to his behaviors and increased needs for medical concerns, Memory Care or LTC would be most appropriate as staffing is available for his needs. All parties agree that pt will need more care than what can be given at home or at a longterm care facility. Pt has not been approved for Medicaid yet, as they are awaiting for his bank statements before they can get the final approval. All parties requested that pt be placed as close to [place] as possible as pt neighbors want to continue to keep up with pt and visit if possible. GAIL will keep all parties up to date and see about holding another meeting in the next couple weeks.
[2020-11-28] MEDS: traZODone 50 MG TABLET. PO SCH (19:18)
[2020-11-28] MEDS: TAMSULOSIN 0.4 MG CAP.ER.24H. PO SCH (19:18)
[2020-11-28] MEDS: QUEtiapine 100 MG TABLET. PO SCH (19:18)
--- NOTE | 2020-11-29 00:19 | PN ---
DATE: 11/28/2020 SUBJECTIVE: The patient was seen today, met with the staff, chart reviewed and also covering for Dr. Galvez. Staff reports no major change. The patient is withdrawn, tearful at times, frustrated because he cannot hear as a significant hearing loss. The patient talks about his family and feeling helpless and hopeless. OBSERVATION: VITAL SIGNS: Temperature 98, blood pressure 132/77, pulse 107, respirations 20, O2 sat 92%. Staff reports no falls. He is able to walk with the walker. CURRENT MEDICATIONS: Include Seroquel 25 mg q.4 hours p.r.n., Zoloft 25 mg daily, trazodone 50 mg at night and Risperdal 0.25 mg twice a day and Seroquel 100 mg at night. The patient is not exhibiting any side effects. LABORATORY DATA: The patient's lab reviewed. ASSESSMENT: 1. Dementia, most likely Alzheimer's with delusions, depression, and behavioral disturbances. 2. Generalized anxiety disorder. PLAN: To continue with the treatment. LENGTH OF STAY: 7 days. JAMILAH CONWAY MD DR: MARLO/christine JOB#: [id number] / [id number]
--- NOTE | 2020-11-29 02:35 | NUR ---
Last evening pt was yelling off and on for help then not able to say what he wanted. He took meds crushed on applesauce and was cooperative with HS cares. Since going to bed he has been sleeping.
--- NOTE | 2020-11-29 02:53 | NUR ---
Bladder scan done and showed approx 360cc. Pt has had 2 very wet briefs changed this shift.
[2020-11-29 05:56] VITALS: BP 102/64
--- NOTE | 2020-11-29 06:45 | NUR ---
Bladder scanned 260cc. Pt has voided 4x tonight. He makes frequent demands to void then denies need to go when help offered. Urine culture final report pending.
[2020-11-29 07:08] LABS: BASO # 0.1 x10^3/uL (0.0-0.2); BASO % 1 % (0-3); EOS # 0.3 x10^3/uL (0.0-0.7); EOS % 3 % (0-3); HEMATOCRIT 37.1 % (39.0-53.0); HEMOGLOBIN 11.9 g/dL (13.0-17.5); LYMPH # 1.2 x10^3/uL (1.0-4.8); LYMPH % 13 % (24-48); MEAN CORPUSCULAR HEMOGLOBIN 28 pg (25-35); MEAN CORPUSCULAR HGB CONC 32 g/dL (31-37); MEAN CORPUSCULAR VOLUME 88 fL (79-100); MONO # 0.8 x10^3/uL (0.0-1.1); MONO % 9 % (0-9); NEUT # 6.7 x10^3uL (1.8-7.7); NEUT % 74 % (31-73); PLATELET COUNT 357 x10^3/uL (140-400); RED BLOOD COUNT 4.23 x10^6/uL (4.30-5.70); RED CELL DISTRIBUTION WIDTH 15.2 % (11.5-14.5)
[2020-11-29 07:25] LABS: ALBUMIN/GLOBULIN RATIO 0.8 (1.0-1.7); CALCIUM 8.7 mg/dL (8.5-10.1); CREATININE 1.9 mg/dL (0.7-1.3); GFR 34.8; POTASSIUM 4.4 mmol/L (3.5-5.1); TOTAL BILIRUBIN 0.5 mg/dL (0.2-1.0)
[2020-11-29] MEDS: INSULIN LISPRO 300 UNITS/3 ML VIAL. SQ SCH ×3 (08:00→17:00)
[2020-11-29] MEDS: SERTRALINE 25 MG TABLET. PO SCH (08:12)
[2020-11-29] MEDS: FINASTERIDE 5 MG TABLET. PO SCH (08:12)
[2020-11-29] MEDS: risperiDONE 0.25 MG TABLET. PO SCH ×2 (08:12→19:54)
[2020-11-29] MEDS: POTASSIUM CHLORIDE 20 MEQ TABLET.ER. PO SCH ×2 (08:12→19:53)
[2020-11-29] MEDS: APIXABAN 5 MG TABLET. PO SCH ×2 (08:12→19:53)
[2020-11-29] MEDS: LACTOBACILLUS RHAMNOSUS GG 1 CAPSULE. PO SCH ×2 (08:12→19:52)
[2020-11-29] MEDS: INSULIN GLARGINE SYRINGE. SQ SCH ×2 (09:00→21:35)
--- NOTE | 2020-11-29 10:14 | NUR ---
Pt begins the day very high maintenance, attention seeking, and demanding. He will yell intermittently for staff and offering to pay staff upwards of $100 for his needs to be met. His 2 particular requests which he offers monetary compensation include having his w/c pushed by staff and being taken to the toilet despite just completing an attempt to urinate. Of note, he does have a possible UTI (C&S pending) as well as undergoing multiple straight cath procedures. CNAs report frequent toileting attempts with no urine production, and then after completing the attempt he will then yell and be disruptive once again and ask to use the toilet. He is A&O to self only, absent of SI/HI behaviors or verbal aggression towards others. He is compliant with medications, crushed and mixed with ice cream. Plan of care continues, will pass on to next shift.
[2020-11-29 16:03] VITALS: BP 106/71
--- NOTE | 2020-11-29 17:22 | NUR ---
Pt's CBG at 1700 was 59. He appeared slow, confused, had difficulty holding conversation with this nurse. 8 oz of orange juice administered and CBG was rechecked approx 15 minutes later and was 75. 1700 dose of insulin held.
--- NOTE | 2020-11-29 18:27 | NUR ---
Pt has been c/o frequency and urgency during the afternoon. His brief is noticably wet and he appears to be incontinent. When he went to the bathroom to urinate he only produced a very small amount of urine. When he was complete and bladder scan showed 455 mL of urine. Straight cath performed; 450 mL of dark yellow, turbid, bloody, mucus urine was obtained. Pt tolerated procedure fair; he required assistance of 3 staff to prevent him from interfering with procedure.
[2020-11-29] MEDS: traZODone 50 MG TABLET. PO SCH (19:53)
[2020-11-29] MEDS: QUEtiapine 100 MG TABLET. PO SCH (19:53)
[2020-11-29] MEDS: TAMSULOSIN 0.4 MG CAP.ER.24H. PO SCH (19:53)
--- NOTE | 2020-11-29 22:13 | PN ---
DATE: 11/29/2020 SUBJECTIVE: The patient was seen by telemedicine, discussed the patient's problems and also chart reviewed, met with the staff. Also, covering for Dr. Galvez. Staff reports no major changes. He has been feeling good lately, has shown some improvement. The patient is mainly concerned about his hearing loss. He is not able to comprehend or understand what people are telling him. The patient also gets emotional at times. He also admits he is feeling helpless because of his hearing loss. OBSERVATION: VITAL SIGNS: Temperature 97.8, blood pressure 102/64, pulse 90, respirations 18, O2 sat 93%. GENERAL: Slept about 5 hours last night. The patient's appetite is fair. The patient did not have any falls. MEDICATIONS: The patient's current medication includes Seroquel 25 mg q. 4 hours p.r.n., Zoloft 25 mg daily, trazodone 50 mg at night and Risperdal 0.25 mg twice a day and Seroquel 100 mg at night. The patient is not exhibiting any side effects. LABORATORY DATA: The patient's lab reviewed. ASSESSMENT: 1. Dementia, most likely Alzheimer's with delusions, depression and behavioral disturbances. 2. Generalized anxiety disorder. PLAN: To continue with the treatment. LENGTH OF STAY: 7 days. JAMILAH CONWAY MD DR: MARLO/christine JOB#: [id number] / [id number]
--- NOTE | 2020-11-30 03:30 | NUR ---
Bladder scan 340cc very wet brief changed.
[2020-11-30 06:20] VITALS: BP 111/58
[2020-11-30] MEDS: FINASTERIDE 5 MG TABLET. PO SCH (07:42)
[2020-11-30] MEDS: risperiDONE 0.25 MG TABLET. PO SCH ×2 (07:42→20:48)
[2020-11-30] MEDS: APIXABAN 5 MG TABLET. PO SCH ×2 (07:42→20:48)
[2020-11-30] MEDS: LACTOBACILLUS RHAMNOSUS GG 1 CAPSULE. PO SCH ×2 (07:42→20:49)
[2020-11-30] MEDS: SERTRALINE 25 MG TABLET. PO SCH (07:42)
[2020-11-30] MEDS: POTASSIUM CHLORIDE 20 MEQ TABLET.ER. PO SCH ×2 (07:42→20:48)
[2020-11-30] MEDS: INSULIN LISPRO 300 UNITS/3 ML VIAL. SQ SCH ×4 (07:49→17:00)
[2020-11-30] MEDS: INSULIN GLARGINE SYRINGE. SQ SCH ×2 (09:00→21:00)
--- NOTE | 2020-11-30 09:38 | NUR ---
Pt began the day wandering around confused and requiring redirection. UA C&S came back showing Proteus Mirabilis/Penneri ESBL. Patient has been returned to his room and contact isolation sign placed on door. Staff informed to use contact precautions. Pt is A&O to self only, confused and disorganized. He has been absent of SI/HI behaviors or abrasive language thus far. He is compliant with medications and takes them crushed and mixed with pudding. He denies pain and has no conerns at this time. He will intermittently yell out from his room, but so far has not attempted to exit his room and come into close contact with others. Plan of care continues, will pass on to next shift.
--- NOTE | 2020-11-30 10:31 | NUR ---
Infection Prevention Note: Pt urine + for ESBL, resistance to other antibiotics/antimicrobials. RN Moira notified and already aware. Patient room has appropriate contact precaution signage, and door is closed. RN does not have any questions at this time. MD notified. Continue to monitor case for treatment, any IP needs.
--- NOTE | 2020-11-30 11:42 | NUR ---
Pt's 1200 CBG is 60. Pt laying in bed awake, not very talkative. He is drinking 8 oz of orange juice provided by DAVE Ricardo. ENVIRONMENTAL SAMPLER reports pt requested that she shoot him because he "doesn't want to live like this." Addendum: 11/30/20 at 1158 by SALVADOR OVERTON RN F/u CBG approx 15 minutes after pt consumed 8 oz of orange juice is 76.
[2020-11-30 15:42] VITALS: BP 120/77
[2020-11-30] MEDS ORDERED: levoFLOXacin 500 MG TABLET PO ONE (16:00)
--- NOTE | 2020-11-30 20:38 | PN ---
DATE: 11/30/2020 SUBJECTIVE: The patient was seen today, met with the staff, chart reviewed. The patient's behavior remains the same, some improvement, less confusion. The patient had a UTI, started on Levaquin. The patient is still confused at times, decreased psychomotor activity. The patient tends to isolate himself. The patient continues to have mood swings, gets frustrated easily and also hearing loss. OBSERVATION: VITAL SIGNS: Temperature 97.5, blood pressure 111/58, pulse 92, respirations 18, O2 sat 98%. GENERAL: Slept about 8 hours last night. CURRENT MEDICATIONS: The patient's current medications include Seroquel 25 mg q. 4 hours p.r.n., Zoloft 25 mg daily, trazodone 50 mg at night and Risperdal 0.25 mg twice a day and Seroquel 100 mg at night. The patient denies of any side effects. LABORATORY DATA: The patient's lab reviewed. The patient apparently had a UTI. Urine culture showed greater than 100,000 gram-negative rods, Proteus mirabilis. ASSESSMENT: 1. Dementia, most likely Alzheimer's with delusions, depression and behavioral disturbances. 2. Generalized anxiety disorder. PLAN: To continue with the treatment. LENGTH OF STAY: 7 days. JAMILAH CONWAY MD DR: MARLO/christine JOB#: [id number] / [id number]
[2020-11-30] MEDS: QUEtiapine 100 MG TABLET. PO SCH (20:49)
[2020-11-30] MEDS: traZODone 50 MG TABLET. PO SCH (20:49)
[2020-11-30] MEDS: TAMSULOSIN 0.4 MG CAP.ER.24H. PO SCH (20:49)
--- NOTE | 2020-11-30 21:00 | NUR ---
Pt has been in the hallway yelling at staff and demanding water and becoming agitated. PRN lorazepam given along with HS meds. After approx 1 hour he calmed and went to bed and has been sleeping. He remains confused only oriented to self.
[2020-11-30] MEDS: LORazepam 0.5 MG TABLET PO PRN (21:03)
[2020-12-01 06:06] VITALS: BP 119/77
[2020-12-01] MEDS: risperiDONE 0.25 MG TABLET. PO SCH ×2 (07:41→20:38)
[2020-12-01] MEDS: APIXABAN 5 MG TABLET. PO SCH ×2 (07:41→20:38)
[2020-12-01] MEDS: POTASSIUM CHLORIDE 20 MEQ TABLET.ER. PO SCH ×2 (07:41→20:38)
[2020-12-01] MEDS: LACTOBACILLUS RHAMNOSUS GG 1 CAPSULE. PO SCH ×2 (07:41→20:38)
[2020-12-01] MEDS: FINASTERIDE 5 MG TABLET. PO SCH (07:42)
[2020-12-01] MEDS: SERTRALINE 25 MG TABLET. PO SCH (07:42)
[2020-12-01] MEDS: INSULIN GLARGINE SYRINGE. SQ SCH ×2 (10:09→20:47)
[2020-12-01] MEDS: INSULIN LISPRO 300 UNITS/3 ML VIAL. SQ SCH ×3 (10:09→17:46)
--- NOTE | 2020-12-01 16:15 | NUR ---
Pt has been in room all day due to isolation from the recent ESBL in urine. Pt has been pleasant most of the day. Pt did make a sexual comment to this nurse and stated "Can I say something disgusting, I want to know if you would have sex with me?" This nurse re-directed patient and stated that is was inappropriate and that he needed to not make those statements. Pt is complaint with medications and staying in room. No other behaviors were noted. Will CTM.
[2020-12-01 16:31] VITALS: BP 119/84
[2020-12-01] MEDS: levoFLOXacin 250 MG TABLET PO SCH (17:46)
--- NOTE | 2020-12-01 19:45 | PN ---
DATE: 12/01/2020 SUBJECTIVE: The patient was seen today, met with the staff, chart reviewed. The patient's behavior slightly improved, less confused and stays in her room most of the time. Currently on isolation because of the UTI. The patient is currently on Levaquin. The patient is able to hold a reasonable conversation, but continues to have mood swings and problems with impulse control and also has some hearing loss. OBSERVATION: VITAL SIGNS: Temperature 99, blood pressure 119/77, pulse 100, respirations 16, O2 sat 94%. GENERAL: Slept about 4.5 hours last night. The patient's appetite is fair. MEDICATIONS: The patient's current medication includes Seroquel 25 mg q. 4 hours p.r.n., Zoloft 25 mg daily, trazodone 50 mg at night, Risperdal 0.25 mg twice a day and Seroquel 100 mg at night. The patient denies of any side effects. LABORATORY DATA: Labs reviewed. The patient's hemoglobin is 11.9. The patient's urinalysis and also culture revealed infection and currently on antibiotics. ASSESSMENT: 1. Dementia, most likely Alzheimer's with delusion, depression and behavioral disturbances. 2. Generalized anxiety disorder. PLAN: To continue with treatment. LENGTH OF STAY: 7 days. JAMILAH CONWAY MD DR: MARLO/christine JOB#: [id number] / [id number]
[2020-12-01] MEDS: traZODone 50 MG TABLET. PO SCH (20:38)
[2020-12-01] MEDS: TAMSULOSIN 0.4 MG CAP.ER.24H. PO SCH (20:38)
[2020-12-01] MEDS: QUEtiapine 100 MG TABLET. PO SCH (20:40)
--- NOTE | 2020-12-01 23:27 | NUR ---
Pt located in his room this evening d/t isolation status. Pt calm, pleasant and interactive. Compliant with crushed medications. No inappropriate comments made tonight.
[2020-12-02 05:56] VITALS: BP 114/72
[2020-12-02] MEDS: INSULIN LISPRO 300 UNITS/3 ML VIAL. SQ SCH ×3 (07:29→17:00)
[2020-12-02] MEDS: APIXABAN 5 MG TABLET. PO SCH ×2 (08:00→19:31)
[2020-12-02] MEDS: LACTOBACILLUS RHAMNOSUS GG 1 CAPSULE. PO SCH ×2 (08:00→19:31)
[2020-12-02] MEDS: risperiDONE 0.25 MG TABLET. PO SCH ×2 (08:00→19:31)
[2020-12-02] MEDS: FINASTERIDE 5 MG TABLET. PO SCH (08:00)
[2020-12-02] MEDS: POTASSIUM CHLORIDE 20 MEQ TABLET.ER. PO SCH ×2 (08:00→19:31)
[2020-12-02] MEDS: SERTRALINE 25 MG TABLET. PO SCH (08:00)
[2020-12-02] MEDS: INSULIN GLARGINE SYRINGE. SQ SCH ×2 (08:38→21:00)
[2020-12-02 16:18] VITALS: BP 113/76
[2020-12-02] MEDS: levoFLOXacin 250 MG TABLET PO SCH (17:10)
[2020-12-02] MEDS: TAMSULOSIN 0.4 MG CAP.ER.24H. PO SCH (19:30)
[2020-12-02] MEDS: QUEtiapine 100 MG TABLET. PO SCH (19:31)
[2020-12-02] MEDS: traZODone 50 MG TABLET. PO SCH (19:31)
--- NOTE | 2020-12-02 21:51 | PN ---
DATE: 12/02/2020 PSYCHIATRIC PROGRESS NOTE SUBJECTIVE: The patient was seen today, met with the staff, chart reviewed. The patient's overall behavior has improved. He is on isolation. Staff reports he is sexually inappropriate at times, exhibiting poor impulse control. He also is having significant mood swings at times. OBSERVATION: VITAL SIGNS: Temperature 96.8, blood pressure 114/72, pulse 90, respirations 14, O2 sat 93%. GENERAL: Slept about 7 hours last night. The patient's appetite is fair. MEDICATIONS: The patient's current medications include Levaquin 250 mg daily, olanzapine 5 mg 1 daily p.r.n., Seroquel 25 mg q. 6 hours p.r.n., Zoloft 25 mg daily, trazodone 50 mg at night, Risperdal 0.25 mg twice a day, Seroquel 100 mg at night. The patient is also on lorazepam 0.25 mg twice a day p.r.n. The patient is not having any side effects to the medications. LABORATORY DATA: The patient's lab reviewed. ASSESSMENT: 1. Dementia, most likely Alzheimer's with delusions, depression and behavioral disturbances. 2. Generalized anxiety disorder. PLAN: To continue with treatment. LENGTH OF STAY: 7 days. JAMILAH CONWAY MD DR: MARLO/christine JOB#: [id number] / [id number]
[2020-12-03] MEDS: QUEtiapine 25 MG TABLET. PO PRN (01:22)
--- NOTE | 2020-12-03 03:20 | NUR ---
Last evening pt sat in his room and at times was pleasant then yelling and argumentative at other times. Meds were taken crushed in applesauce. After sleeping for awhile he awoke and was yelling and arguing with staff. Prn med was given and he has now gone back to sleep.
[2020-12-03 06:08] VITALS: BP 130/89
[2020-12-03] MEDS: POTASSIUM CHLORIDE 20 MEQ TABLET.ER. PO SCH ×2 (07:41→20:03)
[2020-12-03] MEDS: risperiDONE 0.25 MG TABLET. PO SCH ×2 (07:41→20:05)
[2020-12-03] MEDS: SERTRALINE 25 MG TABLET. PO SCH (07:42)
[2020-12-03] MEDS: APIXABAN 5 MG TABLET. PO SCH ×2 (07:42→20:04)
[2020-12-03] MEDS: LACTOBACILLUS RHAMNOSUS GG 1 CAPSULE. PO SCH ×2 (07:42→20:03)
[2020-12-03] MEDS: FINASTERIDE 5 MG TABLET. PO SCH (07:42)
[2020-12-03] MEDS: INSULIN LISPRO 300 UNITS/3 ML VIAL. SQ SCH ×3 (08:00→17:00)
[2020-12-03] MEDS: INSULIN GLARGINE SYRINGE. SQ SCH ×2 (09:00→21:28)
--- NOTE | 2020-12-03 11:41 | NUR ---
Pt remains on contact isolation precautions this shift. He appears to be handling being in his room fairly well; no attempts to exit room and no yelling behaviors noted. He is A&O to self only; absent of SI/HI behaviors this shift. He denies pain and appears to be absent of VH/AH/delusions. He has not displayed sexually inappropriate language towards staff thus far; this nurse spoke with CNAs regarding this behavior and requested that they immediately notify me should he engage in such language towards them. In the late morning pt became verbally abrasive, yelling at this nurse during insulin administration that no staff member is allowed to take his blood for testing. Pt was aware that I was not taking a sample of his blood, however he randomly began to yell his objection to future blood draws. Plan of care continues, will pass on to next shift.
--- NOTE | 2020-12-03 12:17 | NUR ---
Treatment team note: Pt is eating 75% of meals and sleeping on average 4.5 hours per night. Pt is in contact isolation as he has a UTI positive with ESBL in his urine. Pt has less intermittent yelling but continues to sit in his doorway, attempting to talk to staff. Pt is having sexual inappropriate behaviors by asking nurses to have sex with him. He has pulled his penis out during assessment with activities. Pt is medication compliant with meds crushed in pudding or ice cream. Pt will need placement once stable.
--- NOTE | 2020-12-03 12:37 | TX PLAN ---
Interdisciplinary Tx Plan Admission Information Nov 23, 2020 at 12:00 Legal Status (on Admission): Voluntary DPOA/Guardian Name: Mohini Palma Contact Verified Code Status: Full Code Allergies: Coded Allergies: I S O L A T I O N *CONTACT* (Verified Allergy, Unknown, 12/03/20) ESBL in urine 11/27/20. Diagnoses Primary Diagnosis: Major Neurocognitive D/O, vascular alzheimers with delusions, depression and behavioral disturbance Reasons for Admission: Aggressive, Combative, Confusion/Disoriented, Poor impulse control Problem in Patient's Words: He has been on a steady decline since July per neighbor's report Additional Admission Comments: According to the intake, pt is aggressive, pinching and kicking at nursing staff, cursing, name calling, yelling, resistive to cares. Problems Active Problems: cursing yelling restless agitated confused Inactive Problems: medication compliance Pt Strengths/Limitations Ability for [place]: Poor Cognitive Functioning/Ability: Poor Communication Skills/Ability: Fair Financial Resources: Poor Insight/Judgement: Poor Intellectual Ability: Fair Physical Health: Poor Social Skills: Fair Stability in Family: Poor Stability in School/Work: Poor Verbal Skills: Fair Discharge Criteria Discharge Criteria: No need for close observ., Adequate arrangements @DC, Improved behavior, Improved mood/thought Preliminary Discharge Plan Preliminary DC Plan: Placement Needed Special Precautions Fall Risk: Moderate Initial D/C Plan Referrals for placement will need to be sent once stable. Identified Discharge Needs: Psychiatric services Currently Utilized Resources Currently Utilized Resources/P: Primary Care Physician Referrals Community Resources: Psychiatric services Potential [facility] services Identified Problems/Hx/Goals Objectives/Short-Term Goals Short Term Goals: Dec. Aggression, Dec. Outbursts, Medication Stabilization, Monitor Med Effects, Promote Coping Skill Short Term Goals in Patient's: NA Interventions/Frequency Staff Interventions/Frequency&: Psychiatrist to assess pt at least 3x per week for medication management. Social Work to assess pt at least 2x per week to identify barriers to care and discharge planning. Nursing to assess medication effects, behavior modification and completion of 15 minute checks. Encourage participation in group activities (if applicable) or 1:1 engagement based off Activity Dept goals. 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 Treatment Plan Explained Patient/General Contractor had this treatment plan explained to him/her as indicated by the signature below and has been given the opportunity to ask questions and make suggestions: Date: Patient/General Contractor Signature: Status Update Update Treatment team note: Pt is eating 75% of meals and sleeping on average 4.5 hour s per night. Pt is in contact isolation as he has a UTI positive with ESBL in his urine. Pt has less intermittent yelling but continues to sit in his doorway, attempting to talk to staff. Pt is having sexual inappropriate behaviors by asking nurses to have sex with him. He has pulled his penis out during assessment with activities. Pt is medication compliant with meds crushed in pudding or ice cream. Pt will need placement once stable. ASHA LAND Dec 03, 2020 12:36
--- NOTE | 2020-12-03 13:05 | NUR ---
WEEKLY ACTIVITY THERAPY NOTE Date of Admission: 11/23/20 Date of AT Assessment: 11/26 Precipitating behaviors that initiated intake and admission:Aggressive, punching and kicking staff, cursing, name calling, yelling, resisting cares Goal aimed: increase socialization and relaxation skills Initial Goal:Pt will participate in at least three individual or group Activity Therapy sessions per week. Weekly progress towards goal: did not achieve, 2/3 Group participation level: 1 min, 1 mod Weekly highlights: finish the phrase on Thursday, [place] basket Thursday afternoon Behaviors observed: often isolated to room, irritable when TV was turned off for group Thursday Plan: no change to goal Beneficial adaptations:
[2020-12-03 15:39] VITALS: BP 129/92
[2020-12-03] MEDS: levoFLOXacin 250 MG TABLET PO SCH (16:49)
[2020-12-03] MEDS: TAMSULOSIN 0.4 MG CAP.ER.24H. PO SCH (20:03)
[2020-12-03] MEDS: QUEtiapine 100 MG TABLET. PO SCH (20:03)
[2020-12-03] MEDS: traZODone 50 MG TABLET. PO SCH (20:04)
--- NOTE | 2020-12-03 20:24 | PN ---
DATE: 12/03/2020 SUBJECTIVE: The patient was seen today, met with the staff, chart reviewed and also covering for Dr. Galvez. Also participated in the treatment review conference today discussing his current treatment plan and also discharge options. Staff reports continued behavior problems, sexually preoccupied and also inappropriate towards staff. Mostly verbal. The patient is medication compliant and interact with the staff. The patient currently on isolation. OBSERVATION: VITAL SIGNS: Temperature 97.8, blood pressure 130/89, pulse 91, respirations 20, O2 sat 96%. Slept about 3 hours last night. CURRENT MEDICATIONS: The patient's current medications include levothyroxine 250 mg daily, Seroquel 25 mg q. 6 hours p.r.n., Zoloft 25 mg daily, trazodone 50 mg at night, Risperdal 0.25 mg twice a day, Seroquel 100 mg at night. The patient is not having any side effects to medications. LABORATORY DATA: The patient's lab reviewed. ASSESSMENT: 1. Dementia, most likely Alzheimer's with delusions, depression and behavioral disturbances. 2. Generalized anxiety disorder. PLAN: To continue with the treatment. LENGTH OF STAY: 7 days. JAMILAH CONWAY MD DR: MARLO/christine JOB#: [id number] / [id number]
--- NOTE | 2020-12-04 01:06 | NUR ---
Last evening pt sat in his room and was social and cooperative. He remains confused saying this is his apartment. He has not been yelling for help as he has done on prior occasions. Since going to bed he has been sleeping well.
[2020-12-04] MEDS: QUEtiapine 25 MG TABLET. PO PRN (01:54)
[2020-12-04 05:55] VITALS: BP 127/83
[2020-12-04] MEDS: INSULIN LISPRO 300 UNITS/3 ML VIAL. SQ SCH ×3 (07:51→16:59)
--- NOTE | 2020-12-04 08:48 | NUR ---
Pt currently in bed and asleep. Per shift supervisor rn report, pt has been awake all night and did not finally fall asleep until approx 0500. Current morning medications are held and morning assessment pending so pt can obtain much needed sleep and recuperation. Morning CBG was obtained, and did not meet insulin sliding scale parameters for administration. Plan of care continues, will pass on to next shift.
[2020-12-04] MEDS: INSULIN GLARGINE SYRINGE. SQ SCH ×2 (09:00→21:09)
[2020-12-04] MEDS: LACTOBACILLUS RHAMNOSUS GG 1 CAPSULE. PO SCH ×2 (13:08→19:43)
[2020-12-04] MEDS: POTASSIUM CHLORIDE 20 MEQ TABLET.ER. PO SCH ×2 (13:08→19:43)
[2020-12-04] MEDS: FINASTERIDE 5 MG TABLET. PO SCH (13:08)
[2020-12-04] MEDS: APIXABAN 5 MG TABLET. PO SCH ×2 (13:08→19:42)
[2020-12-04] MEDS: SERTRALINE 25 MG TABLET. PO SCH (13:08)
[2020-12-04] MEDS: risperiDONE 0.25 MG TABLET. PO SCH ×2 (13:08→19:43)
--- NOTE | 2020-12-04 13:29 | NUR ---
Pt remains in his room d/t isolation precautions. ABT continues and he is absent of adverse reactions or s/e. He is compliant with medications crushed and mixed with pudding. He is A&O to self only; denies SI/HI/VH/AH/delusions/pain at this time. He slept until lunch and is now awake. While this nurse was leaving after assessment pt stuck his hand out and asked for a "hand hug." This nurse said hugging isn't allowed and he requested a handshake instead. When this nurse agreed to shake his hand, he gripped onto my hand very hard and would not let go. He then began to pull my hand towards his mouth and began to kiss it. This nurse continued to verbally object to this behavior (stating it's not allowed, discouraging the spread of germs) as well as physically attempt to remove my hand from his stain sprayer. Pt then stopped kissing my hand and replied "I'm not spreading germs." Plan of care continues, will pass to next shift.
--- NOTE | 2020-12-04 13:30 | PN ---
DATE: 12/04/2020 SUBJECTIVE: Staff reports that patient's behavior fluctuates. He did not sleep well last night, was awake most of the night. Still periods where he exhibits inappropriate mostly sexual behaviors towards females. OBSERVATION: VITAL SIGNS: Temperature 97.3, blood pressure 127/88, pulse 84, respirations 16, O2 sat 95. GENERAL: Slept only 2 hours last night. MEDICATIONS: The patient's current medications include Seroquel 25 mg q. 6 hours p.r.n., Zoloft 25 mg daily, trazodone 50 mg at night, Risperdal 0.25 mg twice a day. LABORATORY DATA: The patient's lab reviewed. ASSESSMENT: 1. Dementia, most likely Alzheimer's with delusion, depression, and behavioral disturbances. 2. Generalized anxiety disorder. PLAN: To continue with the treatment. LENGTH OF STAY: 7 days. JAMILAH CONWAY MD DR: MARLO/christine JOB#: [id number] / [id number]
[2020-12-04 15:52] VITALS: BP 132/78
[2020-12-04] MEDS: levoFLOXacin 250 MG TABLET PO SCH (16:52)
[2020-12-04] MEDS: TAMSULOSIN 0.4 MG CAP.ER.24H. PO SCH (19:43)
[2020-12-04] MEDS: QUEtiapine 100 MG TABLET. PO SCH (20:06)
--- NOTE | 2020-12-04 21:42 | NUR ---
Nursing Note Pt in room pleasant cooperative, takes meds whole no complaints. No behaviors.
[2020-12-05 05:40] VITALS: BP 117/81
[2020-12-05] MEDS: INSULIN LISPRO 300 UNITS/3 ML VIAL. SQ SCH ×3 (08:00→17:17)
[2020-12-05] MEDS: risperiDONE 0.25 MG TABLET. PO SCH ×2 (08:47→19:14)
[2020-12-05] MEDS: APIXABAN 5 MG TABLET. PO SCH ×2 (08:47→19:15)
[2020-12-05] MEDS: LACTOBACILLUS RHAMNOSUS GG 1 CAPSULE. PO SCH ×2 (08:47→19:16)
[2020-12-05] MEDS: SERTRALINE 25 MG TABLET. PO SCH (08:47)
[2020-12-05] MEDS: FINASTERIDE 5 MG TABLET. PO SCH (08:47)
[2020-12-05] MEDS: POTASSIUM CHLORIDE 20 MEQ TABLET.ER. PO SCH ×2 (08:47→19:14)
[2020-12-05] MEDS: INSULIN GLARGINE SYRINGE. SQ SCH ×2 (08:48→19:20)
[2020-12-05 10:23] LABS: BASO % 1 % (0-3); EOS # 0.2 x10^3/uL (0.0-0.7); EOS % 3 % (0-3); HEMATOCRIT 38.8 % (39.0-53.0); HEMOGLOBIN 12.6 g/dL (13.0-17.5); LYMPH # 1.4 x10^3/uL (1.0-4.8); LYMPH % 18 % (24-48); MEAN CORPUSCULAR HEMOGLOBIN 28 pg (25-35); MEAN CORPUSCULAR HGB CONC 32 g/dL (31-37); MEAN CORPUSCULAR VOLUME 87 fL (79-100); MONO # 0.5 x10^3/uL (0.0-1.1); MONO % 6 % (0-9); NEUT # 5.9 x10^3uL (1.8-7.7); NEUT % 73 % (31-73); PLATELET COUNT 402 x10^3/uL (140-400); RED BLOOD COUNT 4.47 x10^6/uL (4.30-5.70); RED CELL DISTRIBUTION WIDTH 14.9 % (11.5-14.5); WHITE BLOOD COUNT 8.1 x10^3/uL (4.0-11.0)
--- NOTE | 2020-12-05 12:52 | NUR ---
NURSING NOTE PT WAS IN ROOM HIS AM UP IN CHAIR UPON ASSESSMENT AND MEDICATION ADMINISTRATION. PT MEDS CRUSHED IN PUDDING, PT ANXIOUS AND STATES "WELL HURRY UP, HURRY" WHEN THIS NURSE TOLD PT HE WAS GETTING HIS MORNING MEDICATIONS. PT WAS A&O TO SELF ONLY. PT AMBULATES AROUND ROOM INDEPENDENTLY. PT OCCASIONALLY WALKS TO HIS DOOR AND OPENS IT TO LOOK OUT. PT CURRENTLY IN ISOLATION AND ASIDE FROM OCCASIONAL FORGETFULNESS, HAS BEEN COMPLIANT WITH HIS ISOLATION. PT HAS HAD NO OTHER BEHAVIORS NOTED THUS FAR. WILL CONTINUE TO MONITOR. REFUGIO FRANCO.
[2020-12-05 16:00] VITALS: BP 132/83
[2020-12-05] MEDS: levoFLOXacin 250 MG TABLET PO SCH (16:46)
[2020-12-05 17:08] LABS: ALBUMIN 3.2 g/dL (3.4-5.0); ALBUMIN/GLOBULIN RATIO 0.8 (1.0-1.7); CALCIUM 8.9 mg/dL (8.5-10.1); CREATININE 1.8 mg/dL (0.7-1.3); GFR 37.1; POTASSIUM 5.2 mmol/L (3.5-5.1); TOTAL BILIRUBIN 0.3 mg/dL (0.2-1.0); TOTAL PROTEIN 7.1 g/dL (6.4-8.2)
[2020-12-05] MEDS: TAMSULOSIN 0.4 MG CAP.ER.24H. PO SCH (19:15)
[2020-12-05] MEDS: QUEtiapine 100 MG TABLET. PO SCH (19:15)
--- NOTE | 2020-12-05 22:33 | PN ---
DATE: 12/05/2020 This is by Telehealth. SUBJECTIVE: The patient's behavior remains the same. The patient tends to isolate himself in his room, withdrawn, sexually inappropriate towards female staff. OBSERVATION: VITAL SIGNS: Temperature 98.0, blood pressure 117/81, pulse 98, respirations 18, O2 sat 95%. GENERAL: Slept about 6 hours last night. CURRENT MEDICATIONS: The patient's current medications include Seroquel 25 mg q. 6 hours p.r.n., Zoloft 25 mg daily, trazodone 50 mg at night, Risperdal 0.25 mg twice a day. LABORATORY DATA: Reviewed. ASSESSMENT: 1. Dementia, most likely Alzheimer's with delusions, depression and behavior problems. 2. Generalized anxiety disorder. PLAN: To continue with the treatment. JAMILAH CONWAY MD DR: MARLO/christine JOB#: [id number] / [id number]
--- NOTE | 2020-12-06 03:01 | NUR ---
Pt has been in his room this shift. He took meds crushed in applesauce and has been cooperative with staff. He has been sleeping tonight.
[2020-12-06 05:40] VITALS: BP 127/77
[2020-12-06] MEDS: INSULIN LISPRO 300 UNITS/3 ML VIAL. SQ SCH ×3 (07:43→17:00)
[2020-12-06] MEDS: APIXABAN 5 MG TABLET. PO SCH ×2 (08:44→20:36)
[2020-12-06] MEDS: SERTRALINE 25 MG TABLET. PO SCH (08:44)
[2020-12-06] MEDS: risperiDONE 0.25 MG TABLET. PO SCH ×2 (08:44→20:36)
[2020-12-06] MEDS: LACTOBACILLUS RHAMNOSUS GG 1 CAPSULE. PO SCH ×2 (08:44→20:35)
[2020-12-06] MEDS: FINASTERIDE 5 MG TABLET. PO SCH (08:44)
[2020-12-06] MEDS: POTASSIUM CHLORIDE 20 MEQ TABLET.ER. PO SCH ×2 (08:45→08:46)
[2020-12-06] MEDS: INSULIN GLARGINE SYRINGE. SQ SCH ×2 (08:56→20:38)
--- NOTE | 2020-12-06 10:33 | NUR ---
Pt remains in contact isolation and has been compliant. He is cooperative with assessment and med compliant (crushed and mixed with pudding). Sliding scale insulin held d/t CBG being below parameters. Pt's morning dose of Potassium 20 mEq held d/t potassium level on 12/05/20 being 5.2, will discuss with Dr Leroy during rounds. He denies VH/AH/delusions/pain at this time. He denies SI, when asked if he is having thoughts of harming others he laughed and replied, "I have thoughts of killing people who come through my door and ask me questions." When asked who he was referring to he pointed at this nurse. During assessment he also requested to kiss this nurse and then asked for my hand; of note on 12/04/20 when this nurse worked with him he requested a handshake and would not let go of my hand and began to kiss it despite by verbal objections.
[2020-12-06 16:27] VITALS: BP 125/83
[2020-12-06] MEDS: levoFLOXacin 250 MG TABLET PO SCH (17:35)
--- NOTE | 2020-12-06 18:48 | NUR ---
Bladder scan showed 925 mL of urine. Straight cath performed and 1075 mL of clear yellow urine was obtained. Dr Leroy notified and the following order was given: change bladder scan from PRN to BID for overflow incontinence, if scan shows >300 mL of urine perform straight cath. Order read back and verified.
[2020-12-06] MEDS: TAMSULOSIN 0.4 MG CAP.ER.24H. PO SCH (20:36)
[2020-12-06] MEDS: QUEtiapine 100 MG TABLET. PO SCH (20:36)
--- NOTE | 2020-12-06 20:50 | PN ---
DATE: 12/06/2020 SUBJECTIVE: The patient was seen today, met with the staff, chart reviewed. The patient continues to have behavior problems, mostly sexual with the female staff, but overall his behavior has improved. He comes out of his room participating in few activities. OBJECTIVE: VITAL SIGNS: Temperature 97.8, blood pressure 127/77, pulse 65, respirations 16, O2 sat 95%. GENERAL: Slept about 6 hours last night. The patient's appetite is fair. MEDICATIONS: The patient's current medications include Seroquel 25 mg q. 6 hours p.r.n., Zoloft 25 mg daily, trazodone 50 mg at night and Risperdal 0.25 mg twice a day. LABORATORY DATA: Reviewed. ASSESSMENT: 1. Dementia, most likely Alzheimer's with delusions and behavior problems. 2. Generalized anxiety disorder. PLAN: To continue with the treatment. LENGTH OF STAY: 5-7 days. JAMILAH CONWAY MD DR: MARLO/christine JOB#: [id number] / [id number]
--- NOTE | 2020-12-06 22:33 | NUR ---
Pt located in his room this evening. Pt anxious, standing at his doorway repeatedly yelling "I need something to eat and drink." Pt given snack and drink and then immediately started yelling again. Pt compliant with bed bath, however yelled the entire time. No agitation or aggression.
--- NOTE | 2020-12-07 05:32 | NUR ---
Pt woke up with wet brief. Bladder scan performed per order. Scan revealed >450cc. Straight cath performed. 800cc obtained. Pt tolerated procedure well with staff x2.
[2020-12-07 06:09] VITALS: BP 119/75
[2020-12-07] MEDS: INSULIN LISPRO 300 UNITS/3 ML VIAL. SQ SCH ×3 (08:00→17:58)
[2020-12-07] MEDS: SERTRALINE 25 MG TABLET. PO SCH (08:01)
[2020-12-07] MEDS: APIXABAN 5 MG TABLET. PO SCH ×2 (08:01→20:06)
[2020-12-07] MEDS: FINASTERIDE 5 MG TABLET. PO SCH (08:01)
[2020-12-07] MEDS: LACTOBACILLUS RHAMNOSUS GG 1 CAPSULE. PO SCH ×2 (08:01→20:06)
[2020-12-07] MEDS: risperiDONE 0.25 MG TABLET. PO SCH ×2 (08:01→20:06)
[2020-12-07] MEDS: INSULIN GLARGINE SYRINGE. SQ SCH ×2 (09:00→21:25)
--- NOTE | 2020-12-07 10:43 | NUR ---
GAIL received an email from pt guardian and the hr representative for the guardian advocacy program. GAIL informed them that pt is not have overt behaviors as he has to remain in his room since he is in contact precautions. Pt at times appears anxious; however, is medication compliant with no physical behaviors noted. GAIL will plan to send a referral over to [facility] for a potential placement option.
[2020-12-07 16:09] VITALS: BP 137/89
--- NOTE | 2020-12-07 18:55 | NUR ---
Pt up adl in room and out to DR with encouragement. Pt refused lab in am and called warehouse general laborer a racist name. Bladder scanned at shift change. Result greater than 489. Straight cathed for 1000 ml. Pt resistive but not combative. Lab drawn and sent to lab.
[2020-12-07 20:07] LABS: CALCIUM 8.5 mg/dL (8.5-10.1); CREATININE 1.5 mg/dL (0.7-1.3); GFR 45.7; POTASSIUM 4.4 mmol/L (3.5-5.1)
[2020-12-07] MEDS: TAMSULOSIN 0.4 MG CAP.ER.24H. PO SCH (20:07)
[2020-12-07] MEDS: QUEtiapine 100 MG TABLET. PO SCH (20:08)
--- NOTE | 2020-12-07 22:11 | PN ---
DATE: 12/07/2020 SUBJECTIVE: The patient was seen today, met with the staff, chart reviewed. The patient continues to exhibit inappropriate sexual behaviors towards female staff and also angry, verbally abusive towards staff. The patient has been isolating in her room most of the time. OBSERVATION: VITAL SIGNS: Temperature 97.2, blood pressure 119/75, pulse 79, respirations 18, O2 sat 94%. GENERAL: Slept about 7 hours last night. The patient's appetite is good. The patient is not presenting with any major medical problems at this time. The patient is out of isolation. CURRENT MEDICATIONS: Include Seroquel 25 mg q. 6 hours p.r.n., Zoloft 25 mg daily, trazodone 50 mg at night and Risperdal 0.25 mg twice a day. LABORATORY DATA: The patient's lab reviewed. ASSESSMENT: 1. Dementia, most likely Alzheimer's with delusions, depression and behavior problems. 2. Generalized anxiety disorder. PLAN: To continue with the treatment. LENGTH OF STAY: 5 days. JAMILAH CONWAY MD DR: MARLO/christine JOB#: [id number] / [id number]
--- NOTE | 2020-12-07 23:18 | NUR ---
Pt located in his room all evening. Yelling out and attention seeking at times. Compliant with crushed medications.
[2020-12-08 06:31] VITALS: BP 113/71
[2020-12-08] MEDS: INSULIN LISPRO 300 UNITS/3 ML VIAL. SQ SCH ×3 (08:00→17:00)
[2020-12-08] MEDS: SERTRALINE 25 MG TABLET. PO SCH (08:20)
[2020-12-08] MEDS: LACTOBACILLUS RHAMNOSUS GG 1 CAPSULE. PO SCH ×2 (08:20→19:54)
[2020-12-08] MEDS: APIXABAN 5 MG TABLET. PO SCH ×2 (08:20→19:54)
[2020-12-08] MEDS: risperiDONE 0.25 MG TABLET. PO SCH ×2 (08:20→19:54)
[2020-12-08] MEDS: FINASTERIDE 5 MG TABLET. PO SCH (08:20)
[2020-12-08] MEDS: INSULIN GLARGINE SYRINGE. SQ SCH ×2 (09:00→19:56)
[2020-12-08 15:31] VITALS: BP 139/91
--- NOTE | 2020-12-08 16:34 | NUR ---
Pt up adl to meals . Has been name calling intermittently. Redirectable. Bladder scanned for 202 ml. Will continue to monitor. Has been compliant with meds and cares.
[2020-12-08] MEDS: TAMSULOSIN 0.4 MG CAP.ER.24H. PO SCH (19:53)
[2020-12-08] MEDS: QUEtiapine 100 MG TABLET. PO SCH (19:53)
--- NOTE | 2020-12-08 22:15 | NUR ---
Pt located in his room this evening. Compliant with crushed medications. Yelling out intermittently.
[2020-12-09 06:22] VITALS: BP 124/75
[2020-12-09] MEDS: SERTRALINE 25 MG TABLET. PO SCH (07:21)
[2020-12-09] MEDS: FINASTERIDE 5 MG TABLET. PO SCH (07:21)
[2020-12-09] MEDS: APIXABAN 5 MG TABLET. PO SCH ×2 (07:21→19:49)
[2020-12-09] MEDS: LACTOBACILLUS RHAMNOSUS GG 1 CAPSULE. PO SCH ×2 (07:21→19:50)
[2020-12-09] MEDS: risperiDONE 0.25 MG TABLET. PO SCH ×2 (07:21→19:49)
[2020-12-09] MEDS: INSULIN LISPRO 300 UNITS/3 ML VIAL. SQ SCH ×3 (08:00→17:00)
[2020-12-09] MEDS: INSULIN GLARGINE SYRINGE. SQ SCH ×2 (08:40→19:52)
--- NOTE | 2020-12-09 13:43 | NUR ---
NURSING NOTE PT WAS IN DAY ROOM THIS AM UPON ASSESSMENT AND MEDICATION ADMINISTRATION. PT A&O X2. PT DENIES PAIN. PT WAS WATCHING TV AND INTERACTING APPROPRIATELY THIS AM. AFTER LUNCH, HOWEVER, PT HAD AN EPISODE OF ACTING OUT, YELLING "FUCK YOU" TO A PASSERBY, PT REDIRECTED AND TAKEN TO HIS ROOM FOR RELAXATION. PT AMBULATES TO DINNING ROOM FOR MEALS AND IS INDEPENDENT WITH MEALS. SALVADOR HUFF
[2020-12-09 15:46] VITALS: BP 141/84
[2020-12-09] MEDS: TAMSULOSIN 0.4 MG CAP.ER.24H. PO SCH (19:50)
[2020-12-09] MEDS: QUEtiapine 100 MG TABLET. PO SCH (19:50)
--- NOTE | 2020-12-09 21:51 | PDOC ---
Exam Note: Marcos Note: Late entry for 12/08/2020. Please also refer to the separate dictated note~for this date of service dictated separately.~Patient seen individually. Discussed the patient with Nursing staff reviewed the chart.~Reviewed interim history and current functioning. Reviewed vital signs,~Labs/ Radiology~and current medic ations noted below. Continue current treatment with the changes noted in the dictated addendum note Assessment: Vital Signs/I&O: Vital Signs Date Time Temp Pulse Resp B/P (MAP) Pulse Ox O2 Delivery O2 Flow Rate FiO2 12/09/20 15:46 98.4 74 20 141/84 (103) 97 12/09/20 06:22 Room Air I & O 12/08/20 12/08/20 12/09/20 15:00 23:00 07:00 Intake Total 840 ml 480 ml Output Total 760 ml Balance 80 ml 480 ml Labs: Laboratory Tests Test 12/09/20 07:52 12/09/20 11:38 12/09/20 16:59 12/09/20 19:15 Glucose (Fingerstick) 109 mg/dL (70-99) H 173 mg/dL (70-99) H 137 mg/dL (70-99) H 122 mg/dL (70-99) H Current Medications: Meds: Laboratory Tests Test 12/09/20 07:52 12/09/20 11:38 12/09/20 16:59 12/09/20 19:15 Glucose (Fingerstick) 109 mg/dL 173 mg/dL 137 mg/dL 122 mg/dL Current Medications Medications (Trade) Dose Ordered Sig/Connie Route PRN Reason Start Time Stop Time Status Last Admin Dose Admin Acetaminophen (Tylenol) 650 mg PRN Q6HRS PRN PO MILD PAIN / TEMP > 100.3'F 11/23/20 13:00 11/24/20 08:34 Multi-Ingredient Ointment (Analgesic [place]) 1 nasir PRN QID PRN TP MUSCLE PAIN 11/23/20 13:00 Al Hydroxide/Mg Hydroxide (Mylanta Plus Xs) 15 ml PRN AFTMEALHC PRN PO DYSPEPSIA 11/23/20 13:00 Magnesium Hydroxide (Milk Of Magnesia) 2,400 mg PRN QHS PRN PO CONSTIPATION 11/23/20 13:00 Potassium Chloride (Klor-Con) 20 meq BID PO 3/26/21 21:00 12/06/20 16:29 DC 12/05/20 19:14 Tramadol HCl (Ultram) 50 mg PRN Q6HRS PRN PO MODERATE PAIN 4-6 11/23/20 16:00 11/26/20 20:55 Acetaminophen (Tylenol) 500 mg PRN Q6HRS PRN PO pain or fever 11/23/20 16:00 UNV Quetiapine Fumarate (SEROquel) 100 mg QHS PO 11/23/20 21:00 12/04/20 12:02 DC 12/03/20 20:03 Risperidone (RisperDAL) 0.25 mg BID PO 11/23/20 21:00 12/09/20 19:49 Trazodone HCl (Desyrel) 50 mg QHS PO 11/23/20 21:00 12/04/20 12:02 DC 12/03/20 20:04 Insulin Human Lispro (HumaLOG) 0-9 UNITS TIDWMEALS SQ 11/23/20 17:00 12/09/20 11:43 Dextrose (Dextrose 50%-Water Syringe) 12.5 gm PRN Q15MIN PRN IV SEE COMMENTS 11/23/20 16:15 Apixaban (Eliquis) 5 mg BID PO 11/23/20 21:00 12/09/20 19:49 Finasteride (Proscar) 5 mg DAILY PO 11/24/20 09:00 12/09/20 07:21 Lorazepam (Ativan) 0.25 mg PRN BID PRN PO ANXIETY 11/23/20 18:30 11/30/20 21:03 Olanzapine (ZyPREXA ZYDIS) 2.5 mg PRN Q2HRS PRN PO ANXIETY / AGITATION 11/23/20 18:45 11/24/20 16:36 DC 11/24/20 08:34 Tamsulosin HCl (Flomax) 0.8 mg HS PO 11/23/20 21:00 12/09/20 19:50 Ziprasidone (Geodon Im) 10 mg PRN Q4HRS PRN IM ANXIETY / AGITATION 11/23/20 18:30 11/23/20 22:46 DC Insulin Glargine (Lantus Syringe) 20 unit BID SQ 11/23/20 21:00 12/09/20 19:52 Lactobacillus Rhamnosus (Culturelle) 1 cap BID PO 11/23/20 21:00 12/09/20 19:50 Sertraline HCl (Zoloft) 25 mg DAILY PO 11/24/20 09:00 12/09/20 07:21 Quetiapine Fumarate (SEROquel) 25 mg PRN Q6HRS PRN PO agitation 11/24/20 16:45 12/04/20 01:54 Olanzapine (ZyPREXA ZYDIS) 5 mg 1X PRN PO PSYCHOSIS 11/26/20 17:00 11/26/20 17:08 Levofloxacin (Levaquin) 500 mg 1X ONCE PO 11/30/20 16:00 11/30/20 16:01 DC 11/30/20 17:16 Levofloxacin (Levaquin) 250 mg DAILY16 PO 12/01/20 16:00 12/06/20 16:01 DC 12/06/20 17:35 Quetiapine Fumarate (SEROquel) 150 mg QHS PO 12/04/20 21:00 12/09/20 19:50 Trazodone HCl (Desyrel) 100 mg PRN QHS PRN PO sleep 12/04/20 12:15 I have reviewed the current psychotropics carefully including drug interactions. Risk benefit ratio favors no change other than as noted in my dictated progress note. Diagnosis: Problems: (1) Dementia, vascular, with depression (2) Dementia, vascular, with delusions (3) Dementia with behavioral disturbance (4) Dementia in Alzheimer's disease with delusions (5) Dementia in Alzheimer's disease with delirium (6) Major neurocognitive disorder (7) Dementia in Alzheimer's disease with early onset with behavioral disturbance MARIA DE JESUS LEMON MD Dec 09, 2020 21:50
--- NOTE | 2020-12-09 23:25 | NUR ---
Pt located in his room this evening. Pt calm and cooperative. Compliant with crushed medications. Sexually inappropriate at times; asking this RN to lay in bed with him.
[2020-12-10 06:07] VITALS: BP 127/85
--- NOTE | 2020-12-10 07:05 | PDOC ---
Exam Note: Marcos Note: This note is a late entry for 12/08/2020 covers elements not covered in my initial note. Subjective: Dr. Herrmann had covered for me from 24 November till November, and I assumed care of the patients from 08 December. I have reviewed information and interim progress notes at some length with Dr. Herrmann. The patient was seen individually in the evening of 12/08/2020 with Uma HUFF, discussed and reviewed the chart. The patient just slept 7-3/4 hours previous night. He is more oriented, still isolative. He has extended-spectrum beta- lactamase microorganism for his UTI managed by Dr. Leroy. Flores has been removed. Bladder scan has been done twice a day and he is having a straight ca theter done if residual is greater than 300 mL. He has not been violent but has been quite racially insensitive using racial profanities towards nursing aids and staff. He is verbally abusive even otherwise and this was evident in his interaction with Dr. Herrmann when Dr. Herrmann would not shake hands with him since he came from outside and the patient became quite verbally abrasive. Review of Systems: Ambulation impaired with walker but he is starting gradually to walk better. No CV, , pulmonary, eye, ENT system symptoms on review. Mental Status Exam: The patient is oriented to himself and at times situation. Insight and judgement, recent memory is impaired, remote is slightly better. Language function is intact. Attention span is short. Mood and affect is labile and anxious, somewhat paranoid. No suicidal or homicidal ideation. Laboratory Data: Reviewed. Impression: Major neurocognitive disorder Alzheimer vascular with delusion, depression, behavioral disturbance. Anxiety disorder unspecified. Impulse control disorder unspecified. Plan: I have carefully reviewed the current psychotropics and drug interactions. Risk-benefit ratio favors no further change other than noted below. We will start him on Depakote Sprinkle 125 mg 9 a.m. and 5 p.m. Check CBC, CMP, valproic acid level in 3 days. Keep rest of the psychotropics unchanged. Adjust further as clinically indicated. Assessment: Vital Signs/I&O: Vital Signs Date Time Temp Pulse Resp B/P (MAP) Pulse Ox O2 Delivery O2 Flow Rate FiO2 12/10/20 06:07 98.6 97 18 127/85 (99) 96 12/09/20 06:22 Room Air I & O 12/09/20 12/09/20 12/10/20 15:00 23:00 07:00 Intake Total 975 ml 345 ml Output Total 550 ml 975 ml Balance 975 ml -205 ml -975 ml Labs: Laboratory Tests Test 12/09/20 07:52 12/09/20 11:38 12/09/20 16:59 12/09/20 19:15 Glucose (Fingerstick) 109 mg/dL (70-99) H 173 mg/dL (70-99) H 137 mg/dL (70-99) H 122 mg/dL (70-99) H Current Medications: Meds: Laboratory Tests Test 12/09/20 07:52 12/09/20 11:38 12/09/20 16:59 12/09/20 19:15 Glucose (Fingerstick) 109 mg/dL 173 mg/dL 137 mg/dL 122 mg/dL Current Medications Medications (Trade) Dose Ordered Sig/Connie Route PRN Reason Start Time Stop Time Status Last Admin Dose Admin Acetaminophen (Tylenol) 650 mg PRN Q6HRS PRN PO MILD PAIN / TEMP > 100.3'F 11/23/20 13:00 11/24/20 08:34 Multi-Ingredient Ointment (Analgesic [place]) 1 nasir PRN QID PRN TP MUSCLE PAIN 11/23/20 13:00 Al Hydroxide/Mg Hydroxide (Mylanta Plus Xs) 15 ml PRN AFTMEALHC PRN PO DYSPEPSIA 11/23/20 13:00 Magnesium Hydroxide (Milk Of Magnesia) 2,400 mg PRN QHS PRN PO CONSTIPATION 11/23/20 13:00 Potassium Chloride (Klor-Con) 20 meq BID PO 11/23/20 21:00 12/06/20 16:29 DC 12/05/20 19:14 Tramadol HCl (Ultram) 50 mg PRN Q6HRS PRN PO MODERATE PAIN 4-6 11/23/20 16:00 11/26/20 20:55 Acetaminophen (Tylenol) 500 mg PRN Q6HRS PRN PO pain or fever 11/23/20 16:00 UNV Quetiapine Fumarate (SEROquel) 100 mg QHS PO 11/23/20 21:00 12/04/20 12:02 DC 12/03/20 20:03 Risperidone (RisperDAL) 0.25 mg BID PO 11/23/20 21:00 12/09/20 19:49 Trazodone HCl (Desyrel) 50 mg QHS PO 11/23/20 21:00 12/04/20 12:02 DC 12/03/20 20:04 Insulin Human Lispro (HumaLOG) 0-9 UNITS TIDWMEALS SQ 11/23/20 17:00 12/09/20 11:43 Dextrose (Dextrose 50%-Water Syringe) 12.5 gm PRN Q15MIN PRN IV SEE COMMENTS 11/23/20 16:15 Apixaban (Eliquis) 5 mg BID PO 11/23/20 21:00 12/09/20 19:49 Finasteride (Proscar) 5 mg DAILY PO 11/24/20 09:00 12/09/20 07:21 Lorazepam (Ativan) 0.25 mg PRN BID PRN PO ANXIETY 11/23/20 18:30 11/30/20 21:03 Olanzapine (ZyPREXA ZYDIS) 2.5 mg PRN Q2HRS PRN PO ANXIETY / AGITATION 11/23/20 18:45 11/24/20 16:36 DC 11/24/20 08:34 Tamsulosin HCl (Flomax) 0.8 mg HS PO 11/23/20 21:00 12/09/20 19:50 Ziprasidone (Geodon Im) 10 mg PRN Q4HRS PRN IM ANXIETY / AGITATION 11/23/20 18:30 11/23/20 22:46 DC Insulin Glargine (Lantus Syringe) 20 unit BID SQ 11/23/20 21:00 12/09/20 19:52 Lactobacillus Rhamnosus (Culturelle) 1 cap BID PO 11/23/20 21:00 12/09/20 19:50 Sertraline HCl (Zoloft) 25 mg DAILY PO 11/24/20 09:00 12/09/20 07:21 Quetiapine Fumarate (SEROquel) 25 mg PRN Q6HRS PRN PO agitation 11/24/20 16:45 12/04/20 01:54 Olanzapine (ZyPREXA ZYDIS) 5 mg 1X PRN PO PSYCHOSIS 11/26/20 17:00 11/26/20 17:08 Levofloxacin (Levaquin) 500 mg 1X ONCE PO 11/30/20 16:00 11/30/20 16:01 DC 11/30/20 17:16 Levofloxacin (Levaquin) 250 mg DAILY16 PO 12/01/20 16:00 12/06/20 16:01 DC 12/06/20 17:35 Quetiapine Fumarate (SEROquel) 150 mg QHS PO 12/04/20 21:00 12/09/20 19:50 Trazodone HCl (Desyrel) 100 mg PRN QHS PRN PO sleep 12/04/20 12:15 I have reviewed the current psychotropics carefully including drug interactions. Risk benefit ratio favors no change other than as noted in my dictated progress note. Diagnosis: Problems: (1) Dementia, vascular, with depression (2) Dementia, vascular, with delusions (3) Dementia with behavioral disturbance (4) Dementia in Alzheimer's disease with delusions (5) Dementia in Alzheimer's disease with delirium (6) Major neurocognitive disorder (7) Dementia in Alzheimer's disease with early onset with behavioral disturbance MARIA DE JESUS LEMON MD Dec 10, 2020 07:05
[2020-12-10] MEDS: INSULIN LISPRO 300 UNITS/3 ML VIAL. SQ SCH ×3 (07:37→17:00)
--- NOTE | 2020-12-10 07:54 | PDOC ---
Exam Note: Marcos Note: This note is a late entry for 12/09/2020 covers elements not covered in my initial note. Subjective: The patient was seen individually in the evening of 12/09/2020 with Moira HUFF, discussed and reviewed the chart. The patient just slept 5-3/4 hours previous night. He has been ambulating in the hallways. He was asking one of the female nursing staff to come into the room with him so that he could kiss her. As I met with him he became quite upset when I questioned his difficulty with ambulation. He stated he had no trouble whatsoever. Review of Systems: No CV, , pulmonary, eye, ENT system symptoms on review. Mental Status Exam: The patient is oriented to himself and situation. Speech is coherent, has some latency. Abstraction is fair. Computation impaired. Language function intact. Attention span short. Mood and affect remains labile. Laboratory Data: Reviewed. Impression: Major neurocognitive disorder Alzheimer vascular with delusion, depression, behavioral disturbance. Anxiety disorder unspecified. Impulse control disorder unspecified. Plan: Continue current psychotropics including Depakote Sprinkle that was just started. Adjust further as clinically indicated. Assessment: Vital Signs/I&O: Vital Signs Date Time Temp Pulse Resp B/P (MAP) Pulse Ox O2 Delivery O2 Flow Rate FiO2 12/10/20 06:07 98.6 97 18 127/85 (99) 96 12/09/20 06:22 Room Air I & O 12/09/20 12/09/20 12/10/20 15:00 23:00 07:00 Intake Total 975 ml 345 ml Output Total 550 ml 975 ml Balance 975 ml -205 ml -975 ml Labs: Laboratory Tests Test 12/09/20 11:38 12/09/20 16:59 12/09/20 19:15 12/10/20 07:34 Glucose (Fingerstick) 173 mg/dL (70-99) H 137 mg/dL (70-99) H 122 mg/dL (70-99) H 141 mg/dL (70-99) H Current Medications: Meds: Laboratory Tests Test 12/09/20 11:38 12/09/20 16:59 12/09/20 19:15 12/10/20 07:34 Glucose (Fingerstick) 173 mg/dL 137 mg/dL 122 mg/dL 141 mg/dL Current Medications Medications (Trade) Dose Ordered Sig/Connie Route PRN Reason Start Time Stop Time Status Last Admin Dose Admin Acetaminophen (Tylenol) 650 mg PRN Q6HRS PRN PO MILD PAIN / TEMP > 100.3'F 11/23/20 13:00 11/24/20 08:34 Multi-Ingredient Ointment (Analgesic [place]) 1 nasir PRN QID PRN TP MUSCLE PAIN 11/23/20 13:00 Al Hydroxide/Mg Hydroxide (Mylanta Plus Xs) 15 ml PRN AFTMEALHC PRN PO DYSPEPSIA 11/23/20 13:00 Magnesium Hydroxide (Milk Of Magnesia) 2,400 mg PRN QHS PRN PO CONSTIPATION 11/23/20 13:00 Potassium Chloride (Klor-Con) 20 meq BID PO 11/23/20 21:00 12/06/20 16:29 DC 12/05/20 19:14 Tramadol HCl (Ultram) 50 mg PRN Q6HRS PRN PO MODERATE PAIN 4-6 11/23/20 16:00 11/26/20 20:55 Acetaminophen (Tylenol) 500 mg PRN Q6HRS PRN PO pain or fever 11/23/20 16:00 UNV Quetiapine Fumarate (SEROquel) 100 mg QHS PO 11/23/20 21:00 12/04/20 12:02 DC 12/03/20 20:03 Risperidone (RisperDAL) 0.25 mg BID PO 11/23/20 21:00 12/09/20 19:49 Trazodone HCl (Desyrel) 50 mg QHS PO 11/23/20 21:00 12/04/20 12:02 DC 12/03/20 20:04 Insulin Human Lispro (HumaLOG) 0-9 UNITS TIDWMEALS SQ 11/23/20 17:00 12/09/20 11:43 Dextrose (Dextrose 50%-Water Syringe) 12.5 gm PRN Q15MIN PRN IV SEE COMMENTS 11/23/20 16:15 Apixaban (Eliquis) 5 mg BID PO 11/23/20 21:00 12/09/20 19:49 Finasteride (Proscar) 5 mg DAILY PO 11/24/20 09:00 12/09/20 07:21 Lorazepam (Ativan) 0.25 mg PRN BID PRN PO ANXIETY 11/23/20 18:30 11/30/20 21:03 Olanzapine (ZyPREXA ZYDIS) 2.5 mg PRN Q2HRS PRN PO ANXIETY / AGITATION 11/23/20 18:45 11/24/20 16:36 DC 11/24/20 08:34 Tamsulosin HCl (Flomax) 0.8 mg HS PO 11/23/20 21:00 12/09/20 19:50 Ziprasidone (Geodon Im) 10 mg PRN Q4HRS PRN IM ANXIETY / AGITATION 11/23/20 18:30 11/23/20 22:46 DC Insulin Glargine (Lantus Syringe) 20 unit BID SQ 11/23/20 21:00 12/09/20 19:52 Lactobacillus Rhamnosus (Culturelle) 1 cap BID PO 11/23/20 21:00 12/09/20 19:50 Sertraline HCl (Zoloft) 25 mg DAILY PO 11/24/20 09:00 12/09/20 07:21 Quetiapine Fumarate (SEROquel) 25 mg PRN Q6HRS PRN PO agitation 11/24/20 16:45 12/04/20 01:54 Olanzapine (ZyPREXA ZYDIS) 5 mg 1X PRN PO PSYCHOSIS 11/26/20 17:00 11/26/20 17:08 Levofloxacin (Levaquin) 500 mg 1X ONCE PO 11/30/20 16:00 11/30/20 16:01 DC 11/30/20 17:16 Levofloxacin (Levaquin) 250 mg DAILY16 PO 12/01/20 16:00 12/06/20 16:01 DC 12/06/20 17:35 Quetiapine Fumarate (SEROquel) 150 mg QHS PO 12/04/20 21:00 12/09/20 19:50 Trazodone HCl (Desyrel) 100 mg PRN QHS PRN PO sleep 12/04/20 12:15 I have reviewed the current psychotropics carefully including drug interactions. Risk benefit ratio favors no change other than as noted in my dictated progress note. Diagnosis: Problems: (1) Dementia, vascular, with depression (2) Dementia, vascular, with delusions (3) Dementia with behavioral disturbance (4) Dementia in Alzheimer's disease with delusions (5) Dementia in Alzheimer's disease with delirium (6) Major neurocognitive disorder (7) Dementia in Alzheimer's disease with early onset with behavioral disturbance (8) Anxiety disorder, unspecified (9) Impulse control disorder, unspecified MARIA DE JESUS LEMON MD Dec 10, 2020 07:54
[2020-12-10] MEDS: FINASTERIDE 5 MG TABLET. PO SCH (08:32)
[2020-12-10] MEDS: risperiDONE 0.25 MG TABLET. PO SCH ×2 (08:32→19:28)
[2020-12-10] MEDS: SERTRALINE 25 MG TABLET. PO SCH (08:32)
[2020-12-10] MEDS: APIXABAN 5 MG TABLET. PO SCH ×2 (08:32→19:28)
[2020-12-10] MEDS: LACTOBACILLUS RHAMNOSUS GG 1 CAPSULE. PO SCH ×2 (08:32→19:33)
[2020-12-10] MEDS: INSULIN GLARGINE SYRINGE. SQ SCH ×2 (09:00→21:11)
--- NOTE | 2020-12-10 10:41 | NUR ---
Pt med compliant and cooperative so far this shift. He takes medications crushed and mixed in applesauce. He si no longer in isolation precautions and is appropriate with his interactions around others. He is somewhat intrusive with staff, often yelling out requests and becoming impatient when his needs are not met immediately to his likening. Often he will yell out "hello" for no particular reason. Per sample selector report, pt is still experiencing urinary incontinence and retention simultaneously. This nurse anticipates a potential straight cath procenidure should his bladder scan reveal >300 mL of urine (per Dr Leroy's orders). Plan of care continues, will pass on to next shift.
--- NOTE | 2020-12-10 12:38 | TX PLAN ---
Interdisciplinary Tx Plan Admission Information Nov 23, 2020 at 12:00 Legal Status (on Admission): Voluntary DPOA/Guardian Name: Mohini Palma Contact Verified Code Status: Full Code Allergies: Coded Allergies: I S O L A T I O N *CONTACT* (Verified Allergy, Unknown, 12/03/20) ESBL in urine 11/27/20. Diagnoses Primary Diagnosis: Major Neurocognitive D/O, vascular alzheimers with delusions, depression and behavioral disturbance Reasons for Admission: Aggressive, Combative, Confusion/Disoriented, Poor impulse control Problem in Patient's Words: He has been on a steady decline since July per neighbor's report Additional Admission Comments: According to the intake, pt is aggressive, pinching and kicking at nursing staff, cursing, name calling, yelling, resistive to cares. Problems Active Problems: cursing yelling restless agitated confused Inactive Problems: medication compliance Pt Strengths/Limitations Ability for [place]: Poor Cognitive Functioning/Ability: Poor Communication Skills/Ability: Fair Financial Resources: Poor Insight/Judgement: Poor Intellectual Ability: Fair Physical Health: Poor Social Skills: Fair Stability in Family: Poor Stability in School/Work: Poor Verbal Skills: Fair Discharge Criteria Discharge Criteria: No need for close observ., Adequate arrangements @DC, Improved behavior, Improved mood/thought Preliminary Discharge Plan Preliminary DC Plan: Placement Needed Special Precautions Fall Risk: Moderate Initial D/C Plan Referrals for placement will need to be sent once stable. Identified Discharge Needs: Psychiatric services Currently Utilized Resources Currently Utilized Resources/P: Primary Care Physician Referrals Community Resources: Psychiatric services Potential [facility] services Identified Problems/Hx/Goals Objectives/Short-Term Goals Short Term Goals: Dec. Aggression, Dec. Outbursts, Medication Stabilization, Monitor Med Effects, Promote Coping Skill Short Term Goals in Patient's: NA Interventions/Frequency Staff Interventions/Frequency&: Psychiatrist to assess pt at least 3x per week for medication management. Social Work to assess pt at least 2x per week to identify barriers to care and discharge planning. Nursing to assess medication effects, behavior modification and completion of 15 minute checks. Encourage participation in group activities (if applicable) or 1:1 engagement based off Activity Dept goals. 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 Treatment Plan Explained Patient/Cut Out Marker had this treatment plan explained to him/her as indicated by the signature below and has been given the opportunity to ask questions and make suggestions: Date: Patient/Cut Out Marker Signature: Status Update Update Pt is eating 75% of meals and sleeping on average 5 hours per night. Pt is no l onger in contact isolation as his UA has returned as negative. Pt continues to fluctuate with urinary incontinence and needs cathed if bladder scan is >300cc. Pt is mostly compliant but does continue to be verbally sexually inappropriate with female staff. Pt Medicaid was just approved late last week, this will aid in getting pt placed at a facility. Pt is currently prescribed Seroquel 150mg BID, Zoloft 25mg daily, Depakote 125mg BID and Risperdal .25mg BID. SW will plan a meeting to update all parties involved in pt case with a potential discharge plan of the end of this week, beginning of next week. ASHA LAND Dec 10, 2020 12:38
--- NOTE | 2020-12-10 14:09 | NUR ---
WEEKLY ACTIVITY THERAPY NOTE Date of Admission: 11/23/20 Date of AT Assessment: 11/26 Precipitating behaviors that initiated intake and admission:Aggressive, punching and kicking staff, cursing, name calling, yelling, resisting cares Goal aimed: increase socialization and relaxation skills Initial Goal:Pt will participate in at least three individual or group Activity Therapy sessions per week. Weekly progress towards goal: did not achieve, 0/3 Group participation level: zero, isolation in room Weekly highlights: none Behaviors observed: isolation in room Plan: no change to goal Beneficial adaptations:
--- NOTE | 2020-12-10 15:02 | NUR ---
Pt has spent most of the day in his room, leaving only occasionally to eat. During the span of the shift he has been displaying unusual behaviors: asking for his breakfast after he just finished consuming it and stating he was done, coming to the nurse station to ask staff who his father is, asking multiple staff members how he can go on a "date" while he is at [facility], and yelling "hello" frequently to people who pass by (with no followup conversation when attention is obtained) and from his room when no one is present for him to call out to.
[2020-12-10 16:03] VITALS: BP 147/94
--- NOTE | 2020-12-10 18:11 | NUR ---
Pt was informed and prepared for bladder scan. He was instructed to attempt to urinate in the toilet. After the attempt (and during this nurse gathering the scanner) pt could be heard from his room angrily yelling repeatedly, "Hurry up I don't have all day! Get in here!" Whenever staff members walked by his room he would yell out angrily "Get in here!" This nurse and 2 CNAs entered to scan pt's bladder which revealed approx 464 mL of urine. A straight cath procedure was performed; pt yelled on a continuous loop "Get it out get it out get it out!" Approx 450 mL of clear yellow urine was obtained and disposed. Once procedure was complete pt yelled at CNAs angrily and in a demanding tone, "Now clean my penis!" At this point this nurse interjected and objected to the manner and tone in which he was yelling and making demands of nursing staff, stating that his pattern of dominating, intimidating, and sexual language cannot and will not be tolerated. Pt apologized and when staff exited his room he yelled "And don't you ever, ever come back into my room again!"
[2020-12-10] MEDS: QUEtiapine 100 MG TABLET. PO SCH (19:30)
[2020-12-10] MEDS: TAMSULOSIN 0.4 MG CAP.ER.24H. PO SCH (19:31)
--- NOTE | 2020-12-10 20:33 | NUR ---
Patient is standing in his doorway yelling "help me" over and over. Nurse and multiple staff members have asked him what he needs and he cannot answer the question. He is anxious and agitated at this time. PRN zyprexa given for psychosis and attention seeking behaviors.
--- NOTE | 2020-12-10 21:35 | NUR ---
Patient has calmed down, he has stopped yelling and has been having minimal attention seeking behaviors since receiving PRN zyprexa. He has returned to his room and is now calmly sitting in the chair. Patient is compliant with medications crushed in pudding, he drinks nectar thick fluids. Patient has had many snacks this night and is demanding more. Patient has been labile tonight, he is yelling and attention seeking at times (help me, etc), angry and snapping at nurse and then friendly and compliant at other times. Patient was angry after nurse gave him his insulin and yelling at nurse. He has not been combative this shift.
--- NOTE | 2020-12-10 22:08 | PDOC ---
Exam Note: Marcos Note: Please also refer to the separate dictated note~for this date of service dictated separately.~Patient seen individually. Discussed the patient with Nursing staff reviewed the chart.~Reviewed interim history and current functioning. Reviewed vital signs,~Labs/ Radiology~and current medications noted below. Continue current treatment with the changes noted in the dictated addendum note Assessment: Vital Signs/I&O: Vital Signs Date Time Temp Pulse Resp B/P (MAP) Pulse Ox O2 Delivery O2 Flow Rate FiO2 12/10/20 16:03 98.3 100 18 147/94 (111) 96 12/09/20 06:22 Room Air I & O 12/09/20 12/09/20 12/10/20 15:00 23:00 07:00 Intake Total 975 ml 345 ml Output Total 550 ml 975 ml Balance 975 ml -205 ml -975 ml Labs: Laboratory Tests Test 12/10/20 07:34 12/10/20 11:44 12/10/20 16:42 12/10/20 19:07 Glucose (Fingerstick) 141 mg/dL (70-99) H 143 mg/dL (70-99) H 223 mg/dL (70-99) H 126 mg/dL (70-99) H Current Medications: Meds: Laboratory Tests Test 12/10/20 07:34 12/10/20 11:44 12/10/20 16:42 12/10/20 19:07 Glucose (Fingerstick) 141 mg/dL 143 mg/dL 223 mg/dL 126 mg/dL Current Medications Medications (Trade) Dose Ordered Sig/Connie Route PRN Reason Start Time Stop Time Status Last Admin Dose Admin Acetaminophen (Tylenol) 650 mg PRN Q6HRS PRN PO MILD PAIN / TEMP > 100.3'F 11/23/20 13:00 11/24/20 08:34 Multi-Ingredient Ointment (Analgesic [place]) 1 nasir PRN QID PRN TP MUSCLE PAIN 11/23/20 13:00 Al Hydroxide/Mg Hydroxide (Mylanta Plus Xs) 15 ml PRN AFTMEALHC PRN PO DYSPEPSIA 11/23/20 13:00 Magnesium Hydroxide (Milk Of Magnesia) 2,400 mg PRN QHS PRN PO CONSTIPATION 11/23/20 13:00 Potassium Chloride (Klor-Con) 20 meq BID PO 11/23/20 21:00 12/06/20 16:29 DC 12/05/20 19:14 Tramadol HCl (Ultram) 50 mg PRN Q6HRS PRN PO MODERATE PAIN 4-6 11/23/20 16:00 11/26/20 20:55 Acetaminophen (Tylenol) 500 mg PRN Q6HRS PRN PO pain or fever 11/23/20 16:00 UNV Quetiapine Fumarate (SEROquel) 100 mg QHS PO 11/23/20 21:00 12/04/20 12:02 DC 12/03/20 20:03 Risperidone (RisperDAL) 0.25 mg BID PO 11/23/20 21:00 12/10/20 19:28 Trazodone HCl (Desyrel) 50 mg QHS PO 11/23/20 21:00 12/04/20 12:02 DC 12/03/20 20:04 Insulin Human Lispro (HumaLOG) 0-9 UNITS TIDWMEALS SQ 11/23/20 17:00 12/10/20 17:00 Dextrose (Dextrose 50%-Water Syringe) 12.5 gm PRN Q15MIN PRN IV SEE COMMENTS 11/23/20 16:15 Apixaban (Eliquis) 5 mg BID PO 11/23/20 21:00 12/10/20 19:28 Finasteride (Proscar) 5 mg DAILY PO 11/24/20 09:00 12/10/20 08:32 Lorazepam (Ativan) 0.25 mg PRN BID PRN PO ANXIETY 11/23/20 18:30 11/30/20 21:03 Olanzapine (ZyPREXA ZYDIS) 2.5 mg PRN Q2HRS PRN PO ANXIETY / AGITATION 11/23/20 18:45 11/24/20 16:36 DC 11/24/20 08:34 Tamsulosin HCl (Flomax) 0.8 mg HS PO 11/23/20 21:00 12/10/20 19:31 Ziprasidone (Geodon Im) 10 mg PRN Q4HRS PRN IM ANXIETY / AGITATION 11/23/20 18:30 11/23/20 22:46 DC Insulin Glargine (Lantus Syringe) 20 unit BID SQ 11/23/20 21:00 12/10/20 21:11 Lactobacillus Rhamnosus (Culturelle) 1 cap BID PO 11/23/20 21:00 12/10/20 19:33 Sertraline HCl (Zoloft) 25 mg DAILY PO 11/24/20 09:00 12/10/20 08:32 Quetiapine Fumarate (SEROquel) 25 mg PRN Q6HRS PRN PO agitation 11/24/20 16:45 12/04/20 01:54 Olanzapine (ZyPREXA ZYDIS) 5 mg 1X PRN PO PSYCHOSIS 11/26/20 17:00 12/10/20 20:33 Levofloxacin (Levaquin) 500 mg 1X ONCE PO 11/30/20 16:00 11/30/20 16:01 DC 11/30/20 17:16 Levofloxacin (Levaquin) 250 mg DAILY16 PO 12/01/20 16:00 12/06/20 16:01 DC 12/06/20 17:35 Quetiapine Fumarate (SEROquel) 150 mg QHS PO 12/04/20 21:00 12/10/20 19:30 Trazodone HCl (Desyrel) 100 mg PRN QHS PRN PO sleep 12/04/20 12:15 I have reviewed the current psychotropics carefully including drug interactions. Risk benefit ratio favors no change other than as noted in my dictated progress note. Diagnosis: Problems: (1) Dementia, vascular, with depression (2) Dementia, vascular, with delusions (3) Dementia with behavioral disturbance (4) Dementia in Alzheimer's disease with delusions (5) Dementia in Alzheimer's disease with delirium (6) Major neurocognitive disorder (7) Dementia in Alzheimer's disease with early onset with behavioral disturbance (8) Impulse control disorder, unspecified (9) Anxiety disorder, unspecified MARIA DE JESUS LEMON MD Dec 10, 2020 22:08
--- NOTE | 2020-12-10 22:33 | NUR ---
Patient finished his ABS for ESBL in his urine on 12/06 and is no longer in isolation.
[2020-12-11] MEDS: traZODone 50 MG TABLET. PO PRN (02:02)
[2020-12-11] MEDS: QUEtiapine 25 MG TABLET. PO PRN (02:02)
--- NOTE | 2020-12-11 02:09 | NUR ---
Patient is up and entered a peers room, he became agitated with redirection and woke up the peer. Patient has been wandering in the hallways. Patient unable to sleep. PRN Seroquel given for agitation per order. PRN Trazodone given for insomnia per order. Will continue top monitor.
[2020-12-11 05:58] VITALS: BP 125/74
--- NOTE | 2020-12-11 06:20 | NUR ---
Patient instructed to go to toilet to empty bladder, he stated he was unable to go to urinate. Nurse bladder scanned patient at 0600. Scanner showed >725 ml in bladder. Straight Cath performed per Dr Leroy order and 775 ml yellow urine drained from bladder. Patient yelled "oww oww oww oww" throughout procedures. After procedure was done patient began yelling "hello" and then came into the hallway in only his brief. Staff found a styrofoam cup in the patients bathroom near the sink. Patient is on nectar thick liquids, it is unknown whether he was drinking water from the faucet. Cup was thrown away and the patient was provided education about the dangers of choking and what he can and can't drink.
[2020-12-11] MEDS: INSULIN LISPRO 300 UNITS/3 ML VIAL. SQ SCH ×3 (07:34→17:00)
[2020-12-11] MEDS: risperiDONE 0.25 MG TABLET. PO SCH (07:36)
[2020-12-11] MEDS: LACTOBACILLUS RHAMNOSUS GG 1 CAPSULE. PO SCH ×2 (07:36→20:24)
[2020-12-11] MEDS: APIXABAN 5 MG TABLET. PO SCH ×2 (07:36→20:24)
[2020-12-11] MEDS: FINASTERIDE 5 MG TABLET. PO SCH (07:36)
[2020-12-11] MEDS: SERTRALINE 25 MG TABLET. PO SCH (07:36)
--- NOTE | 2020-12-11 08:17 | PDOC ---
Exam Note: Marcos Note: This note is a late entry for 12/10/2020 covers elements not covered in my initial note. Subjective: The patient was reviewed in the morning of 12/10/2020 for a treatment team meeting with Peggy Cole, Melani Medellin and Tootie (social work associate), Laura, activity therapy and Moira RN, discussed and reviewed the chart. The patient just slept 6-1/2 hours previous night. Overall he remains confused, gets angry, agitated at times but he is no longer in isolation and has had no antibiotics for his ESBL UTI for the past 5 days. Appetite is 75%. He remains incontinent of urine and has urinary retention having bladder scan twice a day. At times he has had sexually inappropriate behaviors with female nursing staff. He was quite irritable with the evening tech staff wanting ice-cream and other snacks quite impatient. We reviewed his history that he will need placement and he has Medicaid that has been approved for retirement placement but we will have to stabilizer his behaviors better before he can probably be accepted at the facility and diagnoses. Review of Systems: No CV, , pulmonary, eye, ENT system symptoms on review. Mental Status Exam: The patient is oriented to himself and situation. Speech is coherent, has some latency. Abstraction is fair. Computation impaired. Language function intact. Attention span short. Mood and affect remains labile. Laboratory Data: Reviewed. Impression: Major neurocognitive disorder Alzheimer vascular with delusion, depression, behavioral disturbance. Anxiety disorder unspecified. Impulse control disorder unspecified. Plan: Continue current psychotropics mentioned in my initial note. Depakote has been initiated. Follow labs level. Adjust as clinically indicated. Assessment: Vital Signs/I&O: Vital Signs Date Time Temp Pulse Resp B/P (MAP) Pulse Ox O2 Delivery O2 Flow Rate FiO2 12/11/20 05:58 97.3 82 18 125/74 (91) 98 12/09/20 06:22 Room Air I & O 12/10/20 12/10/20 12/11/20 15:00 23:00 07:00 Intake Total 1080 ml 900 ml Output Total 450 ml 775 ml Balance 1080 ml 450 ml -775 ml Labs: Laboratory Tests Test 12/10/20 11:44 12/10/20 16:42 12/10/20 19:07 12/11/20 07:30 Glucose (Fingerstick) 143 mg/dL (70-99) H 223 mg/dL (70-99) H 126 mg/dL (70-99) H 111 mg/dL (70-99) H Current Medications: Meds: Laboratory Tests Test 12/10/20 11:44 12/10/20 16:42 12/10/20 19:07 12/11/20 07:30 Glucose (Fingerstick) 143 mg/dL 223 mg/dL 126 mg/dL 111 mg/dL Current Medications Medications (Trade) Dose Ordered Sig/Connie Route PRN Reason Start Time Stop Time Status Last Admin Dose Admin Acetaminophen (Tylenol) 650 mg PRN Q6HRS PRN PO MILD PAIN / TEMP > 100.3'F 11/23/20 13:00 11/24/20 08:34 Multi-Ingredient Ointment (Analgesic [place]) 1 nasir PRN QID PRN TP MUSCLE PAIN 11/23/20 13:00 Al Hydroxide/Mg Hydroxide (Mylanta Plus Xs) 15 ml PRN AFTMEALHC PRN PO DYSPEPSIA 11/23/20 13:00 Magnesium Hydroxide (Milk Of Magnesia) 2,400 mg PRN QHS PRN PO CONSTIPATION 11/23/20 13:00 Potassium Chloride (Klor-Con) 20 meq BID PO 11/23/20 21:00 12/06/20 16:29 DC 12/05/20 19:14 Tramadol HCl (Ultram) 50 mg PRN Q6HRS PRN PO MODERATE PAIN 4-6 11/23/20 16:00 11/26/20 20:55 Acetaminophen (Tylenol) 500 mg PRN Q6HRS PRN PO pain or fever 11/23/20 16:00 UNV Quetiapine Fumarate (SEROquel) 100 mg QHS PO 11/23/20 21:00 12/04/20 12:02 DC 12/03/20 20:03 Risperidone (RisperDAL) 0.25 mg BID PO 11/23/20 21:00 12/11/20 07:36 Trazodone HCl (Desyrel) 50 mg QHS PO 11/23/20 21:00 12/04/20 12:02 DC 12/03/20 20:04 Insulin Human Lispro (HumaLOG) 0-9 UNITS TIDWMEALS SQ 11/23/20 17:00 12/10/20 17:00 Dextrose (Dextrose 50%-Water Syringe) 12.5 gm PRN Q15MIN PRN IV SEE COMMENTS 11/23/20 16:15 Apixaban (Eliquis) 5 mg BID PO 11/23/20 21:00 12/11/20 07:36 Finasteride (Proscar) 5 mg DAILY PO 11/24/20 09:00 12/11/20 07:36 Lorazepam (Ativan) 0.25 mg PRN BID PRN PO ANXIETY 11/23/20 18:30 11/30/20 21:03 Olanzapine (ZyPREXA ZYDIS) 2.5 mg PRN Q2HRS PRN PO ANXIETY / AGITATION 11/23/20 18:45 11/24/20 16:36 DC 11/24/20 08:34 Tamsulosin HCl (Flomax) 0.8 mg HS PO 11/23/20 21:00 12/10/20 19:31 Ziprasidone (Geodon Im) 10 mg PRN Q4HRS PRN IM ANXIETY / AGITATION 11/23/20 18:30 11/23/20 22:46 DC Insulin Glargine (Lantus Syringe) 20 unit BID SQ 11/23/20 21:00 12/10/20 21:11 Lactobacillus Rhamnosus (Culturelle) 1 cap BID PO 11/23/20 21:00 12/11/20 07:36 Sertraline HCl (Zoloft) 25 mg DAILY PO 11/24/20 09:00 12/11/20 07:36 Quetiapine Fumarate (SEROquel) 25 mg PRN Q6HRS PRN PO agitation 11/24/20 16:45 12/11/20 02:02 Olanzapine (ZyPREXA ZYDIS) 5 mg 1X PRN PO PSYCHOSIS 11/26/20 17:00 12/10/20 20:33 Levofloxacin (Levaquin) 500 mg 1X ONCE PO 11/30/20 16:00 11/30/20 16:01 DC 11/30/20 17:16 Levofloxacin (Levaquin) 250 mg DAILY16 PO 12/01/20 16:00 12/06/20 16:01 DC 12/06/20 17:35 Quetiapine Fumarate (SEROquel) 150 mg QHS PO 12/04/20 21:00 12/10/20 19:30 Trazodone HCl (Desyrel) 100 mg PRN QHS PRN PO sleep 12/04/20 12:15 12/11/20 02:02 I have reviewed the current psychotropics carefully including drug interactions. Risk benefit ratio favors no change other than as noted in my dictated progress note. Diagnosis: Problems: (1) Dementia, vascular, with depression (2) Dementia, vascular, with delusions (3) Dementia with behavioral disturbance (4) Dementia in Alzheimer's disease with delusions (5) Dementia in Alzheimer's disease with delirium (6) Major neurocognitive disorder (7) Dementia in Alzheimer's disease with early onset with behavioral disturbance (8) Impulse control disorder, unspecified (9) Anxiety disorder, unspecified MARIA DE JESUS LEMON MD Dec 11, 2020 08:17
[2020-12-11] MEDS: INSULIN GLARGINE SYRINGE. SQ SCH ×2 (09:13→20:27)
--- NOTE | 2020-12-11 09:51 | NUR ---
On 12/10/20, this worker contacted Trini at [facility] department to request authorization for Dr. Galvez's services. Trini requested clinicals be faxed in for review. Faxed clinicals to [phone] on this date for review. Call reference number is Trini 12/10/20 4:33pm.
--- NOTE | 2020-12-11 09:54 | NUR ---
Pt med compliant and cooperative with assessment. He is A&O to self, year, and situation. He denies SI/HI/VH/AH/delusions/pain. He reports no difficulty voiding, however he has an extensive hx and pattern of current incontinence and retention. During morning med pass pt was in his room standing in the doorway. While this nurse was attending to another patient in their room, the sound of Jagjit lópezing "move along grandpa, get out of here, leave!" could be heard. This nurse went into the hallway and saw pt standing in the doorway of his room and heckling at another patient who was walking down the magallanes. This nurse instructed pt to refrain from abrasive behavior/language to other patients and he stopped. I then went back into the other patient's room to return to my task when I could once again hear Jagjit lópezing "Leave, move, get out of here, go away!" I went out and once again observed pt in the doorway of his room; he was yelling out into the hallway insulting a patient who was walking by and sticking out his middle finger at him. This nurse once again instructed pt to refrain from teasing/insulting other patients, to cease standing in the doorway of his room, and to close the door so he is no longer yelling at people in the magallanes. Pt did as requested.
[2020-12-11 16:16] VITALS: BP 132/78
--- NOTE | 2020-12-11 18:13 | NUR ---
Bladder scan revealed approx 515 mL of urine. Straight cath performed with assistance of 2 CNAs. Approx 500 mL of clear yellow urine obtained and disposed of. Pt tolerated procedure well.
[2020-12-11] MEDS: TAMSULOSIN 0.4 MG CAP.ER.24H. PO SCH (20:24)
[2020-12-11] MEDS: QUEtiapine 100 MG TABLET. PO SCH (20:24)
--- NOTE | 2020-12-11 21:49 | PDOC ---
Exam Note: Marcos Note: Please also refer to the separate dictated note~for this date of service dictated separately.~Patient seen individually. Discussed the patient with Nursing staff reviewed the chart.~Reviewed interim history and current functioning. Reviewed vital signs,~Labs/ Radiology~and current medications noted below. Continue current treatment with the changes noted in the dictated addendum note Assessment: Vital Signs/I&O: Vital Signs Date Time Temp Pulse Resp B/P (MAP) Pulse Ox O2 Delivery O2 Flow Rate FiO2 12/11/20 16:16 98.4 98 20 132/78 (96) 97 12/09/20 06:22 Room Air I & O 12/10/20 12/10/20 12/11/20 15:00 23:00 07:00 Intake Total 1080 ml 900 ml Output Total 450 ml 775 ml Balance 1080 ml 450 ml -775 ml Labs: Laboratory Tests Test 12/11/20 07:30 12/11/20 11:41 12/11/20 19:08 Glucose (Fingerstick) 111 mg/dL (70-99) H 152 mg/dL (70-99) H 99 mg/dL (70-99) Current Medications: Meds: Laboratory Tests Test 12/11/20 07:30 12/11/20 11:41 12/11/20 19:08 Glucose (Fingerstick) 111 mg/dL 152 mg/dL 99 mg/dL Current Medications Medications (Trade) Dose Ordered Sig/Connie Route PRN Reason Start Time Stop Time Status Last Admin Dose Admin Acetaminophen (Tylenol) 650 mg PRN Q6HRS PRN PO MILD PAIN / TEMP > 100.3'F 11/23/20 13:00 11/24/20 08:34 Multi-Ingredient Ointment (Analgesic [place]) 1 nasir PRN QID PRN TP MUSCLE PAIN 11/23/20 13:00 Al Hydroxide/Mg Hydroxide (Mylanta Plus Xs) 15 ml PRN AFTMEALHC PRN PO DYSPEPSIA 11/23/20 13:00 Magnesium Hydroxide (Milk Of Magnesia) 2,400 mg PRN QHS PRN PO CONSTIPATION 11/23/20 13:00 Potassium Chloride (Klor-Con) 20 meq BID PO 11/23/20 21:00 12/06/20 16:29 DC 12/05/20 19:14 Tramadol HCl (Ultram) 50 mg PRN Q6HRS PRN PO MODERATE PAIN 4-6 11/23/20 16:00 11/26/20 20:55 Acetaminophen (Tylenol) 500 mg PRN Q6HRS PRN PO pain or fever 11/23/20 16:00 UNV Quetiapine Fumarate (SEROquel) 100 mg QHS PO 11/23/20 21:00 12/04/20 12:02 DC 12/03/20 20:03 Risperidone (RisperDAL) 0.25 mg BID PO 11/23/20 21:00 12/11/20 17:29 DC 12/11/20 07:36 Trazodone HCl (Desyrel) 50 mg QHS PO 11/23/20 21:00 12/04/20 12:02 DC 12/03/20 20:04 Insulin Human Lispro (HumaLOG) 0-9 UNITS TIDWMEALS SQ 11/23/20 17:00 12/11/20 17:00 Dextrose (Dextrose 50%-Water Syringe) 12.5 gm PRN Q15MIN PRN IV SEE COMMENTS 11/23/20 16:15 Apixaban (Eliquis) 5 mg BID PO 11/23/20 21:00 12/11/20 20:24 Finasteride (Proscar) 5 mg DAILY PO 11/24/20 09:00 12/11/20 07:36 Lorazepam (Ativan) 0.25 mg PRN BID PRN PO ANXIETY 11/23/20 18:30 11/30/20 21:03 Olanzapine (ZyPREXA ZYDIS) 2.5 mg PRN Q2HRS PRN PO ANXIETY / AGITATION 11/23/20 18:45 11/24/20 16:36 DC 11/24/20 08:34 Tamsulosin HCl (Flomax) 0.8 mg HS PO 11/23/20 21:00 12/11/20 20:24 Ziprasidone (Geodon Im) 10 mg PRN Q4HRS PRN IM ANXIETY / AGITATION 11/23/20 18:30 11/23/20 22:46 DC Insulin Glargine (Lantus Syringe) 20 unit BID SQ 11/23/20 21:00 12/11/20 20:27 Lactobacillus Rhamnosus (Culturelle) 1 cap BID PO 11/23/20 21:00 12/11/20 20:24 Sertraline HCl (Zoloft) 25 mg DAILY PO 11/24/20 09:00 12/11/20 17:29 DC 12/11/20 07:36 Quetiapine Fumarate (SEROquel) 25 mg PRN Q6HRS PRN PO agitation 11/24/20 16:45 12/11/20 02:02 Olanzapine (ZyPREXA ZYDIS) 5 mg 1X PRN PO PSYCHOSIS 11/26/20 17:00 12/10/20 20:33 Levofloxacin (Levaquin) 500 mg 1X ONCE PO 11/30/20 16:00 11/30/20 16:01 DC 11/30/20 17:16 Levofloxacin (Levaquin) 250 mg DAILY16 PO 12/01/20 16:00 12/06/20 16:01 DC 12/06/20 17:35 Quetiapine Fumarate (SEROquel) 150 mg QHS PO 12/04/20 21:00 12/11/20 20:24 Trazodone HCl (Desyrel) 100 mg PRN QHS PRN PO sleep 12/04/20 12:15 12/11/20 02:02 Sertraline HCl (Zoloft) 50 mg DAILY PO 12/12/20 09:00 Quetiapine Fumarate (SEROquel) 25 mg 0900,1300,1700 PO 12/12/20 09:00 Divalproex Sodium (Depakote) 125 mg 0900,1700 PO 12/12/20 09:00 I have reviewed the current psychotropics carefully including drug interactions. Risk benefit ratio favors no change other than as noted in my dictated progress note. Diagnosis: Problems: (1) Dementia, vascular, with depression (2) Dementia, vascular, with delusions (3) Dementia with behavioral disturbance (4) Dementia in Alzheimer's disease with delusions (5) Dementia in Alzheimer's disease with delirium (6) Major neurocognitive disorder (7) Dementia in Alzheimer's disease with early onset with behavioral disturbance (8) Impulse control disorder, unspecified (9) Anxiety disorder, unspecified MARIA DE JESUS LEMON MD Dec 11, 2020 21:49
--- NOTE | 2020-12-11 22:52 | NUR ---
Patient refused to answer any orientation questions. Patient demanding drinks and snacks and yelling down the hallway. Patient compliant with medications crushed in yogurt. Patient came out of his room in a brief several times, staff told him to return to his room and get his clothing on.
[2020-12-12 06:21] VITALS: BP 127/86
--- NOTE | 2020-12-12 06:22 | NUR ---
This morning patient had small amount of blood in his dry brief. He continues to be unable to void independently. At 0610 Bladder scan revealed +/- 450 ml urine in bladder. 490 ml yellow clear urine removed via straight catheter per order. Patient yelled "oww oww oww" throughout the procedure. Nurse and 2 AUDIOMETRIST's present.
--- NOTE | 2020-12-12 07:25 | PDOC ---
Exam Note: Marcos Note: This note is a late entry for 12/11/2020 covers elements not covered in my initial note. Subjective: The patient was seen individually in the evening of 12/11/2020 with Moira HUFF, discussed and reviewed the chart. The patient just slept 5 hours previous night. She remains intermittently agitated, yelling at staff, very impatient, difficult to redirect. Nevertheless he is ambulating better on his own. Review of Systems: No CV, , pulmonary, eye, ENT system symptoms on review. Mental Status Exam: The patient is oriented to himself and situation. I met with him in his room. He was wanting extra snacks and staff are going to be passing this around and he seems satisfied with this. Speech is coherent, has some latency. Abstraction is fair. Computation impaired. Language function intact. Attention span short. Mood and affect remains labile. Laboratory Data: Reviewed. Impression: Major neurocognitive disorder Alzheimer vascular with delusion, depression, behavioral disturbance. Anxiety disorder unspecified. Impulse control disorder unspecified. Plan: Continue current psychotropics mentioned in my initial note. Depakote was to have been initiated 3 days back but apparently was not and we will go ahead and start it today at 125 mg 9 a.m. and 1 p.m. Check CBC, CMP, valproic acid level in 3 days. Additionally the patient is on 2 atypical antipsychotics Seroquel and Risperdal. We will stop the Risperdal 0.25 mg b.i.d. and increase the Seroquel by adding 25 mg 9 a.m., 1 p.m. and 5 p.m. and continuing 50 mg h.s. On close questioning the patient was oriented to himself and situation and year. We will also increase the Zoloft from 25 mg a day to 50 mg a day. Adjust further as clinically indicated. Assessment: Vital Signs/I&O: Vital Signs Date Time Temp Pulse Resp B/P (MAP) Pulse Ox O2 Delivery O2 Flow Rate FiO2 12/12/20 06:21 97.6 103 20 127/86 (100) 98 12/09/20 06:22 Room Air I & O 12/11/20 12/11/20 12/12/20 15:00 23:00 07:00 Intake Total 600 ml 840 ml Output Total 500 ml 990 ml Balance 600 ml 340 ml -990 ml Labs: Laboratory Tests Test 12/11/20 07:30 12/11/20 11:41 12/11/20 19:08 Glucose (Fingerstick) 111 mg/dL (70-99) H 152 mg/dL (70-99) H 99 mg/dL (70-99) Current Medications: Meds: Laboratory Tests Test 12/11/20 07:30 12/11/20 11:41 12/11/20 19:08 Glucose (Fingerstick) 111 mg/dL 152 mg/dL 99 mg/dL Current Medications Medications (Trade) Dose Ordered Sig/Connie Route PRN Reason Start Time Stop Time Status Last Admin Dose Admin Acetaminophen (Tylenol) 650 mg PRN Q6HRS PRN PO MILD PAIN / TEMP > 100.3'F 11/23/20 13:00 11/24/20 08:34 Multi-Ingredient Ointment (Analgesic [place]) 1 nasir PRN QID PRN TP MUSCLE PAIN 11/23/20 13:00 Al Hydroxide/Mg Hydroxide (Mylanta Plus Xs) 15 ml PRN AFTMEALHC PRN PO DYSPEPSIA 11/23/20 13:00 Magnesium Hydroxide (Milk Of Magnesia) 2,400 mg PRN QHS PRN PO CONSTIPATION 11/23/20 13:00 Potassium Chloride (Klor-Con) 20 meq BID PO 11/23/20 21:00 12/06/20 16:29 DC 12/05/20 19:14 Tramadol HCl (Ultram) 50 mg PRN Q6HRS PRN PO MODERATE PAIN 4-6 11/23/20 16:00 11/26/20 20:55 Acetaminophen (Tylenol) 500 mg PRN Q6HRS PRN PO pain or fever 11/23/20 16:00 UNV Quetiapine Fumarate (SEROquel) 100 mg QHS PO 11/23/20 21:00 12/04/20 12:02 DC 12/03/20 20:03 Risperidone (RisperDAL) 0.25 mg BID PO 11/23/20 21:00 12/11/20 17:29 DC 12/11/20 07:36 Trazodone HCl (Desyrel) 50 mg QHS PO 11/23/20 21:00 12/04/20 12:02 DC 12/03/20 20:04 Insulin Human Lispro (HumaLOG) 0-9 UNITS TIDWMEALS SQ 11/23/20 17:00 12/11/20 17:00 Dextrose (Dextrose 50%-Water Syringe) 12.5 gm PRN Q15MIN PRN IV SEE COMMENTS 11/23/20 16:15 Apixaban (Eliquis) 5 mg BID PO 11/23/20 21:00 12/11/20 20:24 Finasteride (Proscar) 5 mg DAILY PO 11/24/20 09:00 12/11/20 07:36 Lorazepam (Ativan) 0.25 mg PRN BID PRN PO ANXIETY 11/23/20 18:30 11/30/20 21:03 Olanzapine (ZyPREXA ZYDIS) 2.5 mg PRN Q2HRS PRN PO ANXIETY / AGITATION 11/23/20 18:45 11/24/20 16:36 DC 11/24/20 08:34 Tamsulosin HCl (Flomax) 0.8 mg HS PO 11/23/20 21:00 12/11/20 20:24 Ziprasidone (Geodon Im) 10 mg PRN Q4HRS PRN IM ANXIETY / AGITATION 11/23/20 18:30 11/23/20 22:46 DC Insulin Glargine (Lantus Syringe) 20 unit BID SQ 11/23/20 21:00 12/11/20 20:27 Lactobacillus Rhamnosus (Culturelle) 1 cap BID PO 11/23/20 21:00 12/11/20 20:24 Sertraline HCl (Zoloft) 25 mg DAILY PO 11/24/20 09:00 12/11/20 17:29 DC 12/11/20 07:36 Quetiapine Fumarate (SEROquel) 25 mg PRN Q6HRS PRN PO agitation 11/24/20 16:45 12/11/20 02:02 Olanzapine (ZyPREXA ZYDIS) 5 mg 1X PRN PO PSYCHOSIS 11/26/20 17:00 12/10/20 20:33 Levofloxacin (Levaquin) 500 mg 1X ONCE PO 11/30/20 16:00 11/30/20 16:01 DC 11/30/20 17:16 Levofloxacin (Levaquin) 250 mg DAILY16 PO 12/01/20 16:00 12/06/20 16:01 DC 12/06/20 17:35 Quetiapine Fumarate (SEROquel) 150 mg QHS PO 12/04/20 21:00 12/11/20 20:24 Trazodone HCl (Desyrel) 100 mg PRN QHS PRN PO sleep 12/04/20 12:15 12/11/20 02:02 Sertraline HCl (Zoloft) 50 mg DAILY PO 12/12/20 09:00 Quetiapine Fumarate (SEROquel) 25 mg 0900,1300,1700 PO 12/12/20 09:00 Divalproex Sodium (Depakote) 125 mg 0900,1700 PO 12/12/20 09:00 I have reviewed the current psychotropics carefully including drug interactions. Risk benefit ratio favors no change other than as noted in my dictated progress note. 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
[2020-12-12] MEDS: INSULIN LISPRO 300 UNITS/3 ML VIAL. SQ SCH ×3 (08:00→17:24)
[2020-12-12] MEDS: FINASTERIDE 5 MG TABLET. PO SCH (09:11)
[2020-12-12] MEDS: DIVALPROEX SODIUM 125 MG TABLET.DR. PO SCH ×2 (09:11→17:23)
[2020-12-12] MEDS: LACTOBACILLUS RHAMNOSUS GG 1 CAPSULE. PO SCH ×2 (09:11→20:42)
[2020-12-12] MEDS: APIXABAN 5 MG TABLET. PO SCH ×2 (09:11→20:42)
[2020-12-12] MEDS: QUEtiapine 25 MG TABLET. PO SCH ×3 (09:12→17:23)
[2020-12-12] MEDS: SERTRALINE 50 MG TABLET. PO SCH (09:12)
[2020-12-12] MEDS: INSULIN GLARGINE SYRINGE. SQ SCH ×2 (09:16→21:38)
--- NOTE | 2020-12-12 11:46 | NUR ---
SW set up a [employer] team meeting with pt supports to give them an update on how pt is doing for Thursday 12/14 @ 10:00.
[2020-12-12 15:46] VITALS: BP 122/81
--- NOTE | 2020-12-12 17:45 | NUR ---
Nursing note: Pt has been pleasant, med compliant and cooperative this shift. He is less attention seeking this shift. Bladder scan this evening showed >656 mL. Straight cath performed with 625 ml output. He is currently laying in bed. Will continue to monitor.
[2020-12-12] MEDS: QUEtiapine 100 MG TABLET. PO SCH (20:42)
[2020-12-12] MEDS: traZODone 50 MG TABLET. PO PRN (20:42)
[2020-12-12] MEDS: TAMSULOSIN 0.4 MG CAP.ER.24H. PO SCH (20:42)
--- NOTE | 2020-12-12 21:53 | PDOC ---
Exam Note: Marcos Note: Please also refer to the separate dictated note~for this date of service dictated separately.~Patient seen individually. Discussed the patient with Nursing staff reviewed the chart.~Reviewed interim history and current functioning. Reviewed vital signs,~Labs/ Radiology~and current medications noted below. Continue current treatment with the changes noted in the dictated addendum note Assessment: Vital Signs/I&O: Vital Signs Date Time Temp Pulse Resp B/P (MAP) Pulse Ox O2 Delivery O2 Flow Rate FiO2 12/12/20 15:46 97.7 102 20 122/81 (95) 96 12/09/20 06:22 Room Air I & O 12/11/20 12/11/20 12/12/20 15:00 23:00 07:00 Intake Total 600 ml 840 ml Output Total 500 ml 990 ml Balance 600 ml 340 ml -990 ml Labs: Laboratory Tests Test 12/12/20 07:45 12/12/20 11:51 12/12/20 16:38 12/12/20 19:21 Glucose (Fingerstick) 130 mg/dL (70-99) H 175 mg/dL (70-99) H 205 mg/dL (70-99) H 137 mg/dL (70-99) H Current Medications: Meds: Laboratory Tests Test 12/12/20 07:45 12/12/20 11:51 12/12/20 16:38 12/12/20 19:21 Glucose (Fingerstick) 130 mg/dL 175 mg/dL 205 mg/dL 137 mg/dL Current Medications Medications (Trade) Dose Ordered Sig/Connie Route PRN Reason Start Time Stop Time Status Last Admin Dose Admin Acetaminophen (Tylenol) 650 mg PRN Q6HRS PRN PO MILD PAIN / TEMP > 100.3'F 11/23/20 13:00 11/24/20 08:34 Multi-Ingredient Ointment (Analgesic [place]) 1 nasir PRN QID PRN TP MUSCLE PAIN 11/23/20 13:00 Al Hydroxide/Mg Hydroxide (Mylanta Plus Xs) 15 ml PRN AFTMEALHC PRN PO DYSPEPSIA 11/23/20 13:00 Magnesium Hydroxide (Milk Of Magnesia) 2,400 mg PRN QHS PRN PO CONSTIPATION 11/23/20 13:00 Potassium Chloride (Klor-Con) 20 meq BID PO 11/23/20 21:00 12/06/20 16:29 DC 12/05/20 19:14 Tramadol HCl (Ultram) 50 mg PRN Q6HRS PRN PO MODERATE PAIN 4-6 11/23/20 16:00 11/26/20 20:55 Acetaminophen (Tylenol) 500 mg PRN Q6HRS PRN PO pain or fever 11/23/20 16:00 UNV Quetiapine Fumarate (SEROquel) 100 mg QHS PO 11/23/20 21:00 12/04/20 12:02 DC 12/03/20 20:03 Risperidone (RisperDAL) 0.25 mg BID PO 11/23/20 21:00 12/11/20 17:29 DC 12/11/20 07:36 Trazodone HCl (Desyrel) 50 mg QHS PO 11/23/20 21:00 12/04/20 12:02 DC 12/03/20 20:04 Insulin Human Lispro (HumaLOG) 0-9 UNITS TIDWMEALS SQ 11/23/20 17:00 12/12/20 17:24 Dextrose (Dextrose 50%-Water Syringe) 12.5 gm PRN Q15MIN PRN IV SEE COMMENTS 11/23/20 16:15 Apixaban (Eliquis) 5 mg BID PO 11/23/20 21:00 12/12/20 20:42 Finasteride (Proscar) 5 mg DAILY PO 11/24/20 09:00 12/12/20 09:11 Lorazepam (Ativan) 0.25 mg PRN BID PRN PO ANXIETY 11/23/20 18:30 11/30/20 21:03 Olanzapine (ZyPREXA ZYDIS) 2.5 mg PRN Q2HRS PRN PO ANXIETY / AGITATION 11/23/20 18:45 11/24/20 16:36 DC 11/24/20 08:34 Tamsulosin HCl (Flomax) 0.8 mg HS PO 11/23/20 21:00 12/12/20 20:42 Ziprasidone (Geodon Im) 10 mg PRN Q4HRS PRN IM ANXIETY / AGITATION 11/23/20 18:30 11/23/20 22:46 DC Insulin Glargine (Lantus Syringe) 20 unit BID SQ 11/23/20 21:00 12/12/20 21:38 Lactobacillus Rhamnosus (Culturelle) 1 cap BID PO 11/23/20 21:00 12/12/20 20:42 Sertraline HCl (Zoloft) 25 mg DAILY PO 11/24/20 09:00 12/11/20 17:29 DC 12/11/20 07:36 Quetiapine Fumarate (SEROquel) 25 mg PRN Q6HRS PRN PO agitation 11/24/20 16:45 12/11/20 02:02 Olanzapine (ZyPREXA ZYDIS) 5 mg 1X PRN PO PSYCHOSIS 11/26/20 17:00 12/10/20 20:33 Levofloxacin (Levaquin) 500 mg 1X ONCE PO 11/30/20 16:00 11/30/20 16:01 DC 11/30/20 17:16 Levofloxacin (Levaquin) 250 mg DAILY16 PO 12/01/20 16:00 12/06/20 16:01 DC 12/06/20 17:35 Quetiapine Fumarate (SEROquel) 150 mg QHS PO 12/04/20 21:00 12/12/20 20:42 Trazodone HCl (Desyrel) 100 mg PRN QHS PRN PO sleep 12/04/20 12:15 12/12/20 20:42 Sertraline HCl (Zoloft) 50 mg DAILY PO 12/12/20 09:00 12/12/20 09:12 Quetiapine Fumarate (SEROquel) 25 mg 0900,1300,1700 PO 12/12/20 09:00 12/12/20 17:23 Divalproex Sodium (Depakote) 125 mg 0900,1700 PO 12/12/20 09:00 12/12/20 17:23 Current Medications Medications (Trade) Dose Ordered Sig/Connie Route PRN Reason Start Time Stop Time Status Last Admin Dose Admin Sertraline HCl (Zoloft) 50 mg DAILY PO 12/12/20 09:00 12/12/20 09:12 Quetiapine Fumarate (SEROquel) 25 mg 0900,1300,1700 PO 12/12/20 09:00 12/12/20 17:23 Divalproex Sodium (Depakote) 125 mg 0900,1700 PO 12/12/20 09:00 12/12/20 17:23 I have reviewed the current psychotropics carefully including drug interactions. Risk benefit ratio favors no change other than as noted in my dictated progress note. Diagnosis: Problems: (1) Dementia, vascular, with depression (2) Dementia, vascular, with delusions (3) Dementia with behavioral disturbance (4) Dementia in Alzheimer's disease with delusions (5) Dementia in Alzheimer's disease with delirium (6) Major neurocognitive disorder (7) Dementia in Alzheimer's disease with early onset with behavioral disturbance (8) Impulse control disorder, unspecified (9) Anxiety disorder, unspecified MARIA DE JESUS LEMON MD Dec 12, 2020 21:53
--- NOTE | 2020-12-12 22:52 | NUR ---
Patient given PRN trazodone for insomnia. Will continue to monitor.
--- NOTE | 2020-12-12 23:17 | NUR ---
Patient was in the hallway when a female peer was yelling at a nurse about not taking her medications. Patient immediately balled up his fists and stormed over to patient, looking as if he would punch her. Staff was able to talk patient out of striking peer. Patient was then in his room sitting in his chair, he was med compliant and gave short, sunil answers to all questions. Nurse made patients bed up for him, he was later observed to be asleep in the chair in his room. Patient was assisted into the bed by staff to sleep and appeared to be sleeping soundly when nurse went to check on him.
--- NOTE | 2020-12-13 05:49 | NUR ---
Patient in hallway yelling "hello" multiple times. Nurse asked patient to go into bathroom and attempt to urinate, patient refused. Patient had a dry brief when he got up this morning. Nurse will bladder scan patient per order.
[2020-12-13 06:14] VITALS: BP 98/59
--- NOTE | 2020-12-13 06:35 | NUR ---
Pt brief was damp this morning and had a small amount of blood present but he did not void overnight. Patient bladder scan showed 756 ml urine in bladder, patient stated he could not urinate in the toilet and refused to try. Straight Cath resulted 850 ml urine removed from bladder. Patient yelled "oww oww oww" throughout the catheter insertion. Patient always yells during catheter insertion. There was some resistance felt during insertion. Nurse and x1 other nurse performed procedure and patient tolerated it well. Patient was given pudding cup per his request after procedure was finished.
--- NOTE | 2020-12-13 06:53 | PDOC ---
Exam Note: Marcos Note: This note is a late entry for 12/12/2020 covers elements not covered in my initial note. Subjective: The patient was seen individually in the evening of 12/12/2020 with Maritza HUFF, discussed and reviewed the chart. The patient just slept 3-3/4 hours previous night. Previous night he was yelling, restless, agitated, but today he has done better. Review of Systems: No CV, , pulmonary, eye, ENT system symptoms on review. Mental Status Exam: The patient is oriented to himself and situation. I met with him in his room. He was somewhat loud, abrasive, but redirected. Speech is coherent, has some latency. Abstraction is fair. Computation impaired. Language function intact. Attention span short. Mood and affect remains labile. Laboratory Data: Reviewed. Impression: Major neurocognitive disorder Alzheimer vascular with delusion, depression, behavioral disturbance. Anxiety disorder unspecified. Impulse control disorder unspecified. Plan: Since the patient is still sleeping poorly even with trazodone 100 mg h.s. p.r.n. we will add an extra dosage of 100 mg p.r.n. trazodone with help with insomnia. Rest of the psychotropics will be continued unchanged. Valproic acid level will be checked on 12/15. Assessment: Vital Signs/I&O: Vital Signs Date Time Temp Pulse Resp B/P (MAP) Pulse Ox O2 Delivery O2 Flow Rate FiO2 12/13/20 06:14 98.2 94 16 98/59 (72) 93 12/09/20 06:22 Room Air I & O 12/12/20 12/12/20 12/13/20 15:00 23:00 07:00 Intake Total 860 ml 600 ml Output Total 625 ml 850 ml Balance 860 ml -25 ml -850 ml Labs: Laboratory Tests Test 12/12/20 07:45 12/12/20 11:51 12/12/20 16:38 12/12/20 19:21 Glucose (Fingerstick) 130 mg/dL (70-99) H 175 mg/dL (70-99) H 205 mg/dL (70-99) H 137 mg/dL (70-99) H Current Medications: Meds: Laboratory Tests Test 12/12/20 07:45 12/12/20 11:51 12/12/20 16:38 12/12/20 19:21 Glucose (Fingerstick) 130 mg/dL 175 mg/dL 205 mg/dL 137 mg/dL Current Medications Medications (Trade) Dose Ordered Sig/Connie Route PRN Reason Start Time Stop Time Status Last Admin Dose Admin Acetaminophen (Tylenol) 650 mg PRN Q6HRS PRN PO MILD PAIN / TEMP > 100.3'F 11/23/20 13:00 11/24/20 08:34 Multi-Ingredient Ointment (Analgesic [place]) 1 nasir PRN QID PRN TP MUSCLE PAIN 11/23/20 13:00 Al Hydroxide/Mg Hydroxide (Mylanta Plus Xs) 15 ml PRN AFTMEALHC PRN PO DYSPEPSIA 11/23/20 13:00 Magnesium Hydroxide (Milk Of Magnesia) 2,400 mg PRN QHS PRN PO CONSTIPATION 11/23/20 13:00 Potassium Chloride (Klor-Con) 20 meq BID PO 11/23/20 21:00 12/06/20 16:29 DC 12/05/20 19:14 Tramadol HCl (Ultram) 50 mg PRN Q6HRS PRN PO MODERATE PAIN 4-6 11/23/20 16:00 11/26/20 20:55 Acetaminophen (Tylenol) 500 mg PRN Q6HRS PRN PO pain or fever 11/23/20 16:00 UNV Quetiapine Fumarate (SEROquel) 100 mg QHS PO 11/23/20 21:00 12/04/20 12:02 DC 12/03/20 20:03 Risperidone (RisperDAL) 0.25 mg BID PO 11/23/20 21:00 12/11/20 17:29 DC 12/11/20 07:36 Trazodone HCl (Desyrel) 50 mg QHS PO 11/23/20 21:00 12/04/20 12:02 DC 12/03/20 20:04 Insulin Human Lispro (HumaLOG) 0-9 UNITS TIDWMEALS SQ 11/23/20 17:00 12/12/20 17:24 Dextrose (Dextrose 50%-Water Syringe) 12.5 gm PRN Q15MIN PRN IV SEE COMMENTS 11/23/20 16:15 Apixaban (Eliquis) 5 mg BID PO 11/23/20 21:00 12/12/20 20:42 Finasteride (Proscar) 5 mg DAILY PO 11/24/20 09:00 12/12/20 09:11 Lorazepam (Ativan) 0.25 mg PRN BID PRN PO ANXIETY 11/23/20 18:30 11/30/20 21:03 Olanzapine (ZyPREXA ZYDIS) 2.5 mg PRN Q2HRS PRN PO ANXIETY / AGITATION 11/23/20 18:45 11/24/20 16:36 DC 11/24/20 08:34 Tamsulosin HCl (Flomax) 0.8 mg HS PO 11/23/20 21:00 12/12/20 20:42 Ziprasidone (Geodon Im) 10 mg PRN Q4HRS PRN IM ANXIETY / AGITATION 11/23/20 18:30 11/23/20 22:46 DC Insulin Glargine (Lantus Syringe) 20 unit BID SQ 11/23/20 21:00 12/12/20 21:38 Lactobacillus Rhamnosus (Culturelle) 1 cap BID PO 11/23/20 21:00 12/12/20 20:42 Sertraline HCl (Zoloft) 25 mg DAILY PO 11/24/20 09:00 12/11/20 17:29 DC 12/11/20 07:36 Quetiapine Fumarate (SEROquel) 25 mg PRN Q6HRS PRN PO agitation 11/24/20 16:45 12/11/20 02:02 Olanzapine (ZyPREXA ZYDIS) 5 mg 1X PRN PO PSYCHOSIS 11/26/20 17:00 12/10/20 20:33 Levofloxacin (Levaquin) 500 mg 1X ONCE PO 11/30/20 16:00 11/30/20 16:01 DC 11/30/20 17:16 Levofloxacin (Levaquin) 250 mg DAILY16 PO 12/01/20 16:00 12/06/20 16:01 DC 12/06/20 17:35 Quetiapine Fumarate (SEROquel) 150 mg QHS PO 12/04/20 21:00 12/12/20 20:42 Trazodone HCl (Desyrel) 100 mg PRN QHS PRN PO sleep 12/04/20 12:15 4/14/21 20:42 Sertraline HCl (Zoloft) 50 mg DAILY PO 12/12/20 09:00 12/12/20 09:12 Quetiapine Fumarate (SEROquel) 25 mg 0900,1300,1700 PO 12/12/20 09:00 12/12/20 17:23 Divalproex Sodium (Depakote) 125 mg 0900,1700 PO 12/12/20 09:00 12/12/20 17:23 Current Medications Medications (Trade) Dose Ordered Sig/Connie Route PRN Reason Start Time Stop Time Status Last Admin Dose Admin Sertraline HCl (Zoloft) 50 mg DAILY PO 12/12/20 09:00 12/12/20 09:12 Quetiapine Fumarate (SEROquel) 25 mg 0900,1300,1700 PO 12/12/20 09:00 12/12/20 17:23 Divalproex Sodium (Depakote) 125 mg 0900,1700 PO 12/12/20 09:00 12/12/20 17:23 I have reviewed the current psychotropics carefully including drug interactions. Risk benefit ratio favors no change other than as noted in my dictated progress note. Diagnosis: Problems: (1) Dementia, vascular, with depression (2) Dementia, vascular, with delusions (3) Dementia with behavioral disturbance (4) Dementia in Alzheimer's disease with delusions (5) Dementia in Alzheimer's disease with delirium (6) Major neurocognitive disorder (7) Dementia in Alzheimer's disease with early onset with behavioral disturbance (8) Impulse control disorder, unspecified (9) Anxiety disorder, unspecified MARIA DE JESUS LEMON MD Dec 13, 2020 06:53
[2020-12-13] MEDS: INSULIN LISPRO 300 UNITS/3 ML VIAL. SQ SCH ×3 (08:00→17:00)
[2020-12-13] MEDS: LACTOBACILLUS RHAMNOSUS GG 1 CAPSULE. PO SCH ×2 (08:44→20:21)
[2020-12-13] MEDS: FINASTERIDE 5 MG TABLET. PO SCH (08:45)
[2020-12-13] MEDS: APIXABAN 5 MG TABLET. PO SCH (08:45)
[2020-12-13] MEDS: SERTRALINE 50 MG TABLET. PO SCH (08:45)
[2020-12-13] MEDS: QUEtiapine 25 MG TABLET. PO SCH ×3 (08:45→17:17)
[2020-12-13] MEDS: DIVALPROEX SODIUM 125 MG TABLET.DR. PO SCH ×2 (08:45→17:17)
[2020-12-13] MEDS: INSULIN GLARGINE SYRINGE. SQ SCH ×2 (08:47→21:51)
[2020-12-13 15:59] VITALS: BP 123/79
--- NOTE | 2020-12-13 17:00 | NUR ---
Nursing note: Pt has been pleasant, med compliant and cooperative this shift. He occasionally yells out, but is easily redirected. He has spent most of the shift in the day room or walking around the unit. He is currently headed to the dining room for supper. Will continue to monitor.
[2020-12-13] MEDS: HYDROCORTISONE ACETATE 25 MG SUPP.RECT PR SCH (20:21)
[2020-12-13] MEDS: TAMSULOSIN 0.4 MG CAP.ER.24H. PO SCH (20:21)
[2020-12-13] MEDS: QUEtiapine 100 MG TABLET. PO SCH (20:22)
--- NOTE | 2020-12-13 22:02 | PDOC ---
Exam Note: Marcos Note: Please also refer to the separate dictated note~for this date of service dictated separately.~Patient seen individually. Discussed the patient with Nursing staff reviewed the chart.~Reviewed interim history and current functioning. Reviewed vital signs,~Labs/ Radiology~and current medications noted below. Continue current treatment with the changes noted in the dictated addendum note Assessment: Vital Signs/I&O: Vital Signs Date Time Temp Pulse Resp B/P (MAP) Pulse Ox O2 Delivery O2 Flow Rate FiO2 12/13/20 15:59 98.1 104 18 123/79 (94) 96 12/09/20 06:22 Room Air I & O 12/12/20 12/12/20 12/13/20 15:00 23:00 07:00 Intake Total 860 ml 600 ml Output Total 625 ml 850 ml Balance 860 ml -25 ml -850 ml Labs: Laboratory Tests Test 12/13/20 07:48 12/13/20 11:37 12/13/20 16:52 12/13/20 19:19 Glucose (Fingerstick) 127 mg/dL (70-99) H 223 mg/dL (70-99) H 141 mg/dL (70-99) H 166 mg/dL (70-99) H Current Medications: Meds: Laboratory Tests Test 12/13/20 07:48 12/13/20 11:37 12/13/20 16:52 12/13/20 19:19 Glucose (Fingerstick) 127 mg/dL 223 mg/dL 141 mg/dL 166 mg/dL Current Medications Medications (Trade) Dose Ordered Sig/Connie Route PRN Reason Start Time Stop Time Status Last Admin Dose Admin Acetaminophen (Tylenol) 650 mg PRN Q6HRS PRN PO MILD PAIN / TEMP > 100.3'F 11/23/20 13:00 11/24/20 08:34 Multi-Ingredient Ointment (Analgesic [place]) 1 nasir PRN QID PRN TP MUSCLE PAIN 11/23/20 13:00 Al Hydroxide/Mg Hydroxide (Mylanta Plus Xs) 15 ml PRN AFTMEALHC PRN PO DYSPEPSIA 11/23/20 13:00 Magnesium Hydroxide (Milk Of Magnesia) 2,400 mg PRN QHS PRN PO CONSTIPATION 11/23/20 13:00 Potassium Chloride (Klor-Con) 20 meq BID PO 11/23/20 21:00 12/06/20 16:29 DC 12/05/20 19:14 Tramadol HCl (Ultram) 50 mg PRN Q6HRS PRN PO MODERATE PAIN 4-6 11/23/20 16:00 11/26/20 20:55 Acetaminophen (Tylenol) 500 mg PRN Q6HRS PRN PO pain or fever 11/23/20 16:00 UNV Quetiapine Fumarate (SEROquel) 100 mg QHS PO 11/23/20 21:00 12/04/20 12:02 DC 12/03/20 20:03 Risperidone (RisperDAL) 0.25 mg BID PO 11/23/20 21:00 12/11/20 17:29 DC 12/11/20 07:36 Trazodone HCl (Desyrel) 50 mg QHS PO 11/23/20 21:00 12/04/20 12:02 DC 12/03/20 20:04 Insulin Human Lispro (HumaLOG) 0-9 UNITS TIDWMEALS SQ 11/23/20 17:00 12/13/20 12:22 Dextrose (Dextrose 50%-Water Syringe) 12.5 gm PRN Q15MIN PRN IV SEE COMMENTS 11/23/20 16:15 Apixaban (Eliquis) 5 mg BID PO 11/23/20 21:00 12/13/20 14:23 DC 12/13/20 08:45 Finasteride (Proscar) 5 mg DAILY PO 11/24/20 09:00 12/13/20 08:45 Lorazepam (Ativan) 0.25 mg PRN BID PRN PO ANXIETY 11/23/20 18:30 11/30/20 21:03 Olanzapine (ZyPREXA ZYDIS) 2.5 mg PRN Q2HRS PRN PO ANXIETY / AGITATION 11/23/20 18:45 11/24/20 16:36 DC 11/24/20 08:34 Tamsulosin HCl (Flomax) 0.8 mg HS PO 11/23/20 21:00 12/13/20 20:21 Ziprasidone (Geodon Im) 10 mg PRN Q4HRS PRN IM ANXIETY / AGITATION 11/23/20 18:30 11/23/20 22:46 DC Insulin Glargine (Lantus Syringe) 20 unit BID SQ 11/23/20 21:00 12/13/20 21:51 Lactobacillus Rhamnosus (Culturelle) 1 cap BID PO 11/23/20 21:00 12/13/20 20:21 Sertraline HCl (Zoloft) 25 mg DAILY PO 11/24/20 09:00 12/11/20 17:29 DC 12/11/20 07:36 Quetiapine Fumarate (SEROquel) 25 mg PRN Q6HRS PRN PO agitation 11/24/20 16:45 12/11/20 02:02 Olanzapine (ZyPREXA ZYDIS) 5 mg 1X PRN PO PSYCHOSIS 11/26/20 17:00 12/10/20 20:33 Levofloxacin (Levaquin) 500 mg 1X ONCE PO 11/30/20 16:00 11/30/20 16:01 DC 11/30/20 17:16 Levofloxacin (Levaquin) 250 mg DAILY16 PO 12/01/20 16:00 12/06/20 16:01 DC 12/06/20 17:35 Quetiapine Fumarate (SEROquel) 150 mg QHS PO 12/04/20 21:00 12/13/20 20:22 Trazodone HCl (Desyrel) 100 mg PRN QHS PRN PO sleep 12/04/20 12:15 12/12/20 20:42 Sertraline HCl (Zoloft) 50 mg DAILY PO 12/12/20 09:00 12/13/20 08:45 Quetiapine Fumarate (SEROquel) 25 mg 0900,1300,1700 PO 12/12/20 09:00 12/13/20 17:17 Divalproex Sodium (Depakote) 125 mg 0900,1700 PO 12/12/20 09:00 12/13/20 17:17 Hydrocortisone Acetate (Anucort-Hc) 25 mg BID ME 12/13/20 21:00 12/13/20 20:21 Current Medications Medications (Trade) Dose Ordered Sig/Connie Route PRN Reason Start Time Stop Time Status Last Admin Dose Admin Hydrocortisone Acetate (Anucort-Hc) 25 mg BID ME 12/13/20 21:00 12/13/20 20:21 I have reviewed the current psychotropics carefully including drug interactions. Risk benefit ratio favors no change other than as noted in my dictated progress note. Diagnosis: Problems: (1) Dementia, vascular, with depression (2) Dementia, vascular, with delusions (3) Dementia with behavioral disturbance (4) Dementia in Alzheimer's disease with delusions (5) Dementia in Alzheimer's disease with delirium (6) Major neurocognitive disorder (7) Dementia in Alzheimer's disease with early onset with behavioral disturbance (8) Impulse control disorder, unspecified (9) Anxiety disorder, unspecified MARIA DE JESUS LEMON MD Dec 13, 2020 22:02
--- NOTE | 2020-12-14 02:18 | NUR ---
Nursing Note The patient was calm and cooperative this shift. The patient was compliant with his medication and was able to take them whole. The patient was interactive with staff and peers. The patient greeted and attempted to talk to anyone walking through the hallway. This nurse will bladder scan the patient this morning and determine if catheterization is necessary. The patient is currently sleeping in his room.
[2020-12-14 05:44] VITALS: BP 121/73
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
[2020-12-14] MEDS: FINASTERIDE 5 MG TABLET. PO SCH (08:11)
[2020-12-14] MEDS: LACTOBACILLUS RHAMNOSUS GG 1 CAPSULE. PO SCH ×2 (08:12→20:19)
[2020-12-14] MEDS: QUEtiapine 25 MG TABLET. PO SCH ×3 (08:12→17:24)
[2020-12-14] MEDS: SERTRALINE 50 MG TABLET. PO SCH (08:12)
[2020-12-14] MEDS: DIVALPROEX SODIUM 125 MG TABLET.DR. PO SCH ×2 (08:12→17:24)
[2020-12-14] MEDS: HYDROCORTISONE ACETATE 25 MG SUPP.RECT PR SCH ×2 (08:13→20:19)
[2020-12-14] MEDS: INSULIN LISPRO 300 UNITS/3 ML VIAL. SQ SCH ×3 (08:13→17:00)
[2020-12-14] MEDS: INSULIN GLARGINE SYRINGE. SQ SCH ×2 (10:08→22:19)
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
[2020-12-14 16:09] VITALS: BP 136/83
[2020-12-14] MEDS: TAMSULOSIN 0.4 MG CAP.ER.24H. PO SCH (20:19)
[2020-12-14] MEDS: QUEtiapine 100 MG TABLET. PO SCH (20:20)
--- NOTE | 2020-12-14 22:03 | PDOC ---
Exam Note: Marcos Note: Please also refer to the separate dictated note~for this date of service dictated separately.~Patient seen individually. Discussed the patient with Nursing staff reviewed the chart.~Reviewed interim history and current functioning. Reviewed vital signs,~Labs/ Radiology~and current medications noted below. Continue current treatment with the changes noted in the dictated addendum note Assessment: Vital Signs/I&O: Vital Signs Date Time Temp Pulse Resp B/P (MAP) Pulse Ox O2 Delivery O2 Flow Rate FiO2 12/14/20 16:09 97.9 96 20 136/83 (100) 98 Room Air I & O 12/13/20 12/13/20 12/14/20 15:00 23:00 07:00 Intake Total 840 ml 600 ml Output Total 700 ml 850 ml Balance 840 ml -100 ml -850 ml Labs: Laboratory Tests Test 12/14/20 07:56 12/14/20 11:55 12/14/20 16:59 12/14/20 19:27 Glucose (Fingerstick) 166 mg/dL (70-99) H 104 mg/dL (70-99) H 143 mg/dL (70-99) H 159 mg/dL (70-99) H Current Medications: Meds: Laboratory Tests Test 12/14/20 07:56 12/14/20 11:55 12/14/20 16:59 12/14/20 19:27 Glucose (Fingerstick) 166 mg/dL 104 mg/dL 143 mg/dL 159 mg/dL Current Medications Medications (Trade) Dose Ordered Sig/Connie Route PRN Reason Start Time Stop Time Status Last Admin Dose Admin Acetaminophen (Tylenol) 650 mg PRN Q6HRS PRN PO MILD PAIN / TEMP > 100.3'F 11/23/20 13:00 11/24/20 08:34 Multi-Ingredient Ointment (Analgesic [place]) 1 nasir PRN QID PRN TP MUSCLE PAIN 11/23/20 13:00 Al Hydroxide/Mg Hydroxide (Mylanta Plus Xs) 15 ml PRN AFTMEALHC PRN PO DYSPEPSIA 11/23/20 13:00 Magnesium Hydroxide (Milk Of Magnesia) 2,400 mg PRN QHS PRN PO CONSTIPATION 11/23/20 13:00 Potassium Chloride (Klor-Con) 20 meq BID PO 11/23/20 21:00 12/06/20 16:29 DC 12/05/20 19:14 Tramadol HCl (Ultram) 50 mg PRN Q6HRS PRN PO MODERATE PAIN 4-6 11/23/20 16:00 11/26/20 20:55 Acetaminophen (Tylenol) 500 mg PRN Q6HRS PRN PO pain or fever 11/23/20 16:00 UNV Quetiapine Fumarate (SEROquel) 100 mg QHS PO 11/23/20 21:00 12/04/20 12:02 DC 12/03/20 20:03 Risperidone (RisperDAL) 0.25 mg BID PO 11/23/20 21:00 12/11/20 17:29 DC 12/11/20 07:36 Trazodone HCl (Desyrel) 50 mg QHS PO 11/23/20 21:00 12/04/20 12:02 DC 12/03/20 20:04 Insulin Human Lispro (HumaLOG) 0-9 UNITS TIDWMEALS SQ 11/23/20 17:00 12/14/20 08:13 Dextrose (Dextrose 50%-Water Syringe) 12.5 gm PRN Q15MIN PRN IV SEE COMMENTS 11/23/20 16:15 Apixaban (Eliquis) 5 mg BID PO 11/23/20 21:00 12/13/20 14:23 DC 12/13/20 08:45 Finasteride (Proscar) 5 mg DAILY PO 11/24/20 09:00 12/14/20 08:11 Lorazepam (Ativan) 0.25 mg PRN BID PRN PO ANXIETY 11/23/20 18:30 11/30/20 21:03 Olanzapine (ZyPREXA ZYDIS) 2.5 mg PRN Q2HRS PRN PO ANXIETY / AGITATION 11/23/20 18:45 11/24/20 16:36 DC 11/24/20 08:34 Tamsulosin HCl (Flomax) 0.8 mg HS PO 11/23/20 21:00 12/14/20 20:19 Ziprasidone (Geodon Im) 10 mg PRN Q4HRS PRN IM ANXIETY / AGITATION 11/23/20 18:30 11/23/20 22:46 DC Insulin Glargine (Lantus Syringe) 20 unit BID SQ 11/23/20 21:00 12/14/20 10:08 Lactobacillus Rhamnosus (Culturelle) 1 cap BID PO 11/23/20 21:00 12/14/20 20:19 Sertraline HCl (Zoloft) 25 mg DAILY PO 11/24/20 09:00 12/11/20 17:29 DC 12/11/20 07:36 Quetiapine Fumarate (SEROquel) 25 mg PRN Q6HRS PRN PO agitation 11/24/20 16:45 12/11/20 02:02 Olanzapine (ZyPREXA ZYDIS) 5 mg 1X PRN PO PSYCHOSIS 11/26/20 17:00 12/14/20 12:11 Levofloxacin (Levaquin) 500 mg 1X ONCE PO 11/30/20 16:00 11/30/20 16:01 DC 11/30/20 17:16 Levofloxacin (Levaquin) 250 mg DAILY16 PO 12/01/20 16:00 12/06/20 16:01 DC 12/06/20 17:35 Quetiapine Fumarate (SEROquel) 150 mg QHS PO 12/04/20 21:00 12/14/20 20:20 Trazodone HCl (Desyrel) 100 mg PRN QHS PRN PO sleep 12/04/20 12:15 12/12/20 20:42 Sertraline HCl (Zoloft) 50 mg DAILY PO 12/12/20 09:00 12/14/20 08:12 Quetiapine Fumarate (SEROquel) 25 mg 0900,1300,1700 PO 12/12/20 09:00 12/14/20 17:24 Divalproex Sodium (Depakote) 125 mg 0900,1700 PO 12/12/20 09:00 12/14/20 17:24 Hydrocortisone Acetate (Anucort-Hc) 25 mg BID [place] 12/13/20 21:00 12/14/20 20:19 I have reviewed the current psychotropics carefully including drug interactions. Risk benefit ratio favors no change other than as noted in my dictated progress note. Diagnosis: Problems: (1) Dementia, vascular, with depression (2) Dementia, vascular, with delusions (3) Dementia with behavioral disturbance (4) Dementia in Alzheimer's disease with delusions (5) Dementia in Alzheimer's disease with delirium (6) Major neurocognitive disorder (7) Dementia in Alzheimer's disease with early onset with behavioral disturbance (8) Impulse control disorder, unspecified (9) Anxiety disorder, unspecified MARIA DE JESUS LEMON MD Dec 14, 2020 22:03
--- NOTE | 2020-12-15 04:29 | NUR ---
Nursing Note The patient was restless and disorganized this shift. The patient was compliant with his medication and took them whole. The patient wandered the halls more during this shift than previous HS shifts. The patient was easily agitated by other patients and on several occasions had to be escorted away from others. The patient is currently sleeping in his room.
[2020-12-15 06:26] VITALS: BP 108/64
[2020-12-15 07:29] LABS: BASO % 1 % (0-3); EOS # 0.2 x10^3/uL (0.0-0.7); EOS % 4 % (0-3); HEMATOCRIT 34.7 % (39.0-53.0); HEMOGLOBIN 11.2 g/dL (13.0-17.5); LYMPH # 1.6 x10^3/uL (1.0-4.8); LYMPH % 29 % (24-48); MEAN CORPUSCULAR HEMOGLOBIN 28 pg (25-35); MEAN CORPUSCULAR HGB CONC 32 g/dL (31-37); MEAN CORPUSCULAR VOLUME 86 fL (79-100); MONO # 0.5 x10^3/uL (0.0-1.1); MONO % 9 % (0-9); NEUT # 3.3 x10^3uL (1.8-7.7); NEUT % 58 % (31-73); PLATELET COUNT 245 x10^3/uL (140-400); RED BLOOD COUNT 4.02 x10^6/uL (4.30-5.70); RED CELL DISTRIBUTION WIDTH 15.6 % (11.5-14.5); WHITE BLOOD COUNT 5.7 x10^3/uL (4.0-11.0)
[2020-12-15 07:50] LABS: ALBUMIN 2.7 g/dL (3.4-5.0); ALBUMIN/GLOBULIN RATIO 0.8 (1.0-1.7); CALCIUM 8.4 mg/dL (8.5-10.1); CREATININE 1.1 mg/dL (0.7-1.3); GFR 65.4; POTASSIUM 3.6 mmol/L (3.5-5.1); TOTAL BILIRUBIN 0.3 mg/dL (0.2-1.0); TOTAL PROTEIN 6.1 g/dL (6.4-8.2)
[2020-12-15] MEDS: INSULIN LISPRO 300 UNITS/3 ML VIAL. SQ SCH ×3 (07:51→17:00)
--- NOTE | 2020-12-15 07:57 | PDOC ---
Exam Note: Marcos Note: This note is a late entry for 12/14/2020 covers elements not covered in my initial note. Subjective: The patient was seen individually in the evening of 12/14/2020 with Maritza HUFF, discussed and reviewed the chart. The patient slept 6 hours previous night. I met with him in his room. He is less obsessed about food and did not ask for it as I met with him which is a change. He did seem calmer, more interactive but short-term memory is impaired. On specific question, he was able to tell me it was November 2020, which again is an improvement. Review of Systems: No CV, , pulmonary, eye, ENT system symptoms on review. Mental Status Exam: The patient is oriented to himself and situation. Speech is coherent, has some latency. Abstraction is fair. Computation impaired. Language function intact. Attention span short. Mood and affect remains labile. Laboratory Data: Reviewed. Impression: Major neurocognitive disorder Alzheimer vascular with delusion, depression, behavioral disturbance. Anxiety disorder unspecified. Impulse control disorder unspecified. Plan: We will continue his current psychotropics. Placement is being sought by the social service staff. We will make further adjustments as clinically indicated. Assessment: Vital Signs/I&O: Vital Signs Date Time Temp Pulse Resp B/P (MAP) Pulse Ox O2 Delivery O2 Flow Rate FiO2 12/15/20 06:26 97.7 96 20 108/64 (79) 98 Room Air I & O 12/14/20 12/14/20 12/15/20 14:59 22:59 06:59 Intake Total 840 ml 720 ml Output Total 800 ml 2300 ml Balance 840 ml -80 ml -2300 ml Labs: Laboratory Tests Test 12/14/20 11:55 12/14/20 16:59 12/14/20 19:27 12/15/20 06:15 Glucose (Fingerstick) 104 mg/dL (70-99) H 143 mg/dL (70-99) H 159 mg/dL (70-99) H White Blood Count 5.7 x10^3/uL (4.0-11.0) Red Blood Count 4.02 x10^6/uL (4.30-5.70) L Hemoglobin 11.2 g/dL (13.0-17.5) L Hematocrit 34.7 % (39.0-53.0) L Mean Corpuscular Volume 86 fL (79-100) Mean Corpuscular Hemoglobin 28 pg (25-35) Mean Corpuscular Hemoglobin Concent 32 g/dL (31-37) Red Cell Distribution Width 15.6 % (11.5-14.5) H Platelet Count 245 x10^3/uL (140-400) Neutrophils (%) (Auto) 58 % (31-73) Lymphocytes (%) (Auto) 29 % (24-48) Monocytes (%) (Auto) 9 % (0-9) Eosinophils (%) (Auto) 4 % (0-3) H Basophils (%) (Auto) 1 % (0-3) Neutrophils # (Auto) 3.3 x10^3uL (1.8-7.7) Lymphocytes # (Auto) 1.6 x10^3/uL (1.0-4.8) Monocytes # (Auto) 0.5 x10^3/uL (0.0-1.1) Eosinophils # (Auto) 0.2 x10^3/uL (0.0-0.7) Basophils # (Auto) 0.0 x10^3/uL (0.0-0.2) Test 12/15/20 07:41 Glucose (Fingerstick) 99 mg/dL (70-99) Current Medications: Meds: Laboratory Tests Test 12/14/20 11:55 12/14/20 16:59 12/14/20 19:27 12/15/20 06:15 Glucose (Fingerstick) 104 mg/dL 143 mg/dL 159 mg/dL White Blood Count 5.7 x10^3/uL Red Blood Count 4.02 x10^6/uL Hemoglobin 11.2 g/dL Hematocrit 34.7 % Mean Corpuscular Volume 86 fL Mean Corpuscular Hemoglobin 28 pg Mean Corpuscular Hemoglobin Concent 32 g/dL Red Cell Distribution Width 15.6 % Platelet Count 245 x10^3/uL Neutrophils (%) (Auto) 58 % Lymphocytes (%) (Auto) 29 % Monocytes (%) (Auto) 9 % Eosinophils (%) (Auto) 4 % Basophils (%) (Auto) 1 % Neutrophils # (Auto) 3.3 x10^3uL Lymphocytes # (Auto) 1.6 x10^3/uL Monocytes # (Auto) 0.5 x10^3/uL Eosinophils # (Auto) 0.2 x10^3/uL Basophils # (Auto) 0.0 x10^3/uL Test 12/15/20 07:41 Glucose (Fingerstick) 99 mg/dL Current Medications Medications (Trade) Dose Ordered Sig/Connie Route PRN Reason Start Time Stop Time Status Last Admin Dose Admin Acetaminophen (Tylenol) 650 mg PRN Q6HRS PRN PO MILD PAIN / TEMP > 100.3'F 11/23/20 13:00 11/24/20 08:34 Multi-Ingredient Ointment (Analgesic [place]) 1 nasir PRN QID PRN TP MUSCLE PAIN 11/23/20 13:00 Al Hydroxide/Mg Hydroxide (Mylanta Plus Xs) 15 ml PRN AFTMEALHC PRN PO DYSPEPSIA 11/23/20 13:00 Magnesium Hydroxide (Milk Of Magnesia) 2,400 mg PRN QHS PRN PO CONSTIPATION 11/23/20 13:00 Potassium Chloride (Klor-Con) 20 meq BID PO 11/23/20 21:00 12/06/20 16:29 DC 12/05/20 19:14 Tramadol HCl (Ultram) 50 mg PRN Q6HRS PRN PO MODERATE PAIN 4-6 11/23/20 16:00 11/26/20 20:55 Acetaminophen (Tylenol) 500 mg PRN Q6HRS PRN PO pain or fever 11/23/20 16:00 UNV Quetiapine Fumarate (SEROquel) 100 mg QHS PO 11/23/20 21:00 12/04/20 12:02 DC 12/03/20 20:03 Risperidone (RisperDAL) 0.25 mg BID PO 11/23/20 21:00 12/11/20 17:29 DC 12/11/20 07:36 Trazodone HCl (Desyrel) 50 mg QHS PO 11/23/20 21:00 12/04/20 12:02 DC 12/03/20 20:04 Insulin Human Lispro (HumaLOG) 0-9 UNITS TIDWMEALS SQ 11/23/20 17:00 12/14/20 08:13 Dextrose (Dextrose 50%-Water Syringe) 12.5 gm PRN Q15MIN PRN IV SEE COMMENTS 11/23/20 16:15 Apixaban (Eliquis) 5 mg BID PO 11/23/20 21:00 12/13/20 14:23 DC 12/13/20 08:45 Finasteride (Proscar) 5 mg DAILY PO 11/24/20 09:00 12/14/20 08:11 Lorazepam (Ativan) 0.25 mg PRN BID PRN PO ANXIETY 11/23/20 18:30 11/30/20 21:03 Olanzapine (ZyPREXA ZYDIS) 2.5 mg PRN Q2HRS PRN PO ANXIETY / AGITATION 11/23/20 18:45 11/24/20 16:36 DC 11/24/20 08:34 Tamsulosin HCl (Flomax) 0.8 mg HS PO 11/23/20 21:00 12/14/20 20:19 Ziprasidone (Geodon Im) 10 mg PRN Q4HRS PRN IM ANXIETY / AGITATION 11/23/20 18:30 11/23/20 22:46 DC Insulin Glargine (Lantus Syringe) 20 unit BID SQ 11/23/20 21:00 12/14/20 22:19 Lactobacillus Rhamnosus (Culturelle) 1 cap BID PO 11/23/20 21:00 12/14/20 20:19 Sertraline HCl (Zoloft) 25 mg DAILY PO 11/24/20 09:00 12/11/20 17:29 DC 12/11/20 07:36 Quetiapine Fumarate (SEROquel) 25 mg PRN Q6HRS PRN PO agitation 11/24/20 16:45 12/11/20 02:02 Olanzapine (ZyPREXA ZYDIS) 5 mg 1X PRN PO PSYCHOSIS 11/26/20 17:00 12/14/20 12:11 Levofloxacin (Levaquin) 500 mg 1X ONCE PO 11/30/20 16:00 11/30/20 16:01 DC 11/30/20 17:16 Levofloxacin (Levaquin) 250 mg DAILY16 PO 12/01/20 16:00 12/06/20 16:01 DC 12/06/20 17:35 Quetiapine Fumarate (SEROquel) 150 mg QHS PO 12/04/20 21:00 12/14/20 20:20 Trazodone HCl (Desyrel) 100 mg PRN QHS PRN PO sleep 12/04/20 12:15 12/12/20 20:42 Sertraline HCl (Zoloft) 50 mg DAILY PO 12/12/20 09:00 12/14/20 08:12 Quetiapine Fumarate (SEROquel) 25 mg 0900,1300,1700 PO 12/12/20 09:00 12/14/20 17:24 Divalproex Sodium (Depakote) 125 mg 0900,1700 PO 12/12/20 09:00 12/14/20 17:24 Hydrocortisone Acetate (Anucort-Hc) 25 mg BID [place] 12/13/20 21:00 12/14/20 20:19 I have reviewed the current psychotropics carefully including drug interactions. Risk benefit ratio favors no change other than as noted in my dictated progress note. Diagnosis: Problems: (1) Dementia, vascular, with depression (2) Dementia, vascular, with delusions (3) Dementia with behavioral disturbance (4) Dementia in Alzheimer's disease with delusions (5) Dementia in Alzheimer's disease with delirium (6) Major neurocognitive disorder (7) Dementia in Alzheimer's disease with early onset with behavioral disturbance (8) Impulse control disorder, unspecified (9) Anxiety disorder, unspecified MARIA DE JESUS LEMON MD Dec 15, 2020 07:57
[2020-12-15] MEDS: LACTOBACILLUS RHAMNOSUS GG 1 CAPSULE. PO SCH ×2 (08:14→20:34)
[2020-12-15] MEDS: HYDROCORTISONE ACETATE 25 MG SUPP.RECT PR SCH ×2 (08:15→20:35)
[2020-12-15] MEDS: SERTRALINE 50 MG TABLET. PO SCH (08:15)
[2020-12-15] MEDS: QUEtiapine 25 MG TABLET. PO SCH ×3 (08:15→17:18)
[2020-12-15] MEDS: DIVALPROEX SODIUM 125 MG TABLET.DR. PO SCH ×2 (08:15→17:18)
[2020-12-15] MEDS: FINASTERIDE 5 MG TABLET. PO SCH (08:15)
[2020-12-15] MEDS: INSULIN GLARGINE SYRINGE. SQ SCH ×2 (09:28→20:36)
[2020-12-15 10:29] LABS: VAL ACID 7 mcg/mL (50-100)
[2020-12-15 16:12] VITALS: BP 149/86
[2020-12-15] MEDS: TAMSULOSIN 0.4 MG CAP.ER.24H. PO SCH (20:34)
[2020-12-15] MEDS: QUEtiapine 100 MG TABLET. PO SCH (20:35)
--- NOTE | 2020-12-15 21:54 | PDOC ---
Exam Note: Marcos Note: Please also refer to the separate dictated note~for this date of service dictated separately.~Patient seen individually. Discussed the patient with Nursing staff reviewed the chart.~Reviewed interim history and current functioning. Reviewed vital signs,~Labs/ Radiology~and current medications noted below. Continue current treatment with the changes noted in the dictated addendum note Assessment: Vital Signs/I&O: Vital Signs Date Time Temp Pulse Resp B/P (MAP) Pulse Ox O2 Delivery O2 Flow Rate FiO2 12/15/20 16:12 97.2 102 18 149/86 (107) 95 Room Air I & O 12/14/20 12/14/20 12/15/20 14:59 22:59 06:59 Intake Total 840 ml 720 ml Output Total 800 ml 2300 ml Balance 840 ml -80 ml -2300 ml Labs: Laboratory Tests Test 12/15/20 06:15 12/15/20 07:41 12/15/20 11:49 12/15/20 17:12 White Blood Count 5.7 x10^3/uL (4.0-11.0) Red Blood Count 4.02 x10^6/uL (4.30-5.70) L Hemoglobin 11.2 g/dL (13.0-17.5) L Hematocrit 34.7 % (39.0-53.0) L Mean Corpuscular Volume 86 fL (79-100) Mean Corpuscular Hemoglobin 28 pg (25-35) Mean Corpuscular Hemoglobin Concent 32 g/dL (31-37) Red Cell Distribution Width 15.6 % (11.5-14.5) H Platelet Count 245 x10^3/uL (140-400) Neutrophils (%) (Auto) 58 % (31-73) Lymphocytes (%) (Auto) 29 % (24-48) Monocytes (%) (Auto) 9 % (0-9) Eosinophils (%) (Auto) 4 % (0-3) H Basophils (%) (Auto) 1 % (0-3) Neutrophils # (Auto) 3.3 x10^3uL (1.8-7.7) Lymphocytes # (Auto) 1.6 x10^3/uL (1.0-4.8) Monocytes # (Auto) 0.5 x10^3/uL (0.0-1.1) Eosinophils # (Auto) 0.2 x10^3/uL (0.0-0.7) Basophils # (Auto) 0.0 x10^3/uL (0.0-0.2) Sodium Level 145 mmol/L (136-145) Potassium Level 3.6 mmol/L (3.5-5.1) Chloride Level 108 mmol/L (98-107) H Carbon Dioxide Level 29 mmol/L (21-32) Anion Gap 8 (6-14) Blood Urea Nitrogen 19 mg/dL (8-26) Creatinine 1.1 mg/dL (0.7-1.3) Estimated GFR (Cockcroft-Gault) 65.4 BUN/Creatinine Ratio 17 (6-20) Glucose Level 68 mg/dL (70-99) L Calcium Level 8.4 mg/dL (8.5-10.1) L Total Bilirubin 0.3 mg/dL (0.2-1.0) Aspartate Amino Transferase (AST) 13 U/L (15-37) L Alanine Aminotransferase (ALT) 16 U/L (16-63) Alkaline Phosphatase 69 U/L (46-116) Total Protein 6.1 g/dL (6.4-8.2) L Albumin 2.7 g/dL (3.4-5.0) L Albumin/Globulin Ratio 0.8 (1.0-1.7) L Valproic Acid Level 7 mcg/mL (50-100) L Valproic Acid Last Dose Date 12/14/20 Valproic Acid Last Dose Time 1700 Glucose (Fingerstick) 99 mg/dL (70-99) 173 mg/dL (70-99) H 112 mg/dL (70-99) H Test 12/15/20 19:27 Glucose (Fingerstick) 114 mg/dL (70-99) H Current Medications: Meds: Laboratory Tests Test 12/15/20 06:15 12/15/20 07:41 12/15/20 11:49 12/15/20 17:12 White Blood Count 5.7 x10^3/uL Red Blood Count 4.02 x10^6/uL Hemoglobin 11.2 g/dL Hematocrit 34.7 % Mean Corpuscular Volume 86 fL Mean Corpuscular Hemoglobin 28 pg Mean Corpuscular Hemoglobin Concent 32 g/dL Red Cell Distribution Width 15.6 % Platelet Count 245 x10^3/uL Neutrophils (%) (Auto) 58 % Lymphocytes (%) (Auto) 29 % Monocytes (%) (Auto) 9 % Eosinophils (%) (Auto) 4 % Basophils (%) (Auto) 1 % Neutrophils # (Auto) 3.3 x10^3uL Lymphocytes # (Auto) 1.6 x10^3/uL Monocytes # (Auto) 0.5 x10^3/uL Eosinophils # (Auto) 0.2 x10^3/uL Basophils # (Auto) 0.0 x10^3/uL Sodium Level 145 mmol/L Potassium Level 3.6 mmol/L Chloride Level 108 mmol/L Carbon Dioxide Level 29 mmol/L Anion Gap 8 Blood Urea Nitrogen 19 mg/dL Creatinine 1.1 mg/dL Estimated GFR (Cockcroft-Gault) 65.4 BUN/Creatinine Ratio 17 Glucose Level 68 mg/dL Calcium Level 8.4 mg/dL Total Bilirubin 0.3 mg/dL Aspartate Amino Transf (AST/SGOT) 13 U/L Alanine Aminotransferase (ALT/SGPT) 16 U/L Alkaline Phosphatase 69 U/L Total Protein 6.1 g/dL Albumin 2.7 g/dL Albumin/Globulin Ratio 0.8 Valproic Acid (Depakene) Level 7 mcg/mL Valproic Acid Last Dose Date 12/14/20 Valproic Acid Last Dose Time 1700 Glucose (Fingerstick) 99 mg/dL 173 mg/dL 112 mg/dL Test 12/15/20 19:27 Glucose (Fingerstick) 114 mg/dL Current Medications Medications (Trade) Dose Ordered Sig/Connie Route PRN Reason Start Time Stop Time Status Last Admin Dose Admin Acetaminophen (Tylenol) 650 mg PRN Q6HRS PRN PO MILD PAIN / TEMP > 100.3'F 11/23/20 13:00 11/24/20 08:34 Multi-Ingredient Ointment (Analgesic [place]) 1 nasir PRN QID PRN TP MUSCLE PAIN 11/23/20 13:00 Al Hydroxide/Mg Hydroxide (Mylanta Plus Xs) 15 ml PRN AFTMEALHC PRN PO DYSPEPSIA 11/23/20 13:00 Magnesium Hydroxide (Milk Of Magnesia) 2,400 mg PRN QHS PRN PO CONSTIPATION 11/23/20 13:00 Potassium Chloride (Klor-Con) 20 meq BID PO 11/23/20 21:00 12/06/20 16:29 DC 12/05/20 19:14 Tramadol HCl (Ultram) 50 mg PRN Q6HRS PRN PO MODERATE PAIN 4-6 11/23/20 16:00 11/26/20 20:55 Acetaminophen (Tylenol) 500 mg PRN Q6HRS PRN PO pain or fever 11/23/20 16:00 UNV Quetiapine Fumarate (SEROquel) 100 mg QHS PO 11/23/20 21:00 12/04/20 12:02 DC 12/03/20 20:03 Risperidone (RisperDAL) 0.25 mg BID PO 11/23/20 21:00 12/11/20 17:29 DC 12/11/20 07:36 Trazodone HCl (Desyrel) 50 mg QHS PO 11/23/20 21:00 12/04/20 12:02 DC 12/03/20 20:04 Insulin Human Lispro (HumaLOG) 0-9 UNITS TIDWMEALS SQ 11/23/20 17:00 12/15/20 12:19 Dextrose (Dextrose 50%-Water Syringe) 12.5 gm PRN Q15MIN PRN IV SEE COMMENTS 11/23/20 16:15 Apixaban (Eliquis) 5 mg BID PO 11/23/20 21:00 12/13/20 14:23 DC 12/13/20 08:45 Finasteride (Proscar) 5 mg DAILY PO 11/24/20 09:00 12/15/20 08:15 Lorazepam (Ativan) 0.25 mg PRN BID PRN PO ANXIETY 11/23/20 18:30 11/30/20 21:03 Olanzapine (ZyPREXA ZYDIS) 2.5 mg PRN Q2HRS PRN PO ANXIETY / AGITATION 11/23/20 18:45 11/24/20 16:36 DC 11/24/20 08:34 Tamsulosin HCl (Flomax) 0.8 mg HS PO 11/23/20 21:00 12/15/20 20:34 Ziprasidone (Geodon Im) 10 mg PRN Q4HRS PRN IM ANXIETY / AGITATION 11/23/20 18:30 11/23/20 22:46 DC Insulin Glargine (Lantus Syringe) 20 unit BID SQ 11/23/20 21:00 12/15/20 20:36 Lactobacillus Rhamnosus (Culturelle) 1 cap BID PO 11/23/20 21:00 12/15/20 20:34 Sertraline HCl (Zoloft) 25 mg DAILY PO 11/24/20 09:00 12/11/20 17:29 DC 12/11/20 07:36 Quetiapine Fumarate (SEROquel) 25 mg PRN Q6HRS PRN PO agitation 11/24/20 16:45 12/11/20 02:02 Olanzapine (ZyPREXA ZYDIS) 5 mg 1X PRN PO PSYCHOSIS 11/26/20 17:00 12/14/20 12:11 Levofloxacin (Levaquin) 500 mg 1X ONCE PO 11/30/20 16:00 11/30/20 16:01 DC 11/30/20 17:16 Levofloxacin (Levaquin) 250 mg DAILY16 PO 12/01/20 16:00 12/06/20 16:01 DC 12/06/20 17:35 Quetiapine Fumarate (SEROquel) 150 mg QHS PO 12/04/20 21:00 12/15/20 20:35 Trazodone HCl (Desyrel) 100 mg PRN QHS PRN PO sleep 12/04/20 12:15 12/12/20 20:42 Sertraline HCl (Zoloft) 50 mg DAILY PO 12/12/20 09:00 12/15/20 08:15 Quetiapine Fumarate (SEROquel) 25 mg 0900,1300,1700 PO 12/12/20 09:00 12/15/20 17:18 Divalproex Sodium (Depakote) 125 mg 0900,1700 PO 12/12/20 09:00 12/15/20 17:18 Hydrocortisone Acetate (Anucort-Hc) 25 mg BID [place] 12/13/20 21:00 12/15/20 20:35 I have reviewed the current psychotropics carefully including drug interactions. Risk benefit ratio favors no change other than as noted in my dictated progress note. Diagnosis: Problems: (1) Dementia, vascular, with depression (2) Dementia, vascular, with delusions (3) Dementia with behavioral disturbance (4) Dementia in Alzheimer's disease with delusions (5) Dementia in Alzheimer's disease with delirium (6) Major neurocognitive disorder (7) Dementia in Alzheimer's disease with early onset with behavioral disturbance (8) Impulse control disorder, unspecified (9) Anxiety disorder, unspecified MARIA DE JESUS LEMON MD Dec 15, 2020 21:54
[2020-12-16 06:12] VITALS: BP 103/65
[2020-12-16 06:39] VITALS: BP 103/65
--- NOTE | 2020-12-16 07:30 | PDOC ---
Exam Note: Marcos Note: This note is a late entry for 12/15/2020 covers elements not covered in my initial note. Subjective: The patient was seen individually in the evening of 12/15/2020 with Eliecer HUFF, discussed and reviewed the chart. The patient slept 3-1/4 hours previous night. He has been somewhat confused, gets agitated with cares but redirects. He has been obsessed about wanting extra food but was not obsessing about it as I met with him this evening. Otherwise, he was pleasant, cooperative as I met with him today. Review of Systems: No CV, , pulmonary, eye, ENT system symptoms on review. Mental Status Exam: The patient is oriented to himself and situation. Speech is coherent, has some latency. Abstraction is fair. Computation impaired. Language function intact. Attention span short. Mood and affect remains labile . Laboratory Data: Reviewed. Impression: Major neurocognitive disorder Alzheimer vascular with delusion, depression, behavioral disturbance. Anxiety disorder unspecified. Impulse control disorder unspecified. Plan: We will continue his current psychotropics. Assessment: Vital Signs/I&O: Vital Signs Date Time Temp Pulse Resp B/P (MAP) Pulse Ox O2 Delivery O2 Flow Rate FiO2 12/16/20 06:39 97.0 88 19 103/65 (78) 92 12/15/20 16:12 Room Air I & O 12/15/20 12/15/20 12/16/20 15:00 23:00 07:00 Intake Total 1320 ml 600 ml Output Total 1100 ml Balance 1320 ml -500 ml Labs: Laboratory Tests Test 12/15/20 07:41 12/15/20 11:49 12/15/20 17:12 12/15/20 19:27 Glucose (Fingerstick) 99 mg/dL (70-99) 173 mg/dL (70-99) H 112 mg/dL (70-99) H 114 mg/dL (70-99) H Current Medications: Meds: Laboratory Tests Test 12/15/20 07:41 12/15/20 11:49 12/15/20 17:12 12/15/20 19:27 Glucose (Fingerstick) 99 mg/dL 173 mg/dL 112 mg/dL 114 mg/dL Current Medications Medications (Trade) Dose Ordered Sig/Connie Route PRN Reason Start Time Stop Time Status Last Admin Dose Admin Acetaminophen (Tylenol) 650 mg PRN Q6HRS PRN PO MILD PAIN / TEMP > 100.3'F 11/23/20 13:00 11/24/20 08:34 Multi-Ingredient Ointment (Analgesic [place]) 1 nasir PRN QID PRN TP MUSCLE PAIN 11/23/20 13:00 Al Hydroxide/Mg Hydroxide (Mylanta Plus Xs) 15 ml PRN AFTMEALHC PRN PO DYSPEPSIA 11/23/20 13:00 Magnesium Hydroxide (Milk Of Magnesia) 2,400 mg PRN QHS PRN PO CONSTIPATION 11/23/20 13:00 Potassium Chloride (Klor-Con) 20 meq BID PO 11/23/20 21:00 12/06/20 16:29 DC 12/05/20 19:14 Tramadol HCl (Ultram) 50 mg PRN Q6HRS PRN PO MODERATE PAIN 4-6 11/23/20 16:00 11/26/20 20:55 Acetaminophen (Tylenol) 500 mg PRN Q6HRS PRN PO pain or fever 11/23/20 16:00 UNV Quetiapine Fumarate (SEROquel) 100 mg QHS PO 11/23/20 21:00 12/04/20 12:02 DC 12/03/20 20:03 Risperidone (RisperDAL) 0.25 mg BID PO 11/23/20 21:00 12/11/20 17:29 DC 12/11/20 07:36 Trazodone HCl (Desyrel) 50 mg QHS PO 11/23/20 21:00 12/04/20 12:02 DC 12/03/20 20:04 Insulin Human Lispro (HumaLOG) 0-9 UNITS TIDWMEALS SQ 11/23/20 17:00 12/15/20 12:19 Dextrose (Dextrose 50%-Water Syringe) 12.5 gm PRN Q15MIN PRN IV SEE COMMENTS 11/23/20 16:15 Apixaban (Eliquis) 5 mg BID PO 11/23/20 21:00 12/13/20 14:23 DC 12/13/20 08:45 Finasteride (Proscar) 5 mg DAILY PO 11/24/20 09:00 12/15/20 08:15 Lorazepam (Ativan) 0.25 mg PRN BID PRN PO ANXIETY 11/23/20 18:30 11/30/20 21:03 Olanzapine (ZyPREXA ZYDIS) 2.5 mg PRN Q2HRS PRN PO ANXIETY / AGITATION 11/23/20 18:45 11/24/20 16:36 DC 11/24/20 08:34 Tamsulosin HCl (Flomax) 0.8 mg HS PO 11/23/20 21:00 12/15/20 20:34 Ziprasidone (Geodon Im) 10 mg PRN Q4HRS PRN IM ANXIETY / AGITATION 11/23/20 18:30 11/23/20 22:46 DC Insulin Glargine (Lantus Syringe) 20 unit BID SQ 11/23/20 21:00 12/15/20 20:36 Lactobacillus Rhamnosus (Culturelle) 1 cap BID PO 11/23/20 21:00 12/15/20 20:34 Sertraline HCl (Zoloft) 25 mg DAILY PO 11/24/20 09:00 12/11/20 17:29 DC 12/11/20 07:36 Quetiapine Fumarate (SEROquel) 25 mg PRN Q6HRS PRN PO agitation 11/24/20 16:45 12/11/20 02:02 Olanzapine (ZyPREXA ZYDIS) 5 mg 1X PRN PO PSYCHOSIS 11/26/20 17:00 12/14/20 12:11 Levofloxacin (Levaquin) 500 mg 1X ONCE PO 11/30/20 16:00 11/30/20 16:01 DC 11/30/20 17:16 Levofloxacin (Levaquin) 250 mg DAILY16 PO 12/01/20 16:00 12/06/20 16:01 DC 12/06/20 17:35 Quetiapine Fumarate (SEROquel) 150 mg QHS PO 12/04/20 21:00 12/15/20 20:35 Trazodone HCl (Desyrel) 100 mg PRN QHS PRN PO sleep 12/04/20 12:15 12/12/20 20:42 Sertraline HCl (Zoloft) 50 mg DAILY PO 12/12/20 09:00 12/15/20 08:15 Quetiapine Fumarate (SEROquel) 25 mg 0900,1300,1700 PO 12/12/20 09:00 12/15/20 17:18 Divalproex Sodium (Depakote) 125 mg 0900,1700 PO 12/12/20 09:00 12/15/20 17:18 Hydrocortisone Acetate (Anucort-Hc) 25 mg BID [place] 12/13/20 21:00 12/15/20 20:35 I have reviewed the current psychotropics carefully including drug interactions. Risk benefit ratio favors no change other than as noted in my dictated progress note. Diagnosis: Problems: (1) Dementia, vascular, with depression (2) Dementia, vascular, with delusions (3) Dementia with behavioral disturbance (4) Dementia in Alzheimer's disease with delusions (5) Dementia in Alzheimer's disease with delirium (6) Major neurocognitive disorder (7) Dementia in Alzheimer's disease with early onset with behavioral disturbance (8) Impulse control disorder, unspecified (9) Anxiety disorder, unspecified MARIA DE JESUS LEMON MD Dec 16, 2020 07:30
[2020-12-16] MEDS: INSULIN LISPRO 300 UNITS/3 ML VIAL. SQ SCH ×3 (08:00→17:00)
[2020-12-16] MEDS: DIVALPROEX SODIUM 125 MG TABLET.DR. PO SCH ×2 (08:58→16:18)
[2020-12-16] MEDS: SERTRALINE 50 MG TABLET. PO SCH (08:58)
[2020-12-16] MEDS: QUEtiapine 25 MG TABLET. PO SCH ×3 (08:58→16:18)
[2020-12-16] MEDS: HYDROCORTISONE ACETATE 25 MG SUPP.RECT PR SCH ×2 (08:58→21:29)
[2020-12-16] MEDS: LACTOBACILLUS RHAMNOSUS GG 1 CAPSULE. PO SCH ×2 (08:58→21:29)
[2020-12-16] MEDS: FINASTERIDE 5 MG TABLET. PO SCH (08:58)
[2020-12-16] MEDS: INSULIN GLARGINE SYRINGE. SQ SCH ×2 (09:16→21:35)
--- NOTE | 2020-12-16 13:52 | NUR ---
PATIENT LOCATED IN A DINING ROOM UPON ASSESSMENT. COMPLIANT WITH MEDS, DEMANDING REPEATEDLY FOOD OR SNACKS AND DRINK. PATIENT BLADDER WAS SCANNED, SHOWING 650 ML OF URIN RETAINING. SPOKE TO DR. LOREDO, ORDER FOR VILLANUEVA CATHETER INSERTION AND MAINTAINING OBTAINED. PATIENT HAS VILLANUEVA INSERTED WITH LEG BAG ATTACHED BY VELCRO TO LLE. PATIENT IS WEARING OVERALL TO PREVENT PATIENT FROM PULLING ON CATHETER. PATIENT REPEATEDLY ASKING TO USE A RESTROOM. PATIENT IS ON Q2 HRS BATHROOM SCHEDULE. PATIENT IS CURRENTLY IN A PT ROOM SITTING QUIETLY.
[2020-12-16 16:06] VITALS: BP 136/84
[2020-12-16] MEDS: QUEtiapine 100 MG TABLET. PO SCH (21:28)
[2020-12-16] MEDS: TAMSULOSIN 0.4 MG CAP.ER.24H. PO SCH (21:28)
--- NOTE | 2020-12-16 22:01 | PDOC ---
Exam Note: Marcos Note: Please also refer to the separate dictated note~for this date of service dictated separately.~Patient seen individually. Discussed the patient with Nursing staff reviewed the chart.~Reviewed interim history and current functioning. Reviewed vital signs,~Labs/ Radiology~and current medications noted below. Continue current treatment with the changes noted in the dictated addendum note Assessment: Vital Signs/I&O: Vital Signs Date Time Temp Pulse Resp B/P (MAP) Pulse Ox O2 Delivery O2 Flow Rate FiO2 12/16/20 16:06 97.4 85 20 136/84 (101) 98 12/15/20 16:12 Room Air I & O 12/15/20 12/15/20 12/16/20 15:00 23:00 07:00 Intake Total 1320 ml 600 ml Output Total 1100 ml Balance 1320 ml -500 ml Labs: Laboratory Tests Test 12/16/20 07:29 12/16/20 11:50 12/16/20 16:26 12/16/20 19:08 Glucose (Fingerstick) 62 mg/dL (70-99) L 137 mg/dL (70-99) H 141 mg/dL (70-99) H 132 mg/dL (70-99) H Current Medications: Meds: Laboratory Tests Test 12/16/20 07:29 12/16/20 11:50 12/16/20 16:26 12/16/20 19:08 Glucose (Fingerstick) 62 mg/dL 137 mg/dL 141 mg/dL 132 mg/dL Current Medications Medications (Trade) Dose Ordered Sig/Connie Route PRN Reason Start Time Stop Time Status Last Admin Dose Admin Acetaminophen (Tylenol) 650 mg PRN Q6HRS PRN PO MILD PAIN / TEMP > 100.3'F 11/23/20 13:00 11/24/20 08:34 Multi-Ingredient Ointment (Analgesic [place]) 1 nasir PRN QID PRN TP MUSCLE PAIN 11/23/20 13:00 Al Hydroxide/Mg Hydroxide (Mylanta Plus Xs) 15 ml PRN AFTMEALHC PRN PO DYSPEPSIA 11/23/20 13:00 Magnesium Hydroxide (Milk Of Magnesia) 2,400 mg PRN QHS PRN PO CONSTIPATION 11/23/20 13:00 Potassium Chloride (Klor-Con) 20 meq BID PO 11/23/20 21:00 4/8/21 16:29 DC 12/05/20 19:14 Tramadol HCl (Ultram) 50 mg PRN Q6HRS PRN PO MODERATE PAIN 4-6 11/23/20 16:00 11/26/20 20:55 Acetaminophen (Tylenol) 500 mg PRN Q6HRS PRN PO pain or fever 11/23/20 16:00 UNV Quetiapine Fumarate (SEROquel) 100 mg QHS PO 11/23/20 21:00 12/04/20 12:02 DC 12/03/20 20:03 Risperidone (RisperDAL) 0.25 mg BID PO 11/23/20 21:00 12/11/20 17:29 DC 12/11/20 07:36 Trazodone HCl (Desyrel) 50 mg QHS PO 11/23/20 21:00 12/04/20 12:02 DC 12/03/20 20:04 Insulin Human Lispro (HumaLOG) 0-9 UNITS TIDWMEALS SQ 11/23/20 17:00 12/15/20 12:19 Dextrose (Dextrose 50%-Water Syringe) 12.5 gm PRN Q15MIN PRN IV SEE COMMENTS 11/23/20 16:15 Apixaban (Eliquis) 5 mg BID PO 11/23/20 21:00 12/13/20 14:23 DC 12/13/20 08:45 Finasteride (Proscar) 5 mg DAILY PO 11/24/20 09:00 12/16/20 08:58 Lorazepam (Ativan) 0.25 mg PRN BID PRN PO ANXIETY 11/23/20 18:30 11/30/20 21:03 Olanzapine (ZyPREXA ZYDIS) 2.5 mg PRN Q2HRS PRN PO ANXIETY / AGITATION 11/23/20 18:45 11/24/20 16:36 DC 11/24/20 08:34 Tamsulosin HCl (Flomax) 0.8 mg HS PO 11/23/20 21:00 12/16/20 21:28 Ziprasidone (Geodon Im) 10 mg PRN Q4HRS PRN IM ANXIETY / AGITATION 11/23/20 18:30 11/23/20 22:46 DC Insulin Glargine (Lantus Syringe) 20 unit BID SQ 11/23/20 21:00 12/16/20 21:35 Lactobacillus Rhamnosus (Culturelle) 1 cap BID PO 11/23/20 21:00 12/16/20 21:29 Sertraline HCl (Zoloft) 25 mg DAILY PO 11/24/20 09:00 12/11/20 17:29 DC 12/11/20 07:36 Quetiapine Fumarate (SEROquel) 25 mg PRN Q6HRS PRN PO agitation 11/24/20 16:45 12/11/20 02:02 Olanzapine (ZyPREXA ZYDIS) 5 mg 1X PRN PO PSYCHOSIS 11/26/20 17:00 12/14/20 12:11 Levofloxacin (Levaquin) 500 mg 1X ONCE PO 11/30/20 16:00 11/30/20 16:01 DC 11/30/20 17:16 Levofloxacin (Levaquin) 250 mg DAILY16 PO 12/01/20 16:00 12/06/20 16:01 DC 12/06/20 17:35 Quetiapine Fumarate (SEROquel) 150 mg QHS PO 12/04/20 21:00 12/16/20 21:28 Trazodone HCl (Desyrel) 100 mg PRN QHS PRN PO sleep 12/04/20 12:15 12/12/20 20:42 Sertraline HCl (Zoloft) 50 mg DAILY PO 12/12/20 09:00 12/16/20 08:58 Quetiapine Fumarate (SEROquel) 25 mg 0900,1300,1700 PO 12/12/20 09:00 12/16/20 16:18 Divalproex Sodium (Depakote) 125 mg 0900,1700 PO 12/12/20 09:00 12/16/20 16:18 Hydrocortisone Acetate (Anucort-Hc) 25 mg BID [place] 12/13/20 21:00 12/16/20 21:29 I have reviewed the current psychotropics carefully including drug interactions. Risk benefit ratio favors no change other than as noted in my dictated progress note. Diagnosis: Problems: (1) Dementia, vascular, with depression (2) Dementia, vascular, with delusions (3) Dementia with behavioral disturbance (4) Dementia in Alzheimer's disease with delusions (5) Dementia in Alzheimer's disease with delirium (6) Major neurocognitive disorder (7) Dementia in Alzheimer's disease with early onset with behavioral disturbance (8) Impulse control disorder, unspecified (9) Anxiety disorder, unspecified MARIA DE JESUS LEMON MD Dec 16, 2020 22:01
--- NOTE | 2020-12-17 02:35 | NUR ---
Last evening pt walked in the [address] and continually requested snacks or drinks from staff even though he had already had lots to eat. He was cooperative with meds and has been sleeping.
[2020-12-17 06:22] VITALS: BP 129/85
--- NOTE | 2020-12-17 06:28 | PDOC ---
Exam Note: Marcos Note: This note is a late entry for 12/16/2020 covers elements not covered in my initial note. Subjective: The patient was seen individually in the evening of 12/16/2020 with Sil HUFF, discussed and reviewed the chart. The patient slept 6-3/4 hours previous night. Overall he has been less impulsive on the unit. He still fixates on wanting extra snacks and food and as I was rounding in the evening he was again asking for this. Nursing aids did get him snacks a little bit later and he was appreciative. He has had some urinary retention, does have a Flores and remains in an onesie because he was trying to pull on the Foleys. Review of Systems: No CV, , pulmonary, eye, ENT system symptoms on review. Mental Status Exam: The patient is oriented to himself and situation. I met with him in his room and in the hallway as he was somewhat loud asking for food initially. Speech is coherent. Abstraction is fair. Computation impaired. Language function intact. Attention span short. Mood and affect remains labile. Laboratory Data: Reviewed. Impression: Major neurocognitive disorder Alzheimer vascular with delusion, depression, behavioral disturbance. Anxiety disorder unspecified. Impulse control disorder unspecified. Plan: We will continue his current psychotropics. Assessment: Vital Signs/I&O: Vital Signs Date Time Temp Pulse Resp B/P (MAP) Pulse Ox O2 Delivery O2 Flow Rate FiO2 12/17/20 06:22 97.5 102 18 129/85 (100) 95 12/15/20 16:12 Room Air I & O 12/16/20 12/16/20 12/17/20 14:59 22:59 06:59 Intake Total 960 ml 600 ml Output Total 750 ml 700 ml 1150 ml Balance 210 ml -100 ml -1150 ml Labs: Laboratory Tests Test 12/16/20 07:29 12/16/20 11:50 12/16/20 16:26 12/16/20 19:08 Glucose (Fingerstick) 62 mg/dL (70-99) L 137 mg/dL (70-99) H 141 mg/dL (70-99) H 132 mg/dL (70-99) H Current Medications: Meds: Laboratory Tests Test 12/16/20 07:29 12/16/20 11:50 12/16/20 16:26 12/16/20 19:08 Glucose (Fingerstick) 62 mg/dL 137 mg/dL 141 mg/dL 132 mg/dL Current Medications Medications (Trade) Dose Ordered Sig/Connie Route PRN Reason Start Time Stop Time Status Last Admin Dose Admin Acetaminophen (Tylenol) 650 mg PRN Q6HRS PRN PO MILD PAIN / TEMP > 100.3'F 11/23/20 13:00 11/24/20 08:34 Multi-Ingredient Ointment (Analgesic [place]) 1 nasir PRN QID PRN TP MUSCLE PAIN 11/23/20 13:00 Al Hydroxide/Mg Hydroxide (Mylanta Plus Xs) 15 ml PRN AFTMEALHC PRN PO DYSPEPSIA 11/23/20 13:00 Magnesium Hydroxide (Milk Of Magnesia) 2,400 mg PRN QHS PRN PO CONSTIPATION 11/23/20 13:00 Potassium Chloride (Klor-Con) 20 meq BID PO 11/23/20 21:00 12/06/20 16:29 DC 12/05/20 19:14 Tramadol HCl (Ultram) 50 mg PRN Q6HRS PRN PO MODERATE PAIN 4-6 11/23/20 16:00 11/26/20 20:55 Acetaminophen (Tylenol) 500 mg PRN Q6HRS PRN PO pain or fever 11/23/20 16:00 UNV Quetiapine Fumarate (SEROquel) 100 mg QHS PO 11/23/20 21:00 12/04/20 12:02 DC 12/03/20 20:03 Risperidone (RisperDAL) 0.25 mg BID PO 11/23/20 21:00 12/11/20 17:29 DC 12/11/20 07:36 Trazodone HCl (Desyrel) 50 mg QHS PO 11/23/20 21:00 12/04/20 12:02 DC 12/03/20 20:04 Insulin Human Lispro (HumaLOG) 0-9 UNITS TIDWMEALS SQ 11/23/20 17:00 12/15/20 12:19 Dextrose (Dextrose 50%-Water Syringe) 12.5 gm PRN Q15MIN PRN IV SEE COMMENTS 11/23/20 16:15 Apixaban (Eliquis) 5 mg BID PO 11/23/20 21:00 12/13/20 14:23 DC 12/13/20 08:45 Finasteride (Proscar) 5 mg DAILY PO 11/24/20 09:00 12/16/20 08:58 Lorazepam (Ativan) 0.25 mg PRN BID PRN PO ANXIETY 11/23/20 18:30 11/30/20 21:03 Olanzapine (ZyPREXA ZYDIS) 2.5 mg PRN Q2HRS PRN PO ANXIETY / AGITATION 11/23/20 18:45 11/24/20 16:36 DC 11/24/20 08:34 Tamsulosin HCl (Flomax) 0.8 mg HS PO 11/23/20 21:00 12/16/20 21:28 Ziprasidone (Geodon Im) 10 mg PRN Q4HRS PRN IM ANXIETY / AGITATION 11/23/20 18:30 11/23/20 22:46 DC Insulin Glargine (Lantus Syringe) 20 unit BID SQ 11/23/20 21:00 12/16/20 21:35 Lactobacillus Rhamnosus (Culturelle) 1 cap BID PO 11/23/20 21:00 12/16/20 21:29 Sertraline HCl (Zoloft) 25 mg DAILY PO 11/24/20 09:00 12/11/20 17:29 DC 12/11/20 07:36 Quetiapine Fumarate (SEROquel) 25 mg PRN Q6HRS PRN PO agitation 11/24/20 16:45 12/11/20 02:02 Olanzapine (ZyPREXA ZYDIS) 5 mg 1X PRN PO PSYCHOSIS 11/26/20 17:00 12/14/20 12:11 Levofloxacin (Levaquin) 500 mg 1X ONCE PO 11/30/20 16:00 11/30/20 16:01 DC 11/30/20 17:16 Levofloxacin (Levaquin) 250 mg DAILY16 PO 12/01/20 16:00 12/06/20 16:01 DC 12/06/20 17:35 Quetiapine Fumarate (SEROquel) 150 mg QHS PO 12/04/20 21:00 12/16/20 21:28 Trazodone HCl (Desyrel) 100 mg PRN QHS PRN PO sleep 12/04/20 12:15 12/12/20 20:42 Sertraline HCl (Zoloft) 50 mg DAILY PO 12/12/20 09:00 12/16/20 08:58 Quetiapine Fumarate (SEROquel) 25 mg 0900,1300,1700 PO 12/12/20 09:00 12/16/20 16:18 Divalproex Sodium (Depakote) 125 mg 0900,1700 PO 12/12/20 09:00 12/16/20 16:18 Hydrocortisone Acetate (Anucort-Hc) 25 mg BID AK 12/13/20 21:00 12/16/20 21:29 I have reviewed the current psychotropics carefully including drug interactions. Risk benefit ratio favors no change other than as noted in my dictated progress note. Diagnosis: Problems: (1) Dementia, vascular, with depression (2) Dementia, vascular, with delusions (3) Dementia with behavioral disturbance (4) Dementia in Alzheimer's disease with delusions (5) Dementia in Alzheimer's disease with delirium (6) Major neurocognitive disorder (7) Dementia in Alzheimer's disease with early onset with behavioral disturbance (8) Impulse control disorder, unspecified (9) Anxiety disorder, unspecified MARIA DE JESUS LEMON MD Dec 17, 2020 06:28
[2020-12-17] MEDS: INSULIN LISPRO 300 UNITS/3 ML VIAL. SQ SCH ×3 (08:00→17:23)
[2020-12-17] MEDS: SERTRALINE 50 MG TABLET. PO SCH (08:37)
[2020-12-17] MEDS: FINASTERIDE 5 MG TABLET. PO SCH (08:37)
[2020-12-17] MEDS: LACTOBACILLUS RHAMNOSUS GG 1 CAPSULE. PO SCH ×2 (08:37→19:53)
[2020-12-17] MEDS: DIVALPROEX SODIUM 125 MG TABLET.DR. PO SCH ×2 (08:37→17:23)
[2020-12-17] MEDS: HYDROCORTISONE ACETATE 25 MG SUPP.RECT PR SCH ×2 (08:38→19:52)
[2020-12-17] MEDS: INSULIN GLARGINE SYRINGE. SQ SCH ×2 (08:38→21:54)
[2020-12-17] MEDS: QUEtiapine 25 MG TABLET. PO SCH ×3 (08:38→17:22)
--- NOTE | 2020-12-17 13:35 | NUR ---
Nursing note: Pt has been wandering around the unit this shift, more attention seeking than prior to having a crowell catheter in place. Pt is continuously requesting snacks and drinks. He is also attempting to convince staff members and other patients to unzip his onesie for him. Pt has been known to pull out his catheter, which is why he is currently in a onesie. When attempting to zip pt back up, he becomes very angry and yells as he balls up his fists in a threatening way towards staff. He is currently sitting quietly in the day room. Will continue to monitor.
--- NOTE | 2020-12-17 13:37 | NUR ---
WEEKLY ACTIVITY THERAPY NOTE Date of Admission: 11/23/20 Date of AT Assessment: 11/26 Precipitating behaviors that initiated intake and admission:Aggressive, punching and kicking staff, cursing, name calling, yelling, resisting cares Goal aimed: increase socialization and relaxation skills Initial Goal:Pt will participate in at least three individual or group Activity Therapy sessions per week. Weekly progress towards goal: did not achieve, 0/3 Group participation level: none Weekly highlights: Behaviors observed: telling another pt "sit down dumbass" Thursday and Thursday morning, withdrawn to room, sleeping in group Plan: no change to goal Beneficial adaptations:
--- NOTE | 2020-12-17 14:02 | NUR ---
GAIL has been emailing with pt temporary guardian, Mhoini, re: an update on pt. Mohini is concerned about pt needing to see a urologist, despite not having one on staff. GAIL explained the process of what could happen, but recommended that pt see one on outpt as a means to not disrupt his psychiatric stay and ability to be stable.
--- NOTE | 2020-12-17 14:22 | NUR ---
Treatment team update: Pt is eating 75% of meals and sleeping on average 5 hours. Pt is yelling out and demanding to have snacks and drinking constantly throughout the day. Pt does have a crowell catheter placed; due to his continued urinary retention. Pt has attempted to pull the crowell out; therefore, he was placed in a onsie as a preventative measure. Pt has attempted to recruit other to undo his onsie and was verbally aggressive with his nurse this morning when she redirected him. Pt sat in 2 groups last week with no participation. Pt VPA was 17; pt Depakote dose will increase to 250mg BID with labs and levels in three days. Pt ELOS is for the latter part of next week. SW will be sending out referrals and has a meeting scheduled with his guardian and other parties involved in his case to discuss discharge plans.
--- NOTE | 2020-12-17 14:30 | TX PLAN ---
Interdisciplinary Tx Plan Admission Information Nov 23, 2020 at 12:00 Legal Status (on Admission): Voluntary DPOA/Guardian Name: Mohini Palma Contact Verified Code Status: Full Code Allergies: Coded Allergies: No Known Drug Allergies (Unverified , 12/10/20) Diagnoses Primary Diagnosis: Major Neurocognitive D/O, vascular alzheimers with delusions, depression and behavioral disturbance Reasons for Admission: Aggressive, Combative, Confusion/Disoriented, Poor impulse control Problem in Patient's Words: He has been on a steady decline since July per neighbor's report Additional Admission Comments: According to the intake, pt is aggressive, pinching and kicking at nursing staff, cursing, name calling, yelling, resistive to cares. Problems Active Problems: cursing yelling restless agitated confused Inactive Problems: medication compliance Pt Strengths/Limitations Ability for [place]: Poor Cognitive Functioning/Ability: Poor Communication Skills/Ability: Fair Financial Resources: Poor Insight/Judgement: Poor Intellectual Ability: Fair Physical Health: Poor Social Skills: Fair Stability in Family: Poor Stability in School/Work: Poor Verbal Skills: Fair Discharge Criteria Discharge Criteria: No need for close observ., Adequate arrangements @DC, Improved behavior, Improved mood/thought Preliminary Discharge Plan Preliminary DC Plan: Placement Needed Special Precautions Fall Risk: Moderate Initial D/C Plan Referrals for placement will need to be sent once stable. Identified Discharge Needs: Psychiatric services Currently Utilized Resources Currently Utilized Resources/P: Primary Care Physician Referrals Community Resources: Psychiatric services Potential [facility] services Identified Problems/Hx/Goals Objectives/Short-Term Goals Short Term Goals: Dec. Aggression, Dec. Outbursts, Medication Stabilization, Monitor Med Effects, Promote Coping Skill Short Term Goals in Patient's: NA Interventions/Frequency Staff Interventions/Frequency&: Psychiatrist to assess pt at least 3x per week for medication management. Social Work to assess pt at least 2x per week to identify barriers to care and discharge planning. Nursing to assess medication effects, behavior modification and completion of 15 minute checks. Encourage participation in group activities (if applicable) or 1:1 engagement based off Activity Dept goals. 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 Treatment Plan Explained Patient/Direct Support Professional Home Health had this treatment plan explained to him/her as indicated by the signature below and has been given the opportunity to ask questions and make suggestions: Date: Patient/Direct Support Professional Home Health Signature: Status Update Update Pt is eating 75% of meals and sleeping on average 5 hours. Pt is yelling out and demanding to have snacks and drinking constantly throughout the day. Pt does have a crowell catheter placed; due to his continued urinary retention. Pt has attempted to pull the crowell out; therefore, he was placed in a onsie as a preventative measure. Pt has attempted to recruit other to undo his onsie and was verbally aggressive with his nurse this morning when she redirected him. Pt sat in 2 groups last week with no participation. Pt VPA was 17; pt Depakote dose will increase to 250mg BID with labs and levels in three days. Pt ELOS is for the latter part of next week. SW will be sending out referrals and has a meeting scheduled with his guardian and other parties involved in his case to discuss discharge plans. ASHA LAND Dec 17, 2020 14:30
[2020-12-17 15:47] VITALS: BP 128/86
[2020-12-17] MEDS: QUEtiapine 25 MG TABLET. PO PRN (18:48)
[2020-12-17] MEDS: traZODone 50 MG TABLET. PO PRN (19:53)
[2020-12-17] MEDS: QUEtiapine 100 MG TABLET. PO SCH (19:53)
[2020-12-17] MEDS: TAMSULOSIN 0.4 MG CAP.ER.24H. PO SCH (19:53)
--- NOTE | 2020-12-17 21:58 | PDOC ---
Exam Note: Marcos Note: Please also refer to the separate dictated note~for this date of service dictated separately.~Patient seen individually. Discussed the patient with Nursing staff reviewed the chart.~Reviewed interim history and current functioning. Reviewed vital signs,~Labs/ Radiology~and current medications noted below. Continue current treatment with the changes noted in the dictated addendum note Assessment: Vital Signs/I&O: Vital Signs Date Time Temp Pulse Resp B/P (MAP) Pulse Ox O2 Delivery O2 Flow Rate FiO2 12/17/20 15:47 98.5 100 18 128/86 (100) 95 12/15/20 16:12 Room Air I & O 12/16/20 12/16/20 12/17/20 14:59 22:59 06:59 Intake Total 960 ml 600 ml Output Total 750 ml 700 ml 1150 ml Balance 210 ml -100 ml -1150 ml Labs: Laboratory Tests Test 12/17/20 07:34 12/17/20 11:59 12/17/20 16:38 12/17/20 19:00 Glucose (Fingerstick) 92 mg/dL (70-99) 131 mg/dL (70-99) H 176 mg/dL (70-99) H 163 mg/dL (70-99) H Current Medications: Meds: Laboratory Tests Test 12/17/20 07:34 12/17/20 11:59 12/17/20 16:38 12/17/20 19:00 Glucose (Fingerstick) 92 mg/dL 131 mg/dL 176 mg/dL 163 mg/dL Current Medications Medications (Trade) Dose Ordered Sig/Connie Route PRN Reason Start Time Stop Time Status Last Admin Dose Admin Acetaminophen (Tylenol) 650 mg PRN Q6HRS PRN PO MILD PAIN / TEMP > 100.3'F 11/23/20 13:00 11/24/20 08:34 Multi-Ingredient Ointment (Analgesic [place]) 1 nasir PRN QID PRN TP MUSCLE PAIN 11/23/20 13:00 Al Hydroxide/Mg Hydroxide (Mylanta Plus Xs) 15 ml PRN AFTMEALHC PRN PO DYSPEPSIA 11/23/20 13:00 Magnesium Hydroxide (Milk Of Magnesia) 2,400 mg PRN QHS PRN PO CONSTIPATION 11/23/20 13:00 Potassium Chloride (Klor-Con) 20 meq BID PO 11/23/20 21:00 12/06/20 16:29 DC 12/05/20 19:14 Tramadol HCl (Ultram) 50 mg PRN Q6HRS PRN PO MODERATE PAIN 4-6 11/23/20 16:00 11/26/20 20:55 Acetaminophen (Tylenol) 500 mg PRN Q6HRS PRN PO pain or fever 11/23/20 16:00 UNV Quetiapine Fumarate (SEROquel) 100 mg QHS PO 11/23/20 21:00 12/04/20 12:02 DC 12/03/20 20:03 Risperidone (RisperDAL) 0.25 mg BID PO 11/23/20 21:00 12/11/20 17:29 DC 12/11/20 07:36 Trazodone HCl (Desyrel) 50 mg QHS PO 11/23/20 21:00 12/04/20 12:02 DC 12/03/20 20:04 Insulin Human Lispro (HumaLOG) 0-9 UNITS TIDWMEALS SQ 11/23/20 17:00 12/17/20 17:23 Dextrose (Dextrose 50%-Water Syringe) 12.5 gm PRN Q15MIN PRN IV SEE COMMENTS 11/23/20 16:15 Apixaban (Eliquis) 5 mg BID PO 11/23/20 21:00 12/13/20 14:23 DC 12/13/20 08:45 Finasteride (Proscar) 5 mg DAILY PO 11/24/20 09:00 12/17/20 08:37 Lorazepam (Ativan) 0.25 mg PRN BID PRN PO ANXIETY 11/23/20 18:30 11/30/20 21:03 Olanzapine (ZyPREXA ZYDIS) 2.5 mg PRN Q2HRS PRN PO ANXIETY / AGITATION 11/23/20 18:45 11/24/20 16:36 DC 11/24/20 08:34 Tamsulosin HCl (Flomax) 0.8 mg HS PO 11/23/20 21:00 12/17/20 19:53 Ziprasidone (Geodon Im) 10 mg PRN Q4HRS PRN IM ANXIETY / AGITATION 11/23/20 18:30 11/23/20 22:46 DC Insulin Glargine (Lantus Syringe) 20 unit BID SQ 11/23/20 21:00 12/17/20 21:54 Lactobacillus Rhamnosus (Culturelle) 1 cap BID PO 11/23/20 21:00 12/17/20 19:53 Sertraline HCl (Zoloft) 25 mg DAILY PO 11/24/20 09:00 12/11/20 17:29 DC 12/11/20 07:36 Quetiapine Fumarate (SEROquel) 25 mg PRN Q6HRS PRN PO agitation 11/24/20 16:45 12/17/20 18:48 Olanzapine (ZyPREXA ZYDIS) 5 mg 1X PRN PO PSYCHOSIS 11/26/20 17:00 12/14/20 12:11 Levofloxacin (Levaquin) 500 mg 1X ONCE PO 11/30/20 16:00 11/30/20 16:01 DC 11/30/20 17:16 Levofloxacin (Levaquin) 250 mg DAILY16 PO 12/01/20 16:00 12/06/20 16:01 DC 12/06/20 17:35 Quetiapine Fumarate (SEROquel) 150 mg QHS PO 12/04/20 21:00 12/17/20 19:53 Trazodone HCl (Desyrel) 100 mg PRN QHS PRN PO sleep 12/04/20 12:15 12/17/20 19:53 Sertraline HCl (Zoloft) 50 mg DAILY PO 12/12/20 09:00 12/17/20 08:37 Quetiapine Fumarate (SEROquel) 25 mg 0900,1300,1700 PO 12/12/20 09:00 12/17/20 17:22 Divalproex Sodium (Depakote) 125 mg 0900,1700 PO 12/12/20 09:00 12/17/20 13:42 DC 12/17/20 08:37 Hydrocortisone Acetate (Anucort-Hc) 25 mg BID FL 12/13/20 21:00 12/17/20 19:52 Divalproex Sodium (Depakote) 250 mg 0900,1700 PO 12/17/20 17:00 12/17/20 17:23 Current Medications Medications (Trade) Dose Ordered Sig/Connie Route PRN Reason Start Time Stop Time Status Last Admin Dose Admin Divalproex Sodium (Depakote) 250 mg 0900,1700 PO 12/17/20 17:00 12/17/20 17:23 I have reviewed the current psychotropics carefully including drug interactions. Risk benefit ratio favors no change other than as noted in my dictated progress note. Diagnosis: Problems: (1) Dementia, vascular, with depression (2) Dementia, vascular, with delusions (3) Dementia with behavioral disturbance (4) Dementia in Alzheimer's disease with delusions (5) Dementia in Alzheimer's disease with delirium (6) Major neurocognitive disorder (7) Dementia in Alzheimer's disease with early onset with behavioral disturbance (8) Impulse control disorder, unspecified (9) Anxiety disorder, unspecified MARIA DE JESUS LEMON MD Dec 17, 2020 21:58
--- NOTE | 2020-12-18 01:18 | NUR ---
Nursing Note The patient was restless and irritable this shift. The patient was agitated r/t having a catheter. The patient has the sensation that he needs to urinate and is unable to understand that he has a catheter. The patient took his medication whole. The patient was given PRN Trazodone per PRN order@. The patient was alert and oriented to hospital name, year and name. The patient is currently sleeping in his room.
[2020-12-18 05:57] VITALS: BP 112/72
--- NOTE | 2020-12-18 06:37 | PDOC ---
Exam Note: Marcos Note: This note is a late entry for 12/17/2020 covers elements not covered in my initial note. Subjective: The patient was reviewed in the morning of 12/17/2020 for a treatment team meeting with Peggy Cole, Melani Medellin and Tootie (sr. social media & mobile manager), Laura, activity therapy and Maritza HUFF, discussed and reviewed the chart. The patient slept 5-1/2 hours previous night. Sleeping average 5 hours. Appetite is 75%. He has had urinary retention. He has a Flores in place, tends to pull it out and because of this he has been placed in an onesie. He is constantly obsessed about food, wanting extra helpings. He has attended two groups. Review of Systems: No CV, , pulmonary, eye, ENT system symptoms on review. Mental Status Exam: The patient is oriented to himself and situation. He gets a little irritable at times especially regarding the onesie and the Flores catheter. I attempted to address this with him. He is somewhat distractible. Speech is coherent. Abstraction is fair. Computation impaired. Language function intact. Attention span short. Mood and affect remains labile. No suicidal or homicidal ideation. Laboratory Data: Reviewed. Impression: Major neurocognitive disorder Alzheimer vascular with delusion, depression, behavioral disturbance. Anxiety disorder unspecified. Impulse control disorder unspecified. Plan: We will continue his current psychotropics. Valproic acid level is 7 subtherapeutic. We will increase Depakote from 125 mg b.i.d. to 250 mg b.i.d. Check CBC, CMP, valproic acid level in 3 days. Assessment: Vital Signs/I&O: Vital Signs Date Time Temp Pulse Resp B/P (MAP) Pulse Ox O2 Delivery O2 Flow Rate FiO2 12/18/20 05:57 97.9 101 18 112/72 (85) 95 Room Air I & O 12/17/20 12/17/20 12/18/20 15:00 23:00 07:00 Intake Total 1800 ml 1040 ml 240 ml Output Total 400 ml 1150 ml Balance 1800 ml 640 ml -910 ml Labs: Laboratory Tests Test 12/17/20 07:34 12/17/20 11:59 12/17/20 16:38 12/17/20 19:00 Glucose (Fingerstick) 92 mg/dL (70-99) 131 mg/dL (70-99) H 176 mg/dL (70-99) H 163 mg/dL (70-99) H Current Medications: Meds: Laboratory Tests Test 12/17/20 07:34 12/17/20 11:59 12/17/20 16:38 12/17/20 19:00 Glucose (Fingerstick) 92 mg/dL 131 mg/dL 176 mg/dL 163 mg/dL Current Medications Medications (Trade) Dose Ordered Sig/Connie Route PRN Reason Start Time Stop Time Status Last Admin Dose Admin Acetaminophen (Tylenol) 650 mg PRN Q6HRS PRN PO MILD PAIN / TEMP > 100.3'F 11/23/20 13:00 11/24/20 08:34 Multi-Ingredient Ointment (Analgesic [place]) 1 nasir PRN QID PRN TP MUSCLE PAIN 11/23/20 13:00 Al Hydroxide/Mg Hydroxide (Mylanta Plus Xs) 15 ml PRN AFTMEALHC PRN PO DYSPEPSIA 11/23/20 13:00 Magnesium Hydroxide (Milk Of Magnesia) 2,400 mg PRN QHS PRN PO CONSTIPATION 11/23/20 13:00 Potassium Chloride (Klor-Con) 20 meq BID PO 11/23/20 21:00 12/06/20 16:29 DC 12/05/20 19:14 Tramadol HCl (Ultram) 50 mg PRN Q6HRS PRN PO MODERATE PAIN 4-6 11/23/20 16:00 11/26/20 20:55 Acetaminophen (Tylenol) 500 mg PRN Q6HRS PRN PO pain or fever 11/23/20 16:00 UNV Quetiapine Fumarate (SEROquel) 100 mg QHS PO 11/23/20 21:00 12/04/20 12:02 DC 12/03/20 20:03 Risperidone (RisperDAL) 0.25 mg BID PO 11/23/20 21:00 12/11/20 17:29 DC 12/11/20 07:36 Trazodone HCl (Desyrel) 50 mg QHS PO 11/23/20 21:00 12/04/20 12:02 DC 12/03/20 20:04 Insulin Human Lispro (HumaLOG) 0-9 UNITS TIDWMEALS SQ 11/23/20 17:00 12/17/20 17:23 Dextrose (Dextrose 50%-Water Syringe) 12.5 gm PRN Q15MIN PRN IV SEE COMMENTS 11/23/20 16:15 Apixaban (Eliquis) 5 mg BID PO 11/23/20 21:00 12/13/20 14:23 DC 12/13/20 08:45 Finasteride (Proscar) 5 mg DAILY PO 11/24/20 09:00 12/17/20 08:37 Lorazepam (Ativan) 0.25 mg PRN BID PRN PO ANXIETY 11/23/20 18:30 11/30/20 21:03 Olanzapine (ZyPREXA ZYDIS) 2.5 mg PRN Q2HRS PRN PO ANXIETY / AGITATION 11/23/20 18:45 11/24/20 16:36 DC 11/24/20 08:34 Tamsulosin HCl (Flomax) 0.8 mg HS PO 11/23/20 21:00 12/17/20 19:53 Ziprasidone (Geodon Im) 10 mg PRN Q4HRS PRN IM ANXIETY / AGITATION 11/23/20 18:30 11/23/20 22:46 DC Insulin Glargine (Lantus Syringe) 20 unit BID SQ 11/23/20 21:00 12/17/20 21:54 Lactobacillus Rhamnosus (Culturelle) 1 cap BID PO 11/23/20 21:00 12/17/20 19:53 Sertraline HCl (Zoloft) 25 mg DAILY PO 11/24/20 09:00 12/11/20 17:29 DC 12/11/20 07:36 Quetiapine Fumarate (SEROquel) 25 mg PRN Q6HRS PRN PO agitation 11/24/20 16:45 12/17/20 18:48 Olanzapine (ZyPREXA ZYDIS) 5 mg 1X PRN PO PSYCHOSIS 11/26/20 17:00 12/14/20 12:11 Levofloxacin (Levaquin) 500 mg 1X ONCE PO 11/30/20 16:00 11/30/20 16:01 DC 11/30/20 17:16 Levofloxacin (Levaquin) 250 mg DAILY16 PO 12/01/20 16:00 12/06/20 16:01 DC 12/06/20 17:35 Quetiapine Fumarate (SEROquel) 150 mg QHS PO 12/04/20 21:00 12/17/20 19:53 Trazodone HCl (Desyrel) 100 mg PRN QHS PRN PO sleep 12/04/20 12:15 12/17/20 19:53 Sertraline HCl (Zoloft) 50 mg DAILY PO 12/12/20 09:00 12/17/20 08:37 Quetiapine Fumarate (SEROquel) 25 mg 0900,1300,1700 PO 12/12/20 09:00 12/17/20 17:22 Divalproex Sodium (Depakote) 125 mg 0900,1700 PO 12/12/20 09:00 12/17/20 13:42 DC 12/17/20 08:37 Hydrocortisone Acetate (Anucort-Hc) 25 mg BID NV 12/13/20 21:00 12/17/20 19:52 Divalproex Sodium (Depakote) 250 mg 0900,1700 PO 12/17/20 17:00 12/17/20 17:23 Current Medications Medications (Trade) Dose Ordered Sig/Connie Route PRN Reason Start Time Stop Time Status Last Admin Dose Admin Divalproex Sodium (Depakote) 250 mg 0900,1700 PO 12/17/20 17:00 12/17/20 17:23 I have reviewed the current psychotropics carefully including drug interactions. Risk benefit ratio favors no change other than as noted in my dictated progress note. Diagnosis: Problems: (1) Dementia, vascular, with depression (2) Dementia, vascular, with delusions (3) Dementia with behavioral disturbance (4) Dementia in Alzheimer's disease with delusions (5) Dementia in Alzheimer's disease with delirium (6) Major neurocognitive disorder (7) Dementia in Alzheimer's disease with early onset with behavioral disturbance (8) Impulse control disorder, unspecified (9) Anxiety disorder, unspecified MARIA DE JESUS LEMON MD Dec 18, 2020 06:37
[2020-12-18] MEDS: INSULIN LISPRO 300 UNITS/3 ML VIAL. SQ SCH ×3 (08:00→17:16)
[2020-12-18] MEDS: HYDROCORTISONE ACETATE 25 MG SUPP.RECT PR SCH ×2 (08:54→20:18)
[2020-12-18] MEDS: QUEtiapine 25 MG TABLET. PO SCH ×3 (08:54→17:15)
[2020-12-18] MEDS: FINASTERIDE 5 MG TABLET. PO SCH (08:54)
[2020-12-18] MEDS: LACTOBACILLUS RHAMNOSUS GG 1 CAPSULE. PO SCH ×2 (08:54→20:18)
[2020-12-18] MEDS: DIVALPROEX SODIUM 125 MG TABLET.DR. PO SCH ×2 (08:54→17:14)
[2020-12-18] MEDS: SERTRALINE 50 MG TABLET. PO SCH (08:54)
[2020-12-18] MEDS: INSULIN GLARGINE SYRINGE. SQ SCH ×2 (08:55→21:00)
[2020-12-18 16:09] VITALS: BP 127/77
--- NOTE | 2020-12-18 17:30 | NUR ---
Nursing note: Pt has been very attention seeking today and attempts to convince other patients to help him. He is compliant with meds whole and cooperative with assessment. Pt has been walking around the unit for most of the shift and BLLE edema has noticeably increased throughout the shift. Pt was encouraged to elevate his feet. He is currently laying in bed with his feet elevated. Will continue to monitor.
[2020-12-18] MEDS: TAMSULOSIN 0.4 MG CAP.ER.24H. PO SCH (20:18)
[2020-12-18] MEDS: traZODone 50 MG TABLET. PO PRN (20:18)
[2020-12-18] MEDS: QUEtiapine 100 MG TABLET. PO SCH (20:18)
--- NOTE | 2020-12-18 22:55 | PDOC ---
Exam Note: Marcos Note: Please also refer to the separate dictated note~for this date of service dictated separately.~Patient seen individually. Discussed the patient with Nursing staff reviewed the chart.~Reviewed interim history and current functioning. Reviewed vital signs,~Labs/ Radiology~and current medications noted below. Continue current treatment with the changes noted in the dictated addendum note Assessment: Vital Signs/I&O: Vital Signs Date Time Temp Pulse Resp B/P (MAP) Pulse Ox O2 Delivery O2 Flow Rate FiO2 12/18/20 16:09 97.5 100 18 127/77 (94) 95 12/18/20 05:57 Room Air I & O 12/17/20 12/17/20 12/18/20 15:00 23:00 07:00 Intake Total 1800 ml 1040 ml 240 ml Output Total 400 ml 1150 ml Balance 1800 ml 640 ml -910 ml Labs: Laboratory Tests Test 12/18/20 07:21 12/18/20 11:58 12/18/20 16:39 12/18/20 19:36 Glucose (Fingerstick) 138 mg/dL (70-99) H 137 mg/dL (70-99) H 175 mg/dL (70-99) H 128 mg/dL (70-99) H Current Medications: Meds: Laboratory Tests Test 12/18/20 07:21 12/18/20 11:58 12/18/20 16:39 12/18/20 19:36 Glucose (Fingerstick) 138 mg/dL 137 mg/dL 175 mg/dL 128 mg/dL Current Medications Medications (Trade) Dose Ordered Sig/Connie Route PRN Reason Start Time Stop Time Status Last Admin Dose Admin Acetaminophen (Tylenol) 650 mg PRN Q6HRS PRN PO MILD PAIN / TEMP > 100.3'F 11/23/20 13:00 11/24/20 08:34 Multi-Ingredient Ointment (Analgesic [place]) 1 nasir PRN QID PRN TP MUSCLE PAIN 11/23/20 13:00 Al Hydroxide/Mg Hydroxide (Mylanta Plus Xs) 15 ml PRN AFTMEALHC PRN PO DYSPEPSIA 11/23/20 13:00 Magnesium Hydroxide (Milk Of Magnesia) 2,400 mg PRN QHS PRN PO CONSTIPATION 11/23/20 13:00 Potassium Chloride (Klor-Con) 20 meq BID PO 11/23/20 21:00 12/06/20 16:29 DC 12/05/20 19:14 Tramadol HCl (Ultram) 50 mg PRN Q6HRS PRN PO MODERATE PAIN 4-6 11/23/20 16:00 11/26/20 20:55 Acetaminophen (Tylenol) 500 mg PRN Q6HRS PRN PO pain or fever 11/23/20 16:00 UNV Quetiapine Fumarate (SEROquel) 100 mg QHS PO 11/23/20 21:00 12/04/20 12:02 DC 12/03/20 20:03 Risperidone (RisperDAL) 0.25 mg BID PO 11/23/20 21:00 12/11/20 17:29 DC 12/11/20 07:36 Trazodone HCl (Desyrel) 50 mg QHS PO 11/23/20 21:00 12/04/20 12:02 DC 12/03/20 20:04 Insulin Human Lispro (HumaLOG) 0-9 UNITS TIDWMEALS SQ 11/23/20 17:00 12/18/20 17:16 Dextrose (Dextrose 50%-Water Syringe) 12.5 gm PRN Q15MIN PRN IV SEE COMMENTS 11/23/20 16:15 Apixaban (Eliquis) 5 mg BID PO 11/23/20 21:00 12/13/20 14:23 DC 12/13/20 08:45 Finasteride (Proscar) 5 mg DAILY PO 11/24/20 09:00 12/18/20 08:54 Lorazepam (Ativan) 0.25 mg PRN BID PRN PO ANXIETY 11/23/20 18:30 11/30/20 21:03 Olanzapine (ZyPREXA ZYDIS) 2.5 mg PRN Q2HRS PRN PO ANXIETY / AGITATION 11/23/20 18:45 11/24/20 16:36 DC 11/24/20 08:34 Tamsulosin HCl (Flomax) 0.8 mg HS PO 11/23/20 21:00 12/18/20 20:18 Ziprasidone (Geodon Im) 10 mg PRN Q4HRS PRN IM ANXIETY / AGITATION 11/23/20 18:30 11/23/20 22:46 DC Insulin Glargine (Lantus Syringe) 20 unit BID SQ 11/23/20 21:00 12/18/20 08:55 Lactobacillus Rhamnosus (Culturelle) 1 cap BID PO 11/23/20 21:00 12/18/20 20:18 Sertraline HCl (Zoloft) 25 mg DAILY PO 11/24/20 09:00 12/11/20 17:29 DC 12/11/20 07:36 Quetiapine Fumarate (SEROquel) 25 mg PRN Q6HRS PRN PO agitation 11/24/20 16:45 12/17/20 18:48 Olanzapine (ZyPREXA ZYDIS) 5 mg 1X PRN PO PSYCHOSIS 11/26/20 17:00 12/14/20 12:11 Levofloxacin (Levaquin) 500 mg 1X ONCE PO 11/30/20 16:00 11/30/20 16:01 DC 11/30/20 17:16 Levofloxacin (Levaquin) 250 mg DAILY16 PO 12/01/20 16:00 12/06/20 16:01 DC 12/06/20 17:35 Quetiapine Fumarate (SEROquel) 150 mg QHS PO 12/04/20 21:00 12/18/20 20:18 Trazodone HCl (Desyrel) 100 mg PRN QHS PRN PO sleep 12/04/20 12:15 12/18/20 20:18 Sertraline HCl (Zoloft) 50 mg DAILY PO 12/12/20 09:00 12/18/20 08:54 Quetiapine Fumarate (SEROquel) 25 mg 0900,1300,1700 PO 12/12/20 09:00 12/18/20 18:16 DC 12/18/20 17:15 Divalproex Sodium (Depakote) 125 mg 0900,1700 PO 12/12/20 09:00 12/17/20 13:42 DC 12/17/20 08:37 Hydrocortisone Acetate (Anucort-Hc) 25 mg BID AR 12/13/20 21:00 12/18/20 20:18 Divalproex Sodium (Depakote) 250 mg 0900,1700 PO 12/17/20 17:00 12/18/20 17:14 Quetiapine Fumarate (SEROquel) 37.5 mg 0900,1300,1700 PO 12/19/20 09:00 I have reviewed the current psychotropics carefully including drug interactions. Risk benefit ratio favors no change other than as noted in my dictated progress note. Diagnosis: Problems: (1) Dementia, vascular, with depression (2) Dementia, vascular, with delusions (3) Dementia with behavioral disturbance (4) Dementia in Alzheimer's disease with delusions (5) Dementia in Alzheimer's disease with delirium (6) Major neurocognitive disorder (7) Dementia in Alzheimer's disease with early onset with behavioral disturbance (8) Impulse control disorder, unspecified (9) Anxiety disorder, unspecified MARIA DE JESUS LEMON MD Dec 18, 2020 22:55
--- NOTE | 2020-12-19 01:40 | NUR ---
Nursing Note The patient was calm and appropriate this shift. The patient was located in his room for his medication and assessment. The patient took his medication whole. The patient received PRN Trazodone@HS per PRN order. The patients edema was visibly increased this shift with 3+ located on lower legs and feet. The patient is currently sleeping in his room.
[2020-12-19 05:53] VITALS: BP 125/80
[2020-12-19] MEDS: INSULIN LISPRO 300 UNITS/3 ML VIAL. SQ SCH ×3 (08:00→17:47)
[2020-12-19] MEDS: FINASTERIDE 5 MG TABLET. PO SCH (09:34)
[2020-12-19] MEDS: LACTOBACILLUS RHAMNOSUS GG 1 CAPSULE. PO SCH ×2 (09:34→19:56)
[2020-12-19] MEDS: SERTRALINE 50 MG TABLET. PO SCH (09:34)
[2020-12-19] MEDS: QUEtiapine 25 MG TABLET. PO SCH ×3 (09:34→17:45)
[2020-12-19] MEDS: HYDROCORTISONE ACETATE 25 MG SUPP.RECT PR SCH ×2 (09:34→19:56)
[2020-12-19] MEDS: DIVALPROEX SODIUM 125 MG TABLET.DR. PO SCH ×2 (09:34→17:45)
[2020-12-19] MEDS: INSULIN GLARGINE SYRINGE. SQ SCH ×2 (09:38→22:19)
--- NOTE | 2020-12-19 10:15 | NUR ---
Nursing note: Pt has been pleasant, med compliant and cooperative this shift. Pt was placed in regular clothes d/t having increased behavior in a one piece. He was encouraged to leave his crowell alone and verbalized understanding to not touch his crowell catheter. He has occasionally asked for water or for a snack and was appreciative of receiving a snack. He continues to have increased edema in his feet, but will not keep them elevated for extended periods of time. He is currently sitting in the day room watching TV. Will continue to monitor.
[2020-12-19 15:39] VITALS: BP 133/82
[2020-12-19] MEDS: TAMSULOSIN 0.4 MG CAP.ER.24H. PO SCH (19:55)
[2020-12-19] MEDS: QUEtiapine 100 MG TABLET. PO SCH (19:56)
--- NOTE | 2020-12-19 21:57 | PDOC ---
Exam Note: Marcos Note: Please also refer to the separate dictated note~for this date of service dictated separately.~Patient seen individually. Discussed the patient with Nursing staff reviewed the chart.~Reviewed interim history and current functioning. Reviewed vital signs,~Labs/ Radiology~and current medications noted below. Continue current treatment with the changes noted in the dictated addendum note Assessment: Vital Signs/I&O: Vital Signs Date Time Temp Pulse Resp B/P (MAP) Pulse Ox O2 Delivery O2 Flow Rate FiO2 12/19/20 15:39 98.0 83 17 133/82 (99) 96 12/18/20 05:57 Room Air I & O 12/18/20 12/18/20 12/19/20 15:00 23:00 07:00 Intake Total 1020 ml 600 ml Output Total 1250 ml Balance 1020 ml 600 ml -1250 ml Labs: Laboratory Tests Test 12/19/20 12:19 12/19/20 16:38 12/19/20 19:19 Glucose (Fingerstick) 128 mg/dL (70-99) H 172 mg/dL (70-99) H 154 mg/dL (70-99) H Current Medications: Meds: Laboratory Tests Test 12/19/20 12:19 12/19/20 16:38 12/19/20 19:19 Glucose (Fingerstick) 128 mg/dL 172 mg/dL 154 mg/dL Current Medications Medications (Trade) Dose Ordered Sig/Connie Route PRN Reason Start Time Stop Time Status Last Admin Dose Admin Acetaminophen (Tylenol) 650 mg PRN Q6HRS PRN PO MILD PAIN / TEMP > 100.3'F 11/23/20 13:00 11/24/20 08:34 Multi-Ingredient Ointment (Analgesic [place]) 1 nasir PRN QID PRN TP MUSCLE PAIN 11/23/20 13:00 Al Hydroxide/Mg Hydroxide (Mylanta Plus Xs) 15 ml PRN AFTMEALHC PRN PO DYSPEPSIA 11/23/20 13:00 Magnesium Hydroxide (Milk Of Magnesia) 2,400 mg PRN QHS PRN PO CONSTIPATION 11/23/20 13:00 Potassium Chloride (Klor-Con) 20 meq BID PO 11/23/20 21:00 12/06/20 16:29 DC 12/05/20 19:14 Tramadol HCl (Ultram) 50 mg PRN Q6HRS PRN PO MODERATE PAIN 4-6 11/23/20 16:00 11/26/20 20:55 Acetaminophen (Tylenol) 500 mg PRN Q6HRS PRN PO pain or fever 11/23/20 16:00 UNV Quetiapine Fumarate (SEROquel) 100 mg QHS PO 11/23/20 21:00 12/04/20 12:02 DC 12/03/20 20:03 Risperidone (RisperDAL) 0.25 mg BID PO 11/23/20 21:00 12/11/20 17:29 DC 12/11/20 07:36 Trazodone HCl (Desyrel) 50 mg QHS PO 11/23/20 21:00 12/04/20 12:02 DC 12/03/20 20:04 Insulin Human Lispro (HumaLOG) 0-9 UNITS TIDWMEALS SQ 11/23/20 17:00 12/19/20 17:47 Dextrose (Dextrose 50%-Water Syringe) 12.5 gm PRN Q15MIN PRN IV SEE COMMENTS 11/23/20 16:15 Apixaban (Eliquis) 5 mg BID PO 11/23/20 21:00 12/13/20 14:23 DC 12/13/20 08:45 Finasteride (Proscar) 5 mg DAILY PO 11/24/20 09:00 12/19/20 09:34 Lorazepam (Ativan) 0.25 mg PRN BID PRN PO ANXIETY 11/23/20 18:30 11/30/20 21:03 Olanzapine (ZyPREXA ZYDIS) 2.5 mg PRN Q2HRS PRN PO ANXIETY / AGITATION 11/23/20 18:45 11/24/20 16:36 DC 11/24/20 08:34 Tamsulosin HCl (Flomax) 0.8 mg HS PO 11/23/20 21:00 12/19/20 19:55 Ziprasidone (Geodon Im) 10 mg PRN Q4HRS PRN IM ANXIETY / AGITATION 11/23/20 18:30 11/23/20 22:46 DC Insulin Glargine (Lantus Syringe) 20 unit BID SQ 11/23/20 21:00 12/19/20 09:38 Lactobacillus Rhamnosus (Culturelle) 1 cap BID PO 11/23/20 21:00 12/19/20 19:56 Sertraline HCl (Zoloft) 25 mg DAILY PO 11/24/20 09:00 12/11/20 17:29 DC 12/11/20 07:36 Quetiapine Fumarate (SEROquel) 25 mg PRN Q6HRS PRN PO agitation 11/24/20 16:45 12/17/20 18:48 Olanzapine (ZyPREXA ZYDIS) 5 mg 1X PRN PO PSYCHOSIS 11/26/20 17:00 12/14/20 12:11 Levofloxacin (Levaquin) 500 mg 1X ONCE PO 11/30/20 16:00 11/30/20 16:01 DC 11/30/20 17:16 Levofloxacin (Levaquin) 250 mg DAILY16 PO 12/01/20 16:00 12/06/20 16:01 DC 12/06/20 17:35 Quetiapine Fumarate (SEROquel) 150 mg QHS PO 12/04/20 21:00 12/19/20 19:56 Trazodone HCl (Desyrel) 100 mg PRN QHS PRN PO sleep 12/04/20 12:15 12/18/20 20:18 Sertraline HCl (Zoloft) 50 mg DAILY PO 12/12/20 09:00 12/19/20 09:34 Quetiapine Fumarate (SEROquel) 25 mg 0900,1300,1700 PO 12/12/20 09:00 12/18/20 18:16 DC 12/18/20 17:15 Divalproex Sodium (Depakote) 125 mg 0900,1700 PO 12/12/20 09:00 12/17/20 13:42 DC 12/17/20 08:37 Hydrocortisone Acetate (Anucort-Hc) 25 mg BID [place] 12/13/20 21:00 12/19/20 19:56 Divalproex Sodium (Depakote) 250 mg 0900,1700 PO 12/17/20 17:00 12/19/20 17:45 Quetiapine Fumarate (SEROquel) 37.5 mg 0900,1300,1700 PO 12/19/20 09:00 12/19/20 17:45 Current Medications Medications (Trade) Dose Ordered Sig/Connie Route PRN Reason Start Time Stop Time Status Last Admin Dose Admin Quetiapine Fumarate (SEROquel) 37.5 mg 0900,1300,1700 PO 12/19/20 09:00 12/19/20 17:45 I have reviewed the current psychotropics carefully including drug interactions. Risk benefit ratio favors no change other than as noted in my dictated progress note. Diagnosis: Problems: (1) Dementia, vascular, with depression (2) Dementia, vascular, with delusions (3) Dementia with behavioral disturbance (4) Dementia in Alzheimer's disease with delusions (5) Dementia in Alzheimer's disease with delirium (6) Major neurocognitive disorder (7) Dementia in Alzheimer's disease with early onset with behavioral disturbance (8) Impulse control disorder, unspecified (9) Anxiety disorder, unspecified MARIA DE JESUS LEMON MD Dec 19, 2020 21:56
[2020-12-20] MEDS: traZODone 50 MG TABLET. PO PRN (01:06)
--- NOTE | 2020-12-20 01:36 | NUR ---
Nursing Note The patient was compliant with his medication and took them whole. The patient acted helpless this shift during cares and interactions. The patient stated that he could not move his legs into the bed and became irritable when staff informed him that he was capable. The patient yelled at several peers when they walked near his room. The patient was given PRN Trazodone per PRN order. The patient is currently awake laying in bed.
[2020-12-20] MEDS: DIVALPROEX SODIUM 125 MG TABLET.DR. PO SCH ×2 (05:15→17:25)
[2020-12-20] MEDS: FINASTERIDE 5 MG TABLET. PO SCH (05:15)
[2020-12-20] MEDS: QUEtiapine 25 MG TABLET. PO SCH ×3 (05:16→17:25)
[2020-12-20] MEDS: LACTOBACILLUS RHAMNOSUS GG 1 CAPSULE. PO SCH ×2 (05:17→21:04)
[2020-12-20] MEDS: SERTRALINE 50 MG TABLET. PO SCH (05:17)
[2020-12-20 05:34] VITALS: BP 133/81
[2020-12-20] MEDS: INSULIN LISPRO 300 UNITS/3 ML VIAL. SQ SCH ×3 (08:00→17:31)
[2020-12-20] MEDS: HYDROCORTISONE ACETATE 25 MG SUPP.RECT PR SCH ×2 (09:00→21:04)
[2020-12-20] MEDS: INSULIN GLARGINE SYRINGE. SQ SCH ×2 (09:00→21:10)
--- NOTE | 2020-12-20 13:02 | NUR ---
Pt compliant with assessment and medications. He requires frequent repetitions of requests/instructions from staff d/t unwillingness/inability to follow directions. He has made multiple requests for food/drink and at times has acted helpless (for example asking if he can eat after breakfast tray is placed in front of him). He is absent of aggressive/sexual behavior and language thus far. Flores is still intact and patent; urine is clear and yellow. Plan of care continues, will pass on to next shift.
--- NOTE | 2020-12-20 13:41 | NUR ---
SW returned an email response to pt guardian, APS, pt neighbors and the guardian coalition re: an update on how pt is doing. [facility] will begin looking for placement on Thursday in hopes that pt notes continue to be better.
[2020-12-20 16:03] VITALS: BP 143/89
[2020-12-20 20:31] LABS: HEMATOCRIT 37.8 % (39.0-53.0); HEMOGLOBIN 12.3 g/dL (13.0-17.5); RED BLOOD COUNT 4.36 x10^6/uL (4.30-5.70)
[2020-12-20 20:56] LABS: ALBUMIN 3.3 g/dL (3.4-5.0); ALBUMIN/GLOBULIN RATIO 0.9 (1.0-1.7); CALCIUM 8.5 mg/dL (8.5-10.1); CREATININE 1.3 mg/dL (0.7-1.3); POTASSIUM 4.2 mmol/L (3.5-5.1); TOTAL BILIRUBIN 0.3 mg/dL (0.2-1.0); TOTAL PROTEIN 7.1 g/dL (6.4-8.2)
[2020-12-20] MEDS: TAMSULOSIN 0.4 MG CAP.ER.24H. PO SCH (21:04)
[2020-12-20] MEDS: QUEtiapine 100 MG TABLET. PO SCH (21:04)
--- NOTE | 2020-12-20 21:52 | PDOC ---
Exam Note: Marcos Note: Please also refer to the separate dictated note~for this date of service dictated separately.~Patient seen individually. Discussed the patient with Nursing staff reviewed the chart.~Reviewed interim history and current functioning. Reviewed vital signs,~Labs/ Radiology~and current medications noted below. Continue current treatment with the changes noted in the dictated addendum note Assessment: Vital Signs/I&O: Vital Signs Date Time Temp Pulse Resp B/P (MAP) Pulse Ox O2 Delivery O2 Flow Rate FiO2 12/20/20 16:03 98.4 95 20 143/89 (107) 93 12/18/20 05:57 Room Air I & O 12/19/20 12/19/20 12/20/20 14:59 22:59 06:59 Intake Total 1020 ml 930 ml Output Total 600 ml 600 ml 500 ml Balance 420 ml 330 ml -500 ml Labs: Laboratory Tests Test 12/20/20 07:47 12/20/20 12:04 12/20/20 17:07 12/20/20 19:08 Glucose (Fingerstick) 160 mg/dL (70-99) H 110 mg/dL (70-99) H 182 mg/dL (70-99) H 175 mg/dL (70-99) H Test 12/20/20 20:15 White Blood Count 7.0 x10^3/uL (4.0-11.0) Red Blood Count 4.36 x10^6/uL (4.30-5.70) Hemoglobin 12.3 g/dL (13.0-17.5) L Hematocrit 37.8 % (39.0-53.0) L Mean Corpuscular Volume 87 fL (79-100) Mean Corpuscular Hemoglobin 28 pg (25-35) Mean Corpuscular Hemoglobin Concent 33 g/dL (31-37) Red Cell Distribution Width 16.0 % (11.5-14.5) H Platelet Count 285 x10^3/uL (140-400) Sodium Level 143 mmol/L (136-145) Potassium Level 4.2 mmol/L (3.5-5.1) Chloride Level 108 mmol/L (98-107) H Carbon Dioxide Level 27 mmol/L (21-32) Anion Gap 8 (6-14) Blood Urea Nitrogen 18 mg/dL (8-26) Creatinine 1.3 mg/dL (0.7-1.3) Estimated GFR (Cockcroft-Gault) 54.0 BUN/Creatinine Ratio 14 (6-20) Glucose Level 132 mg/dL (70-99) H Calcium Level 8.5 mg/dL (8.5-10.1) Total Bilirubin 0.3 mg/dL (0.2-1.0) Aspartate Amino Transferase (AST) 15 U/L (15-37) Alanine Aminotransferase (ALT) 21 U/L (16-63) Alkaline Phosphatase 87 U/L (46-116) Total Protein 7.1 g/dL (6.4-8.2) Albumin 3.3 g/dL (3.4-5.0) L Albumin/Globulin Ratio 0.9 (1.0-1.7) L Current Medications: Meds: Laboratory Tests Test 12/20/20 07:47 12/20/20 12:04 12/20/20 17:07 12/20/20 19:08 Glucose (Fingerstick) 160 mg/dL 110 mg/dL 182 mg/dL 175 mg/dL Test 12/20/20 20:15 White Blood Count 7.0 x10^3/uL Red Blood Count 4.36 x10^6/uL Hemoglobin 12.3 g/dL Hematocrit 37.8 % Mean Corpuscular Volume 87 fL Mean Corpuscular Hemoglobin 28 pg Mean Corpuscular Hemoglobin Concent 33 g/dL Red Cell Distribution Width 16.0 % Platelet Count 285 x10^3/uL Sodium Level 143 mmol/L Potassium Level 4.2 mmol/L Chloride Level 108 mmol/L Carbon Dioxide Level 27 mmol/L Anion Gap 8 Blood Urea Nitrogen 18 mg/dL Creatinine 1.3 mg/dL Estimated GFR (Cockcroft-Gault) 54.0 BUN/Creatinine Ratio 14 Glucose Level 132 mg/dL Calcium Level 8.5 mg/dL Total Bilirubin 0.3 mg/dL Aspartate Amino Transf (AST/SGOT) 15 U/L Alanine Aminotransferase (ALT/SGPT) 21 U/L Alkaline Phosphatase 87 U/L Total Protein 7.1 g/dL Albumin 3.3 g/dL Albumin/Globulin Ratio 0.9 Current Medications Medications (Trade) Dose Ordered Sig/Connie Route PRN Reason Start Time Stop Time Status Last Admin Dose Admin Acetaminophen (Tylenol) 650 mg PRN Q6HRS PRN PO MILD PAIN / TEMP > 100.3'F 11/23/20 13:00 11/24/20 08:34 Multi-Ingredient Ointment (Analgesic [place]) 1 nasir PRN QID PRN TP MUSCLE PAIN 11/23/20 13:00 Al Hydroxide/Mg Hydroxide (Mylanta Plus Xs) 15 ml PRN AFTMEALHC PRN PO DYSPEPSIA 11/23/20 13:00 Magnesium Hydroxide (Milk Of Magnesia) 2,400 mg PRN QHS PRN PO CONSTIPATION 11/23/20 13:00 Potassium Chloride (Klor-Con) 20 meq BID PO 11/23/20 21:00 12/06/20 16:29 DC 12/05/20 19:14 Tramadol HCl (Ultram) 50 mg PRN Q6HRS PRN PO MODERATE PAIN 4-6 11/23/20 16:00 11/26/20 20:55 Acetaminophen (Tylenol) 500 mg PRN Q6HRS PRN PO pain or fever 11/23/20 16:00 UNV Quetiapine Fumarate (SEROquel) 100 mg QHS PO 11/23/20 21:00 12/04/20 12:02 DC 12/03/20 20:03 Risperidone (RisperDAL) 0.25 mg BID PO 11/23/20 21:00 12/11/20 17:29 DC 12/11/20 07:36 Trazodone HCl (Desyrel) 50 mg QHS PO 11/23/20 21:00 12/04/20 12:02 DC 12/03/20 20:04 Insulin Human Lispro (HumaLOG) 0-9 UNITS TIDWMEALS SQ 11/23/20 17:00 12/20/20 17:31 Dextrose (Dextrose 50%-Water Syringe) 12.5 gm PRN Q15MIN PRN IV SEE COMMENTS 11/23/20 16:15 Apixaban (Eliquis) 5 mg BID PO 11/23/20 21:00 12/13/20 14:23 DC 12/13/20 08:45 Finasteride (Proscar) 5 mg DAILY PO 11/24/20 09:00 12/20/20 05:15 Lorazepam (Ativan) 0.25 mg PRN BID PRN PO ANXIETY 11/23/20 18:30 11/30/20 21:03 Olanzapine (ZyPREXA ZYDIS) 2.5 mg PRN Q2HRS PRN PO ANXIETY / AGITATION 11/23/20 18:45 11/24/20 16:36 DC 11/24/20 08:34 Tamsulosin HCl (Flomax) 0.8 mg HS PO 11/23/20 21:00 12/20/20 21:04 Ziprasidone (Geodon Im) 10 mg PRN Q4HRS PRN IM ANXIETY / AGITATION 11/23/20 18:30 11/23/20 22:46 DC Insulin Glargine (Lantus Syringe) 20 unit BID SQ 11/23/20 21:00 12/20/20 21:10 Lactobacillus Rhamnosus (Culturelle) 1 cap BID PO 11/23/20 21:00 12/20/20 21:04 Sertraline HCl (Zoloft) 25 mg DAILY PO 11/24/20 09:00 12/11/20 17:29 DC 12/11/20 07:36 Quetiapine Fumarate (SEROquel) 25 mg PRN Q6HRS PRN PO agitation 11/24/20 16:45 12/17/20 18:48 Olanzapine (ZyPREXA ZYDIS) 5 mg 1X PRN PO PSYCHOSIS 11/26/20 17:00 12/14/20 12:11 Levofloxacin (Levaquin) 500 mg 1X ONCE PO 11/30/20 16:00 11/30/20 16:01 DC 11/30/20 17:16 Levofloxacin (Levaquin) 250 mg DAILY16 PO 12/01/20 16:00 12/06/20 16:01 DC 12/06/20 17:35 Quetiapine Fumarate (SEROquel) 150 mg QHS PO 12/04/20 21:00 12/20/20 21:04 Trazodone HCl (Desyrel) 100 mg PRN QHS PRN PO sleep 12/04/20 12:15 12/20/20 01:06 Sertraline HCl (Zoloft) 50 mg DAILY PO 12/12/20 09:00 12/20/20 05:17 Quetiapine Fumarate (SEROquel) 25 mg 0900,1300,1700 PO 12/12/20 09:00 12/18/20 18:16 DC 12/18/20 17:15 Divalproex Sodium (Depakote) 125 mg 0900,1700 PO 12/12/20 09:00 12/17/20 13:42 DC 12/17/20 08:37 Hydrocortisone Acetate (Anucort-Hc) 25 mg BID [place] 12/13/20 21:00 12/20/20 21:04 Divalproex Sodium (Depakote) 250 mg 0900,1700 PO 12/17/20 17:00 12/20/20 17:25 Quetiapine Fumarate (SEROquel) 37.5 mg 0900,1300,1700 PO 12/19/20 09:00 12/20/20 17:25 I have reviewed the current psychotropics carefully including drug interactions. Risk benefit ratio favors no change other than as noted in my dictated progress note. Diagnosis: Problems: (1) Dementia, vascular, with depression (2) Dementia, vascular, with delusions (3) Dementia with behavioral disturbance (4) Dementia in Alzheimer's disease with delusions (5) Dementia in Alzheimer's disease with delirium (6) Major neurocognitive disorder (7) Dementia in Alzheimer's disease with early onset with behavioral disturbance (8) Impulse control disorder, unspecified (9) Anxiety disorder, unspecified MARIA DE JESUS LEMON MD Dec 20, 2020 21:52
--- NOTE | 2020-12-20 23:21 | NUR ---
Pt located in his room this evening, occasionally standing at the doorway asking for food and drink. Compliant with whole medications. Pleasant and interactive.
[2020-12-21 05:44] VITALS: BP 148/80
[2020-12-21 06:44] LABS: BASO % 1 % (0-3); EOS # 0.3 x10^3/uL (0.0-0.7); EOS % 5 % (0-3); HEMATOCRIT 37.3 % (39.0-53.0); HEMOGLOBIN 11.9 g/dL (13.0-17.5); LYMPH # 1.6 x10^3/uL (1.0-4.8); LYMPH % 26 % (24-48); MEAN CORPUSCULAR HEMOGLOBIN 28 pg (25-35); MEAN CORPUSCULAR HGB CONC 32 g/dL (31-37); MEAN CORPUSCULAR VOLUME 87 fL (79-100); MONO # 0.5 x10^3/uL (0.0-1.1); MONO % 8 % (0-9); NEUT # 3.7 x10^3uL (1.8-7.7); NEUT % 61 % (31-73); PLATELET COUNT 261 x10^3/uL (140-400); RED BLOOD COUNT 4.29 x10^6/uL (4.30-5.70); RED CELL DISTRIBUTION WIDTH 15.3 % (11.5-14.5); WHITE BLOOD COUNT 6.1 x10^3/uL (4.0-11.0)
--- NOTE | 2020-12-21 06:50 | PDOC ---
Exam Note: Marcos Note: This note is a late entry for 12/18/2020 covers elements not covered in my initial note. Subjective: The patient was seen individually in the evening of 12/18/2020 with Maritza HUFF, discussed and reviewed the chart. The patient slept 6-1/2 hours previous night. He has had a very difficult day. He has been hollering, agitated, yelling out, repeatedly asking for snacks. He is obsessed about wanting to unzip his onesie. He is wanting to pull out his [place] catheter. We will defer to Dr. Roman. Review of Systems: No CV, , pulmonary, eye, ENT system symptoms on review. Mental Status Exam: The patient is oriented to himself and situation. Speech is coherent, can be rapid at times. Abstraction is fair. Computation impaired. Language function intact. Attention span short. Mood and affect remains labile. He is quite distractible. Laboratory Data: Reviewed. Impression: Major neurocognitive disorder Alzheimer vascular with delusion, depression, behavioral disturbance. Anxiety disorder unspecified. Impulse control disorder unspecified. Plan: Increase Seroquel from 25 mg three times a day to 37.5 mg three times a day. Continue rest of the psychotropics unchanged from initial note. Assessment: Vital Signs/I&O: Vital Signs Date Time Temp Pulse Resp B/P (MAP) Pulse Ox O2 Delivery O2 Flow Rate FiO2 12/21/20 05:44 97.2 106 20 148/80 (102) 93 12/18/20 05:57 Room Air I & O 12/20/20 12/20/20 12/21/20 14:59 22:59 06:59 Intake Total 840 ml 720 ml Output Total 500 ml 1400 ml Balance 340 ml 720 ml -1400 ml Labs: Laboratory Tests Test 12/20/20 07:47 12/20/20 12:04 12/20/20 17:07 12/20/20 19:08 Glucose (Fingerstick) 160 mg/dL (70-99) H 110 mg/dL (70-99) H 182 mg/dL (70-99) H 175 mg/dL (70-99) H Test 12/20/20 20:15 White Blood Count 7.0 x10^3/uL (4.0-11.0) Red Blood Count 4.36 x10^6/uL (4.30-5.70) Hemoglobin 12.3 g/dL (13.0-17.5) L Hematocrit 37.8 % (39.0-53.0) L Mean Corpuscular Volume 87 fL (79-100) Mean Corpuscular Hemoglobin 28 pg (25-35) Mean Corpuscular Hemoglobin Concent 33 g/dL (31-37) Red Cell Distribution Width 16.0 % (11.5-14.5) H Platelet Count 285 x10^3/uL (140-400) Sodium Level 143 mmol/L (136-145) Potassium Level 4.2 mmol/L (3.5-5.1) Chloride Level 108 mmol/L (98-107) H Carbon Dioxide Level 27 mmol/L (21-32) Anion Gap 8 (6-14) Blood Urea Nitrogen 18 mg/dL (8-26) Creatinine 1.3 mg/dL (0.7-1.3) Estimated GFR (Cockcroft-Gault) 54.0 BUN/Creatinine Ratio 14 (6-20) Glucose Level 132 mg/dL (70-99) H Calcium Level 8.5 mg/dL (8.5-10.1) Total Bilirubin 0.3 mg/dL (0.2-1.0) Aspartate Amino Transferase (AST) 15 U/L (15-37) Alanine Aminotransferase (ALT) 21 U/L (16-63) Alkaline Phosphatase 87 U/L (46-116) Total Protein 7.1 g/dL (6.4-8.2) Albumin 3.3 g/dL (3.4-5.0) L Albumin/Globulin Ratio 0.9 (1.0-1.7) L Current Medications: Meds: Laboratory Tests Test 12/20/20 07:47 12/20/20 12:04 12/20/20 17:07 12/20/20 19:08 Glucose (Fingerstick) 160 mg/dL 110 mg/dL 182 mg/dL 175 mg/dL Test 12/20/20 20:15 White Blood Count 7.0 x10^3/uL Red Blood Count 4.36 x10^6/uL Hemoglobin 12.3 g/dL Hematocrit 37.8 % Mean Corpuscular Volume 87 fL Mean Corpuscular Hemoglobin 28 pg Mean Corpuscular Hemoglobin Concent 33 g/dL Red Cell Distribution Width 16.0 % Platelet Count 285 x10^3/uL Sodium Level 143 mmol/L Potassium Level 4.2 mmol/L Chloride Level 108 mmol/L Carbon Dioxide Level 27 mmol/L Anion Gap 8 Blood Urea Nitrogen 18 mg/dL Creatinine 1.3 mg/dL Estimated GFR (Cockcroft-Gault) 54.0 BUN/Creatinine Ratio 14 Glucose Level 132 mg/dL Calcium Level 8.5 mg/dL Total Bilirubin 0.3 mg/dL Aspartate Amino Transf (AST/SGOT) 15 U/L Alanine Aminotransferase (ALT/SGPT) 21 U/L Alkaline Phosphatase 87 U/L Total Protein 7.1 g/dL Albumin 3.3 g/dL Albumin/Globulin Ratio 0.9 Current Medications Medications (Trade) Dose Ordered Sig/Connie Route PRN Reason Start Time Stop Time Status Last Admin Dose Admin Acetaminophen (Tylenol) 650 mg PRN Q6HRS PRN PO MILD PAIN / TEMP > 100.3'F 11/23/20 13:00 11/24/20 08:34 Multi-Ingredient Ointment (Analgesic [place]) 1 nasir PRN QID PRN TP MUSCLE PAIN 11/23/20 13:00 Al Hydroxide/Mg Hydroxide (Mylanta Plus Xs) 15 ml PRN AFTMEALHC PRN PO DYSPEPSIA 11/23/20 13:00 Magnesium Hydroxide (Milk Of Magnesia) 2,400 mg PRN QHS PRN PO CONSTIPATION 11/23/20 13:00 Potassium Chloride (Klor-Con) 20 meq BID PO 11/23/20 21:00 12/06/20 16:29 DC 12/05/20 19:14 Tramadol HCl (Ultram) 50 mg PRN Q6HRS PRN PO MODERATE PAIN 4-6 11/23/20 16:00 11/26/20 20:55 Acetaminophen (Tylenol) 500 mg PRN Q6HRS PRN PO pain or fever 11/23/20 16:00 UNV Quetiapine Fumarate (SEROquel) 100 mg QHS PO 11/23/20 21:00 12/04/20 12:02 DC 12/03/20 20:03 Risperidone (RisperDAL) 0.25 mg BID PO 11/23/20 21:00 12/11/20 17:29 DC 12/11/20 07:36 Trazodone HCl (Desyrel) 50 mg QHS PO 11/23/20 21:00 12/04/20 12:02 DC 12/03/20 20:04 Insulin Human Lispro (HumaLOG) 0-9 UNITS TIDWMEALS SQ 11/23/20 17:00 12/20/20 17:31 Dextrose (Dextrose 50%-Water Syringe) 12.5 gm PRN Q15MIN PRN IV SEE COMMENTS 11/23/20 16:15 Apixaban (Eliquis) 5 mg BID PO 11/23/20 21:00 12/13/20 14:23 DC 12/13/20 08:45 Finasteride (Proscar) 5 mg DAILY PO 11/24/20 09:00 12/20/20 05:15 Lorazepam (Ativan) 0.25 mg PRN BID PRN PO ANXIETY 11/23/20 18:30 11/30/20 21:03 Olanzapine (ZyPREXA ZYDIS) 2.5 mg PRN Q2HRS PRN PO ANXIETY / AGITATION 11/23/20 18:45 11/24/20 16:36 DC 11/24/20 08:34 Tamsulosin HCl (Flomax) 0.8 mg HS PO 11/23/20 21:00 12/20/20 21:04 Ziprasidone (Geodon Im) 10 mg PRN Q4HRS PRN IM ANXIETY / AGITATION 11/23/20 18:30 11/23/20 22:46 DC Insulin Glargine (Lantus Syringe) 20 unit BID SQ 11/23/20 21:00 12/20/20 21:10 Lactobacillus Rhamnosus (Culturelle) 1 cap BID PO 11/23/20 21:00 12/20/20 21:04 Sertraline HCl (Zoloft) 25 mg DAILY PO 11/24/20 09:00 12/11/20 17:29 DC 12/11/20 07:36 Quetiapine Fumarate (SEROquel) 25 mg PRN Q6HRS PRN PO agitation 11/24/20 16:45 12/17/20 18:48 Olanzapine (ZyPREXA ZYDIS) 5 mg 1X PRN PO PSYCHOSIS 11/26/20 17:00 12/14/20 12:11 Levofloxacin (Levaquin) 500 mg 1X ONCE PO 11/30/20 16:00 11/30/20 16:01 DC 11/30/20 17:16 Levofloxacin (Levaquin) 250 mg DAILY16 PO 12/01/20 16:00 12/06/20 16:01 DC 12/06/20 17:35 Quetiapine Fumarate (SEROquel) 150 mg QHS PO 12/04/20 21:00 12/20/20 21:04 Trazodone HCl (Desyrel) 100 mg PRN QHS PRN PO sleep 12/04/20 12:15 12/20/20 01:06 Sertraline HCl (Zoloft) 50 mg DAILY PO 12/12/20 09:00 12/20/20 05:17 Quetiapine Fumarate (SEROquel) 25 mg 0900,1300,1700 PO 12/12/20 09:00 12/18/20 18:16 DC 12/18/20 17:15 Divalproex Sodium (Depakote) 125 mg 0900,1700 PO 12/12/20 09:00 12/17/20 13:42 DC 12/17/20 08:37 Hydrocortisone Acetate (Anucort-Hc) 25 mg BID [place] 12/13/20 21:00 12/20/20 21:04 Divalproex Sodium (Depakote) 250 mg 0900,1700 PO 12/17/20 17:00 12/20/20 17:25 Quetiapine Fumarate (SEROquel) 37.5 mg 0900,1300,1700 PO 12/19/20 09:00 12/20/20 17:25 I have reviewed the current psychotropics carefully including drug interactions. Risk benefit ratio favors no change other than as noted in my dictated progress note. Diagnosis: Problems: (1) Dementia, vascular, with depression (2) Dementia, vascular, with delusions (3) Dementia with behavioral disturbance (4) Dementia in Alzheimer's disease with delusions (5) Dementia in Alzheimer's disease with delirium (6) Major neurocognitive disorder (7) Dementia in Alzheimer's disease with early onset with behavioral disturbance (8) Impulse control disorder, unspecified (9) Anxiety disorder, unspecified MARIA DE JESUS LEMON MD Dec 21, 2020 06:50
[2020-12-21 07:00] LABS: ALBUMIN/GLOBULIN RATIO 0.9 (1.0-1.7); ALK PHOS 74 U/L (46-116); ALT (SGPT) 19 U/L (16-63); ANION GAP 8 (6-14); AST (SGOT) 15 U/L (15-37); BLOOD UREA NITROGEN 16 mg/dL (8-26); BUN/CREATININE RATIO 13 (6-20); CALCIUM 8.5 mg/dL (8.5-10.1); CARBON DIOXIDE 26 mmol/L (21-32); CHLORIDE 109 mmol/L (98-107); CREATININE 1.2 mg/dL (0.7-1.3); GFR 59.2; GLUCOSE 129 mg/dL (70-99); POTASSIUM 4.3 mmol/L (3.5-5.1); SODIUM 143 mmol/L (136-145); TOTAL BILIRUBIN 0.3 mg/dL (0.2-1.0); TOTAL PROTEIN 6.5 g/dL (6.4-8.2)
[2020-12-21 07:01] LABS: VAL ACID 16 mcg/mL (50-100)
--- NOTE | 2020-12-21 07:13 | PDOC ---
Exam Note: Marcos Note: This note is a late entry for 12/19/2020 covers elements not covered in my initial note. Subjective: The patient was seen individually in the evening of 12/19/2020 with Maritza HUFF, discussed and reviewed the chart. The patient slept 7 hours previous night. He did well previous night. He was up off and on during the night, yelling, hollering. He is extremely disturbed with the Foleys and the onesie. Nursing staff have tried him in regular clothes and he has done better and not pulled on his Foleys as they have explained to him. He wants help with the bathroom. He is somewhat calmer with the above changes. Review of Systems: No CV, , pulmonary, eye, ENT system symptoms on review. Mental Status Exam: The patient is oriented to himself and situation. Speech is coherent, can be rapid at times. Abstraction is fair. Computation impaired. Language function intact. Attention span short. Mood and affect remains labile. Laboratory Data: Reviewed. Impression: Major neurocognitive disorder Alzheimer vascular with delusion, depression, behavioral disturbance. Anxiety disorder unspecified. Impulse control disorder unspecified. Plan: Valproic acid level will be repeated on the 12/21 since we have increased Depakote, since prior level was subtherapeutic. Maintain rest of the psychotropics unchanged from initial note. Assessment: Vital Signs/I&O: Vital Signs Date Time Temp Pulse Resp B/P (MAP) Pulse Ox O2 Delivery O2 Flow Rate FiO2 12/21/20 05:44 97.2 106 20 148/80 (102) 93 12/18/20 05:57 Room Air I & O 12/20/20 12/20/20 12/21/20 15:00 23:00 07:00 Intake Total 840 ml 720 ml Output Total 500 ml 1400 ml Balance 340 ml 720 ml -1400 ml Labs: Laboratory Tests Test 12/20/20 07:47 12/20/20 12:04 12/20/20 17:07 12/20/20 19:08 Glucose (Fingerstick) 160 mg/dL (70-99) H 110 mg/dL (70-99) H 182 mg/dL (70-99) H 175 mg/dL (70-99) H Test 12/20/20 20:15 12/21/20 06:02 White Blood Count 7.0 x10^3/uL (4.0-11.0) 6.1 x10^3/uL (4.0-11.0) Red Blood Count 4.36 x10^6/uL (4.30-5.70) 4.29 x10^6/uL (4.30-5.70) L Hemoglobin 12.3 g/dL (13.0-17.5) L 11.9 g/dL (13.0-17.5) L Hematocrit 37.8 % (39.0-53.0) L 37.3 % (39.0-53.0) L Mean Corpuscular Volume 87 fL (79-100) 87 fL (79-100) Mean Corpuscular Hemoglobin 28 pg (25-35) 28 pg (25-35) Mean Corpuscular Hemoglobin Concent 33 g/dL (31-37) 32 g/dL (31-37) Red Cell Distribution Width 16.0 % (11.5-14.5) H 15.3 % (11.5-14.5) H Platelet Count 285 x10^3/uL (140-400) 261 x10^3/uL (140-400) Sodium Level 143 mmol/L (136-145) 143 mmol/L (136-145) Potassium Level 4.2 mmol/L (3.5-5.1) 4.3 mmol/L (3.5-5.1) Chloride Level 108 mmol/L (98-107) H 109 mmol/L (98-107) H Carbon Dioxide Level 27 mmol/L (21-32) 26 mmol/L (21-32) Anion Gap 8 (6-14) 8 (6-14) Blood Urea Nitrogen 18 mg/dL (8-26) 16 mg/dL (8-26) Creatinine 1.3 mg/dL (0.7-1.3) 1.2 mg/dL (0.7-1.3) Estimated GFR (Cockcroft-Gault) 54.0 59.2 BUN/Creatinine Ratio 14 (6-20) 13 (6-20) Glucose Level 132 mg/dL (70-99) H 129 mg/dL (70-99) H Calcium Level 8.5 mg/dL (8.5-10.1) 8.5 mg/dL (8.5-10.1) Total Bilirubin 0.3 mg/dL (0.2-1.0) 0.3 mg/dL (0.2-1.0) Aspartate Amino Transferase (AST) 15 U/L (15-37) 15 U/L (15-37) Alanine Aminotransferase (ALT) 21 U/L (16-63) 19 U/L (16-63) Alkaline Phosphatase 87 U/L (46-116) 74 U/L (46-116) Total Protein 7.1 g/dL (6.4-8.2) 6.5 g/dL (6.4-8.2) Albumin 3.3 g/dL (3.4-5.0) L 3.0 g/dL (3.4-5.0) L Albumin/Globulin Ratio 0.9 (1.0-1.7) L 0.9 (1.0-1.7) L Neutrophils (%) (Auto) 61 % (31-73) Lymphocytes (%) (Auto) 26 % (24-48) Monocytes (%) (Auto) 8 % (0-9) Eosinophils (%) (Auto) 5 % (0-3) H Basophils (%) (Auto) 1 % (0-3) Neutrophils # (Auto) 3.7 x10^3uL (1.8-7.7) Lymphocytes # (Auto) 1.6 x10^3/uL (1.0-4.8) Monocytes # (Auto) 0.5 x10^3/uL (0.0-1.1) Eosinophils # (Auto) 0.3 x10^3/uL (0.0-0.7) Basophils # (Auto) 0.0 x10^3/uL (0.0-0.2) Valproic Acid Level 16 mcg/mL (50-100) L Valproic Acid Last Dose Date 12/20/20 Valproic Acid Last Dose Time 1700 Current Medications: Meds: Laboratory Tests Test 12/20/20 07:47 12/20/20 12:04 12/20/20 17:07 12/20/20 19:08 Glucose (Fingerstick) 160 mg/dL 110 mg/dL 182 mg/dL 175 mg/dL Test 12/20/20 20:15 12/21/20 06:02 White Blood Count 7.0 x10^3/uL 6.1 x10^3/uL Red Blood Count 4.36 x10^6/uL 4.29 x10^6/uL Hemoglobin 12.3 g/dL 11.9 g/dL Hematocrit 37.8 % 37.3 % Mean Corpuscular Volume 87 fL 87 fL Mean Corpuscular Hemoglobin 28 pg 28 pg Mean Corpuscular Hemoglobin Concent 33 g/dL 32 g/dL Red Cell Distribution Width 16.0 % 15.3 % Platelet Count 285 x10^3/uL 261 x10^3/uL Sodium Level 143 mmol/L 143 mmol/L Potassium Level 4.2 mmol/L 4.3 mmol/L Chloride Level 108 mmol/L 109 mmol/L Carbon Dioxide Level 27 mmol/L 26 mmol/L Anion Gap 8 8 Blood Urea Nitrogen 18 mg/dL 16 mg/dL Creatinine 1.3 mg/dL 1.2 mg/dL Estimated GFR (Cockcroft-Gault) 54.0 59.2 BUN/Creatinine Ratio 14 13 Glucose Level 132 mg/dL 129 mg/dL Calcium Level 8.5 mg/dL 8.5 mg/dL Total Bilirubin 0.3 mg/dL 0.3 mg/dL Aspartate Amino Transf (AST/SGOT) 15 U/L 15 U/L Alanine Aminotransferase (ALT/SGPT) 21 U/L 19 U/L Alkaline Phosphatase 87 U/L 74 U/L Total Protein 7.1 g/dL 6.5 g/dL Albumin 3.3 g/dL 3.0 g/dL Albumin/Globulin Ratio 0.9 0.9 Neutrophils (%) (Auto) 61 % Lymphocytes (%) (Auto) 26 % Monocytes (%) (Auto) 8 % Eosinophils (%) (Auto) 5 % Basophils (%) (Auto) 1 % Neutrophils # (Auto) 3.7 x10^3uL Lymphocytes # (Auto) 1.6 x10^3/uL Monocytes # (Auto) 0.5 x10^3/uL Eosinophils # (Auto) 0.3 x10^3/uL Basophils # (Auto) 0.0 x10^3/uL Valproic Acid (Depakene) Level 16 mcg/mL Valproic Acid Last Dose Date 12/20/20 Valproic Acid Last Dose Time 1700 Current Medications Medications (Trade) Dose Ordered Sig/Connie Route PRN Reason Start Time Stop Time Status Last Admin Dose Admin Acetaminophen (Tylenol) 650 mg PRN Q6HRS PRN PO MILD PAIN / TEMP > 100.3'F 11/23/20 13:00 11/24/20 08:34 Multi-Ingredient Ointment (Analgesic [place]) 1 nasir PRN QID PRN TP MUSCLE PAIN 11/23/20 13:00 Al Hydroxide/Mg Hydroxide (Mylanta Plus Xs) 15 ml PRN AFTMEALHC PRN PO DYSPEPSIA 11/23/20 13:00 Magnesium Hydroxide (Milk Of Magnesia) 2,400 mg PRN QHS PRN PO CONSTIPATION 11/23/20 13:00 Potassium Chloride (Klor-Con) 20 meq BID PO 11/23/20 21:00 12/06/20 16:29 DC 12/05/20 19:14 Tramadol HCl (Ultram) 50 mg PRN Q6HRS PRN PO MODERATE PAIN 4-6 11/23/20 16:00 11/26/20 20:55 Acetaminophen (Tylenol) 500 mg PRN Q6HRS PRN PO pain or fever 11/23/20 16:00 UNV Quetiapine Fumarate (SEROquel) 100 mg QHS PO 11/23/20 21:00 12/04/20 12:02 DC 12/03/20 20:03 Risperidone (RisperDAL) 0.25 mg BID PO 11/23/20 21:00 12/11/20 17:29 DC 12/11/20 07:36 Trazodone HCl (Desyrel) 50 mg QHS PO 11/23/20 21:00 12/04/20 12:02 DC 12/03/20 20:04 Insulin Human Lispro (HumaLOG) 0-9 UNITS TIDWMEALS SQ 11/23/20 17:00 12/20/20 17:31 Dextrose (Dextrose 50%-Water Syringe) 12.5 gm PRN Q15MIN PRN IV SEE COMMENTS 11/23/20 16:15 Apixaban (Eliquis) 5 mg BID PO 11/23/20 21:00 12/13/20 14:23 DC 12/13/20 08:45 Finasteride (Proscar) 5 mg DAILY PO 11/24/20 09:00 12/20/20 05:15 Lorazepam (Ativan) 0.25 mg PRN BID PRN PO ANXIETY 11/23/20 18:30 11/30/20 21:03 Olanzapine (ZyPREXA ZYDIS) 2.5 mg PRN Q2HRS PRN PO ANXIETY / AGITATION 11/23/20 18:45 11/24/20 16:36 DC 11/24/20 08:34 Tamsulosin HCl (Flomax) 0.8 mg HS PO 11/23/20 21:00 12/20/20 21:04 Ziprasidone (Geodon Im) 10 mg PRN Q4HRS PRN IM ANXIETY / AGITATION 11/23/20 18:30 11/23/20 22:46 DC Insulin Glargine (Lantus Syringe) 20 unit BID SQ 11/23/20 21:00 12/20/20 21:10 Lactobacillus Rhamnosus (Culturelle) 1 cap BID PO 11/23/20 21:00 12/20/20 21:04 Sertraline HCl (Zoloft) 25 mg DAILY PO 11/24/20 09:00 12/11/20 17:29 DC 12/11/20 07:36 Quetiapine Fumarate (SEROquel) 25 mg PRN Q6HRS PRN PO agitation 11/24/20 16:45 12/17/20 18:48 Olanzapine (ZyPREXA ZYDIS) 5 mg 1X PRN PO PSYCHOSIS 11/26/20 17:00 12/14/20 12:11 Levofloxacin (Levaquin) 500 mg 1X ONCE PO 11/30/20 16:00 11/30/20 16:01 DC 11/30/20 17:16 Levofloxacin (Levaquin) 250 mg DAILY16 PO 12/01/20 16:00 12/06/20 16:01 DC 12/06/20 17:35 Quetiapine Fumarate (SEROquel) 150 mg QHS PO 12/04/20 21:00 12/20/20 21:04 Trazodone HCl (Desyrel) 100 mg PRN QHS PRN PO sleep 12/04/20 12:15 12/20/20 01:06 Sertraline HCl (Zoloft) 50 mg DAILY PO 12/12/20 09:00 12/20/20 05:17 Quetiapine Fumarate (SEROquel) 25 mg 0900,1300,1700 PO 12/12/20 09:00 12/18/20 18:16 DC 12/18/20 17:15 Divalproex Sodium (Depakote) 125 mg 0900,1700 PO 12/12/20 09:00 12/17/20 13:42 DC 12/17/20 08:37 Hydrocortisone Acetate (Anucort-Hc) 25 mg BID [place] 12/13/20 21:00 12/20/20 21:04 Divalproex Sodium (Depakote) 250 mg 0900,1700 PO 12/17/20 17:00 12/20/20 17:25 Quetiapine Fumarate (SEROquel) 37.5 mg 0900,1300,1700 PO 12/19/20 09:00 12/20/20 17:25 I have reviewed the current psychotropics carefully including drug interactions. Risk benefit ratio favors no change other than as noted in my dictated progress note. Diagnosis: Problems: (1) Dementia, vascular, with depression (2) Dementia, vascular, with delusions (3) Dementia with behavioral disturbance (4) Dementia in Alzheimer's disease with delusions (5) Dementia in Alzheimer's disease with delirium (6) Major neurocognitive disorder (7) Dementia in Alzheimer's disease with early onset with behavioral disturbance (8) Impulse control disorder, unspecified (9) Anxiety disorder, unspecified MARIA DE JESUS LEMON MD Dec 21, 2020 07:12
--- NOTE | 2020-12-21 07:34 | PDOC ---
Exam Note: Marcos Note: This note is a late entry for 12/20/2020 covers elements not covered in my initial note. Subjective: The patient was seen individually in the evening of 12/20/2020 with Moira HUFF, discussed and reviewed the chart. The patient slept 5 hours previous night. He is compliant with his medications. At times he is attention seeking regarding food and water, obsessing about this and acting helpless, yelling at times at other patients. Patient is doing better since the onesie has been removed. Review of Systems: No CV, , pulmonary, eye, ENT system symptoms on review. Mental Status Exam: The patient is oriented to himself and situation. I met with him individually. Speech is coherent, can be rapid at times. Abstraction is fair. Computation impaired. Language function intact. Attention span short. Mood and affect remains labile. Laboratory Data: Reviewed. Impression: Major neurocognitive disorder Alzheimer vascular with delusion, depression, behavioral disturbance. Anxiety disorder unspecified. Impulse control disorder unspecified. Plan: Maintain rest of the psychotropics unchanged from initial note. Assessment: Vital Signs/I&O: Vital Signs Date Time Temp Pulse Resp B/P (MAP) Pulse Ox O2 Delivery O2 Flow Rate FiO2 12/21/20 05:44 97.2 106 20 148/80 (102) 93 12/18/20 05:57 Room Air I & O 12/20/20 12/20/20 12/21/20 15:00 23:00 07:00 Intake Total 840 ml 720 ml Output Total 500 ml 1400 ml Balance 340 ml 720 ml -1400 ml Labs: Laboratory Tests Test 12/20/20 07:47 12/20/20 12:04 12/20/20 17:07 12/20/20 19:08 Glucose (Fingerstick) 160 mg/dL (70-99) H 110 mg/dL (70-99) H 182 mg/dL (70-99) H 175 mg/dL (70-99) H Test 12/20/20 20:15 12/21/20 06:02 White Blood Count 7.0 x10^3/uL (4.0-11.0) 6.1 x10^3/uL (4.0-11.0) Red Blood Count 4.36 x10^6/uL (4.30-5.70) 4.29 x10^6/uL (4.30-5.70) L Hemoglobin 12.3 g/dL (13.0-17.5) L 11.9 g/dL (13.0-17.5) L Hematocrit 37.8 % (39.0-53.0) L 37.3 % (39.0-53.0) L Mean Corpuscular Volume 87 fL (79-100) 87 fL (79-100) Mean Corpuscular Hemoglobin 28 pg (25-35) 28 pg (25-35) Mean Corpuscular Hemoglobin Concent 33 g/dL (31-37) 32 g/dL (31-37) Red Cell Distribution Width 16.0 % (11.5-14.5) H 15.3 % (11.5-14.5) H Platelet Count 285 x10^3/uL (140-400) 261 x10^3/uL (140-400) Sodium Level 143 mmol/L (136-145) 143 mmol/L (136-145) Potassium Level 4.2 mmol/L (3.5-5.1) 4.3 mmol/L (3.5-5.1) Chloride Level 108 mmol/L (98-107) H 109 mmol/L (98-107) H Carbon Dioxide Level 27 mmol/L (21-32) 26 mmol/L (21-32) Anion Gap 8 (6-14) 8 (6-14) Blood Urea Nitrogen 18 mg/dL (8-26) 16 mg/dL (8-26) Creatinine 1.3 mg/dL (0.7-1.3) 1.2 mg/dL (0.7-1.3) Estimated GFR (Cockcroft-Gault) 54.0 59.2 BUN/Creatinine Ratio 14 (6-20) 13 (6-20) Glucose Level 132 mg/dL (70-99) H 129 mg/dL (70-99) H Calcium Level 8.5 mg/dL (8.5-10.1) 8.5 mg/dL (8.5-10.1) Total Bilirubin 0.3 mg/dL (0.2-1.0) 0.3 mg/dL (0.2-1.0) Aspartate Amino Transferase (AST) 15 U/L (15-37) 15 U/L (15-37) Alanine Aminotransferase (ALT) 21 U/L (16-63) 19 U/L (16-63) Alkaline Phosphatase 87 U/L (46-116) 74 U/L (46-116) Total Protein 7.1 g/dL (6.4-8.2) 6.5 g/dL (6.4-8.2) Albumin 3.3 g/dL (3.4-5.0) L 3.0 g/dL (3.4-5.0) L Albumin/Globulin Ratio 0.9 (1.0-1.7) L 0.9 (1.0-1.7) L Neutrophils (%) (Auto) 61 % (31-73) Lymphocytes (%) (Auto) 26 % (24-48) Monocytes (%) (Auto) 8 % (0-9) Eosinophils (%) (Auto) 5 % (0-3) H Basophils (%) (Auto) 1 % (0-3) Neutrophils # (Auto) 3.7 x10^3uL (1.8-7.7) Lymphocytes # (Auto) 1.6 x10^3/uL (1.0-4.8) Monocytes # (Auto) 0.5 x10^3/uL (0.0-1.1) Eosinophils # (Auto) 0.3 x10^3/uL (0.0-0.7) Basophils # (Auto) 0.0 x10^3/uL (0.0-0.2) Valproic Acid Level 16 mcg/mL (50-100) L Valproic Acid Last Dose Date 12/20/20 Valproic Acid Last Dose Time 1700 Current Medications: Meds: Laboratory Tests Test 12/20/20 07:47 12/20/20 12:04 12/20/20 17:07 12/20/20 19:08 Glucose (Fingerstick) 160 mg/dL 110 mg/dL 182 mg/dL 175 mg/dL Test 12/20/20 20:15 12/21/20 06:02 White Blood Count 7.0 x10^3/uL 6.1 x10^3/uL Red Blood Count 4.36 x10^6/uL 4.29 x10^6/uL Hemoglobin 12.3 g/dL 11.9 g/dL Hematocrit 37.8 % 37.3 % Mean Corpuscular Volume 87 fL 87 fL Mean Corpuscular Hemoglobin 28 pg 28 pg Mean Corpuscular Hemoglobin Concent 33 g/dL 32 g/dL Red Cell Distribution Width 16.0 % 15.3 % Platelet Count 285 x10^3/uL 261 x10^3/uL Sodium Level 143 mmol/L 143 mmol/L Potassium Level 4.2 mmol/L 4.3 mmol/L Chloride Level 108 mmol/L 109 mmol/L Carbon Dioxide Level 27 mmol/L 26 mmol/L Anion Gap 8 8 Blood Urea Nitrogen 18 mg/dL 16 mg/dL Creatinine 1.3 mg/dL 1.2 mg/dL Estimated GFR (Cockcroft-Gault) 54.0 59.2 BUN/Creatinine Ratio 14 13 Glucose Level 132 mg/dL 129 mg/dL Calcium Level 8.5 mg/dL 8.5 mg/dL Total Bilirubin 0.3 mg/dL 0.3 mg/dL Aspartate Amino Transf (AST/SGOT) 15 U/L 15 U/L Alanine Aminotransferase (ALT/SGPT) 21 U/L 19 U/L Alkaline Phosphatase 87 U/L 74 U/L Total Protein 7.1 g/dL 6.5 g/dL Albumin 3.3 g/dL 3.0 g/dL Albumin/Globulin Ratio 0.9 0.9 Neutrophils (%) (Auto) 61 % Lymphocytes (%) (Auto) 26 % Monocytes (%) (Auto) 8 % Eosinophils (%) (Auto) 5 % Basophils (%) (Auto) 1 % Neutrophils # (Auto) 3.7 x10^3uL Lymphocytes # (Auto) 1.6 x10^3/uL Monocytes # (Auto) 0.5 x10^3/uL Eosinophils # (Auto) 0.3 x10^3/uL Basophils # (Auto) 0.0 x10^3/uL Valproic Acid (Depakene) Level 16 mcg/mL Valproic Acid Last Dose Date 12/20/20 Valproic Acid Last Dose Time 1700 Current Medications Medications (Trade) Dose Ordered Sig/Connie Route PRN Reason Start Time Stop Time Status Last Admin Dose Admin Acetaminophen (Tylenol) 650 mg PRN Q6HRS PRN PO MILD PAIN / TEMP > 100.3'F 11/23/20 13:00 11/24/20 08:34 Multi-Ingredient Ointment (Analgesic [place]) 1 nasir PRN QID PRN TP MUSCLE PAIN 11/23/20 13:00 Al Hydroxide/Mg Hydroxide (Mylanta Plus Xs) 15 ml PRN AFTMEALHC PRN PO DYSPEPSIA 11/23/20 13:00 Magnesium Hydroxide (Milk Of Magnesia) 2,400 mg PRN QHS PRN PO CONSTIPATION 11/23/20 13:00 Potassium Chloride (Klor-Con) 20 meq BID PO 11/23/20 21:00 12/06/20 16:29 DC 12/05/20 19:14 Tramadol HCl (Ultram) 50 mg PRN Q6HRS PRN PO MODERATE PAIN 4-6 11/23/20 16:00 11/26/20 20:55 Acetaminophen (Tylenol) 500 mg PRN Q6HRS PRN PO pain or fever 11/23/20 16:00 UNV Quetiapine Fumarate (SEROquel) 100 mg QHS PO 11/23/20 21:00 12/04/20 12:02 DC 12/03/20 20:03 Risperidone (RisperDAL) 0.25 mg BID PO 11/23/20 21:00 12/11/20 17:29 DC 12/11/20 07:36 Trazodone HCl (Desyrel) 50 mg QHS PO 11/23/20 21:00 12/04/20 12:02 DC 12/03/20 20:04 Insulin Human Lispro (HumaLOG) 0-9 UNITS TIDWMEALS SQ 11/23/20 17:00 12/20/20 17:31 Dextrose (Dextrose 50%-Water Syringe) 12.5 gm PRN Q15MIN PRN IV SEE COMMENTS 11/23/20 16:15 Apixaban (Eliquis) 5 mg BID PO 11/23/20 21:00 12/13/20 14:23 DC 12/13/20 08:45 Finasteride (Proscar) 5 mg DAILY PO 11/24/20 09:00 12/20/20 05:15 Lorazepam (Ativan) 0.25 mg PRN BID PRN PO ANXIETY 11/23/20 18:30 11/30/20 21:03 Olanzapine (ZyPREXA ZYDIS) 2.5 mg PRN Q2HRS PRN PO ANXIETY / AGITATION 11/23/20 18:45 11/24/20 16:36 DC 11/24/20 08:34 Tamsulosin HCl (Flomax) 0.8 mg HS PO 11/23/20 21:00 12/20/20 21:04 Ziprasidone (Geodon Im) 10 mg PRN Q4HRS PRN IM ANXIETY / AGITATION 11/23/20 18:30 11/23/20 22:46 DC Insulin Glargine (Lantus Syringe) 20 unit BID SQ 11/23/20 21:00 12/20/20 21:10 Lactobacillus Rhamnosus (Culturelle) 1 cap BID PO 11/23/20 21:00 12/20/20 21:04 Sertraline HCl (Zoloft) 25 mg DAILY PO 11/24/20 09:00 12/11/20 17:29 DC 12/11/20 07:36 Quetiapine Fumarate (SEROquel) 25 mg PRN Q6HRS PRN PO agitation 11/24/20 16:45 12/17/20 18:48 Olanzapine (ZyPREXA ZYDIS) 5 mg 1X PRN PO PSYCHOSIS 11/26/20 17:00 12/14/20 12:11 Levofloxacin (Levaquin) 500 mg 1X ONCE PO 11/30/20 16:00 11/30/20 16:01 DC 11/30/20 17:16 Levofloxacin (Levaquin) 250 mg DAILY16 PO 12/01/20 16:00 12/06/20 16:01 DC 12/06/20 17:35 Quetiapine Fumarate (SEROquel) 150 mg QHS PO 12/04/20 21:00 12/20/20 21:04 Trazodone HCl (Desyrel) 100 mg PRN QHS PRN PO sleep 12/04/20 12:15 12/20/20 01:06 Sertraline HCl (Zoloft) 50 mg DAILY PO 12/12/20 09:00 12/20/20 05:17 Quetiapine Fumarate (SEROquel) 25 mg 0900,1300,1700 PO 12/12/20 09:00 12/18/20 18:16 DC 12/18/20 17:15 Divalproex Sodium (Depakote) 125 mg 0900,1700 PO 12/12/20 09:00 12/17/20 13:42 DC 12/17/20 08:37 Hydrocortisone Acetate (Anucort-Hc) 25 mg BID [place] 12/13/20 21:00 12/20/20 21:04 Divalproex Sodium (Depakote) 250 mg 0900,1700 PO 12/17/20 17:00 12/20/20 17:25 Quetiapine Fumarate (SEROquel) 37.5 mg 0900,1300,1700 PO 12/19/20 09:00 12/20/20 17:25 I have reviewed the current psychotropics carefully including drug interactions. Risk benefit ratio favors no change other than as noted in my dictated progress note. Diagnosis: Problems: (1) Dementia, vascular, with depression (2) Dementia, vascular, with delusions (3) Dementia with behavioral disturbance (4) Dementia in Alzheimer's disease with delusions (5) Dementia in Alzheimer's disease with delirium (6) Major neurocognitive disorder (7) Dementia in Alzheimer's disease with early onset with behavioral disturbance (8) Impulse control disorder, unspecified (9) Anxiety disorder, unspecified MARIA DE JESUS LEMON MD Dec 21, 2020 07:34
[2020-12-21] MEDS: LACTOBACILLUS RHAMNOSUS GG 1 CAPSULE. PO SCH ×2 (07:55→20:02)
[2020-12-21] MEDS: FINASTERIDE 5 MG TABLET. PO SCH (07:55)
[2020-12-21] MEDS: DIVALPROEX SODIUM 125 MG TABLET.DR. PO SCH ×2 (07:55→17:33)
[2020-12-21] MEDS: HYDROCORTISONE ACETATE 25 MG SUPP.RECT PR SCH ×2 (07:57→20:02)
[2020-12-21] MEDS: QUEtiapine 25 MG TABLET. PO SCH ×3 (07:57→17:34)
[2020-12-21] MEDS: SERTRALINE 50 MG TABLET. PO SCH (07:57)
[2020-12-21] MEDS: INSULIN LISPRO 300 UNITS/3 ML VIAL. SQ SCH ×3 (08:13→17:37)
[2020-12-21] MEDS: INSULIN GLARGINE SYRINGE. SQ SCH ×2 (08:44→20:07)
[2020-12-21 15:30] VITALS: BP 142/87
[2020-12-21] MEDS: QUEtiapine 100 MG TABLET. PO SCH (20:02)
[2020-12-21] MEDS: TAMSULOSIN 0.4 MG CAP.ER.24H. PO SCH (20:02)
--- NOTE | 2020-12-21 21:58 | PDOC ---
Exam Note: Marcos Note: Please also refer to the separate dictated note~for this date of service dictated separately.~Patient seen individually. Discussed the patient with Nursing staff reviewed the chart.~Reviewed interim history and current functioning. Reviewed vital signs,~Labs/ Radiology~and current medications noted below. Continue current treatment with the changes noted in the dictated addendum note Assessment: Vital Signs/I&O: Vital Signs Date Time Temp Pulse Resp B/P (MAP) Pulse Ox O2 Delivery O2 Flow Rate FiO2 12/21/20 15:30 97.2 83 17 142/87 (105) 96 Room Air I & O 12/20/20 12/20/20 12/21/20 15:00 23:00 07:00 Intake Total 840 ml 720 ml Output Total 500 ml 1400 ml Balance 340 ml 720 ml -1400 ml Labs: Laboratory Tests Test 12/21/20 06:02 12/21/20 07:39 12/21/20 12:16 12/21/20 16:50 White Blood Count 6.1 x10^3/uL (4.0-11.0) Red Blood Count 4.29 x10^6/uL (4.30-5.70) L Hemoglobin 11.9 g/dL (13.0-17.5) L Hematocrit 37.3 % (39.0-53.0) L Mean Corpuscular Volume 87 fL (79-100) Mean Corpuscular Hemoglobin 28 pg (25-35) Mean Corpuscular Hemoglobin Concent 32 g/dL (31-37) Red Cell Distribution Width 15.3 % (11.5-14.5) H Platelet Count 261 x10^3/uL (140-400) Neutrophils (%) (Auto) 61 % (31-73) Lymphocytes (%) (Auto) 26 % (24-48) Monocytes (%) (Auto) 8 % (0-9) Eosinophils (%) (Auto) 5 % (0-3) H Basophils (%) (Auto) 1 % (0-3) Neutrophils # (Auto) 3.7 x10^3uL (1.8-7.7) Lymphocytes # (Auto) 1.6 x10^3/uL (1.0-4.8) Monocytes # (Auto) 0.5 x10^3/uL (0.0-1.1) Eosinophils # (Auto) 0.3 x10^3/uL (0.0-0.7) Basophils # (Auto) 0.0 x10^3/uL (0.0-0.2) Sodium Level 143 mmol/L (136-145) Potassium Level 4.3 mmol/L (3.5-5.1) Chloride Level 109 mmol/L (98-107) H Carbon Dioxide Level 26 mmol/L (21-32) Anion Gap 8 (6-14) Blood Urea Nitrogen 16 mg/dL (8-26) Creatinine 1.2 mg/dL (0.7-1.3) Estimated GFR (Cockcroft-Gault) 59.2 BUN/Creatinine Ratio 13 (6-20) Glucose Level 129 mg/dL (70-99) H Calcium Level 8.5 mg/dL (8.5-10.1) Total Bilirubin 0.3 mg/dL (0.2-1.0) Aspartate Amino Transferase (AST) 15 U/L (15-37) Alanine Aminotransferase (ALT) 19 U/L (16-63) Alkaline Phosphatase 74 U/L (46-116) Total Protein 6.5 g/dL (6.4-8.2) Albumin 3.0 g/dL (3.4-5.0) L Albumin/Globulin Ratio 0.9 (1.0-1.7) L Valproic Acid Level 16 mcg/mL (50-100) L Valproic Acid Last Dose Date 12/20/20 Valproic Acid Last Dose Time 1700 Glucose (Fingerstick) 155 mg/dL (70-99) H 111 mg/dL (70-99) H 186 mg/dL (70-99) H Test 12/21/20 19:17 Glucose (Fingerstick) 192 mg/dL (70-99) H Current Medications: Meds: Laboratory Tests Test 12/21/20 06:02 12/21/20 07:39 12/21/20 12:16 12/21/20 16:50 White Blood Count 6.1 x10^3/uL Red Blood Count 4.29 x10^6/uL Hemoglobin 11.9 g/dL Hematocrit 37.3 % Mean Corpuscular Volume 87 fL Mean Corpuscular Hemoglobin 28 pg Mean Corpuscular Hemoglobin Concent 32 g/dL Red Cell Distribution Width 15.3 % Platelet Count 261 x10^3/uL Neutrophils (%) (Auto) 61 % Lymphocytes (%) (Auto) 26 % Monocytes (%) (Auto) 8 % Eosinophils (%) (Auto) 5 % Basophils (%) (Auto) 1 % Neutrophils # (Auto) 3.7 x10^3uL Lymphocytes # (Auto) 1.6 x10^3/uL Monocytes # (Auto) 0.5 x10^3/uL Eosinophils # (Auto) 0.3 x10^3/uL Basophils # (Auto) 0.0 x10^3/uL Sodium Level 143 mmol/L Potassium Level 4.3 mmol/L Chloride Level 109 mmol/L Carbon Dioxide Level 26 mmol/L Anion Gap 8 Blood Urea Nitrogen 16 mg/dL Creatinine 1.2 mg/dL Estimated GFR (Cockcroft-Gault) 59.2 BUN/Creatinine Ratio 13 Glucose Level 129 mg/dL Calcium Level 8.5 mg/dL Total Bilirubin 0.3 mg/dL Aspartate Amino Transf (AST/SGOT) 15 U/L Alanine Aminotransferase (ALT/SGPT) 19 U/L Alkaline Phosphatase 74 U/L Total Protein 6.5 g/dL Albumin 3.0 g/dL Albumin/Globulin Ratio 0.9 Valproic Acid (Depakene) Level 16 mcg/mL Valproic Acid Last Dose Date 12/20/20 Valproic Acid Last Dose Time 1700 Glucose (Fingerstick) 155 mg/dL 111 mg/dL 186 mg/dL Test 12/21/20 19:17 Glucose (Fingerstick) 192 mg/dL Current Medications Medications (Trade) Dose Ordered Sig/Connie Route PRN Reason Start Time Stop Time Status Last Admin Dose Admin Acetaminophen (Tylenol) 650 mg PRN Q6HRS PRN PO MILD PAIN / TEMP > 100.3'F 11/23/20 13:00 11/24/20 08:34 Multi-Ingredient Ointment (Analgesic [place]) 1 nasir PRN QID PRN TP MUSCLE PAIN 11/23/20 13:00 Al Hydroxide/Mg Hydroxide (Mylanta Plus Xs) 15 ml PRN AFTMEALHC PRN PO DYSPEPSIA 11/23/20 13:00 Magnesium Hydroxide (Milk Of Magnesia) 2,400 mg PRN QHS PRN PO CONSTIPATION 11/23/20 13:00 Potassium Chloride (Klor-Con) 20 meq BID PO 11/23/20 21:00 12/06/20 16:29 DC 12/05/20 19:14 Tramadol HCl (Ultram) 50 mg PRN Q6HRS PRN PO MODERATE PAIN 4-6 11/23/20 16:00 11/26/20 20:55 Acetaminophen (Tylenol) 500 mg PRN Q6HRS PRN PO pain or fever 11/23/20 16:00 UNV Quetiapine Fumarate (SEROquel) 100 mg QHS PO 11/23/20 21:00 12/04/20 12:02 DC 12/03/20 20:03 Risperidone (RisperDAL) 0.25 mg BID PO 11/23/20 21:00 12/11/20 17:29 DC 12/11/20 07:36 Trazodone HCl (Desyrel) 50 mg QHS PO 11/23/20 21:00 12/04/20 12:02 DC 12/03/20 20:04 Insulin Human Lispro (HumaLOG) 0-9 UNITS TIDWMEALS SQ 11/23/20 17:00 12/21/20 17:37 Dextrose (Dextrose 50%-Water Syringe) 12.5 gm PRN Q15MIN PRN IV SEE COMMENTS 11/23/20 16:15 Apixaban (Eliquis) 5 mg BID PO 11/23/20 21:00 12/13/20 14:23 DC 12/13/20 08:45 Finasteride (Proscar) 5 mg DAILY PO 11/24/20 09:00 12/21/20 07:55 Lorazepam (Ativan) 0.25 mg PRN BID PRN PO ANXIETY 11/23/20 18:30 11/30/20 21:03 Olanzapine (ZyPREXA ZYDIS) 2.5 mg PRN Q2HRS PRN PO ANXIETY / AGITATION 11/23/20 18:45 11/24/20 16:36 DC 11/24/20 08:34 Tamsulosin HCl (Flomax) 0.8 mg HS PO 11/23/20 21:00 12/21/20 20:02 Ziprasidone (Geodon Im) 10 mg PRN Q4HRS PRN IM ANXIETY / AGITATION 11/23/20 18:30 11/23/20 22:46 DC Insulin Glargine (Lantus Syringe) 20 unit BID SQ 11/23/20 21:00 12/21/20 20:07 Lactobacillus Rhamnosus (Culturelle) 1 cap BID PO 11/23/20 21:00 12/21/20 20:02 Sertraline HCl (Zoloft) 25 mg DAILY PO 11/24/20 09:00 12/11/20 17:29 DC 12/11/20 07:36 Quetiapine Fumarate (SEROquel) 25 mg PRN Q6HRS PRN PO agitation 11/24/20 16:45 12/17/20 18:48 Olanzapine (ZyPREXA ZYDIS) 5 mg 1X PRN PO PSYCHOSIS 11/26/20 17:00 12/21/20 19:43 DC 12/14/20 12:11 Levofloxacin (Levaquin) 500 mg 1X ONCE PO 11/30/20 16:00 11/30/20 16:01 DC 11/30/20 17:16 Levofloxacin (Levaquin) 250 mg DAILY16 PO 12/01/20 16:00 12/06/20 16:01 DC 12/06/20 17:35 Quetiapine Fumarate (SEROquel) 150 mg QHS PO 12/04/20 21:00 12/21/20 20:02 Trazodone HCl (Desyrel) 100 mg PRN QHS PRN PO sleep 12/04/20 12:15 12/20/20 01:06 Sertraline HCl (Zoloft) 50 mg DAILY PO 12/12/20 09:00 12/21/20 07:57 Quetiapine Fumarate (SEROquel) 25 mg 0900,1300,1700 PO 12/12/20 09:00 12/18/20 18:16 DC 12/18/20 17:15 Divalproex Sodium (Depakote) 125 mg 0900,1700 PO 12/12/20 09:00 12/17/20 13:42 DC 12/17/20 08:37 Hydrocortisone Acetate (Anucort-Hc) 25 mg BID [place] 12/13/20 21:00 12/21/20 20:02 Divalproex Sodium (Depakote) 250 mg 0900,1700 PO 12/17/20 17:00 12/21/20 17:33 Quetiapine Fumarate (SEROquel) 37.5 mg 0900,1300,1700 PO 12/19/20 09:00 12/21/20 17:34 Olanzapine (ZyPREXA ZYDIS) 5 mg PRN Q2HR PRN PO PSYCHOSIS 12/21/20 19:45 12/21/20 20:03 Current Medications Medications (Trade) Dose Ordered Sig/Connie Route PRN Reason Start Time Stop Time Status Last Admin Dose Admin Olanzapine (ZyPREXA ZYDIS) 5 mg PRN Q2HR PRN PO PSYCHOSIS 12/21/20 19:45 12/21/20 20:03 I have reviewed the current psychotropics carefully including drug interactions. Risk benefit ratio favors no change other than as noted in my dictated progress note. Diagnosis: Problems: (1) Dementia, vascular, with depression (2) Dementia, vascular, with delusions (3) Dementia with behavioral disturbance (4) Dementia in Alzheimer's disease with delusions (5) Dementia in Alzheimer's disease with delirium (6) Major neurocognitive disorder (7) Dementia in Alzheimer's disease with early onset with behavioral disturbance (8) Impulse control disorder, unspecified (9) Anxiety disorder, unspecified MARIA DE JESUS LEMON MD Dec 21, 2020 21:58
--- NOTE | 2020-12-21 22:40 | NUR ---
This evening pt was going back and forth to his room continually requesting food or wanting his wallet because he is going home tomorrow. PRN zyprexa was given with HS meds which he took whole. Approx 1 hour after meds he was no longer requesting food or his wallet and went to bed and has been sleeping.
[2020-12-22 06:24] VITALS: BP 154/92
[2020-12-22] MEDS: FINASTERIDE 5 MG TABLET. PO SCH (07:58)
[2020-12-22] MEDS: DIVALPROEX SODIUM 125 MG TABLET.DR. PO SCH ×2 (07:58→17:32)
[2020-12-22] MEDS: SERTRALINE 50 MG TABLET. PO SCH (07:58)
[2020-12-22] MEDS: LACTOBACILLUS RHAMNOSUS GG 1 CAPSULE. PO SCH ×2 (07:58→19:45)
[2020-12-22] MEDS: INSULIN LISPRO 300 UNITS/3 ML VIAL. SQ SCH ×3 (07:59→17:34)
[2020-12-22] MEDS: QUEtiapine 25 MG TABLET. PO SCH ×3 (07:59→17:32)
[2020-12-22] MEDS: HYDROCORTISONE ACETATE 25 MG SUPP.RECT PR SCH ×2 (07:59→19:46)
--- NOTE | 2020-12-22 09:24 | NUR ---
Patient calm and cooperative at breakfast. no further needs at this time.
[2020-12-22] MEDS: INSULIN GLARGINE SYRINGE. SQ SCH ×2 (09:29→19:46)
[2020-12-22] MEDS ORDERED: LIDOCAINE 2% JELLY 6ML IN APPLICATOR. MM ONE (13:30)
[2020-12-22 15:40] VITALS: BP 156/86
[2020-12-22] MEDS: QUEtiapine 100 MG TABLET. PO SCH (19:45)
[2020-12-22] MEDS: traZODone 50 MG TABLET. PO PRN (19:46)
[2020-12-22] MEDS: TAMSULOSIN 0.4 MG CAP.ER.24H. PO SCH (19:46)
--- NOTE | 2020-12-22 21:48 | PDOC ---
Exam Note: Marcos Note: Please also refer to the separate dictated note~for this date of service dictated separately.~Patient seen individually. Discussed the patient with Nursing staff reviewed the chart.~Reviewed interim history and current functioning. Reviewed vital signs,~Labs/ Radiology~and current medications noted below. Continue current treatment with the changes noted in the dictated addendum note Assessment: Vital Signs/I&O: Vital Signs Date Time Temp Pulse Resp B/P (MAP) Pulse Ox O2 Delivery O2 Flow Rate FiO2 12/22/20 15:40 98.0 92 18 156/86 (109) 94 12/22/20 06:24 Room Air I & O 12/21/20 12/21/20 12/22/20 15:00 23:00 07:00 Intake Total 720 ml 840 ml Output Total 625 ml Balance 720 ml 215 ml Labs: Laboratory Tests Test 12/22/20 07:36 12/22/20 12:01 12/22/20 16:49 12/22/20 19:34 Glucose (Fingerstick) 95 mg/dL (70-99) 152 mg/dL (70-99) H 258 mg/dL (70-99) H 176 mg/dL (70-99) H Current Medications: Meds: Laboratory Tests Test 12/22/20 07:36 12/22/20 12:01 12/22/20 16:49 12/22/20 19:34 Glucose (Fingerstick) 95 mg/dL 152 mg/dL 258 mg/dL 176 mg/dL Current Medications Medications (Trade) Dose Ordered Sig/Connie Route PRN Reason Start Time Stop Time Status Last Admin Dose Admin Acetaminophen (Tylenol) 650 mg PRN Q6HRS PRN PO MILD PAIN / TEMP > 100.3'F 11/23/20 13:00 11/24/20 08:34 Multi-Ingredient Ointment (Analgesic [place]) 1 nasir PRN QID PRN TP MUSCLE PAIN 11/23/20 13:00 Al Hydroxide/Mg Hydroxide (Mylanta Plus Xs) 15 ml PRN AFTMEALHC PRN PO DYSPEPSIA 11/23/20 13:00 Magnesium Hydroxide (Milk Of Magnesia) 2,400 mg PRN QHS PRN PO CONSTIPATION 11/23/20 13:00 Potassium Chloride (Klor-Con) 20 meq BID PO 11/23/20 21:00 12/06/20 16:29 DC 12/05/20 19:14 Tramadol HCl (Ultram) 50 mg PRN Q6HRS PRN PO MODERATE PAIN 4-6 11/23/20 16:00 11/26/20 20:55 Acetaminophen (Tylenol) 500 mg PRN Q6HRS PRN PO pain or fever 11/23/20 16:00 UNV Quetiapine Fumarate (SEROquel) 100 mg QHS PO 11/23/20 21:00 12/04/20 12:02 DC 12/03/20 20:03 Risperidone (RisperDAL) 0.25 mg BID PO 11/23/20 21:00 12/11/20 17:29 DC 12/11/20 07:36 Trazodone HCl (Desyrel) 50 mg QHS PO 11/23/20 21:00 12/04/20 12:02 DC 12/03/20 20:04 Insulin Human Lispro (HumaLOG) 0-9 UNITS TIDWMEALS SQ 11/23/20 17:00 12/22/20 17:34 Dextrose (Dextrose 50%-Water Syringe) 12.5 gm PRN Q15MIN PRN IV SEE COMMENTS 11/23/20 16:15 Apixaban (Eliquis) 5 mg BID PO 11/23/20 21:00 12/13/20 14:23 DC 12/13/20 08:45 Finasteride (Proscar) 5 mg DAILY PO 11/24/20 09:00 12/22/20 07:58 Lorazepam (Ativan) 0.25 mg PRN BID PRN PO ANXIETY 11/23/20 18:30 11/30/20 21:03 Olanzapine (ZyPREXA ZYDIS) 2.5 mg PRN Q2HRS PRN PO ANXIETY / AGITATION 11/23/20 18:45 11/24/20 16:36 DC 11/24/20 08:34 Tamsulosin HCl (Flomax) 0.8 mg HS PO 11/23/20 21:00 12/22/20 19:46 Ziprasidone (Geodon Im) 10 mg PRN Q4HRS PRN IM ANXIETY / AGITATION 11/23/20 18:30 11/23/20 22:46 DC Insulin Glargine (Lantus Syringe) 20 unit BID SQ 11/23/20 21:00 12/22/20 19:46 Lactobacillus Rhamnosus (Culturelle) 1 cap BID PO 11/23/20 21:00 12/22/20 19:45 Sertraline HCl (Zoloft) 25 mg DAILY PO 11/24/20 09:00 12/11/20 17:29 DC 12/11/20 07:36 Quetiapine Fumarate (SEROquel) 25 mg PRN Q6HRS PRN PO agitation 11/24/20 16:45 12/17/20 18:48 Olanzapine (ZyPREXA ZYDIS) 5 mg 1X PRN PO PSYCHOSIS 11/26/20 17:00 12/21/20 19:43 DC 12/14/20 12:11 Levofloxacin (Levaquin) 500 mg 1X ONCE PO 11/30/20 16:00 11/30/20 16:01 DC 11/30/20 17:16 Levofloxacin (Levaquin) 250 mg DAILY16 PO 12/01/20 16:00 12/06/20 16:01 DC 12/06/20 17:35 Quetiapine Fumarate (SEROquel) 150 mg QHS PO 12/04/20 21:00 12/22/20 19:45 Trazodone HCl (Desyrel) 100 mg PRN QHS PRN PO sleep 12/04/20 12:15 12/22/20 19:46 Sertraline HCl (Zoloft) 50 mg DAILY PO 12/12/20 09:00 12/22/20 18:02 DC 12/22/20 07:58 Quetiapine Fumarate (SEROquel) 25 mg 0900,1300,1700 PO 12/12/20 09:00 12/18/20 18:16 DC 12/18/20 17:15 Divalproex Sodium (Depakote) 125 mg 0900,1700 PO 12/12/20 09:00 12/17/20 13:42 DC 12/17/20 08:37 Hydrocortisone Acetate (Anucort-Hc) 25 mg BID [place] 12/13/20 21:00 12/22/20 19:46 Divalproex Sodium (Depakote) 250 mg 0900,1700 PO 12/17/20 17:00 12/22/20 17:32 Quetiapine Fumarate (SEROquel) 37.5 mg 0900,1300,1700 PO 12/19/20 09:00 12/22/20 17:32 Olanzapine (ZyPREXA ZYDIS) 5 mg PRN Q2HR PRN PO PSYCHOSIS 12/21/20 19:45 12/22/20 19:45 Lidocaine HCl (Glydo (Lidocaine) Jelly) 1 nasir 1X ONCE MM 12/22/20 13:30 12/22/20 13:31 DC 12/22/20 13:31 Sertraline HCl (Zoloft) 75 mg DAILY PO 12/23/20 09:00 Current Medications Medications (Trade) Dose Ordered Sig/Connie Route PRN Reason Start Time Stop Time Status Last Admin Dose Admin Lidocaine HCl (Glydo (Lidocaine) Jelly) 1 nsair 1X ONCE MM 12/22/20 13:30 12/22/20 13:31 DC 12/22/20 13:31 I have reviewed the current psychotropics carefully including drug interactions. Risk benefit ratio favors no change other than as noted in my dictated progress note. Diagnosis: Problems: (1) Dementia, vascular, with depression (2) Dementia, vascular, with delusions (3) Dementia with behavioral disturbance (4) Dementia in Alzheimer's disease with delusions (5) Dementia in Alzheimer's disease with delirium (6) Major neurocognitive disorder (7) Dementia in Alzheimer's disease with early onset with behavioral disturbance (8) Impulse control disorder, unspecified (9) Anxiety disorder, unspecified MARIA DE JESUS LEMON MD Dec 22, 2020 21:48
--- NOTE | 2020-12-22 23:27 | NUR ---
Pt has been highly anxious this evening. Pt repeatedly at the nurses station window asking for his shoes and wallet stating he is leaving tomorrow. Pt is asking every staff member that passes him in the hallway for his shoes and wallet. Redirection unsuccessful. PRN Zyprexa and Trazodone administered with HS medication.
[2020-12-23] MEDS: QUEtiapine 25 MG TABLET. PO PRN (00:01)
[2020-12-23] MEDS: traZODone 50 MG TABLET. PO PRN ×2 (00:01→19:56)
--- NOTE | 2020-12-23 00:06 | NUR ---
Pt awake and is agitated and yelling out. Pt upset that his side rail is up on his bed. Pt fixated on the fact that he does not have his wallet and will not be able to pay for breakfast in the morning. Redirection unsuccessful. Repeat Trazodone and PRN Seroquel administered at this time. Pt currently restless and is trying to get out of bed. Staff at bedside.
--- NOTE | 2020-12-23 01:00 | NUR ---
Pt awake with noticeable SOA. O2 sat at upper 80s. 2L O2 applied. CXR ordered. Awaiting results.
[2020-12-23 06:08] VITALS: BP 151/87
--- NOTE | 2020-12-23 06:35 | RAD ---
Single view chest dated 12/23/2020. There is been 11/11/2020. CLINICAL INDICATION: Shortness of breath. FINDINGS: Single upright portable exam performed. Heart and mediastinal contours are stable. Lungs are hypoinfl ated. There is some mild patchy increased density at both lung bases. No definite pleural effusion or pneumothorax. IMPRESSION: Mild patchy bibasilar opacity, likely atelectasis. Electronically signed by: Ramirez Ho MD (12/23/2020 6:32 AM) [id number]
[2020-12-23] MEDS: HYDROCORTISONE ACETATE 25 MG SUPP.RECT PR SCH ×2 (07:21→19:56)
[2020-12-23] MEDS: INSULIN LISPRO 300 UNITS/3 ML VIAL. SQ SCH ×3 (08:00→17:10)
[2020-12-23] MEDS: DIVALPROEX SODIUM 125 MG TABLET.DR. PO SCH ×2 (08:12→17:06)
[2020-12-23] MEDS: QUEtiapine 25 MG TABLET. PO SCH ×3 (08:13→17:05)
[2020-12-23] MEDS: SERTRALINE 25 MG TABLET. PO SCH (08:13)
[2020-12-23] MEDS: LACTOBACILLUS RHAMNOSUS GG 1 CAPSULE. PO SCH ×2 (08:13→19:56)
[2020-12-23] MEDS: FINASTERIDE 5 MG TABLET. PO SCH (08:13)
[2020-12-23] MEDS: INSULIN GLARGINE SYRINGE. SQ SCH ×2 (08:14→20:00)
--- NOTE | 2020-12-23 09:18 | NUR ---
Patient calm and cooperative at breakfast. Patient asking for lost and found.
[2020-12-23] MEDS ORDERED: FUROSEMIDE 40 MG TABLET PO ONE (14:15)
[2020-12-23 15:46] VITALS: BP 143/89
[2020-12-23] MEDS: TAMSULOSIN 0.4 MG CAP.ER.24H. PO SCH (19:55)
[2020-12-23] MEDS: QUEtiapine 100 MG TABLET. PO SCH (19:56)
--- NOTE | 2020-12-23 21:57 | PDOC ---
Exam Note: Marcos Note: Please also refer to the separate dictated note~for this date of service dictated separately.~Patient seen individually. Discussed the patient with Nursing staff reviewed the chart.~Reviewed interim history and current functioning. Reviewed vital signs,~Labs/ Radiology~and current medications noted below. Continue current treatment with the changes noted in the dictated addendum note Assessment: Vital Signs/I&O: Vital Signs Date Time Temp Pulse Resp B/P (MAP) Pulse Ox O2 Delivery O2 Flow Rate FiO2 12/23/20 15:46 97.9 86 16 143/89 (107) 96 12/23/20 06:08 3.0 12/22/20 06:24 Room Air I & O 12/22/20 12/22/20 12/23/20 15:00 23:00 07:00 Intake Total 480 ml 480 ml Output Total 1150 ml Balance 480 ml 480 ml -1150 ml Labs: Laboratory Tests Test 12/23/20 07:58 12/23/20 12:13 12/23/20 16:55 12/23/20 19:29 Glucose (Fingerstick) 135 mg/dL (70-99) H 192 mg/dL (70-99) H 206 mg/dL (70-99) H 125 mg/dL (70-99) H Current Medications: Meds: Laboratory Tests Test 12/23/20 07:58 12/23/20 12:13 12/23/20 16:55 12/23/20 19:29 Glucose (Fingerstick) 135 mg/dL 192 mg/dL 206 mg/dL 125 mg/dL Current Medications Medications (Trade) Dose Ordered Sig/Connie Route PRN Reason Start Time Stop Time Status Last Admin Dose Admin Acetaminophen (Tylenol) 650 mg PRN Q6HRS PRN PO MILD PAIN / TEMP > 100.3'F 11/23/20 13:00 11/24/20 08:34 Multi-Ingredient Ointment (Analgesic [place]) 1 nasir PRN QID PRN TP MUSCLE PAIN 11/23/20 13:00 Al Hydroxide/Mg Hydroxide (Mylanta Plus Xs) 15 ml PRN AFTMEALHC PRN PO DYSPEPSIA 11/23/20 13:00 Magnesium Hydroxide (Milk Of Magnesia) 2,400 mg PRN QHS PRN PO CONSTIPATION 11/23/20 13:00 Potassium Chloride (Klor-Con) 20 meq BID PO 11/23/20 21:00 12/06/20 16:29 DC 12/05/20 19:14 Tramadol HCl (Ultram) 50 mg PRN Q6HRS PRN PO MODERATE PAIN 4-6 11/23/20 16:00 11/26/20 20:55 Acetaminophen (Tylenol) 500 mg PRN Q6HRS PRN PO pain or fever 11/23/20 16:00 UNV Quetiapine Fumarate (SEROquel) 100 mg QHS PO 11/23/20 21:00 12/04/20 12:02 DC 12/03/20 20:03 Risperidone (RisperDAL) 0.25 mg BID PO 11/23/20 21:00 12/11/20 17:29 DC 12/11/20 07:36 Trazodone HCl (Desyrel) 50 mg QHS PO 11/23/20 21:00 12/04/20 12:02 DC 12/03/20 20:04 Insulin Human Lispro (HumaLOG) 0-9 UNITS TIDWMEALS SQ 11/23/20 17:00 12/23/20 17:10 Dextrose (Dextrose 50%-Water Syringe) 12.5 gm PRN Q15MIN PRN IV SEE COMMENTS 11/23/20 16:15 Apixaban (Eliquis) 5 mg BID PO 11/23/20 21:00 12/13/20 14:23 DC 12/13/20 08:45 Finasteride (Proscar) 5 mg DAILY PO 11/24/20 09:00 12/23/20 08:13 Lorazepam (Ativan) 0.25 mg PRN BID PRN PO ANXIETY 11/23/20 18:30 11/30/20 21:03 Olanzapine (ZyPREXA ZYDIS) 2.5 mg PRN Q2HRS PRN PO ANXIETY / AGITATION 11/23/20 18:45 11/24/20 16:36 DC 11/24/20 08:34 Tamsulosin HCl (Flomax) 0.8 mg HS PO 11/23/20 21:00 12/23/20 19:55 Ziprasidone (Geodon Im) 10 mg PRN Q4HRS PRN IM ANXIETY / AGITATION 11/23/20 18:30 11/23/20 22:46 DC Insulin Glargine (Lantus Syringe) 20 unit BID SQ 11/23/20 21:00 12/23/20 20:00 Lactobacillus Rhamnosus (Culturelle) 1 cap BID PO 11/23/20 21:00 12/23/20 19:56 Sertraline HCl (Zoloft) 25 mg DAILY PO 11/24/20 09:00 12/11/20 17:29 DC 12/11/20 07:36 Quetiapine Fumarate (SEROquel) 25 mg PRN Q6HRS PRN PO agitation 11/24/20 16:45 12/23/20 00:01 Olanzapine (ZyPREXA ZYDIS) 5 mg 1X PRN PO PSYCHOSIS 11/26/20 17:00 12/21/20 19:43 DC 12/14/20 12:11 Levofloxacin (Levaquin) 500 mg 1X ONCE PO 11/30/20 16:00 11/30/20 16:01 DC 11/30/20 17:16 Levofloxacin (Levaquin) 250 mg DAILY16 PO 12/01/20 16:00 12/06/20 16:01 DC 12/06/20 17:35 Quetiapine Fumarate (SEROquel) 150 mg QHS PO 12/04/20 21:00 12/23/20 19:56 Trazodone HCl (Desyrel) 100 mg PRN QHS PRN PO sleep 12/04/20 12:15 12/23/20 19:56 Sertraline HCl (Zoloft) 50 mg DAILY PO 12/12/20 09:00 12/22/20 18:02 DC 12/22/20 07:58 Quetiapine Fumarate (SEROquel) 25 mg 0900,1300,1700 PO 12/12/20 09:00 12/18/20 18:16 DC 12/18/20 17:15 Divalproex Sodium (Depakote) 125 mg 0900,1700 PO 12/12/20 09:00 12/17/20 13:42 DC 12/17/20 08:37 Hydrocortisone Acetate (Anucort-Hc) 25 mg BID [place] 12/13/20 21:00 12/22/20 19:46 Divalproex Sodium (Depakote) 250 mg 0900,1700 PO 12/17/20 17:00 12/23/20 17:06 Quetiapine Fumarate (SEROquel) 37.5 mg 0900,1300,1700 PO 12/19/20 09:00 12/23/20 17:05 Olanzapine (ZyPREXA ZYDIS) 5 mg PRN Q2HR PRN PO PSYCHOSIS 12/21/20 19:45 12/22/20 19:45 Lidocaine HCl (Glydo (Lidocaine) Jelly) 1 nasir 1X ONCE MM 12/22/20 13:30 12/22/20 13:31 DC 12/22/20 13:31 Sertraline HCl (Zoloft) 75 mg DAILY PO 12/23/20 09:00 12/23/20 08:13 Furosemide (Lasix) 40 mg 1X ONCE PO 12/23/20 14:15 12/23/20 14:16 DC 12/23/20 14:16 Current Medications Medications (Trade) Dose Ordered Sig/Connie Route PRN Reason Start Time Stop Time Status Last Admin Dose Admin Sertraline HCl (Zoloft) 75 mg DAILY PO 12/23/20 09:00 12/23/20 08:13 Furosemide (Lasix) 40 mg 1X ONCE PO 12/23/20 14:15 12/23/20 14:16 DC 12/23/20 14:16 I have reviewed the current psychotropics carefully including drug interactions. Risk benefit ratio favors no change other than as noted in my dictated progress note. Diagnosis: Problems: (1) Dementia, vascular, with depression (2) Dementia, vascular, with delusions (3) Dementia with behavioral disturbance (4) Dementia in Alzheimer's disease with delusions (5) Dementia in Alzheimer's disease with delirium (6) Major neurocognitive disorder (7) Dementia in Alzheimer's disease with early onset with behavioral disturbance (8) Impulse control disorder, unspecified (9) Anxiety disorder, unspecified MARIA DE JESUS LEMON MD Dec 23, 2020 21:57
--- NOTE | 2020-12-23 22:28 | NUR ---
Pt wandering unit occasionally asking for his wallet and shoes. Pt calmer than previous evening and was able to redirect better. Compliant with whole medications. Pt's increased swelling and SOA during the night was addressed by Dr. Leroy during day shift. Lasix 40mg x1 was administered during day shift.
[2020-12-24] MEDS: ACETAMINOPHEN 325 MG TABLET PO PRN (02:53)
[2020-12-24] MEDS: QUEtiapine 25 MG TABLET. PO PRN (02:53)
--- NOTE | 2020-12-24 06:18 | PDOC ---
Exam Note: Marcos Note: This note is a late entry for 12/21/2020 covers elements not covered in my initial note. Subjective: The patient was seen individually in the evening of 12/21/2020 with Gisele HUFF, discussed and reviewed the chart. The patient slept 3-3/4 hours previous night. He remains confused, gets obsessive about wanting extra snacks and food but not yelling. He has not been pulling on his [place] which is an improvement. Behaviorally, he is doing better since the onesie was removed. I met with him outside his room. He is somewhat anxious, restless with short-term memory deficits, distractible, repeatedly asking me for snacks. Review of Systems: No CV, , pulmonary, eye, ENT system symptoms on review. Mental Status Exam: The patient is oriented to himself and situation. Speech is coherent, can be rapid at times. Abstraction is fair. Computation impaired. Language function intact. Attention span short. Mood and affect remains labile. Laboratory Data: Reviewed. Impression: Major neurocognitive disorder Alzheimer vascular with delusion, depression, behavioral disturbance. Anxiety disorder unspecified. Impulse control disorder unspecified. Plan: Maintain rest of the psychotropics unchanged from initial note. Assessment: Vital Signs/I&O: Vital Signs Date Time Temp Pulse Resp B/P (MAP) Pulse Ox O2 Delivery O2 Flow Rate FiO2 12/23/20 15:46 97.9 86 16 143/89 (107) 96 12/23/20 06:08 3.0 12/22/20 06:24 Room Air I & O 12/23/20 12/23/20 12/24/20 15:00 23:00 07:00 Intake Total 600 ml 1080 ml Output Total 1500 ml 725 ml Balance 600 ml -420 ml -725 ml Labs: Laboratory Tests Test 12/23/20 07:58 12/23/20 12:13 12/23/20 16:55 12/23/20 19:29 Glucose (Fingerstick) 135 mg/dL (70-99) H 192 mg/dL (70-99) H 206 mg/dL (70-99) H 125 mg/dL (70-99) H Current Medications: Meds: Laboratory Tests Test 12/23/20 07:58 12/23/20 12:13 12/23/20 16:55 12/23/20 19:29 Glucose (Fingerstick) 135 mg/dL 192 mg/dL 206 mg/dL 125 mg/dL Current Medications Medications (Trade) Dose Ordered Sig/Connie Route PRN Reason Start Time Stop Time Status Last Admin Dose Admin Acetaminophen (Tylenol) 650 mg PRN Q6HRS PRN PO MILD PAIN / TEMP > 100.3'F 11/23/20 13:00 12/24/20 02:53 Multi-Ingredient Ointment (Analgesic [place]) 1 nasir PRN QID PRN TP MUSCLE PAIN 11/23/20 13:00 Al Hydroxide/Mg Hydroxide (Mylanta Plus Xs) 15 ml PRN AFTMEALHC PRN PO DYSPEPSIA 11/23/20 13:00 Magnesium Hydroxide (Milk Of Magnesia) 2,400 mg PRN QHS PRN PO CONSTIPATION 11/23/20 13:00 Potassium Chloride (Klor-Con) 20 meq BID PO 11/23/20 21:00 12/06/20 16:29 DC 12/05/20 19:14 Tramadol HCl (Ultram) 50 mg PRN Q6HRS PRN PO MODERATE PAIN 4-6 11/23/20 16:00 11/26/20 20:55 Acetaminophen (Tylenol) 500 mg PRN Q6HRS PRN PO pain or fever 11/23/20 16:00 UNV Quetiapine Fumarate (SEROquel) 100 mg QHS PO 11/23/20 21:00 12/04/20 12:02 DC 12/03/20 20:03 Risperidone (RisperDAL) 0.25 mg BID PO 11/23/20 21:00 12/11/20 17:29 DC 12/11/20 07:36 Trazodone HCl (Desyrel) 50 mg QHS PO 11/23/20 21:00 12/04/20 12:02 DC 12/03/20 20:04 Insulin Human Lispro (HumaLOG) 0-9 UNITS TIDWMEALS SQ 11/23/20 17:00 12/23/20 17:10 Dextrose (Dextrose 50%-Water Syringe) 12.5 gm PRN Q15MIN PRN IV SEE COMMENTS 11/23/20 16:15 Apixaban (Eliquis) 5 mg BID PO 11/23/20 21:00 12/13/20 14:23 DC 12/13/20 08:45 Finasteride (Proscar) 5 mg DAILY PO 11/24/20 09:00 12/23/20 08:13 Lorazepam (Ativan) 0.25 mg PRN BID PRN PO ANXIETY 11/23/20 18:30 11/30/20 21:03 Olanzapine (ZyPREXA ZYDIS) 2.5 mg PRN Q2HRS PRN PO ANXIETY / AGITATION 11/23/20 18:45 11/24/20 16:36 DC 11/24/20 08:34 Tamsulosin HCl (Flomax) 0.8 mg HS PO 11/23/20 21:00 12/23/20 19:55 Ziprasidone (Geodon Im) 10 mg PRN Q4HRS PRN IM ANXIETY / AGITATION 11/23/20 18:30 11/23/20 22:46 DC Insulin Glargine (Lantus Syringe) 20 unit BID SQ 11/23/20 21:00 12/23/20 20:00 Lactobacillus Rhamnosus (Culturelle) 1 cap BID PO 11/23/20 21:00 12/23/20 19:56 Sertraline HCl (Zoloft) 25 mg DAILY PO 11/24/20 09:00 12/11/20 17:29 DC 12/11/20 07:36 Quetiapine Fumarate (SEROquel) 25 mg PRN Q6HRS PRN PO agitation 11/24/20 16:45 12/24/20 02:53 Olanzapine (ZyPREXA ZYDIS) 5 mg 1X PRN PO PSYCHOSIS 11/26/20 17:00 12/21/20 19:43 DC 12/14/20 12:11 Levofloxacin (Levaquin) 500 mg 1X ONCE PO 11/30/20 16:00 11/30/20 16:01 DC 11/30/20 17:16 Levofloxacin (Levaquin) 250 mg DAILY16 PO 12/01/20 16:00 12/06/20 16:01 DC 12/06/20 17:35 Quetiapine Fumarate (SEROquel) 150 mg QHS PO 12/04/20 21:00 12/23/20 19:56 Trazodone HCl (Desyrel) 100 mg PRN QHS PRN PO sleep 12/04/20 12:15 12/23/20 19:56 Sertraline HCl (Zoloft) 50 mg DAILY PO 12/12/20 09:00 12/22/20 18:02 DC 12/22/20 07:58 Quetiapine Fumarate (SEROquel) 25 mg 0900,1300,1700 PO 12/12/20 09:00 12/18/20 18:16 DC 12/18/20 17:15 Divalproex Sodium (Depakote) 125 mg 0900,1700 PO 12/12/20 09:00 12/17/20 13:42 DC 12/17/20 08:37 Hydrocortisone Acetate (Anucort-Hc) 25 mg BID CA 12/13/20 21:00 12/22/20 19:46 Divalproex Sodium (Depakote) 250 mg 0900,1700 PO 12/17/20 17:00 12/23/20 17:06 Quetiapine Fumarate (SEROquel) 37.5 mg 0900,1300,1700 PO 12/19/20 09:00 12/23/20 17:05 Olanzapine (ZyPREXA ZYDIS) 5 mg PRN Q2HR PRN PO PSYCHOSIS 12/21/20 19:45 12/22/20 19:45 Lidocaine HCl (Glydo (Lidocaine) Jelly) 1 nasir 1X ONCE MM 12/22/20 13:30 12/22/20 13:31 DC 12/22/20 13:31 Sertraline HCl (Zoloft) 75 mg DAILY PO 12/23/20 09:00 12/23/20 08:13 Furosemide (Lasix) 40 mg 1X ONCE PO 12/23/20 14:15 12/23/20 14:16 DC 12/23/20 14:16 Current Medications Medications (Trade) Dose Ordered Sig/Connie Route PRN Reason Start Time Stop Time Status Last Admin Dose Admin Sertraline HCl (Zoloft) 75 mg DAILY PO 12/23/20 09:00 12/23/20 08:13 Furosemide (Lasix) 40 mg 1X ONCE PO 12/23/20 14:15 12/23/20 14:16 DC 12/23/20 14:16 I have reviewed the current psychotropics carefully including drug interactions. Risk benefit ratio favors no change other than as noted in my dictated progress note. Diagnosis: Problems: (1) Dementia, vascular, with depression (2) Dementia, vascular, with delusions (3) Dementia with behavioral disturbance (4) Dementia in Alzheimer's disease with delusions (5) Dementia in Alzheimer's disease with delirium (6) Major neurocognitive disorder (7) Dementia in Alzheimer's disease with early onset with behavioral disturbance (8) Impulse control disorder, unspecified (9) Anxiety disorder, unspecified MARIA DE JESUS LEMON MD Dec 24, 2020 06:18
[2020-12-24 06:20] VITALS: BP 132/73
--- NOTE | 2020-12-24 06:56 | PDOC ---
Exam Note: Marcos Note: This note is a late entry for 12/22/2020 covers elements not covered in my initial note. Subjective: The patient was seen individually in the evening of 12/22/2020 with Masoud HUFF, discussed and reviewed the chart. The patient slept 5-1/2 hours previous night. He pulled out his urine bag previous night but redirected. He got a p.r.n. at 1.30 a.m. due to his being more anxious, obsessive. Review of Systems: No CV, , pulmonary, eye, ENT system symptoms on review. Mental Status Exam: The patient is oriented to himself and situation. Speech is coherent. Abstraction is fair. Computation impaired. Language function intact. Attention span short. Mood and affect remains labile. Laboratory Data: Reviewed. Impression: Major neurocognitive disorder Alzheimer vascular with delusion, depression, behavioral disturbance. Anxiety disorder unspecified. Impulse control disorder unspecified. Plan: We are basically increasing Zoloft from 50 mg to 75 mg. I have carefully reviewed drug interactions and risk-benefit ratio. Maintain rest of the psychotropics unchanged. Assessment: Vital Signs/I&O: Vital Signs Date Time Temp Pulse Resp B/P (MAP) Pulse Ox O2 Delivery O2 Flow Rate FiO2 12/24/20 06:20 97.4 70 16 132/73 (92) 94 12/23/20 06:08 3.0 12/22/20 06:24 Room Air I & O 12/23/20 12/23/20 12/24/20 15:00 23:00 07:00 Intake Total 600 ml 1080 ml Output Total 1500 ml 725 ml Balance 600 ml -420 ml -725 ml Labs: Laboratory Tests Test 12/23/20 07:58 12/23/20 12:13 12/23/20 16:55 12/23/20 19:29 Glucose (Fingerstick) 135 mg/dL (70-99) H 192 mg/dL (70-99) H 206 mg/dL (70-99) H 125 mg/dL (70-99) H Current Medications: Meds: Laboratory Tests Test 12/23/20 07:58 12/23/20 12:13 12/23/20 16:55 12/23/20 19:29 Glucose (Fingerstick) 135 mg/dL 192 mg/dL 206 mg/dL 125 mg/dL Current Medications Medications (Trade) Dose Ordered Sig/Connie Route PRN Reason Start Time Stop Time Status Last Admin Dose Admin Acetaminophen (Tylenol) 650 mg PRN Q6HRS PRN PO MILD PAIN / TEMP > 100.3'F 11/23/20 13:00 12/24/20 02:53 Multi-Ingredient Ointment (Analgesic [place]) 1 nasir PRN QID PRN TP MUSCLE PAIN 11/23/20 13:00 Al Hydroxide/Mg Hydroxide (Mylanta Plus Xs) 15 ml PRN AFTMEALHC PRN PO DYSPEPSIA 11/23/20 13:00 Magnesium Hydroxide (Milk Of Magnesia) 2,400 mg PRN QHS PRN PO CONSTIPATION 11/23/20 13:00 Potassium Chloride (Klor-Con) 20 meq BID PO 11/23/20 21:00 12/06/20 16:29 DC 12/05/20 19:14 Tramadol HCl (Ultram) 50 mg PRN Q6HRS PRN PO MODERATE PAIN 4-6 11/23/20 16:00 11/26/20 20:55 Acetaminophen (Tylenol) 500 mg PRN Q6HRS PRN PO pain or fever 11/23/20 16:00 UNV Quetiapine Fumarate (SEROquel) 100 mg QHS PO 11/23/20 21:00 12/04/20 12:02 DC 12/03/20 20:03 Risperidone (RisperDAL) 0.25 mg BID PO 11/23/20 21:00 12/11/20 17:29 DC 12/11/20 07:36 Trazodone HCl (Desyrel) 50 mg QHS PO 11/23/20 21:00 12/04/20 12:02 DC 12/03/20 20:04 Insulin Human Lispro (HumaLOG) 0-9 UNITS TIDWMEALS SQ 11/23/20 17:00 12/23/20 17:10 Dextrose (Dextrose 50%-Water Syringe) 12.5 gm PRN Q15MIN PRN IV SEE COMMENTS 11/23/20 16:15 Apixaban (Eliquis) 5 mg BID PO 11/23/20 21:00 12/13/20 14:23 DC 12/13/20 08:45 Finasteride (Proscar) 5 mg DAILY PO 11/24/20 09:00 4/25/21 08:13 Lorazepam (Ativan) 0.25 mg PRN BID PRN PO ANXIETY 11/23/20 18:30 11/30/20 21:03 Olanzapine (ZyPREXA ZYDIS) 2.5 mg PRN Q2HRS PRN PO ANXIETY / AGITATION 11/23/20 18:45 11/24/20 16:36 DC 11/24/20 08:34 Tamsulosin HCl (Flomax) 0.8 mg HS PO 11/23/20 21:00 12/23/20 19:55 Ziprasidone (Geodon Im) 10 mg PRN Q4HRS PRN IM ANXIETY / AGITATION 11/23/20 18:30 11/23/20 22:46 DC Insulin Glargine (Lantus Syringe) 20 unit BID SQ 11/23/20 21:00 12/23/20 20:00 Lactobacillus Rhamnosus (Culturelle) 1 cap BID PO 11/23/20 21:00 12/23/20 19:56 Sertraline HCl (Zoloft) 25 mg DAILY PO 11/24/20 09:00 12/11/20 17:29 DC 12/11/20 07:36 Quetiapine Fumarate (SEROquel) 25 mg PRN Q6HRS PRN PO agitation 11/24/20 16:45 12/24/20 02:53 Olanzapine (ZyPREXA ZYDIS) 5 mg 1X PRN PO PSYCHOSIS 11/26/20 17:00 12/21/20 19:43 DC 12/14/20 12:11 Levofloxacin (Levaquin) 500 mg 1X ONCE PO 11/30/20 16:00 11/30/20 16:01 DC 11/30/20 17:16 Levofloxacin (Levaquin) 250 mg DAILY16 PO 12/01/20 16:00 12/06/20 16:01 DC 12/06/20 17:35 Quetiapine Fumarate (SEROquel) 150 mg QHS PO 12/04/20 21:00 12/23/20 19:56 Trazodone HCl (Desyrel) 100 mg PRN QHS PRN PO sleep 12/04/20 12:15 12/23/20 19:56 Sertraline HCl (Zoloft) 50 mg DAILY PO 12/12/20 09:00 12/22/20 18:02 DC 12/22/20 07:58 Quetiapine Fumarate (SEROquel) 25 mg 0900,1300,1700 PO 12/12/20 09:00 12/18/20 18:16 DC 12/18/20 17:15 Divalproex Sodium (Depakote) 125 mg 0900,1700 PO 12/12/20 09:00 12/17/20 13:42 DC 12/17/20 08:37 Hydrocortisone Acetate (Anucort-Hc) 25 mg BID AL 12/13/20 21:00 12/22/20 19:46 Divalproex Sodium (Depakote) 250 mg 0900,1700 PO 12/17/20 17:00 12/23/20 17:06 Quetiapine Fumarate (SEROquel) 37.5 mg 0900,1300,1700 PO 12/19/20 09:00 12/23/20 17:05 Olanzapine (ZyPREXA ZYDIS) 5 mg PRN Q2HR PRN PO PSYCHOSIS 12/21/20 19:45 12/22/20 19:45 Lidocaine HCl (Glydo (Lidocaine) Jelly) 1 nasir 1X ONCE MM 12/22/20 13:30 12/22/20 13:31 DC 12/22/20 13:31 Sertraline HCl (Zoloft) 75 mg DAILY PO 12/23/20 09:00 12/23/20 08:13 Furosemide (Lasix) 40 mg 1X ONCE PO 12/23/20 14:15 12/23/20 14:16 DC 12/23/20 14:16 Current Medications Medications (Trade) Dose Ordered Sig/Connie Route PRN Reason Start Time Stop Time Status Last Admin Dose Admin Sertraline HCl (Zoloft) 75 mg DAILY PO 12/23/20 09:00 12/23/20 08:13 Furosemide (Lasix) 40 mg 1X ONCE PO 12/23/20 14:15 12/23/20 14:16 DC 12/23/20 14:16 I have reviewed the current psychotropics carefully including drug interactions. Risk benefit ratio favors no change other than as noted in my dictated progress note. Diagnosis: Problems: (1) Dementia, vascular, with depression (2) Dementia, vascular, with delusions (3) Dementia with behavioral disturbance (4) Dementia in Alzheimer's disease with delusions (5) Dementia in Alzheimer's disease with delirium (6) Major neurocognitive disorder (7) Dementia in Alzheimer's disease with early onset with behavioral disturbance (8) Impulse control disorder, unspecified (9) Anxiety disorder, unspecified MARIA DE JESUS LEMON MD Dec 24, 2020 06:56
--- NOTE | 2020-12-24 07:52 | PDOC ---
Exam Note: Marcos Note: This note is a late entry for 12/23/2020 covers elements not covered in my initial note. Subjective: The patient was seen individually in the evening of 12/23/2020 with Masoud HUFF, discussed and reviewed the chart. The patient slept 3-3/4 hours previous night. He has been somewhat calmer during the day today. He still gets obsessive and anxious about food and snacks but redirects earlier. Review of Systems: No CV, , pulmonary, eye, ENT system symptoms on review. Mental Status Exam: The patient is oriented to himself and situation. Speech is coherent. Abstraction is fair. Computation impaired. Language function intact. Attention span short. Mood and affect anxious, labile. Laboratory Data: Reviewed. Impression: Major neurocognitive disorder Alzheimer vascular with delusion, depression, behavioral disturbance. Anxiety disorder unspecified. Impulse control disorder unspecified. Plan: Maintain rest of the psychotropics unchanged. Assessment: Vital Signs/I&O: Vital Signs Date Time Temp Pulse Resp B/P (MAP) Pulse Ox O2 Delivery O2 Flow Rate FiO2 12/24/20 06:20 97.4 70 16 132/73 (92) 94 12/23/20 06:08 3.0 12/22/20 06:24 Room Air I & O 12/23/20 12/23/20 12/24/20 15:00 23:00 07:00 Intake Total 600 ml 1080 ml Output Total 1500 ml 725 ml Balance 600 ml -420 ml -725 ml Labs: Laboratory Tests Test 12/23/20 07:58 12/23/20 12:13 12/23/20 16:55 12/23/20 19:29 Glucose (Fingerstick) 135 mg/dL (70-99) H 192 mg/dL (70-99) H 206 mg/dL (70-99) H 125 mg/dL (70-99) H Current Medications: Meds: Laboratory Tests Test 12/23/20 07:58 12/23/20 12:13 12/23/20 16:55 12/23/20 19:29 Glucose (Fingerstick) 135 mg/dL 192 mg/dL 206 mg/dL 125 mg/dL Current Medications Medications (Trade) Dose Ordered Sig/Connie Route PRN Reason Start Time Stop Time Status Last Admin Dose Admin Acetaminophen (Tylenol) 650 mg PRN Q6HRS PRN PO MILD PAIN / TEMP > 100.3'F 11/23/20 13:00 12/24/20 02:53 Multi-Ingredient Ointment (Analgesic [place]) 1 nasir PRN QID PRN TP MUSCLE PAIN 11/23/20 13:00 Al Hydroxide/Mg Hydroxide (Mylanta Plus Xs) 15 ml PRN AFTMEALHC PRN PO DYSPEPSIA 11/23/20 13:00 Magnesium Hydroxide (Milk Of Magnesia) 2,400 mg PRN QHS PRN PO CONSTIPATION 11/23/20 13:00 Potassium Chloride (Klor-Con) 20 meq BID PO 11/23/20 21:00 12/06/20 16:29 DC 12/05/20 19:14 Tramadol HCl (Ultram) 50 mg PRN Q6HRS PRN PO MODERATE PAIN 4-6 11/23/20 16:00 11/26/20 20:55 Acetaminophen (Tylenol) 500 mg PRN Q6HRS PRN PO pain or fever 11/23/20 16:00 UNV Quetiapine Fumarate (SEROquel) 100 mg QHS PO 11/23/20 21:00 12/04/20 12:02 DC 12/03/20 20:03 Risperidone (RisperDAL) 0.25 mg BID PO 11/23/20 21:00 12/11/20 17:29 DC 12/11/20 07:36 Trazodone HCl (Desyrel) 50 mg QHS PO 11/23/20 21:00 12/04/20 12:02 DC 12/03/20 20:04 Insulin Human Lispro (HumaLOG) 0-9 UNITS TIDWMEALS SQ 11/23/20 17:00 12/23/20 17:10 Dextrose (Dextrose 50%-Water Syringe) 12.5 gm PRN Q15MIN PRN IV SEE COMMENTS 11/23/20 16:15 Apixaban (Eliquis) 5 mg BID PO 11/23/20 21:00 12/13/20 14:23 DC 12/13/20 08:45 Finasteride (Proscar) 5 mg DAILY PO 11/24/20 09:00 12/23/20 08:13 Lorazepam (Ativan) 0.25 mg PRN BID PRN PO ANXIETY 11/23/20 18:30 11/30/20 21:03 Olanzapine (ZyPREXA ZYDIS) 2.5 mg PRN Q2HRS PRN PO ANXIETY / AGITATION 11/23/20 18:45 11/24/20 16:36 DC 11/24/20 08:34 Tamsulosin HCl (Flomax) 0.8 mg HS PO 11/23/20 21:00 12/23/20 19:55 Ziprasidone (Geodon Im) 10 mg PRN Q4HRS PRN IM ANXIETY / AGITATION 11/23/20 18:30 11/23/20 22:46 DC Insulin Glargine (Lantus Syringe) 20 unit BID SQ 11/23/20 21:00 12/23/20 20:00 Lactobacillus Rhamnosus (Culturelle) 1 cap BID PO 11/23/20 21:00 12/23/20 19:56 Sertraline HCl (Zoloft) 25 mg DAILY PO 11/24/20 09:00 12/11/20 17:29 DC 12/11/20 07:36 Quetiapine Fumarate (SEROquel) 25 mg PRN Q6HRS PRN PO agitation 11/24/20 16:45 12/24/20 02:53 Olanzapine (ZyPREXA ZYDIS) 5 mg 1X PRN PO PSYCHOSIS 11/26/20 17:00 12/21/20 19:43 DC 12/14/20 12:11 Levofloxacin (Levaquin) 500 mg 1X ONCE PO 11/30/20 16:00 11/30/20 16:01 DC 11/30/20 17:16 Levofloxacin (Levaquin) 250 mg DAILY16 PO 12/01/20 16:00 12/06/20 16:01 DC 12/06/20 17:35 Quetiapine Fumarate (SEROquel) 150 mg QHS PO 12/04/20 21:00 12/23/20 19:56 Trazodone HCl (Desyrel) 100 mg PRN QHS PRN PO sleep 12/04/20 12:15 12/23/20 19:56 Sertraline HCl (Zoloft) 50 mg DAILY PO 12/12/20 09:00 12/22/20 18:02 DC 12/22/20 07:58 Quetiapine Fumarate (SEROquel) 25 mg 0900,1300,1700 PO 12/12/20 09:00 12/18/20 18:16 DC 12/18/20 17:15 Divalproex Sodium (Depakote) 125 mg 0900,1700 PO 12/12/20 09:00 12/17/20 13:42 DC 12/17/20 08:37 Hydrocortisone Acetate (Anucort-Hc) 25 mg BID MS 12/13/20 21:00 12/22/20 19:46 Divalproex Sodium (Depakote) 250 mg 0900,1700 PO 12/17/20 17:00 12/23/20 17:06 Quetiapine Fumarate (SEROquel) 37.5 mg 0900,1300,1700 PO 12/19/20 09:00 12/23/20 17:05 Olanzapine (ZyPREXA ZYDIS) 5 mg PRN Q2HR PRN PO PSYCHOSIS 12/21/20 19:45 12/22/20 19:45 Lidocaine HCl (Glydo (Lidocaine) Jelly) 1 nasir 1X ONCE MM 12/22/20 13:30 12/22/20 13:31 DC 12/22/20 13:31 Sertraline HCl (Zoloft) 75 mg DAILY PO 12/23/20 09:00 12/23/20 08:13 Furosemide (Lasix) 40 mg 1X ONCE PO 12/23/20 14:15 12/23/20 14:16 DC 12/23/20 14:16 Current Medications Medications (Trade) Dose Ordered Sig/Connie Route PRN Reason Start Time Stop Time Status Last Admin Dose Admin Sertraline HCl (Zoloft) 75 mg DAILY PO 12/23/20 09:00 12/23/20 08:13 Furosemide (Lasix) 40 mg 1X ONCE PO 12/23/20 14:15 12/23/20 14:16 DC 12/23/20 14:16 I have reviewed the current psychotropics carefully including drug interactions. Risk benefit ratio favors no change other than as noted in my dictated progress note. Diagnosis: Problems: (1) Dementia, vascular, with depression (2) Dementia, vascular, with delusions (3) Dementia with behavioral disturbance (4) Dementia in Alzheimer's disease with delusions (5) Dementia in Alzheimer's disease with delirium (6) Major neurocognitive disorder (7) Dementia in Alzheimer's disease with early onset with behavioral disturbance (8) Impulse control disorder, unspecified (9) Anxiety disorder, unspecified MARIA DE JESUS LEMON MD Dec 24, 2020 07:52
[2020-12-24] MEDS: FINASTERIDE 5 MG TABLET. PO SCH (08:39)
[2020-12-24] MEDS: SERTRALINE 25 MG TABLET. PO SCH (08:39)
[2020-12-24] MEDS: DIVALPROEX SODIUM 125 MG TABLET.DR. PO SCH ×2 (08:39→17:07)
[2020-12-24] MEDS: LACTOBACILLUS RHAMNOSUS GG 1 CAPSULE. PO SCH ×2 (08:39→22:05)
[2020-12-24] MEDS: QUEtiapine 25 MG TABLET. PO SCH ×3 (08:40→17:07)
[2020-12-24] MEDS: HYDROCORTISONE ACETATE 25 MG SUPP.RECT PR SCH ×2 (08:42→22:05)
[2020-12-24] MEDS: INSULIN LISPRO 300 UNITS/3 ML VIAL. SQ SCH ×3 (08:45→17:11)
[2020-12-24] MEDS: INSULIN GLARGINE SYRINGE. SQ SCH ×2 (08:52→22:12)
--- NOTE | 2020-12-24 13:30 | NUR ---
Treatment team note: Pt is eating 100% of meals, in which pt may need to have double portions as he is asking for food 20 minutes or less after eating. Pt is sleeping on average 4.5 hours per night with Trazodone as a sleep aid; however, pt. does have periods of yelling out at night. Pt does have some Edema in his legs and had an episode of desating over the weekend with his levels below 88; once placed on oxygen, pt. levels did go up. Pt reports wanting to go home and is obsessed with where his belongings are because "he is leaving today". Pt has attended two activity therapy groups; however, is very hard to get engaged. Pt is currently on Seroquel 37.5mg at 0900, 1300, 1700 and [id number] at HS, Depakote 250mg BID with his VPA at 16 and Zoloft 50mg daily. Referrals for placement are being sent out this week, in hopes to have pt discharged once placement is found.
--- NOTE | 2020-12-24 14:10 | NUR ---
WEEKLY ACTIVITY THERAPY NOTE Date of Admission: 11/23/20 Date of AT Assessment: 11/26 Precipitating behaviors that initiated intake and admission:Aggressive, punching and kicking staff, cursing, name calling, yelling, resisting cares Goal aimed: increase socialization and relaxation skills Initial Goal:Pt will participate in at least three individual or group Activity Therapy sessions per week. Weekly progress towards goal: did not achieve, 2/3 Group participation level: 1 min, 1 mod Weekly highlights: identified most states in songs and states activity afternoon Behaviors observed: limited interest in groups, repetitively asking for food or water after coming from breakfast or lunch Plan: no change to goal Beneficial adaptations:
[2020-12-24 15:46] VITALS: BP 142/89
--- NOTE | 2020-12-24 21:52 | PDOC ---
Exam Note: Marcos Note: Please also refer to the separate dictated note~for this date of service dictated separately.~Patient seen individually. Discussed the patient with Nursing staff reviewed the chart.~Reviewed interim history and current functioning. Reviewed vital signs,~Labs/ Radiology~and current medications noted below. Continue current treatment with the changes noted in the dictated addendum note Assessment: Vital Signs/I&O: Vital Signs Date Time Temp Pulse Resp B/P (MAP) Pulse Ox O2 Delivery O2 Flow Rate FiO2 12/24/20 15:46 97.7 86 16 142/89 (106) 96 Room Air 12/23/20 06:08 3.0 I & O 12/23/20 12/23/20 12/24/20 15:00 23:00 07:00 Intake Total 600 ml 1080 ml Output Total 1500 ml 725 ml Balance 600 ml -420 ml -725 ml Labs: Laboratory Tests Test 12/24/20 08:41 12/24/20 11:55 12/24/20 16:42 12/24/20 19:05 Glucose (Fingerstick) 87 mg/dL (70-99) 176 mg/dL (70-99) H 192 mg/dL (70-99) H 150 mg/dL (70-99) H Current Medications: Meds: Laboratory Tests Test 12/24/20 08:41 12/24/20 11:55 12/24/20 16:42 12/24/20 19:05 Glucose (Fingerstick) 87 mg/dL 176 mg/dL 192 mg/dL 150 mg/dL Current Medications Medications (Trade) Dose Ordered Sig/Connie Route PRN Reason Start Time Stop Time Status Last Admin Dose Admin Acetaminophen (Tylenol) 650 mg PRN Q6HRS PRN PO MILD PAIN / TEMP > 100.3'F 11/23/20 13:00 12/24/20 02:53 Multi-Ingredient Ointment (Analgesic [place]) 1 nasir PRN QID PRN TP MUSCLE PAIN 11/23/20 13:00 Al Hydroxide/Mg Hydroxide (Mylanta Plus Xs) 15 ml PRN AFTMEALHC PRN PO DYSPEPSIA 11/23/20 13:00 Magnesium Hydroxide (Milk Of Magnesia) 2,400 mg PRN QHS PRN PO CONSTIPATION 11/23/20 13:00 Potassium Chloride (Klor-Con) 20 meq BID PO 11/23/20 21:00 12/06/20 16:29 DC 12/05/20 19:14 Tramadol HCl (Ultram) 50 mg PRN Q6HRS PRN PO MODERATE PAIN 4-6 11/23/20 16:00 11/26/20 20:55 Acetaminophen (Tylenol) 500 mg PRN Q6HRS PRN PO pain or fever 11/23/20 16:00 UNV Quetiapine Fumarate (SEROquel) 100 mg QHS PO 11/23/20 21:00 12/04/20 12:02 DC 12/03/20 20:03 Risperidone (RisperDAL) 0.25 mg BID PO 11/23/20 21:00 12/11/20 17:29 DC 12/11/20 07:36 Trazodone HCl (Desyrel) 50 mg QHS PO 11/23/20 21:00 12/04/20 12:02 DC 12/03/20 20:04 Insulin Human Lispro (HumaLOG) 0-9 UNITS TIDWMEALS SQ 11/23/20 17:00 12/24/20 17:11 Dextrose (Dextrose 50%-Water Syringe) 12.5 gm PRN Q15MIN PRN IV SEE COMMENTS 11/23/20 16:15 Apixaban (Eliquis) 5 mg BID PO 11/23/20 21:00 12/13/20 14:23 DC 12/13/20 08:45 Finasteride (Proscar) 5 mg DAILY PO 11/24/20 09:00 12/24/20 08:39 Lorazepam (Ativan) 0.25 mg PRN BID PRN PO ANXIETY 11/23/20 18:30 11/30/20 21:03 Olanzapine (ZyPREXA ZYDIS) 2.5 mg PRN Q2HRS PRN PO ANXIETY / AGITATION 11/23/20 18:45 11/24/20 16:36 DC 11/24/20 08:34 Tamsulosin HCl (Flomax) 0.8 mg HS PO 11/23/20 21:00 12/23/20 19:55 Ziprasidone (Geodon Im) 10 mg PRN Q4HRS PRN IM ANXIETY / AGITATION 11/23/20 18:30 11/23/20 22:46 DC Insulin Glargine (Lantus Syringe) 20 unit BID SQ 11/23/20 21:00 12/24/20 08:52 Lactobacillus Rhamnosus (Culturelle) 1 cap BID PO 11/23/20 21:00 12/24/20 08:39 Sertraline HCl (Zoloft) 25 mg DAILY PO 11/24/20 09:00 12/11/20 17:29 DC 12/11/20 07:36 Quetiapine Fumarate (SEROquel) 25 mg PRN Q6HRS PRN PO agitation 11/24/20 16:45 12/24/20 02:53 Olanzapine (ZyPREXA ZYDIS) 5 mg 1X PRN PO PSYCHOSIS 11/26/20 17:00 12/21/20 19:43 DC 12/14/20 12:11 Levofloxacin (Levaquin) 500 mg 1X ONCE PO 11/30/20 16:00 11/30/20 16:01 DC 11/30/20 17:16 Levofloxacin (Levaquin) 250 mg DAILY16 PO 12/01/20 16:00 12/06/20 16:01 DC 12/06/20 17:35 Quetiapine Fumarate (SEROquel) 150 mg QHS PO 12/04/20 21:00 12/23/20 19:56 Trazodone HCl (Desyrel) 100 mg PRN QHS PRN PO sleep 12/04/20 12:15 12/23/20 19:56 Sertraline HCl (Zoloft) 50 mg DAILY PO 12/12/20 09:00 12/22/20 18:02 DC 12/22/20 07:58 Quetiapine Fumarate (SEROquel) 25 mg 0900,1300,1700 PO 12/12/20 09:00 12/18/20 18:16 DC 12/18/20 17:15 Divalproex Sodium (Depakote) 125 mg 0900,1700 PO 12/12/20 09:00 12/17/20 13:42 DC 12/17/20 08:37 Hydrocortisone Acetate (Anucort-Hc) 25 mg BID IN 12/13/20 21:00 12/22/20 19:46 Divalproex Sodium (Depakote) 250 mg 0900,1700 PO 12/17/20 17:00 12/24/20 17:07 Quetiapine Fumarate (SEROquel) 37.5 mg 0900,1300,1700 PO 12/19/20 09:00 12/24/20 17:07 Olanzapine (ZyPREXA ZYDIS) 5 mg PRN Q2HR PRN PO PSYCHOSIS 12/21/20 19:45 12/22/20 19:45 Lidocaine HCl (Glydo (Lidocaine) Jelly) 1 nasir 1X ONCE MM 12/22/20 13:30 12/22/20 13:31 DC 12/22/20 13:31 Sertraline HCl (Zoloft) 75 mg DAILY PO 12/23/20 09:00 12/24/20 08:39 Furosemide (Lasix) 40 mg 1X ONCE PO 12/23/20 14:15 12/23/20 14:16 DC 12/23/20 14:16 I have reviewed the current psychotropics carefully including drug interactions. Risk benefit ratio favors no change other than as noted in my dictated progress note. Diagnosis: Problems: (1) Dementia, vascular, with depression (2) Dementia, vascular, with delusions (3) Dementia with behavioral disturbance (4) Dementia in Alzheimer's disease with delusions (5) Dementia in Alzheimer's disease with delirium (6) Major neurocognitive disorder (7) Dementia in Alzheimer's disease with early onset with behavioral disturbance (8) Impulse control disorder, unspecified (9) Anxiety disorder, unspecified MARIA DE JESUS LEMON MD Dec 24, 2020 21:52
[2020-12-24] MEDS: TAMSULOSIN 0.4 MG CAP.ER.24H. PO SCH (22:05)
[2020-12-24] MEDS: QUEtiapine 100 MG TABLET. PO SCH (22:06)
[2020-12-25 06:16] VITALS: BP 129/80
[2020-12-25] MEDS: INSULIN LISPRO 300 UNITS/3 ML VIAL. SQ SCH ×3 (08:00→17:28)
[2020-12-25] MEDS: FINASTERIDE 5 MG TABLET. PO SCH (08:02)
[2020-12-25] MEDS: SERTRALINE 25 MG TABLET. PO SCH (08:02)
[2020-12-25] MEDS: LACTOBACILLUS RHAMNOSUS GG 1 CAPSULE. PO SCH ×2 (08:02→19:41)
[2020-12-25] MEDS: DIVALPROEX SODIUM 125 MG TABLET.DR. PO SCH ×2 (08:02→17:23)
[2020-12-25] MEDS: QUEtiapine 25 MG TABLET. PO SCH ×3 (08:03→17:24)
[2020-12-25] MEDS: HYDROCORTISONE ACETATE 25 MG SUPP.RECT PR SCH ×2 (08:04→19:38)
[2020-12-25] MEDS: INSULIN GLARGINE SYRINGE. SQ SCH ×2 (09:32→21:00)
--- NOTE | 2020-12-25 12:54 | NUR ---
Placement referrals: [facility] (aka -- [facility]) [facility]
--- NOTE | 2020-12-25 13:04 | TX PLAN ---
Interdisciplinary Tx Plan Admission Information Nov 23, 2020 at 12:00 Legal Status (on Admission): Voluntary DPOA/Guardian Name: Mohini Palma Contact Verified Code Status: Full Code Allergies: Coded Allergies: No Known Drug Allergies (Unverified , 12/10/20) Diagnoses Primary Diagnosis: Major Neurocognitive D/O, vascular alzheimers with delusions, depression and behavioral disturbance Reasons for Admission: Aggressive, Combative, Confusion/Disoriented, Poor impulse control Problem in Patient's Words: He has been on a steady decline since July per neighbor's report Additional Admission Comments: According to the intake, pt is aggressive, pinching and kicking at nursing staff, cursing, name calling, yelling, resistive to cares. Problems Active Problems: cursing yelling restless agitated confused Inactive Problems: medication compliance Pt Strengths/Limitations Ability for Edmunds: Poor Cognitive Functioning/Ability: Poor Communication Skills/Ability: Fair Financial Resources: Poor Insight/Judgement: Poor Intellectual Ability: Fair Physical Health: Poor Social Skills: Fair Stability in Family: Poor Stability in School/Work: Poor Verbal Skills: Fair Discharge Criteria Discharge Criteria: No need for close observ., Adequate arrangements @DC, Improved behavior, Improved mood/thought Preliminary Discharge Plan Preliminary DC Plan: Placement Needed Special Precautions Fall Risk: Moderate Initial D/C Plan Referrals for placement will need to be sent once stable. Identified Discharge Needs: Psychiatric services Currently Utilized Resources Currently Utilized Resources/P: Primary Care Physician Referrals Community Resources: Psychiatric services Potential [facility] services Identified Problems/Hx/Goals Objectives/Short-Term Goals Short Term Goals: Dec. Aggression, Dec. Outbursts, Medication Stabilization, Monitor Med Effects, Promote Coping Skill Short Term Goals in Patient's: NA Interventions/Frequency Staff Interventions/Frequency&: Psychiatrist to assess pt at least 3x per week for medication management. Social Work to assess pt at least 2x per week to identify barriers to care and discharge planning. Nursing to assess medication effects, behavior modification and completion of 15 minute checks. Encourage participation in group activities (if applicable) or 1:1 engagement based off Activity Dept goals. 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 Pt is sleeping on average 4.5 hours per night with Trazodone as a sleep aid; however, pt. does have periods of yelling out at night. Pt does have some Edema in his legs and had an episode of desating over the weekend with his levels below 88; once placed on oxygen, pt. levels did go up. Pt reports wanting to go home and is obsessed with where his belongings are because "he is leaving today". Pt has attended two activity therapy groups; however, is very hard to get engaged. Pt is currently on Seroquel 37.5mg at 0900, 1300, 1700 and [id number] at HS, Depakote 250mg BID with his VPA at 16 and Zoloft 50mg daily. Referrals for placement are being sent out this week, in hopes to have pt discharged once placement is found. ASHA LAND Dec 25, 2020 13:04
--- NOTE | 2020-12-25 13:51 | NUR ---
NSG NOTE; PREOCCUPATION WITH FOOD ADONAY CONTINUES TO BE PREOCCUPIED WITH MEALS AND SNACKS. HE LEFT THE DINING ROOM AFTER BREAKFAST, RETURNED WITHIN 10 MINUTES AND ASKED ABOUT SNACKS. HIS DIET WAS CHANGED YESTERDAY TO INCLUDE DOUBLE PORTION OF PROTEIN. HE FREQUENTLY ASKS FOR SNACKS, REPEATEDLY AND PERSISTENTLY. HIS REQUESTS FOR SOMETHING TO DRINK HAS DECREASED, THOUGH. HE IS EASILY REDIRECTED AND ACCEPTS STAFF REFUSALS TO KEEP GIVING HIM FOOD
[2020-12-25 15:14] VITALS: BP 134/86
[2020-12-25] MEDS: TAMSULOSIN 0.4 MG CAP.ER.24H. PO SCH (19:41)
[2020-12-25] MEDS: QUEtiapine 100 MG TABLET. PO SCH (19:41)
--- NOTE | 2020-12-25 21:44 | PDOC ---
Exam Note: Marcos Note: Please also refer to the separate dictated note~for this date of service dictated separately.~Patient seen individually. Discussed the patient with Nursing staff reviewed the chart.~Reviewed interim history and current functioning. Reviewed vital signs,~Labs/ Radiology~and current medications noted below. Continue current treatment with the changes noted in the dictated addendum note Assessment: Vital Signs/I&O: Vital Signs Date Time Temp Pulse Resp B/P (MAP) Pulse Ox O2 Delivery O2 Flow Rate FiO2 12/25/20 15:14 98.0 101 18 134/86 (102) 94 12/25/20 06:16 Room Air 2.0 I & O 12/24/20 12/24/20 12/25/20 15:00 23:00 07:00 Intake Total 1020 ml 602 ml Output Total 750 ml 1000 ml Balance 1020 ml -148 ml -1000 ml Labs: Laboratory Tests Test 12/25/20 08:00 12/25/20 11:47 12/25/20 16:45 12/25/20 19:12 Glucose (Fingerstick) 82 mg/dL (70-99) 162 mg/dL (70-99) H 188 mg/dL (70-99) H 166 mg/dL (70-99) H Current Medications: Meds: Laboratory Tests Test 12/25/20 08:00 12/25/20 11:47 12/25/20 16:45 12/25/20 19:12 Glucose (Fingerstick) 82 mg/dL 162 mg/dL 188 mg/dL 166 mg/dL Current Medications Medications (Trade) Dose Ordered Sig/Connie Route PRN Reason Start Time Stop Time Status Last Admin Dose Admin Acetaminophen (Tylenol) 650 mg PRN Q6HRS PRN PO MILD PAIN / TEMP > 100.3'F 11/23/20 13:00 12/24/20 02:53 Multi-Ingredient Ointment (Analgesic [place]) 1 nasir PRN QID PRN TP MUSCLE PAIN 11/23/20 13:00 Al Hydroxide/Mg Hydroxide (Mylanta Plus Xs) 15 ml PRN AFTMEALHC PRN PO DYSPEPSIA 11/23/20 13:00 Magnesium Hydroxide (Milk Of Magnesia) 2,400 mg PRN QHS PRN PO CONSTIPATION 11/23/20 13:00 Potassium Chloride (Klor-Con) 20 meq BID PO 11/23/20 21:00 12/06/20 16:29 DC 12/05/20 19:14 Tramadol HCl (Ultram) 50 mg PRN Q6HRS PRN PO MODERATE PAIN 4-6 11/23/20 16:00 11/26/20 20:55 Acetaminophen (Tylenol) 500 mg PRN Q6HRS PRN PO pain or fever 11/23/20 16:00 UNV Quetiapine Fumarate (SEROquel) 100 mg QHS PO 11/23/20 21:00 12/04/20 12:02 DC 12/03/20 20:03 Risperidone (RisperDAL) 0.25 mg BID PO 11/23/20 21:00 12/11/20 17:29 DC 12/11/20 07:36 Trazodone HCl (Desyrel) 50 mg QHS PO 11/23/20 21:00 12/04/20 12:02 DC 12/03/20 20:04 Insulin Human Lispro (HumaLOG) 0-9 UNITS TIDWMEALS SQ 11/23/20 17:00 12/25/20 17:28 Dextrose (Dextrose 50%-Water Syringe) 12.5 gm PRN Q15MIN PRN IV SEE COMMENTS 11/23/20 16:15 Apixaban (Eliquis) 5 mg BID PO 11/23/20 21:00 12/13/20 14:23 DC 12/13/20 08:45 Finasteride (Proscar) 5 mg DAILY PO 11/24/20 09:00 12/25/20 08:02 Lorazepam (Ativan) 0.25 mg PRN BID PRN PO ANXIETY 11/23/20 18:30 11/30/20 21:03 Olanzapine (ZyPREXA ZYDIS) 2.5 mg PRN Q2HRS PRN PO ANXIETY / AGITATION 11/23/20 18:45 11/24/20 16:36 DC 11/24/20 08:34 Tamsulosin HCl (Flomax) 0.8 mg HS PO 11/23/20 21:00 12/25/20 19:41 Ziprasidone (Geodon Im) 10 mg PRN Q4HRS PRN IM ANXIETY / AGITATION 11/23/20 18:30 11/23/20 22:46 DC Insulin Glargine (Lantus Syringe) 20 unit BID SQ 11/23/20 21:00 12/25/20 09:32 Lactobacillus Rhamnosus (Culturelle) 1 cap BID PO 11/23/20 21:00 12/25/20 19:41 Sertraline HCl (Zoloft) 25 mg DAILY PO 11/24/20 09:00 12/11/20 17:29 DC 12/11/20 07:36 Quetiapine Fumarate (SEROquel) 25 mg PRN Q6HRS PRN PO agitation 11/24/20 16:45 12/24/20 02:53 Olanzapine (ZyPREXA ZYDIS) 5 mg 1X PRN PO PSYCHOSIS 11/26/20 17:00 12/21/20 19:43 DC 12/14/20 12:11 Levofloxacin (Levaquin) 500 mg 1X ONCE PO 11/30/20 16:00 11/30/20 16:01 DC 11/30/20 17:16 Levofloxacin (Levaquin) 250 mg DAILY16 PO 12/01/20 16:00 12/06/20 16:01 DC 12/06/20 17:35 Quetiapine Fumarate (SEROquel) 150 mg QHS PO 12/04/20 21:00 12/25/20 19:41 Trazodone HCl (Desyrel) 100 mg PRN QHS PRN PO sleep 12/04/20 12:15 12/23/20 19:56 Sertraline HCl (Zoloft) 50 mg DAILY PO 12/12/20 09:00 12/22/20 18:02 DC 12/22/20 07:58 Quetiapine Fumarate (SEROquel) 25 mg 0900,1300,1700 PO 12/12/20 09:00 12/18/20 18:16 DC 12/18/20 17:15 Divalproex Sodium (Depakote) 125 mg 0900,1700 PO 12/12/20 09:00 12/17/20 13:42 DC 12/17/20 08:37 Hydrocortisone Acetate (Anucort-Hc) 25 mg BID [place] 12/13/20 21:00 12/24/20 22:05 Divalproex Sodium (Depakote) 250 mg 0900,1700 PO 12/17/20 17:00 12/25/20 17:23 Quetiapine Fumarate (SEROquel) 37.5 mg 0900,1300,1700 PO 12/19/20 09:00 12/25/20 17:24 Olanzapine (ZyPREXA ZYDIS) 5 mg PRN Q2HR PRN PO PSYCHOSIS 12/21/20 19:45 12/22/20 19:45 Lidocaine HCl (Glydo (Lidocaine) Jelly) 1 nasir 1X ONCE MM 12/22/20 13:30 12/22/20 13:31 DC 12/22/20 13:31 Sertraline HCl (Zoloft) 75 mg DAILY PO 12/23/20 09:00 12/25/20 08:02 Furosemide (Lasix) 40 mg 1X ONCE PO 12/23/20 14:15 12/23/20 14:16 DC 12/23/20 14:16 Furosemide (Lasix) 40 mg DAILY PO 12/26/20 09:00 I have reviewed the current psychotropics carefully including drug interactions. Risk benefit ratio favors no change other than as noted in my dictated progress note. Diagnosis: Problems: (1) Dementia, vascular, with depression (2) Dementia, vascular, with delusions (3) Dementia with behavioral disturbance (4) Dementia in Alzheimer's disease with delusions (5) Dementia in Alzheimer's disease with delirium (6) Major neurocognitive disorder (7) Dementia in Alzheimer's disease with early onset with behavioral disturbance (8) Impulse control disorder, unspecified (9) Anxiety disorder, unspecified MARIA DE JESUS LEMON MD Dec 25, 2020 21:44
--- NOTE | 2020-12-25 22:17 | NUR ---
Pt sitting up in chair in pt room, eating evening snack when approached for assessment. Pt pleasantly confused, cooperative with assessment and meds whole. Pt continually asking for more snacks even though he just finished eating. Pt redirected easily.
[2020-12-26 05:44] VITALS: BP 132/85
--- NOTE | 2020-12-26 06:30 | PDOC ---
Exam Note: Marcos Note: This note is a late entry for 12/24/2020 covers elements not covered in my initial note. Subjective: The patient was reviewed in the morning of 12/24/2020 for a treatment team meeting with Peggy Cole, Melani Medellin and Tootie (social media marketing manager), Laura, activity therapy and Gisele HUFF, discussed and reviewed the chart. The patient slept 4-1/2 hours previous night. He has done little better in groups. Per Laura he has attended 2 groups. He remains somewhat obsessive, requesting food and snacks frequently. I met with him in the hallway. Also discussed with Jorje HUFF in the evening. He reported the patient has been less obsessive for part of the day. Review of Systems: No CV, , pulmonary, eye, ENT system symptoms on review. Mental Status Exam: The patient is oriented to himself and situation. Speech is coherent. Abstraction is fair. Computation impaired. Language function intact. Attention span short. Mood and affect anxious. Laboratory Data: Reviewed. Impression: Major neurocognitive disorder Alzheimer vascular with delusion, depression, behavioral disturbance. Anxiety disorder unspecified. Impulse control disorder unspecified. Plan: Maintain rest of the psychotropics unchanged. Assessment: Vital Signs/I&O: Vital Signs Date Time Temp Pulse Resp B/P (MAP) Pulse Ox O2 Delivery O2 Flow Rate FiO2 12/26/20 05:44 98.3 80 20 132/85 (101) 93 Room Air 12/25/20 06:16 2.0 I & O 12/25/20 12/25/20 12/26/20 15:00 23:00 07:00 Intake Total 720 ml 360 ml 240 ml Output Total 1750 ml Balance 720 ml 360 ml -1510 ml Labs: Laboratory Tests Test 12/25/20 08:00 12/25/20 11:47 12/25/20 16:45 12/25/20 19:12 Glucose (Fingerstick) 82 mg/dL (70-99) 162 mg/dL (70-99) H 188 mg/dL (70-99) H 166 mg/dL (70-99) H Current Medications: Meds: Laboratory Tests Test 12/25/20 08:00 12/25/20 11:47 12/25/20 16:45 12/25/20 19:12 Glucose (Fingerstick) 82 mg/dL 162 mg/dL 188 mg/dL 166 mg/dL Current Medications Medications (Trade) Dose Ordered Sig/Connie Route PRN Reason Start Time Stop Time Status Last Admin Dose Admin Acetaminophen (Tylenol) 650 mg PRN Q6HRS PRN PO MILD PAIN / TEMP > 100.3'F 11/23/20 13:00 12/24/20 02:53 Multi-Ingredient Ointment (Analgesic [place]) 1 nasir PRN QID PRN TP MUSCLE PAIN 11/23/20 13:00 Al Hydroxide/Mg Hydroxide (Mylanta Plus Xs) 15 ml PRN AFTMEALHC PRN PO DYSPEPSIA 11/23/20 13:00 Magnesium Hydroxide (Milk Of Magnesia) 2,400 mg PRN QHS PRN PO CONSTIPATION 11/23/20 13:00 Potassium Chloride (Klor-Con) 20 meq BID PO 11/23/20 21:00 12/06/20 16:29 DC 12/05/20 19:14 Tramadol HCl (Ultram) 50 mg PRN Q6HRS PRN PO MODERATE PAIN 4-6 11/23/20 16:00 11/26/20 20:55 Acetaminophen (Tylenol) 500 mg PRN Q6HRS PRN PO pain or fever 11/23/20 16:00 UNV Quetiapine Fumarate (SEROquel) 100 mg QHS PO 11/23/20 21:00 12/04/20 12:02 DC 12/03/20 20:03 Risperidone (RisperDAL) 0.25 mg BID PO 11/23/20 21:00 12/11/20 17:29 DC 12/11/20 07:36 Trazodone HCl (Desyrel) 50 mg QHS PO 11/23/20 21:00 12/04/20 12:02 DC 12/03/20 20:04 Insulin Human Lispro (HumaLOG) 0-9 UNITS TIDWMEALS SQ 11/23/20 17:00 12/25/20 17:28 Dextrose (Dextrose 50%-Water Syringe) 12.5 gm PRN Q15MIN PRN IV SEE COMMENTS 11/23/20 16:15 Apixaban (Eliquis) 5 mg BID PO 11/23/20 21:00 12/13/20 14:23 DC 12/13/20 08:45 Finasteride (Proscar) 5 mg DAILY PO 11/24/20 09:00 12/25/20 08:02 Lorazepam (Ativan) 0.25 mg PRN BID PRN PO ANXIETY 11/23/20 18:30 11/30/20 21:03 Olanzapine (ZyPREXA ZYDIS) 2.5 mg PRN Q2HRS PRN PO ANXIETY / AGITATION 11/23/20 18:45 11/24/20 16:36 DC 11/24/20 08:34 Tamsulosin HCl (Flomax) 0.8 mg HS PO 11/23/20 21:00 12/25/20 19:41 Ziprasidone (Geodon Im) 10 mg PRN Q4HRS PRN IM ANXIETY / AGITATION 11/23/20 18:30 11/23/20 22:46 DC Insulin Glargine (Lantus Syringe) 20 unit BID SQ 11/23/20 21:00 12/25/20 09:32 Lactobacillus Rhamnosus (Culturelle) 1 cap BID PO 11/23/20 21:00 12/25/20 19:41 Sertraline HCl (Zoloft) 25 mg DAILY PO 11/24/20 09:00 12/11/20 17:29 DC 12/11/20 07:36 Quetiapine Fumarate (SEROquel) 25 mg PRN Q6HRS PRN PO agitation 11/24/20 16:45 12/24/20 02:53 Olanzapine (ZyPREXA ZYDIS) 5 mg 1X PRN PO PSYCHOSIS 11/26/20 17:00 12/21/20 19:43 DC 12/14/20 12:11 Levofloxacin (Levaquin) 500 mg 1X ONCE PO 11/30/20 16:00 11/30/20 16:01 DC 11/30/20 17:16 Levofloxacin (Levaquin) 250 mg DAILY16 PO 12/01/20 16:00 12/06/20 16:01 DC 12/06/20 17:35 Quetiapine Fumarate (SEROquel) 150 mg QHS PO 12/04/20 21:00 12/25/20 19:41 Trazodone HCl (Desyrel) 100 mg PRN QHS PRN PO sleep 12/04/20 12:15 12/23/20 19:56 Sertraline HCl (Zoloft) 50 mg DAILY PO 12/12/20 09:00 12/22/20 18:02 DC 12/22/20 07:58 Quetiapine Fumarate (SEROquel) 25 mg 0900,1300,1700 PO 12/12/20 09:00 12/18/20 18:16 DC 12/18/20 17:15 Divalproex Sodium (Depakote) 125 mg 0900,1700 PO 12/12/20 09:00 12/17/20 13:42 DC 12/17/20 08:37 Hydrocortisone Acetate (Anucort-Hc) 25 mg BID [place] 12/13/20 21:00 12/24/20 22:05 Divalproex Sodium (Depakote) 250 mg 0900,1700 PO 12/17/20 17:00 12/25/20 17:23 Quetiapine Fumarate (SEROquel) 37.5 mg 0900,1300,1700 PO 12/19/20 09:00 12/25/20 17:24 Olanzapine (ZyPREXA ZYDIS) 5 mg PRN Q2HR PRN PO PSYCHOSIS 12/21/20 19:45 12/22/20 19:45 Lidocaine HCl (Glydo (Lidocaine) Jelly) 1 nasir 1X ONCE MM 12/22/20 13:30 12/22/20 13:31 DC 12/22/20 13:31 Sertraline HCl (Zoloft) 75 mg DAILY PO 12/23/20 09:00 12/25/20 08:02 Furosemide (Lasix) 40 mg 1X ONCE PO 12/23/20 14:15 12/23/20 14:16 DC 12/23/20 14:16 Furosemide (Lasix) 40 mg DAILY PO 12/26/20 09:00 I have reviewed the current psychotropics carefully including drug interactions. Risk benefit ratio favors no change other than as noted in my dictated progress note. Diagnosis: Problems: (1) Dementia, vascular, with depression (2) Dementia, vascular, with delusions (3) Dementia with behavioral disturbance (4) Dementia in Alzheimer's disease with delusions (5) Dementia in Alzheimer's disease with delirium (6) Major neurocognitive disorder (7) Dementia in Alzheimer's disease with early onset with behavioral disturbance (8) Impulse control disorder, unspecified (9) Anxiety disorder, unspecified XOCHILT,MAN M MD Dec 26, 2020 06:29
--- NOTE | 2020-12-26 07:01 | PDOC ---
Exam Note: Marcos Note: This note is a late entry for 12/25/2020 covers elements not covered in my initial note. Subjective: The patient was seen individually in the evening of 12/25/2020 with Gisele HUFF, discussed and reviewed the chart. The patient slept 5-1/4 hours previous night. He has done better, less restless, anxious, less irritable, less obsessive. His protein in meals has been increased with supplements to help with his repeated request for carbohydrate snacks. He is compliant with medications. Review of Systems: No CV, , pulmonary, eye, ENT system symptoms on review. Mental Status Exam: The patient is oriented to himself and situation. Speech is coherent. Abstraction is fair. Computation impaired. Language function intact. Attention span short. Mood and affect anxious. Laboratory Data: Reviewed. Impression: Major neurocognitive disorder Alzheimer vascular with delusion, depression, behavioral disturbance. Anxiety disorder unspecified. Impulse control disorder unspecified. Plan: Maintain rest of the psychotropics unchanged. Assessment: Vital Signs/I&O: Vital Signs Date Time Temp Pulse Resp B/P (MAP) Pulse Ox O2 Delivery O2 Flow Rate FiO2 12/26/20 05:44 98.3 80 20 132/85 (101) 93 Room Air 12/25/20 06:16 2.0 I & O 12/25/20 12/25/20 12/26/20 15:00 23:00 07:00 Intake Total 720 ml 360 ml 240 ml Output Total 1750 ml Balance 720 ml 360 ml -1510 ml Labs: Laboratory Tests Test 12/25/20 08:00 12/25/20 11:47 12/25/20 16:45 12/25/20 19:12 Glucose (Fingerstick) 82 mg/dL (70-99) 162 mg/dL (70-99) H 188 mg/dL (70-99) H 166 mg/dL (70-99) H Current Medications: Meds: Laboratory Tests Test 12/25/20 08:00 12/25/20 11:47 12/25/20 16:45 12/25/20 19:12 Glucose (Fingerstick) 82 mg/dL 162 mg/dL 188 mg/dL 166 mg/dL Current Medications Medications (Trade) Dose Ordered Sig/Connie Route PRN Reason Start Time Stop Time Status Last Admin Dose Admin Acetaminophen (Tylenol) 650 mg PRN Q6HRS PRN PO MILD PAIN / TEMP > 100.3'F 11/23/20 13:00 12/24/20 02:53 Multi-Ingredient Ointment (Analgesic [place]) 1 nasir PRN QID PRN TP MUSCLE PAIN 11/23/20 13:00 Al Hydroxide/Mg Hydroxide (Mylanta Plus Xs) 15 ml PRN AFTMEALHC PRN PO DYSPEPSIA 11/23/20 13:00 Magnesium Hydroxide (Milk Of Magnesia) 2,400 mg PRN QHS PRN PO CONSTIPATION 11/23/20 13:00 Potassium Chloride (Klor-Con) 20 meq BID PO 11/23/20 21:00 12/06/20 16:29 DC 12/05/20 19:14 Tramadol HCl (Ultram) 50 mg PRN Q6HRS PRN PO MODERATE PAIN 4-6 11/23/20 16:00 11/26/20 20:55 Acetaminophen (Tylenol) 500 mg PRN Q6HRS PRN PO pain or fever 11/23/20 16:00 UNV Quetiapine Fumarate (SEROquel) 100 mg QHS PO 11/23/20 21:00 12/04/20 12:02 DC 12/03/20 20:03 Risperidone (RisperDAL) 0.25 mg BID PO 11/23/20 21:00 12/11/20 17:29 DC 12/11/20 07:36 Trazodone HCl (Desyrel) 50 mg QHS PO 11/23/20 21:00 12/04/20 12:02 DC 12/03/20 20:04 Insulin Human Lispro (HumaLOG) 0-9 UNITS TIDWMEALS SQ 11/23/20 17:00 12/25/20 17:28 Dextrose (Dextrose 50%-Water Syringe) 12.5 gm PRN Q15MIN PRN IV SEE COMMENTS 11/23/20 16:15 Apixaban (Eliquis) 5 mg BID PO 11/23/20 21:00 12/13/20 14:23 DC 12/13/20 08:45 Finasteride (Proscar) 5 mg DAILY PO 11/24/20 09:00 12/25/20 08:02 Lorazepam (Ativan) 0.25 mg PRN BID PRN PO ANXIETY 11/23/20 18:30 4/2/21 21:03 Olanzapine (ZyPREXA ZYDIS) 2.5 mg PRN Q2HRS PRN PO ANXIETY / AGITATION 11/23/20 18:45 11/24/20 16:36 DC 11/24/20 08:34 Tamsulosin HCl (Flomax) 0.8 mg HS PO 11/23/20 21:00 12/25/20 19:41 Ziprasidone (Geodon Im) 10 mg PRN Q4HRS PRN IM ANXIETY / AGITATION 11/23/20 18:30 11/23/20 22:46 DC Insulin Glargine (Lantus Syringe) 20 unit BID SQ 11/23/20 21:00 12/25/20 09:32 Lactobacillus Rhamnosus (Culturelle) 1 cap BID PO 11/23/20 21:00 12/25/20 19:41 Sertraline HCl (Zoloft) 25 mg DAILY PO 11/24/20 09:00 12/11/20 17:29 DC 12/11/20 07:36 Quetiapine Fumarate (SEROquel) 25 mg PRN Q6HRS PRN PO agitation 11/24/20 16:45 12/24/20 02:53 Olanzapine (ZyPREXA ZYDIS) 5 mg 1X PRN PO PSYCHOSIS 11/26/20 17:00 12/21/20 19:43 DC 12/14/20 12:11 Levofloxacin (Levaquin) 500 mg 1X ONCE PO 11/30/20 16:00 11/30/20 16:01 DC 11/30/20 17:16 Levofloxacin (Levaquin) 250 mg DAILY16 PO 12/01/20 16:00 12/06/20 16:01 DC 12/06/20 17:35 Quetiapine Fumarate (SEROquel) 150 mg QHS PO 12/04/20 21:00 12/25/20 19:41 Trazodone HCl (Desyrel) 100 mg PRN QHS PRN PO sleep 12/04/20 12:15 12/23/20 19:56 Sertraline HCl (Zoloft) 50 mg DAILY PO 12/12/20 09:00 12/22/20 18:02 DC 12/22/20 07:58 Quetiapine Fumarate (SEROquel) 25 mg 0900,1300,1700 PO 12/12/20 09:00 12/18/20 18:16 DC 12/18/20 17:15 Divalproex Sodium (Depakote) 125 mg 0900,1700 PO 12/12/20 09:00 12/17/20 13:42 DC 12/17/20 08:37 Hydrocortisone Acetate (Anucort-Hc) 25 mg BID NM 12/13/20 21:00 12/24/20 22:05 Divalproex Sodium (Depakote) 250 mg 0900,1700 PO 12/17/20 17:00 12/25/20 17:23 Quetiapine Fumarate (SEROquel) 37.5 mg 0900,1300,1700 PO 12/19/20 09:00 12/25/20 17:24 Olanzapine (ZyPREXA ZYDIS) 5 mg PRN Q2HR PRN PO PSYCHOSIS 12/21/20 19:45 12/22/20 19:45 Lidocaine HCl (Glydo (Lidocaine) Jelly) 1 nasir 1X ONCE MM 12/22/20 13:30 12/22/20 13:31 DC 12/22/20 13:31 Sertraline HCl (Zoloft) 75 mg DAILY PO 12/23/20 09:00 12/25/20 08:02 Furosemide (Lasix) 40 mg 1X ONCE PO 12/23/20 14:15 12/23/20 14:16 DC 12/23/20 14:16 Furosemide (Lasix) 40 mg DAILY PO 12/26/20 09:00 I have reviewed the current psychotropics carefully including drug interactions. Risk benefit ratio favors no change other than as noted in my dictated progress note. Diagnosis: Problems: (1) Dementia, vascular, with depression (2) Dementia, vascular, with delusions (3) Dementia with behavioral disturbance (4) Dementia in Alzheimer's disease with delusions (5) Dementia in Alzheimer's disease with delirium (6) Major neurocognitive disorder (7) Dementia in Alzheimer's disease with early onset with behavioral disturbance (8) Impulse control disorder, unspecified (9) Anxiety disorder, unspecified MARIA DE JESUS LEMON MD Dec 26, 2020 07:01
[2020-12-26] MEDS: FUROSEMIDE 40 MG TABLET PO SCH (07:27)
[2020-12-26] MEDS: LACTOBACILLUS RHAMNOSUS GG 1 CAPSULE. PO SCH ×2 (07:27→21:29)
[2020-12-26] MEDS: DIVALPROEX SODIUM 125 MG TABLET.DR. PO SCH ×2 (07:27→17:34)
[2020-12-26] MEDS: SERTRALINE 25 MG TABLET. PO SCH (07:27)
[2020-12-26] MEDS: QUEtiapine 25 MG TABLET. PO SCH ×3 (07:27→17:34)
[2020-12-26] MEDS: HYDROCORTISONE ACETATE 25 MG SUPP.RECT PR SCH ×2 (07:28→21:00)
[2020-12-26] MEDS: FINASTERIDE 5 MG TABLET. PO SCH (07:28)
[2020-12-26] MEDS: INSULIN LISPRO 300 UNITS/3 ML VIAL. SQ SCH ×3 (08:00→17:40)
[2020-12-26] MEDS: INSULIN GLARGINE SYRINGE. SQ SCH ×2 (08:17→21:36)
[2020-12-26 09:11] LABS: BASO % 1 % (0-3); EOS # 0.3 x10^3/uL (0.0-0.7); EOS % 5 % (0-3); HEMATOCRIT 38.5 % (39.0-53.0); HEMOGLOBIN 12.3 g/dL (13.0-17.5); LYMPH # 1.3 x10^3/uL (1.0-4.8); LYMPH % 21 % (24-48); MEAN CORPUSCULAR HEMOGLOBIN 28 pg (25-35); MEAN CORPUSCULAR HGB CONC 32 g/dL (31-37); MEAN CORPUSCULAR VOLUME 87 fL (79-100); MONO # 0.5 x10^3/uL (0.0-1.1); MONO % 8 % (0-9); NEUT # 4.2 x10^3uL (1.8-7.7); NEUT % 67 % (31-73); PLATELET COUNT 238 x10^3/uL (140-400); RED CELL DISTRIBUTION WIDTH 15.9 % (11.5-14.5); WHITE BLOOD COUNT 6.3 x10^3/uL (4.0-11.0)
[2020-12-26 09:27] LABS: ALBUMIN 3.1 g/dL (3.4-5.0); ALBUMIN/GLOBULIN RATIO 0.9 (1.0-1.7); CALCIUM 8.3 mg/dL (8.5-10.1); CREATININE 1.3 mg/dL (0.7-1.3); POTASSIUM 4.2 mmol/L (3.5-5.1); TOTAL BILIRUBIN 0.3 mg/dL (0.2-1.0); TOTAL PROTEIN 6.6 g/dL (6.4-8.2)
--- NOTE | 2020-12-26 09:46 | NUR ---
GAIL returned call to Roula Gan at [facility] and found she was in a meeting. GAIL was transferred to voice mail and informed Roula that pt would be LTC and does have Medicaid for payment. [place] to coming [place], [place] [facility] [place] unsure how long he was there. GAIL requested that Roula call GAIL back to further discuss pt case.
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
[2020-12-26 15:52] VITALS: BP 139/85
[2020-12-26] MEDS: TAMSULOSIN 0.4 MG CAP.ER.24H. PO SCH (21:28)
[2020-12-26] MEDS: QUEtiapine 100 MG TABLET. PO SCH (21:29)
--- NOTE | 2020-12-26 21:54 | PDOC ---
Exam Note: Marcos Note: Please also refer to the separate dictated note~for this date of service dictated separately.~Patient seen individually. Discussed the patient with Nursing staff reviewed the chart.~Reviewed interim history and current functioning. Reviewed vital signs,~Labs/ Radiology~and current medications noted below. Continue current treatment with the changes noted in the dictated addendum note Assessment: Vital Signs/I&O: Vital Signs Date Time Temp Pulse Resp B/P (MAP) Pulse Ox O2 Delivery O2 Flow Rate FiO2 12/26/20 15:52 97.1 93 20 139/85 (103) 96 12/26/20 05:44 Room Air 12/25/20 06:16 2.0 I & O 12/25/20 12/25/20 12/26/20 15:00 23:00 07:00 Intake Total 720 ml 360 ml 240 ml Output Total 1750 ml Balance 720 ml 360 ml -1510 ml Labs: Laboratory Tests Test 12/26/20 08:00 12/26/20 08:49 12/26/20 11:32 12/26/20 16:41 Glucose (Fingerstick) 111 mg/dL (70-99) H 163 mg/dL (70-99) H 167 mg/dL (70-99) H White Blood Count 6.3 x10^3/uL (4.0-11.0) Red Blood Count 4.40 x10^6/uL (4.30-5.70) Hemoglobin 12.3 g/dL (13.0-17.5) L Hematocrit 38.5 % (39.0-53.0) L Mean Corpuscular Volume 87 fL (79-100) Mean Corpuscular Hemoglobin 28 pg (25-35) Mean Corpuscular Hemoglobin Concent 32 g/dL (31-37) Red Cell Distribution Width 15.9 % (11.5-14.5) H Platelet Count 238 x10^3/uL (140-400) Neutrophils (%) (Auto) 67 % (31-73) Lymphocytes (%) (Auto) 21 % (24-48) L Monocytes (%) (Auto) 8 % (0-9) Eosinophils (%) (Auto) 5 % (0-3) H Basophils (%) (Auto) 1 % (0-3) Neutrophils # (Auto) 4.2 x10^3uL (1.8-7.7) Lymphocytes # (Auto) 1.3 x10^3/uL (1.0-4.8) Monocytes # (Auto) 0.5 x10^3/uL (0.0-1.1) Eosinophils # (Auto) 0.3 x10^3/uL (0.0-0.7) Basophils # (Auto) 0.0 x10^3/uL (0.0-0.2) Sodium Level 143 mmol/L (136-145) Potassium Level 4.2 mmol/L (3.5-5.1) Chloride Level 106 mmol/L (98-107) Carbon Dioxide Level 29 mmol/L (21-32) Anion Gap 8 (6-14) Blood Urea Nitrogen 19 mg/dL (8-26) Creatinine 1.3 mg/dL (0.7-1.3) Estimated GFR (Cockcroft-Gault) 54.0 BUN/Creatinine Ratio 15 (6-20) Glucose Level 132 mg/dL (70-99) H Calcium Level 8.3 mg/dL (8.5-10.1) L Total Bilirubin 0.3 mg/dL (0.2-1.0) Aspartate Amino Transferase (AST) 14 U/L (15-37) L Alanine Aminotransferase (ALT) 20 U/L (16-63) Alkaline Phosphatase 67 U/L (46-116) Total Protein 6.6 g/dL (6.4-8.2) Albumin 3.1 g/dL (3.4-5.0) L Albumin/Globulin Ratio 0.9 (1.0-1.7) L Test 12/26/20 19:06 Glucose (Fingerstick) 168 mg/dL (70-99) H Current Medications: Meds: Laboratory Tests Test 12/26/20 08:00 12/26/20 08:49 12/26/20 11:32 12/26/20 16:41 Glucose (Fingerstick) 111 mg/dL 163 mg/dL 167 mg/dL White Blood Count 6.3 x10^3/uL Red Blood Count 4.40 x10^6/uL Hemoglobin 12.3 g/dL Hematocrit 38.5 % Mean Corpuscular Volume 87 fL Mean Corpuscular Hemoglobin 28 pg Mean Corpuscular Hemoglobin Concent 32 g/dL Red Cell Distribution Width 15.9 % Platelet Count 238 x10^3/uL Neutrophils (%) (Auto) 67 % Lymphocytes (%) (Auto) 21 % Monocytes (%) (Auto) 8 % Eosinophils (%) (Auto) 5 % Basophils (%) (Auto) 1 % Neutrophils # (Auto) 4.2 x10^3uL Lymphocytes # (Auto) 1.3 x10^3/uL Monocytes # (Auto) 0.5 x10^3/uL Eosinophils # (Auto) 0.3 x10^3/uL Basophils # (Auto) 0.0 x10^3/uL Sodium Level 143 mmol/L Potassium Level 4.2 mmol/L Chloride Level 106 mmol/L Carbon Dioxide Level 29 mmol/L Anion Gap 8 Blood Urea Nitrogen 19 mg/dL Creatinine 1.3 mg/dL Estimated GFR (Cockcroft-Gault) 54.0 BUN/Creatinine Ratio 15 Glucose Level 132 mg/dL Calcium Level 8.3 mg/dL Total Bilirubin 0.3 mg/dL Aspartate Amino Transf (AST/SGOT) 14 U/L Alanine Aminotransferase (ALT/SGPT) 20 U/L Alkaline Phosphatase 67 U/L Total Protein 6.6 g/dL Albumin 3.1 g/dL Albumin/Globulin Ratio 0.9 Test 12/26/20 19:06 Glucose (Fingerstick) 168 mg/dL Current Medications Medications (Trade) Dose Ordered Sig/Connie Route PRN Reason Start Time Stop Time Status Last Admin Dose Admin Acetaminophen (Tylenol) 650 mg PRN Q6HRS PRN PO MILD PAIN / TEMP > 100.3'F 11/23/20 13:00 12/24/20 02:53 Multi-Ingredient Ointment (Analgesic [place]) 1 nasir PRN QID PRN TP MUSCLE PAIN 11/23/20 13:00 Al Hydroxide/Mg Hydroxide (Mylanta Plus Xs) 15 ml PRN AFTMEALHC PRN PO DYSPEPSIA 11/23/20 13:00 Magnesium Hydroxide (Milk Of Magnesia) 2,400 mg PRN QHS PRN PO CONSTIPATION 11/23/20 13:00 Potassium Chloride (Klor-Con) 20 meq BID PO 11/23/20 21:00 12/06/20 16:29 DC 12/05/20 19:14 Tramadol HCl (Ultram) 50 mg PRN Q6HRS PRN PO MODERATE PAIN 4-6 11/23/20 16:00 11/26/20 20:55 Acetaminophen (Tylenol) 500 mg PRN Q6HRS PRN PO pain or fever 11/23/20 16:00 UNV Quetiapine Fumarate (SEROquel) 100 mg QHS PO 11/23/20 21:00 12/04/20 12:02 DC 12/03/20 20:03 Risperidone (RisperDAL) 0.25 mg BID PO 11/23/20 21:00 12/11/20 17:29 DC 12/11/20 07:36 Trazodone HCl (Desyrel) 50 mg QHS PO 11/23/20 21:00 12/04/20 12:02 DC 12/03/20 20:04 Insulin Human Lispro (HumaLOG) 0-9 UNITS TIDWMEALS SQ 11/23/20 17:00 12/26/20 17:40 Dextrose (Dextrose 50%-Water Syringe) 12.5 gm PRN Q15MIN PRN IV SEE COMMENTS 11/23/20 16:15 Apixaban (Eliquis) 5 mg BID PO 11/23/20 21:00 12/13/20 14:23 DC 12/13/20 08:45 Finasteride (Proscar) 5 mg DAILY PO 11/24/20 09:00 12/26/20 07:28 Lorazepam (Ativan) 0.25 mg PRN BID PRN PO ANXIETY 11/23/20 18:30 11/30/20 21:03 Olanzapine (ZyPREXA ZYDIS) 2.5 mg PRN Q2HRS PRN PO ANXIETY / AGITATION 11/23/20 18:45 11/24/20 16:36 DC 11/24/20 08:34 Tamsulosin HCl (Flomax) 0.8 mg HS PO 11/23/20 21:00 12/26/20 21:28 Ziprasidone (Geodon Im) 10 mg PRN Q4HRS PRN IM ANXIETY / AGITATION 11/23/20 18:30 11/23/20 22:46 DC Insulin Glargine (Lantus Syringe) 20 unit BID SQ 11/23/20 21:00 12/26/20 21:36 Lactobacillus Rhamnosus (Culturelle) 1 cap BID PO 11/23/20 21:00 12/26/20 21:29 Sertraline HCl (Zoloft) 25 mg DAILY PO 11/24/20 09:00 12/11/20 17:29 DC 12/11/20 07:36 Quetiapine Fumarate (SEROquel) 25 mg PRN Q6HRS PRN PO agitation 11/24/20 16:45 12/24/20 02:53 Olanzapine (ZyPREXA ZYDIS) 5 mg 1X PRN PO PSYCHOSIS 11/26/20 17:00 12/21/20 19:43 DC 12/14/20 12:11 Levofloxacin (Levaquin) 500 mg 1X ONCE PO 11/30/20 16:00 11/30/20 16:01 DC 11/30/20 17:16 Levofloxacin (Levaquin) 250 mg DAILY16 PO 12/01/20 16:00 12/06/20 16:01 DC 12/06/20 17:35 Quetiapine Fumarate (SEROquel) 150 mg QHS PO 12/04/20 21:00 12/26/20 21:29 Trazodone HCl (Desyrel) 100 mg PRN QHS PRN PO sleep 12/04/20 12:15 12/23/20 19:56 Sertraline HCl (Zoloft) 50 mg DAILY PO 12/12/20 09:00 12/22/20 18:02 DC 12/22/20 07:58 Quetiapine Fumarate (SEROquel) 25 mg 0900,1300,1700 PO 12/12/20 09:00 12/18/20 18:16 DC 12/18/20 17:15 Divalproex Sodium (Depakote) 125 mg 0900,1700 PO 12/12/20 09:00 12/17/20 13:42 DC 12/17/20 08:37 Hydrocortisone Acetate (Anucort-Hc) 25 mg BID IN 12/13/20 21:00 12/26/20 21:00 Divalproex Sodium (Depakote) 250 mg 0900,1700 PO 12/17/20 17:00 12/26/20 17:34 Quetiapine Fumarate (SEROquel) 37.5 mg 0900,1300,1700 PO 12/19/20 09:00 12/26/20 17:34 Olanzapine (ZyPREXA ZYDIS) 5 mg PRN Q2HR PRN PO PSYCHOSIS 12/21/20 19:45 12/22/20 19:45 Lidocaine HCl (Glydo (Lidocaine) Jelly) 1 nasir 1X ONCE MM 12/22/20 13:30 12/22/20 13:31 DC 12/22/20 13:31 Sertraline HCl (Zoloft) 75 mg DAILY PO 12/23/20 09:00 12/26/20 07:27 Furosemide (Lasix) 40 mg 1X ONCE PO 12/23/20 14:15 12/23/20 14:16 DC 12/23/20 14:16 Furosemide (Lasix) 40 mg DAILY PO 12/26/20 09:00 12/26/20 07:27 Current Medications Medications (Trade) Dose Ordered Sig/Connie Route PRN Reason Start Time Stop Time Status Last Admin Dose Admin Furosemide (Lasix) 40 mg DAILY PO 12/26/20 09:00 12/26/20 07:27 I have reviewed the current psychotropics carefully including drug interactions. Risk benefit ratio favors no change other than as noted in my dictated progress note. Diagnosis: Problems: (1) Dementia, vascular, with depression (2) Dementia, vascular, with delusions (3) Dementia with behavioral disturbance (4) Dementia in Alzheimer's disease with delusions (5) Dementia in Alzheimer's disease with delirium (6) Major neurocognitive disorder (7) Dementia in Alzheimer's disease with early onset with behavioral disturbance (8) Impulse control disorder, unspecified (9) Anxiety disorder, unspecified MARIA DE JESUS LEMON MD Dec 26, 2020 21:54
--- NOTE | 2020-12-27 01:04 | NUR ---
Last evening pt sat quietly in day room watching a movie. When tired he went to his room to go to bed. He has been cooperative with assessment and meds tonight and has had no behaviors.
[2020-12-27 05:52] VITALS: BP 143/83
[2020-12-27] MEDS: INSULIN LISPRO 300 UNITS/3 ML VIAL. SQ SCH ×3 (08:00→17:00)
[2020-12-27] MEDS: QUEtiapine 25 MG TABLET. PO SCH ×3 (08:33→17:07)
[2020-12-27] MEDS: FUROSEMIDE 40 MG TABLET PO SCH (08:33)
[2020-12-27] MEDS: FINASTERIDE 5 MG TABLET. PO SCH (08:33)
[2020-12-27] MEDS: HYDROCORTISONE ACETATE 25 MG SUPP.RECT PR SCH ×2 (08:33→22:03)
[2020-12-27] MEDS: SERTRALINE 25 MG TABLET. PO SCH (08:33)
[2020-12-27] MEDS: LACTOBACILLUS RHAMNOSUS GG 1 CAPSULE. PO SCH ×2 (08:34→22:01)
[2020-12-27] MEDS: DIVALPROEX SODIUM 125 MG TABLET.DR. PO SCH ×2 (08:34→17:07)
[2020-12-27] MEDS: INSULIN GLARGINE SYRINGE. SQ SCH ×2 (09:00→22:11)
--- NOTE | 2020-12-27 10:30 | NUR ---
Pt compliant with assessment and medications. His repetitions of demanding food/drink has decreased since previous days. He is absent of aggressive/sexual behavior and language thus far. Flores is still intact and patent; urine is clear and yellow. Plan of care continues, will pass on to next shift.
[2020-12-27 17:47] VITALS: BP 148/96
--- NOTE | 2020-12-27 21:55 | PDOC ---
Exam Note: Marcos Note: Please also refer to the separate dictated note~for this date of service dictated separately.~Patient seen individually. Discussed the patient with Nursing staff reviewed the chart.~Reviewed interim history and current functioning. Reviewed vital signs,~Labs/ Radiology~and current medications noted below. Continue current treatment with the changes noted in the dictated addendum note Assessment: Vital Signs/I&O: Vital Signs Date Time Temp Pulse Resp B/P (MAP) Pulse Ox O2 Delivery O2 Flow Rate FiO2 12/27/20 17:47 98.8 78 18 148/96 (113) 97 12/26/20 05:44 Room Air 12/25/20 06:16 2.0 I & O 12/26/20 12/26/20 12/27/20 15:00 23:00 07:00 Intake Total 900 ml 360 ml 120 ml Output Total 400 ml 400 ml 1225 ml Balance 500 ml -40 ml -1105 ml Labs: Laboratory Tests Test 12/27/20 08:05 12/27/20 12:04 12/27/20 17:15 12/27/20 20:34 Glucose (Fingerstick) 103 mg/dL (70-99) H 184 mg/dL (70-99) H 109 mg/dL (70-99) H 145 mg/dL (70-99) H Current Medications: Meds: Laboratory Tests Test 12/27/20 08:05 12/27/20 12:04 12/27/20 17:15 12/27/20 20:34 Glucose (Fingerstick) 103 mg/dL 184 mg/dL 109 mg/dL 145 mg/dL Current Medications Medications (Trade) Dose Ordered Sig/Connie Route PRN Reason Start Time Stop Time Status Last Admin Dose Admin Acetaminophen (Tylenol) 650 mg PRN Q6HRS PRN PO MILD PAIN / TEMP > 100.3'F 11/23/20 13:00 12/24/20 02:53 Multi-Ingredient Ointment (Analgesic [place]) 1 nasir PRN QID PRN TP MUSCLE PAIN 11/23/20 13:00 Al Hydroxide/Mg Hydroxide (Mylanta Plus Xs) 15 ml PRN AFTMEALHC PRN PO DYSPEPSIA 11/23/20 13:00 Magnesium Hydroxide (Milk Of Magnesia) 2,400 mg PRN QHS PRN PO CONSTIPATION 11/23/20 13:00 Potassium Chloride (Klor-Con) 20 meq BID PO 11/23/20 21:00 12/06/20 16:29 DC 12/05/20 19:14 Tramadol HCl (Ultram) 50 mg PRN Q6HRS PRN PO MODERATE PAIN 4-6 11/23/20 16:00 11/26/20 20:55 Acetaminophen (Tylenol) 500 mg PRN Q6HRS PRN PO pain or fever 11/23/20 16:00 UNV Quetiapine Fumarate (SEROquel) 100 mg QHS PO 11/23/20 21:00 12/04/20 12:02 DC 12/03/20 20:03 Risperidone (RisperDAL) 0.25 mg BID PO 11/23/20 21:00 12/11/20 17:29 DC 12/11/20 07:36 Trazodone HCl (Desyrel) 50 mg QHS PO 11/23/20 21:00 12/04/20 12:02 DC 12/03/20 20:04 Insulin Human Lispro (HumaLOG) 0-9 UNITS TIDWMEALS SQ 11/23/20 17:00 12/27/20 12:00 Dextrose (Dextrose 50%-Water Syringe) 12.5 gm PRN Q15MIN PRN IV SEE COMMENTS 11/23/20 16:15 Apixaban (Eliquis) 5 mg BID PO 11/23/20 21:00 12/13/20 14:23 DC 12/13/20 08:45 Finasteride (Proscar) 5 mg DAILY PO 11/24/20 09:00 12/27/20 08:33 Lorazepam (Ativan) 0.25 mg PRN BID PRN PO ANXIETY 11/23/20 18:30 11/30/20 21:03 Olanzapine (ZyPREXA ZYDIS) 2.5 mg PRN Q2HRS PRN PO ANXIETY / AGITATION 11/23/20 18:45 11/24/20 16:36 DC 11/24/20 08:34 Tamsulosin HCl (Flomax) 0.8 mg HS PO 11/23/20 21:00 12/26/20 21:28 Ziprasidone (Geodon Im) 10 mg PRN Q4HRS PRN IM ANXIETY / AGITATION 11/23/20 18:30 11/23/20 22:46 DC Insulin Glargine (Lantus Syringe) 20 unit BID SQ 11/23/20 21:00 12/27/20 09:00 Lactobacillus Rhamnosus (Culturelle) 1 cap BID PO 11/23/20 21:00 12/27/20 08:34 Sertraline HCl (Zoloft) 25 mg DAILY PO 11/24/20 09:00 12/11/20 17:29 DC 12/11/20 07:36 Quetiapine Fumarate (SEROquel) 25 mg PRN Q6HRS PRN PO agitation 11/24/20 16:45 12/24/20 02:53 Olanzapine (ZyPREXA ZYDIS) 5 mg 1X PRN PO PSYCHOSIS 11/26/20 17:00 12/21/20 19:43 DC 12/14/20 12:11 Levofloxacin (Levaquin) 500 mg 1X ONCE PO 11/30/20 16:00 11/30/20 16:01 DC 11/30/20 17:16 Levofloxacin (Levaquin) 250 mg DAILY16 PO 12/01/20 16:00 12/06/20 16:01 DC 12/06/20 17:35 Quetiapine Fumarate (SEROquel) 150 mg QHS PO 12/04/20 21:00 12/26/20 21:29 Trazodone HCl (Desyrel) 100 mg PRN QHS PRN PO sleep 12/04/20 12:15 12/23/20 19:56 Sertraline HCl (Zoloft) 50 mg DAILY PO 12/12/20 09:00 12/22/20 18:02 DC 12/22/20 07:58 Quetiapine Fumarate (SEROquel) 25 mg 0900,1300,1700 PO 12/12/20 09:00 12/18/20 18:16 DC 12/18/20 17:15 Divalproex Sodium (Depakote) 125 mg 0900,1700 PO 12/12/20 09:00 12/17/20 13:42 DC 12/17/20 08:37 Hydrocortisone Acetate (Anucort-Hc) 25 mg BID AR 12/13/20 21:00 12/27/20 08:33 Divalproex Sodium (Depakote) 250 mg 0900,1700 PO 12/17/20 17:00 12/27/20 17:07 Quetiapine Fumarate (SEROquel) 37.5 mg 0900,1300,1700 PO 12/19/20 09:00 12/27/20 17:07 Olanzapine (ZyPREXA ZYDIS) 5 mg PRN Q2HR PRN PO PSYCHOSIS 12/21/20 19:45 12/22/20 19:45 Lidocaine HCl (Glydo (Lidocaine) Jelly) 1 nasir 1X ONCE MM 12/22/20 13:30 12/22/20 13:31 DC 12/22/20 13:31 Sertraline HCl (Zoloft) 75 mg DAILY PO 12/23/20 09:00 12/27/20 08:33 Furosemide (Lasix) 40 mg 1X ONCE PO 12/23/20 14:15 12/23/20 14:16 DC 12/23/20 14:16 Furosemide (Lasix) 40 mg DAILY PO 12/26/20 09:00 12/27/20 08:33 I have reviewed the current psychotropics carefully including drug interactions. Risk benefit ratio favors no change other than as noted in my dictated progress note. Diagnosis: Problems: (1) Dementia, vascular, with depression (2) Dementia, vascular, with delusions (3) Dementia with behavioral disturbance (4) Dementia in Alzheimer's disease with delusions (5) Dementia in Alzheimer's disease with delirium (6) Major neurocognitive disorder (7) Dementia in Alzheimer's disease with early onset with behavioral disturbance (8) Impulse control disorder, unspecified (9) Anxiety disorder, unspecified MARIA DE JESUS LEMON MD Dec 27, 2020 21:55
[2020-12-27] MEDS: TAMSULOSIN 0.4 MG CAP.ER.24H. PO SCH (22:01)
[2020-12-27] MEDS: QUEtiapine 100 MG TABLET. PO SCH (22:02)
--- NOTE | 2020-12-27 23:01 | NUR ---
Patient in bed, yelling "hello" and asking for ice cream. Compliant with medications but impatient with nurse. Resistive with insulin and overreactive about injection "pain". No agitation or aggression noted at this time.
[2020-12-28 05:54] VITALS: BP 135/88
[2020-12-28] MEDS: FUROSEMIDE 40 MG TABLET PO SCH (08:42)
[2020-12-28] MEDS: DIVALPROEX SODIUM 125 MG TABLET.DR. PO SCH ×2 (08:42→15:57)
[2020-12-28] MEDS: SERTRALINE 25 MG TABLET. PO SCH (08:42)
[2020-12-28] MEDS: HYDROCORTISONE ACETATE 25 MG SUPP.RECT PR SCH ×2 (08:42→19:44)
[2020-12-28] MEDS: LACTOBACILLUS RHAMNOSUS GG 1 CAPSULE. PO SCH ×2 (08:42→19:51)
[2020-12-28] MEDS: FINASTERIDE 5 MG TABLET. PO SCH (08:42)
[2020-12-28] MEDS: QUEtiapine 25 MG TABLET. PO SCH ×3 (08:43→15:58)
[2020-12-28] MEDS: INSULIN LISPRO 300 UNITS/3 ML VIAL. SQ SCH ×3 (08:44→17:16)
--- NOTE | 2020-12-28 08:58 | NUR ---
Pt cooperative this shift, compliant with medications crushed in pudding. He remains fixated on food, stating that he is hungry and asking about when lunch is less than 20 minutes after completing his breakfast. Pt knows what time meals are and has verbalized independently his knowledge of the times, but he continues to ask staff daily about what time meals are served. He is absent of SI/HI/VH/AH/delusions/pain. He is able to make his needs known to staff. His interactions have been appropriate with staff and other patients alike thus far. Flores catheter is patent and leg bag secured. Plan of care continues, will pass to next shift.
[2020-12-28] MEDS: INSULIN GLARGINE SYRINGE. SQ SCH ×2 (09:00→21:59)
[2020-12-28 15:47] VITALS: BP 147/86
--- NOTE | 2020-12-28 16:50 | NUR ---
GAIL met with Janna Pitt who wanted to give pt his letter of guardianship which also notes that he has a court date coming up. Pt was somewhat agitated wanting to know what he did wrong. It was explained to him that he didn't do anything wrong; it was just that a person was assigned to him in the event something came up and needed help in making decisions. Pt just wanted to remain in his "one bedroom apt and be left alone". Pt apologized for being rude and thanked Janna and GAIL for their time.
--- NOTE | 2020-12-28 19:45 | NUR ---
Patient has refused his scheduled hydrocortisone/rectal suppository two nights in a row. He states that he does not need it.
[2020-12-28] MEDS: TAMSULOSIN 0.4 MG CAP.ER.24H. PO SCH (19:51)
[2020-12-28] MEDS: QUEtiapine 100 MG TABLET. PO SCH (19:51)
--- NOTE | 2020-12-28 22:02 | PDOC ---
Exam Note: Marcos Note: Please also refer to the separate dictated note~for this date of service dictated separately.~Patient seen individually. Discussed the patient with Nursing staff reviewed the chart.~Reviewed interim history and current functioning. Reviewed vital signs,~Labs/ Radiology~and current medications noted below. Continue current treatment with the changes noted in the dictated addendum note Assessment: Vital Signs/I&O: Vital Signs Date Time Temp Pulse Resp B/P (MAP) Pulse Ox O2 Delivery O2 Flow Rate FiO2 12/28/20 15:47 97.7 88 20 147/86 (106) 96 Room Air 12/25/20 06:16 2.0 I & O 12/27/20 12/27/20 12/28/20 15:00 23:00 07:00 Intake Total 840 ml 600 ml Output Total 1800 ml 1750 ml Balance 840 ml -1200 ml -1750 ml Labs: Laboratory Tests Test 12/28/20 08:01 12/28/20 11:49 12/28/20 17:01 12/28/20 19:14 Glucose (Fingerstick) 203 mg/dL (70-99) H 145 mg/dL (70-99) H 174 mg/dL (70-99) H 87 mg/dL (70-99) Current Medications: Meds: Laboratory Tests Test 12/28/20 08:01 12/28/20 11:49 12/28/20 17:01 12/28/20 19:14 Glucose (Fingerstick) 203 mg/dL 145 mg/dL 174 mg/dL 87 mg/dL Current Medications Medications (Trade) Dose Ordered Sig/Connie Route PRN Reason Start Time Stop Time Status Last Admin Dose Admin Acetaminophen (Tylenol) 650 mg PRN Q6HRS PRN PO MILD PAIN / TEMP > 100.3'F 11/23/20 13:00 12/24/20 02:53 Multi-Ingredient Ointment (Analgesic [place]) 1 nasir PRN QID PRN TP MUSCLE PAIN 11/23/20 13:00 Al Hydroxide/Mg Hydroxide (Mylanta Plus Xs) 15 ml PRN AFTMEALHC PRN PO DYSPEPSIA 11/23/20 13:00 Magnesium Hydroxide (Milk Of Magnesia) 2,400 mg PRN QHS PRN PO CONSTIPATION 11/23/20 13:00 Potassium Chloride (Klor-Con) 20 meq BID PO 11/23/20 21:00 12/06/20 16:29 DC 12/05/20 19:14 Tramadol HCl (Ultram) 50 mg PRN Q6HRS PRN PO MODERATE PAIN 4-6 11/23/20 16:00 11/26/20 20:55 Acetaminophen (Tylenol) 500 mg PRN Q6HRS PRN PO pain or fever 11/23/20 16:00 UNV Quetiapine Fumarate (SEROquel) 100 mg QHS PO 11/23/20 21:00 12/04/20 12:02 DC 12/03/20 20:03 Risperidone (RisperDAL) 0.25 mg BID PO 11/23/20 21:00 12/11/20 17:29 DC 12/11/20 07:36 Trazodone HCl (Desyrel) 50 mg QHS PO 11/23/20 21:00 12/04/20 12:02 DC 12/03/20 20:04 Insulin Human Lispro (HumaLOG) 0-9 UNITS TIDWMEALS SQ 11/23/20 17:00 12/28/20 17:16 Dextrose (Dextrose 50%-Water Syringe) 12.5 gm PRN Q15MIN PRN IV SEE COMMENTS 11/23/20 16:15 Apixaban (Eliquis) 5 mg BID PO 11/23/20 21:00 12/13/20 14:23 DC 12/13/20 08:45 Finasteride (Proscar) 5 mg DAILY PO 11/24/20 09:00 12/28/20 08:42 Lorazepam (Ativan) 0.25 mg PRN BID PRN PO ANXIETY 11/23/20 18:30 11/30/20 21:03 Olanzapine (ZyPREXA ZYDIS) 2.5 mg PRN Q2HRS PRN PO ANXIETY / AGITATION 11/23/20 18:45 11/24/20 16:36 DC 11/24/20 08:34 Tamsulosin HCl (Flomax) 0.8 mg HS PO 11/23/20 21:00 12/28/20 19:51 Ziprasidone (Geodon Im) 10 mg PRN Q4HRS PRN IM ANXIETY / AGITATION 11/23/20 18:30 11/23/20 22:46 DC Insulin Glargine (Lantus Syringe) 20 unit BID SQ 11/23/20 21:00 12/28/20 21:59 Lactobacillus Rhamnosus (Culturelle) 1 cap BID PO 11/23/20 21:00 12/28/20 19:51 Sertraline HCl (Zoloft) 25 mg DAILY PO 11/24/20 09:00 12/11/20 17:29 DC 12/11/20 07:36 Quetiapine Fumarate (SEROquel) 25 mg PRN Q6HRS PRN PO agitation 11/24/20 16:45 12/24/20 02:53 Olanzapine (ZyPREXA ZYDIS) 5 mg 1X PRN PO PSYCHOSIS 11/26/20 17:00 12/21/20 19:43 DC 12/14/20 12:11 Levofloxacin (Levaquin) 500 mg 1X ONCE PO 11/30/20 16:00 11/30/20 16:01 DC 11/30/20 17:16 Levofloxacin (Levaquin) 250 mg DAILY16 PO 12/01/20 16:00 12/06/20 16:01 DC 12/06/20 17:35 Quetiapine Fumarate (SEROquel) 150 mg QHS PO 12/04/20 21:00 12/28/20 19:51 Trazodone HCl (Desyrel) 100 mg PRN QHS PRN PO sleep 12/04/20 12:15 12/23/20 19:56 Sertraline HCl (Zoloft) 50 mg DAILY PO 12/12/20 09:00 12/22/20 18:02 DC 12/22/20 07:58 Quetiapine Fumarate (SEROquel) 25 mg 0900,1300,1700 PO 12/12/20 09:00 12/18/20 18:16 DC 12/18/20 17:15 Divalproex Sodium (Depakote) 125 mg 0900,1700 PO 12/12/20 09:00 12/17/20 13:42 DC 12/17/20 08:37 Hydrocortisone Acetate (Anucort-Hc) 25 mg BID [place] 12/13/20 21:00 12/28/20 08:42 Divalproex Sodium (Depakote) 250 mg 0900,1700 PO 12/17/20 17:00 12/28/20 15:57 Quetiapine Fumarate (SEROquel) 37.5 mg 0900,1300,1700 PO 12/19/20 09:00 12/28/20 15:58 Olanzapine (ZyPREXA ZYDIS) 5 mg PRN Q2HR PRN PO PSYCHOSIS 12/21/20 19:45 12/22/20 19:45 Lidocaine HCl (Glydo (Lidocaine) Jelly) 1 nasir 1X ONCE MM 12/22/20 13:30 12/22/20 13:31 DC 12/22/20 13:31 Sertraline HCl (Zoloft) 75 mg DAILY PO 12/23/20 09:00 12/28/20 08:42 Furosemide (Lasix) 40 mg 1X ONCE PO 12/23/20 14:15 12/23/20 14:16 DC 12/23/20 14:16 Furosemide (Lasix) 40 mg DAILY PO 12/26/20 09:00 12/28/20 08:42 I have reviewed the current psychotropics carefully including drug interactions. Risk benefit ratio favors no change other than as noted in my dictated progress note. 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
--- NOTE | 2020-12-28 23:08 | NUR ---
Patient was medication compliant. Several times he came to the nurses station to stated that someone had stolen his shoes. Each time he was told that the shoes were locked in the closet. He stated he "will be getting them back" in the morning. 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
[2020-12-29 06:21] VITALS: BP 143/77
--- NOTE | 2020-12-29 07:28 | PDOC ---
Exam Note: Marcos Note: This note is a late entry for 12/26/2020 covers elements not covered in my initial note. Subjective: The patient was seen individually in the evening of 12/26/2020 with Epi HUFF, discussed and reviewed the chart. The patient slept 5-1/2 hours previous night. He was obsessed about food and drinks, compliant with his medications. I met with him in the hallway. Review of Systems: No CV, , pulmonary, eye, ENT system symptoms on review. Mental Status Exam: The patient is oriented to himself and situation. Speech is coherent. Abstraction is fair. Computation impaired. Language function intact. Attention span short. Mood and affect anxious. Overall he is less agitated and he was not repeatedly asking for food and drink which is something he has done with me consistently in the past. Laboratory Data: Reviewed. Impression: Major neurocognitive disorder Alzheimer vascular with delusion, depression, behavioral disturbance. Anxiety disorder unspecified. Impulse control disorder unspecified. Plan: Maintain rest of the psychotropics unchanged. Assessment: Vital Signs/I&O: Vital Signs Date Time Temp Pulse Resp B/P (MAP) Pulse Ox O2 Delivery O2 Flow Rate FiO2 12/29/20 06:21 97.7 100 17 143/77 (99) 93 12/28/20 15:47 Room Air 12/25/20 06:16 2.0 I & O 12/28/20 12/28/20 12/29/20 15:00 23:00 07:00 Intake Total 640 ml 760 ml Output Total 200 ml 1120 ml 750 ml Balance 440 ml -360 ml -750 ml Labs: Laboratory Tests Test 12/28/20 08:01 12/28/20 11:49 12/28/20 17:01 12/28/20 19:14 Glucose (Fingerstick) 203 mg/dL (70-99) H 145 mg/dL (70-99) H 174 mg/dL (70-99) H 87 mg/dL (70-99) Current Medications: Meds: Laboratory Tests Test 12/28/20 08:01 12/28/20 11:49 12/28/20 17:01 12/28/20 19:14 Glucose (Fingerstick) 203 mg/dL 145 mg/dL 174 mg/dL 87 mg/dL Current Medications Medications (Trade) Dose Ordered Sig/Connie Route PRN Reason Start Time Stop Time Status Last Admin Dose Admin Acetaminophen (Tylenol) 650 mg PRN Q6HRS PRN PO MILD PAIN / TEMP > 100.3'F 11/23/20 13:00 12/24/20 02:53 Multi-Ingredient Ointment (Analgesic [place]) 1 nasir PRN QID PRN TP MUSCLE PAIN 11/23/20 13:00 Al Hydroxide/Mg Hydroxide (Mylanta Plus Xs) 15 ml PRN AFTMEALHC PRN PO DYSPEPSIA 11/23/20 13:00 Magnesium Hydroxide (Milk Of Magnesia) 2,400 mg PRN QHS PRN PO CONSTIPATION 11/23/20 13:00 Potassium Chloride (Klor-Con) 20 meq BID PO 11/23/20 21:00 12/06/20 16:29 DC 12/05/20 19:14 Tramadol HCl (Ultram) 50 mg PRN Q6HRS PRN PO MODERATE PAIN 4-6 11/23/20 16:00 11/26/20 20:55 Acetaminophen (Tylenol) 500 mg PRN Q6HRS PRN PO pain or fever 11/23/20 16:00 UNV Quetiapine Fumarate (SEROquel) 100 mg QHS PO 11/23/20 21:00 12/04/20 12:02 DC 12/03/20 20:03 Risperidone (RisperDAL) 0.25 mg BID PO 11/23/20 21:00 12/11/20 17:29 DC 12/11/20 07:36 Trazodone HCl (Desyrel) 50 mg QHS PO 11/23/20 21:00 12/04/20 12:02 DC 12/03/20 20:04 Insulin Human Lispro (HumaLOG) 0-9 UNITS TIDWMEALS SQ 11/23/20 17:00 12/28/20 17:16 Dextrose (Dextrose 50%-Water Syringe) 12.5 gm PRN Q15MIN PRN IV SEE COMMENTS 11/23/20 16:15 Apixaban (Eliquis) 5 mg BID PO 11/23/20 21:00 12/13/20 14:23 DC 12/13/20 08:45 Finasteride (Proscar) 5 mg DAILY PO 11/24/20 09:00 12/28/20 08:42 Lorazepam (Ativan) 0.25 mg PRN BID PRN PO ANXIETY 11/23/20 18:30 11/30/20 21:03 Olanzapine (ZyPREXA ZYDIS) 2.5 mg PRN Q2HRS PRN PO ANXIETY / AGITATION 11/23/20 18:45 11/24/20 16:36 DC 11/24/20 08:34 Tamsulosin HCl (Flomax) 0.8 mg HS PO 11/23/20 21:00 12/28/20 19:51 Ziprasidone (Geodon Im) 10 mg PRN Q4HRS PRN IM ANXIETY / AGITATION 11/23/20 18:30 11/23/20 22:46 DC Insulin Glargine (Lantus Syringe) 20 unit BID SQ 11/23/20 21:00 12/28/20 21:59 Lactobacillus Rhamnosus (Culturelle) 1 cap BID PO 11/23/20 21:00 12/28/20 19:51 Sertraline HCl (Zoloft) 25 mg DAILY PO 11/24/20 09:00 12/11/20 17:29 DC 12/11/20 07:36 Quetiapine Fumarate (SEROquel) 25 mg PRN Q6HRS PRN PO agitation 11/24/20 16:45 12/24/20 02:53 Olanzapine (ZyPREXA ZYDIS) 5 mg 1X PRN PO PSYCHOSIS 11/26/20 17:00 12/21/20 19:43 DC 12/14/20 12:11 Levofloxacin (Levaquin) 500 mg 1X ONCE PO 11/30/20 16:00 11/30/20 16:01 DC 11/30/20 17:16 Levofloxacin (Levaquin) 250 mg DAILY16 PO 12/01/20 16:00 12/06/20 16:01 DC 12/06/20 17:35 Quetiapine Fumarate (SEROquel) 150 mg QHS PO 12/04/20 21:00 12/28/20 19:51 Trazodone HCl (Desyrel) 100 mg PRN QHS PRN PO sleep 12/04/20 12:15 12/23/20 19:56 Sertraline HCl (Zoloft) 50 mg DAILY PO 12/12/20 09:00 12/22/20 18:02 DC 12/22/20 07:58 Quetiapine Fumarate (SEROquel) 25 mg 0900,1300,1700 PO 12/12/20 09:00 12/18/20 18:16 DC 12/18/20 17:15 Divalproex Sodium (Depakote) 125 mg 0900,1700 PO 12/12/20 09:00 12/17/20 13:42 DC 12/17/20 08:37 Hydrocortisone Acetate (Anucort-Hc) 25 mg BID DC 12/13/20 21:00 12/28/20 08:42 Divalproex Sodium (Depakote) 250 mg 0900,1700 PO 12/17/20 17:00 12/28/20 15:57 Quetiapine Fumarate (SEROquel) 37.5 mg 0900,1300,1700 PO 12/19/20 09:00 12/28/20 15:58 Olanzapine (ZyPREXA ZYDIS) 5 mg PRN Q2HR PRN PO PSYCHOSIS 12/21/20 19:45 12/22/20 19:45 Lidocaine HCl (Glydo (Lidocaine) Jelly) 1 nasir 1X ONCE MM 12/22/20 13:30 12/22/20 13:31 DC 12/22/20 13:31 Sertraline HCl (Zoloft) 75 mg DAILY PO 12/23/20 09:00 12/28/20 08:42 Furosemide (Lasix) 40 mg 1X ONCE PO 12/23/20 14:15 12/23/20 14:16 DC 12/23/20 14:16 Furosemide (Lasix) 40 mg DAILY PO 12/26/20 09:00 12/28/20 08:42 I have reviewed the current psychotropics carefully including drug interactions. Risk benefit ratio favors no change other than as noted in my dictated progress note. Diagnosis: Problems: (1) Dementia, vascular, with depression (2) Dementia, vascular, with delusions (3) Dementia with behavioral disturbance (4) Dementia in Alzheimer's disease with delusions (5) Dementia in Alzheimer's disease with delirium (6) Major neurocognitive disorder (7) Dementia in Alzheimer's disease with early onset with behavioral disturbance (8) Impulse control disorder, unspecified (9) Anxiety disorder, unspecified MARIA DE JESUS LEMON MD December 29, 2020 07:28
--- NOTE | 2020-12-29 07:59 | PDOC ---
Exam Note: Marcos Note: This note is a late entry for 12/27/2020 covers elements not covered in my initial note. Subjective: The patient was seen individually in the evening of 12/27/2020 with Apolonia HUFF, discussed and reviewed the chart. The patient slept 5 hours previous night. I met with him in his room. He is less anxious, restless, less obsessed about food. Review of Systems: No CV, , pulmonary, eye, ENT system symptoms on review. Mental Status Exam: The patient is oriented to himself and situation. Speech is coherent. Abstraction is fair. Computation impaired. Language function intact. Attention span short. Mood and affect anxious, obsessed. Laboratory Data: Reviewed. Impression: Major neurocognitive disorder Alzheimer vascular with delusion, depression, behavioral disturbance. Anxiety disorder unspecified. Impulse control disorder unspecified. Plan: Maintain rest of the psychotropics unchanged. Assessment: Vital Signs/I&O: Vital Signs Date Time Temp Pulse Resp B/P (MAP) Pulse Ox O2 Delivery O2 Flow Rate FiO2 12/29/20 06:21 97.7 100 17 143/77 (99) 93 12/28/20 15:47 Room Air 12/25/20 06:16 2.0 I & O 12/28/20 12/28/20 12/29/20 15:00 23:00 07:00 Intake Total 640 ml 760 ml Output Total 200 ml 1120 ml 750 ml Balance 440 ml -360 ml -750 ml Labs: Laboratory Tests Test 12/28/20 08:01 12/28/20 11:49 12/28/20 17:01 12/28/20 19:14 Glucose (Fingerstick) 203 mg/dL (70-99) H 145 mg/dL (70-99) H 174 mg/dL (70-99) H 87 mg/dL (70-99) Test 12/29/20 07:34 Glucose (Fingerstick) 158 mg/dL (70-99) H Current Medications: Meds: Laboratory Tests Test 12/28/20 08:01 12/28/20 11:49 12/28/20 17:01 12/28/20 19:14 Glucose (Fingerstick) 203 mg/dL 145 mg/dL 174 mg/dL 87 mg/dL Test 12/29/20 07:34 Glucose (Fingerstick) 158 mg/dL Current Medications Medications (Trade) Dose Ordered Sig/Connie Route PRN Reason Start Time Stop Time Status Last Admin Dose Admin Acetaminophen (Tylenol) 650 mg PRN Q6HRS PRN PO MILD PAIN / TEMP > 100.3'F 11/23/20 13:00 12/24/20 02:53 Multi-Ingredient Ointment (Analgesic [place]) 1 nasir PRN QID PRN TP MUSCLE PAIN 11/23/20 13:00 Al Hydroxide/Mg Hydroxide (Mylanta Plus Xs) 15 ml PRN AFTMEALHC PRN PO DYSPEPSIA 11/23/20 13:00 Magnesium Hydroxide (Milk Of Magnesia) 2,400 mg PRN QHS PRN PO CONSTIPATION 11/23/20 13:00 Potassium Chloride (Klor-Con) 20 meq BID PO 11/23/20 21:00 12/06/20 16:29 DC 12/05/20 19:14 Tramadol HCl (Ultram) 50 mg PRN Q6HRS PRN PO MODERATE PAIN 4-6 11/23/20 16:00 11/26/20 20:55 Acetaminophen (Tylenol) 500 mg PRN Q6HRS PRN PO pain or fever 11/23/20 16:00 UNV Quetiapine Fumarate (SEROquel) 100 mg QHS PO 11/23/20 21:00 12/04/20 12:02 DC 12/03/20 20:03 Risperidone (RisperDAL) 0.25 mg BID PO 11/23/20 21:00 12/11/20 17:29 DC 12/11/20 07:36 Trazodone HCl (Desyrel) 50 mg QHS PO 11/23/20 21:00 12/04/20 12:02 DC 12/03/20 20:04 Insulin Human Lispro (HumaLOG) 0-9 UNITS TIDWMEALS SQ 11/23/20 17:00 12/28/20 17:16 Dextrose (Dextrose 50%-Water Syringe) 12.5 gm PRN Q15MIN PRN IV SEE COMMENTS 11/23/20 16:15 Apixaban (Eliquis) 5 mg BID PO 11/23/20 21:00 12/13/20 14:23 DC 12/13/20 08:45 Finasteride (Proscar) 5 mg DAILY PO 11/24/20 09:00 12/28/20 08:42 Lorazepam (Ativan) 0.25 mg PRN BID PRN PO ANXIETY 11/23/20 18:30 11/30/20 21:03 Olanzapine (ZyPREXA ZYDIS) 2.5 mg PRN Q2HRS PRN PO ANXIETY / AGITATION 11/23/20 18:45 11/24/20 16:36 DC 11/24/20 08:34 Tamsulosin HCl (Flomax) 0.8 mg HS PO 11/23/20 21:00 12/28/20 19:51 Ziprasidone (Geodon Im) 10 mg PRN Q4HRS PRN IM ANXIETY / AGITATION 11/23/20 18:30 11/23/20 22:46 DC Insulin Glargine (Lantus Syringe) 20 unit BID SQ 11/23/20 21:00 12/28/20 21:59 Lactobacillus Rhamnosus (Culturelle) 1 cap BID PO 11/23/20 21:00 12/28/20 19:51 Sertraline HCl (Zoloft) 25 mg DAILY PO 11/24/20 09:00 12/11/20 17:29 DC 12/11/20 07:36 Quetiapine Fumarate (SEROquel) 25 mg PRN Q6HRS PRN PO agitation 11/24/20 16:45 12/24/20 02:53 Olanzapine (ZyPREXA ZYDIS) 5 mg 1X PRN PO PSYCHOSIS 11/26/20 17:00 12/21/20 19:43 DC 12/14/20 12:11 Levofloxacin (Levaquin) 500 mg 1X ONCE PO 11/30/20 16:00 11/30/20 16:01 DC 11/30/20 17:16 Levofloxacin (Levaquin) 250 mg DAILY16 PO 12/01/20 16:00 12/06/20 16:01 DC 12/06/20 17:35 Quetiapine Fumarate (SEROquel) 150 mg QHS PO 12/04/20 21:00 12/28/20 19:51 Trazodone HCl (Desyrel) 100 mg PRN QHS PRN PO sleep 12/04/20 12:15 12/23/20 19:56 Sertraline HCl (Zoloft) 50 mg DAILY PO 12/12/20 09:00 12/22/20 18:02 DC 12/22/20 07:58 Quetiapine Fumarate (SEROquel) 25 mg 0900,1300,1700 PO 12/12/20 09:00 12/18/20 18:16 DC 12/18/20 17:15 Divalproex Sodium (Depakote) 125 mg 0900,1700 PO 12/12/20 09:00 12/17/20 13:42 DC 12/17/20 08:37 Hydrocortisone Acetate (Anucort-Hc) 25 mg BID [place] 12/13/20 21:00 12/28/20 08:42 Divalproex Sodium (Depakote) 250 mg 0900,1700 PO 12/17/20 17:00 12/28/20 15:57 Quetiapine Fumarate (SEROquel) 37.5 mg 0900,1300,1700 PO 12/19/20 09:00 12/28/20 15:58 Olanzapine (ZyPREXA ZYDIS) 5 mg PRN Q2HR PRN PO PSYCHOSIS 12/21/20 19:45 12/22/20 19:45 Lidocaine HCl (Glydo (Lidocaine) Jelly) 1 nasir 1X ONCE MM 12/22/20 13:30 12/22/20 13:31 DC 12/22/20 13:31 Sertraline HCl (Zoloft) 75 mg DAILY PO 12/23/20 09:00 12/28/20 08:42 Furosemide (Lasix) 40 mg 1X ONCE PO 12/23/20 14:15 12/23/20 14:16 DC 12/23/20 14:16 Furosemide (Lasix) 40 mg DAILY PO 12/26/20 09:00 12/28/20 08:42 I have reviewed the current psychotropics carefully including drug interactions. Risk benefit ratio favors no change other than as noted in my dictated progress note. Diagnosis: Problems: (1) Dementia, vascular, with depression (2) Dementia, vascular, with delusions (3) Dementia with behavioral disturbance (4) Dementia in Alzheimer's disease with delusions (5) Dementia in Alzheimer's disease with delirium (6) Major neurocognitive disorder (7) Dementia in Alzheimer's disease with early onset with behavioral disturbance (8) Impulse control disorder, unspecified (9) Anxiety disorder, unspecified MARIA DE JESUS LEMON MD December 29, 2020 07:59
[2020-12-29] MEDS: INSULIN LISPRO 300 UNITS/3 ML VIAL. SQ SCH ×3 (08:00→17:21)
[2020-12-29] MEDS: FUROSEMIDE 40 MG TABLET PO SCH (08:24)
[2020-12-29] MEDS: SERTRALINE 25 MG TABLET. PO SCH (08:24)
[2020-12-29] MEDS: HYDROCORTISONE ACETATE 25 MG SUPP.RECT PR SCH ×2 (08:24→21:42)
[2020-12-29] MEDS: DIVALPROEX SODIUM 125 MG TABLET.DR. PO SCH ×2 (08:24→17:02)
[2020-12-29] MEDS: QUEtiapine 25 MG TABLET. PO SCH ×3 (08:24→17:03)
[2020-12-29] MEDS: FINASTERIDE 5 MG TABLET. PO SCH (08:24)
[2020-12-29] MEDS: LACTOBACILLUS RHAMNOSUS GG 1 CAPSULE. PO SCH ×2 (08:24→21:35)
[2020-12-29] MEDS: INSULIN GLARGINE SYRINGE. SQ SCH ×2 (09:01→21:41)
--- NOTE | 2020-12-29 09:42 | NUR ---
Patient is calm and cooperative during breakfast. Patient is eager to get to room after eating breakfast and does not enjoy waiting to get back to his room.
[2020-12-29 15:44] VITALS: BP 139/85
[2020-12-29] MEDS: TAMSULOSIN 0.4 MG CAP.ER.24H. PO SCH (21:36)
[2020-12-29] MEDS: QUEtiapine 100 MG TABLET. PO SCH (21:36)
--- NOTE | 2020-12-29 21:47 | PDOC ---
Exam Note: Marcos Note: Please also refer to the separate dictated note~for this date of service dictated separately.~Patient seen individually. Discussed the patient with Nursing staff reviewed the chart.~Reviewed interim history and current functioning. Reviewed vital signs,~Labs/ Radiology~and current medications noted below. Continue current treatment with the changes noted in the dictated addendum note Assessment: Vital Signs/I&O: Vital Signs Date Time Temp Pulse Resp B/P (MAP) Pulse Ox O2 Delivery O2 Flow Rate FiO2 12/29/20 15:44 97.9 110 18 139/85 (103) 93 Room Air 12/25/20 06:16 2.0 I & O 12/28/20 12/28/20 12/29/20 14:59 22:59 06:59 Intake Total 640 ml 760 ml Output Total 200 ml 1120 ml 750 ml Balance 440 ml -360 ml -750 ml Labs: Laboratory Tests Test 12/29/20 07:34 12/29/20 11:50 12/29/20 16:59 12/29/20 19:19 Glucose (Fingerstick) 158 mg/dL (70-99) H 168 mg/dL (70-99) H 183 mg/dL (70-99) H 168 mg/dL (70-99) H Current Medications: Meds: Laboratory Tests Test 12/29/20 07:34 12/29/20 11:50 12/29/20 16:59 12/29/20 19:19 Glucose (Fingerstick) 158 mg/dL 168 mg/dL 183 mg/dL 168 mg/dL Current Medications Medications (Trade) Dose Ordered Sig/Connie Route PRN Reason Start Time Stop Time Status Last Admin Dose Admin Acetaminophen (Tylenol) 650 mg PRN Q6HRS PRN PO MILD PAIN / TEMP > 100.3'F 11/23/20 13:00 12/24/20 02:53 Multi-Ingredient Ointment (Analgesic [place]) 1 nasir PRN QID PRN TP MUSCLE PAIN 11/23/20 13:00 Al Hydroxide/Mg Hydroxide (Mylanta Plus Xs) 15 ml PRN AFTMEALHC PRN PO DYSPEPSIA 11/23/20 13:00 Magnesium Hydroxide (Milk Of Magnesia) 2,400 mg PRN QHS PRN PO CONSTIPATION 11/23/20 13:00 Potassium Chloride (Klor-Con) 20 meq BID PO 11/23/20 21:00 12/06/20 16:29 DC 12/05/20 19:14 Tramadol HCl (Ultram) 50 mg PRN Q6HRS PRN PO MODERATE PAIN 4-6 11/23/20 16:00 11/26/20 20:55 Acetaminophen (Tylenol) 500 mg PRN Q6HRS PRN PO pain or fever 11/23/20 16:00 UNV Quetiapine Fumarate (SEROquel) 100 mg QHS PO 11/23/20 21:00 12/04/20 12:02 DC 12/03/20 20:03 Risperidone (RisperDAL) 0.25 mg BID PO 11/23/20 21:00 12/11/20 17:29 DC 12/11/20 07:36 Trazodone HCl (Desyrel) 50 mg QHS PO 11/23/20 21:00 12/04/20 12:02 DC 12/03/20 20:04 Insulin Human Lispro (HumaLOG) 0-9 UNITS TIDWMEALS SQ 11/23/20 17:00 12/29/20 17:21 Dextrose (Dextrose 50%-Water Syringe) 12.5 gm PRN Q15MIN PRN IV SEE COMMENTS 11/23/20 16:15 Apixaban (Eliquis) 5 mg BID PO 11/23/20 21:00 12/13/20 14:23 DC 12/13/20 08:45 Finasteride (Proscar) 5 mg DAILY PO 11/24/20 09:00 12/29/20 08:24 Lorazepam (Ativan) 0.25 mg PRN BID PRN PO ANXIETY 11/23/20 18:30 11/30/20 21:03 Olanzapine (ZyPREXA ZYDIS) 2.5 mg PRN Q2HRS PRN PO ANXIETY / AGITATION 11/23/20 18:45 11/24/20 16:36 DC 11/24/20 08:34 Tamsulosin HCl (Flomax) 0.8 mg HS PO 11/23/20 21:00 12/29/20 21:36 Ziprasidone (Geodon Im) 10 mg PRN Q4HRS PRN IM ANXIETY / AGITATION 11/23/20 18:30 11/23/20 22:46 DC Insulin Glargine (Lantus Syringe) 20 unit BID SQ 11/23/20 21:00 12/29/20 21:41 Lactobacillus Rhamnosus (Culturelle) 1 cap BID PO 11/23/20 21:00 12/29/20 21:35 Sertraline HCl (Zoloft) 25 mg DAILY PO 11/24/20 09:00 12/11/20 17:29 DC 12/11/20 07:36 Quetiapine Fumarate (SEROquel) 25 mg PRN Q6HRS PRN PO agitation 11/24/20 16:45 12/24/20 02:53 Olanzapine (ZyPREXA ZYDIS) 5 mg 1X PRN PO PSYCHOSIS 11/26/20 17:00 12/21/20 19:43 DC 12/14/20 12:11 Levofloxacin (Levaquin) 500 mg 1X ONCE PO 11/30/20 16:00 11/30/20 16:01 DC 11/30/20 17:16 Levofloxacin (Levaquin) 250 mg DAILY16 PO 12/01/20 16:00 12/06/20 16:01 DC 12/06/20 17:35 Quetiapine Fumarate (SEROquel) 150 mg QHS PO 12/04/20 21:00 12/29/20 21:36 Trazodone HCl (Desyrel) 100 mg PRN QHS PRN PO sleep 12/04/20 12:15 12/23/20 19:56 Sertraline HCl (Zoloft) 50 mg DAILY PO 12/12/20 09:00 12/22/20 18:02 DC 12/22/20 07:58 Quetiapine Fumarate (SEROquel) 25 mg 0900,1300,1700 PO 12/12/20 09:00 12/18/20 18:16 DC 12/18/20 17:15 Divalproex Sodium (Depakote) 125 mg 0900,1700 PO 12/12/20 09:00 12/17/20 13:42 DC 12/17/20 08:37 Hydrocortisone Acetate (Anucort-Hc) 25 mg BID IL 12/13/20 21:00 12/28/20 08:42 Divalproex Sodium (Depakote) 250 mg 0900,1700 PO 12/17/20 17:00 12/29/20 17:02 Quetiapine Fumarate (SEROquel) 37.5 mg 0900,1300,1700 PO 12/19/20 09:00 12/29/20 17:03 Olanzapine (ZyPREXA ZYDIS) 5 mg PRN Q2HR PRN PO PSYCHOSIS 12/21/20 19:45 12/22/20 19:45 Lidocaine HCl (Glydo (Lidocaine) Jelly) 1 nasir 1X ONCE MM 12/22/20 13:30 12/22/20 13:31 DC 12/22/20 13:31 Sertraline HCl (Zoloft) 75 mg DAILY PO 12/23/20 09:00 12/29/20 08:24 Furosemide (Lasix) 40 mg 1X ONCE PO 12/23/20 14:15 12/23/20 14:16 DC 12/23/20 14:16 Furosemide (Lasix) 40 mg DAILY PO 12/26/20 09:00 12/29/20 08:24 I have reviewed the current psychotropics carefully including drug interactions. Risk benefit ratio favors no change other than as noted in my dictated progress note. Diagnosis: Problems: (1) Dementia, vascular, with depression (2) Dementia, vascular, with delusions (3) Dementia with behavioral disturbance (4) Dementia in Alzheimer's disease with delusions (5) Dementia in Alzheimer's disease with delirium (6) Major neurocognitive disorder (7) Dementia in Alzheimer's disease with early onset with behavioral disturbance (8) Impulse control disorder, unspecified (9) Anxiety disorder, unspecified MARIA DE JESUS LEMON MD December 29, 2020 21:47
--- NOTE | 2020-12-29 21:49 | NUR ---
Patient has been very grouchy and short tempered this evening. He spent some time in the day room and then went to his room at around 2030. He was yelling at this nurse when he was taking his medications about a patient that was in the hallway having behaviors because they were disturbing him. Patient cooperative with assessment and with staff when his crowell leg bag was being changed to the overnight bag. Patient has stated that he "will not be getting up at [id number] and needs to sleep until at least 0900". Nurse talked with patient about unit routine and meal times and patient eventually tired of arguing and went to bed. Patient continues to say "ow, ow, ow" when he is given his insulin each night and will only take the insulin in the Left upper arm. Patient has not been combative or aggressive this shift and was not as obsessed with having snacks and drinks.
[2020-12-30] MEDS ORDERED: HYDROCORTISONE ACETATE 25 MG SUPP.RECT PR PRN (05:15)
[2020-12-30 06:07] VITALS: BP 132/80
[2020-12-30] MEDS: INSULIN LISPRO 300 UNITS/3 ML VIAL. SQ SCH ×3 (08:00→17:00)
[2020-12-30] MEDS: SERTRALINE 25 MG TABLET. PO SCH (08:21)
[2020-12-30] MEDS: FUROSEMIDE 40 MG TABLET PO SCH (08:21)
[2020-12-30] MEDS: LACTOBACILLUS RHAMNOSUS GG 1 CAPSULE. PO SCH ×2 (08:21→19:55)
[2020-12-30] MEDS: FINASTERIDE 5 MG TABLET. PO SCH (08:21)
[2020-12-30] MEDS: DIVALPROEX SODIUM 125 MG TABLET.DR. PO SCH ×2 (08:21→17:14)
[2020-12-30] MEDS: QUEtiapine 25 MG TABLET. PO SCH ×3 (08:22→17:14)
[2020-12-30] MEDS: INSULIN GLARGINE SYRINGE. SQ SCH ×2 (09:15→19:57)
[2020-12-30 16:09] VITALS: BP 138/90
[2020-12-30] MEDS: TAMSULOSIN 0.4 MG CAP.ER.24H. PO SCH (19:54)
[2020-12-30] MEDS: QUEtiapine 100 MG TABLET. PO SCH (19:56)
--- NOTE | 2020-12-30 21:50 | PDOC ---
Exam Note: Marcos Note: Please also refer to the separate dictated note~for this date of service dictated separately.~Patient seen individually. Discussed the patient with Nursing staff reviewed the chart.~Reviewed interim history and current functioning. Reviewed vital signs,~Labs/ Radiology~and current medications noted below. Continue current treatment with the changes noted in the dictated addendum note Assessment: Vital Signs/I&O: Vital Signs Date Time Temp Pulse Resp B/P (MAP) Pulse Ox O2 Delivery O2 Flow Rate FiO2 12/30/20 16:09 97.8 99 16 138/90 (106) 94 12/30/20 06:07 Room Air 12/25/20 06:16 2.0 I & O 12/29/20 12/29/20 12/30/20 14:59 22:59 06:59 Intake Total 660 ml 600 ml Output Total 850 ml 650 ml Balance 660 ml -250 ml -650 ml Labs: Laboratory Tests Test 12/30/20 07:43 12/30/20 11:59 12/30/20 17:05 12/30/20 19:22 Glucose (Fingerstick) 131 mg/dL (70-99) H 204 mg/dL (70-99) H 136 mg/dL (70-99) H 190 mg/dL (70-99) H Current Medications: Meds: Laboratory Tests Test 12/30/20 07:43 12/30/20 11:59 12/30/20 17:05 12/30/20 19:22 Glucose (Fingerstick) 131 mg/dL 204 mg/dL 136 mg/dL 190 mg/dL Current Medications Medications (Trade) Dose Ordered Sig/Connie Route PRN Reason Start Time Stop Time Status Last Admin Dose Admin Acetaminophen (Tylenol) 650 mg PRN Q6HRS PRN PO MILD PAIN / TEMP > 100.3'F 11/23/20 13:00 12/24/20 02:53 Multi-Ingredient Ointment (Analgesic [place]) 1 nasir PRN QID PRN TP MUSCLE PAIN 11/23/20 13:00 Al Hydroxide/Mg Hydroxide (Mylanta Plus Xs) 15 ml PRN AFTMEALHC PRN PO DYSPEPSIA 11/23/20 13:00 Magnesium Hydroxide (Milk Of Magnesia) 2,400 mg PRN QHS PRN PO CONSTIPATION 11/23/20 13:00 Potassium Chloride (Klor-Con) 20 meq BID PO 11/23/20 21:00 12/06/20 16:29 DC 12/05/20 19:14 Tramadol HCl (Ultram) 50 mg PRN Q6HRS PRN PO MODERATE PAIN 4-6 11/23/20 16:00 11/26/20 20:55 Acetaminophen (Tylenol) 500 mg PRN Q6HRS PRN PO pain or fever 11/23/20 16:00 UNV Quetiapine Fumarate (SEROquel) 100 mg QHS PO 11/23/20 21:00 12/04/20 12:02 DC 12/03/20 20:03 Risperidone (RisperDAL) 0.25 mg BID PO 11/23/20 21:00 12/11/20 17:29 DC 12/11/20 07:36 Trazodone HCl (Desyrel) 50 mg QHS PO 11/23/20 21:00 12/04/20 12:02 DC 12/03/20 20:04 Insulin Human Lispro (HumaLOG) 0-9 UNITS TIDWMEALS SQ 11/23/20 17:00 12/30/20 12:19 Dextrose (Dextrose 50%-Water Syringe) 12.5 gm PRN Q15MIN PRN IV SEE COMMENTS 11/23/20 16:15 Apixaban (Eliquis) 5 mg BID PO 11/23/20 21:00 12/13/20 14:23 DC 12/13/20 08:45 Finasteride (Proscar) 5 mg DAILY PO 11/24/20 09:00 12/30/20 08:21 Lorazepam (Ativan) 0.25 mg PRN BID PRN PO ANXIETY 11/23/20 18:30 11/30/20 21:03 Olanzapine (ZyPREXA ZYDIS) 2.5 mg PRN Q2HRS PRN PO ANXIETY / AGITATION 11/23/20 18:45 11/24/20 16:36 DC 11/24/20 08:34 Tamsulosin HCl (Flomax) 0.8 mg HS PO 11/23/20 21:00 12/30/20 19:54 Ziprasidone (Geodon Im) 10 mg PRN Q4HRS PRN IM ANXIETY / AGITATION 11/23/20 18:30 11/23/20 22:46 DC Insulin Glargine (Lantus Syringe) 20 unit BID SQ 11/23/20 21:00 12/30/20 19:57 Lactobacillus Rhamnosus (Culturelle) 1 cap BID PO 11/23/20 21:00 12/30/20 19:55 Sertraline HCl (Zoloft) 25 mg DAILY PO 11/24/20 09:00 12/11/20 17:29 DC 12/11/20 07:36 Quetiapine Fumarate (SEROquel) 25 mg PRN Q6HRS PRN PO agitation 11/24/20 16:45 12/24/20 02:53 Olanzapine (ZyPREXA ZYDIS) 5 mg 1X PRN PO PSYCHOSIS 11/26/20 17:00 12/21/20 19:43 DC 12/14/20 12:11 Levofloxacin (Levaquin) 500 mg 1X ONCE PO 11/30/20 16:00 11/30/20 16:01 DC 11/30/20 17:16 Levofloxacin (Levaquin) 250 mg DAILY16 PO 12/01/20 16:00 12/06/20 16:01 DC 12/06/20 17:35 Quetiapine Fumarate (SEROquel) 150 mg QHS PO 12/04/20 21:00 12/30/20 19:56 Trazodone HCl (Desyrel) 100 mg PRN QHS PRN PO sleep 12/04/20 12:15 12/23/20 19:56 Sertraline HCl (Zoloft) 50 mg DAILY PO 12/12/20 09:00 12/22/20 18:02 DC 12/22/20 07:58 Quetiapine Fumarate (SEROquel) 25 mg 0900,1300,1700 PO 12/12/20 09:00 12/18/20 18:16 DC 12/18/20 17:15 Divalproex Sodium (Depakote) 125 mg 0900,1700 PO 12/12/20 09:00 12/17/20 13:42 DC 12/17/20 08:37 Hydrocortisone Acetate (Anucort-Hc) 25 mg BID [place] 12/13/20 21:00 12/30/20 05:09 DC 12/28/20 08:42 Divalproex Sodium (Depakote) 250 mg 0900,1700 PO 12/17/20 17:00 12/30/20 17:14 Quetiapine Fumarate (SEROquel) 37.5 mg 0900,1300,1700 PO 12/19/20 09:00 12/30/20 17:14 Olanzapine (ZyPREXA ZYDIS) 5 mg PRN Q2HR PRN PO PSYCHOSIS 12/21/20 19:45 12/22/20 19:45 Lidocaine HCl (Glydo (Lidocaine) Jelly) 1 nasir 1X ONCE MM 12/22/20 13:30 12/22/20 13:31 DC 12/22/20 13:31 Sertraline HCl (Zoloft) 75 mg DAILY PO 12/23/20 09:00 12/30/20 08:21 Furosemide (Lasix) 40 mg 1X ONCE PO 12/23/20 14:15 12/23/20 14:16 DC 12/23/20 14:16 Furosemide (Lasix) 40 mg DAILY PO 12/26/20 09:00 12/30/20 08:21 Hydrocortisone Acetate (Anucort-Hc) 25 mg PRN BID PRN [place] RECTAL PAIN 12/30/20 05:15 I have reviewed the current psychotropics carefully including drug interactions. Risk benefit ratio favors no change other than as noted in my dictated progress note. 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
[2020-12-31 05:54] VITALS: BP 132/79
--- NOTE | 2020-12-31 06:38 | PDOC ---
Exam Note: Marcos Note: This note is a late entry for 12/28/2020 covers elements not covered in my initial note. Subjective: The patient was seen individually in the evening of 12/28/2020 with Moira HUFF, discussed and reviewed the chart. The patient slept 3-3/4 hours previous night. He is compliant with medications, cooperative. Previous night he was found drinking water from the urinal. I addressed this with him but he showed little insight, got a little irritable. We will monitor this. He does seem to get more confused in the evening and this may have contributed to it. Review of Systems: No CV, , pulmonary, eye, ENT system symptoms on review. Mental Status Exam: The patient is oriented to himself and situation. I met with him in the dayroom at some length. Speech is coherent. Abstraction is fair. Computation impaired. Language function intact. Attention span short. Mood and affect anxious. Laboratory Data: Reviewed. Impression: Major neurocognitive disorder Alzheimer vascular with delusion, depression, behavioral disturbance. Anxiety disorder unspecified. Impulse control disorder unspecified. Plan: Maintain rest of the psychotropics unchanged. Assessment: Vital Signs/I&O: Vital Signs Date Time Temp Pulse Resp B/P (MAP) Pulse Ox O2 Delivery O2 Flow Rate FiO2 12/31/20 05:54 97.5 86 16 132/79 (96) 95 12/30/20 06:07 Room Air I & O 12/30/20 12/30/20 12/31/20 15:00 23:00 07:00 Intake Total 960 ml 600 ml Output Total 600 ml 750 ml Balance 360 ml -150 ml Labs: Laboratory Tests Test 12/30/20 07:43 12/30/20 11:59 12/30/20 17:05 12/30/20 19:22 Glucose (Fingerstick) 131 mg/dL (70-99) H 204 mg/dL (70-99) H 136 mg/dL (70-99) H 190 mg/dL (70-99) H Current Medications: Meds: Laboratory Tests Test 12/30/20 07:43 12/30/20 11:59 12/30/20 17:05 12/30/20 19:22 Glucose (Fingerstick) 131 mg/dL 204 mg/dL 136 mg/dL 190 mg/dL Current Medications Medications (Trade) Dose Ordered Sig/Connie Route PRN Reason Start Time Stop Time Status Last Admin Dose Admin Acetaminophen (Tylenol) 650 mg PRN Q6HRS PRN PO MILD PAIN / TEMP > 100.3'F 11/23/20 13:00 12/24/20 02:53 Multi-Ingredient Ointment (Analgesic [place]) 1 nasir PRN QID PRN TP MUSCLE PAIN 11/23/20 13:00 Al Hydroxide/Mg Hydroxide (Mylanta Plus Xs) 15 ml PRN AFTMEALHC PRN PO DYSPEPSIA 11/23/20 13:00 Magnesium Hydroxide (Milk Of Magnesia) 2,400 mg PRN QHS PRN PO CONSTIPATION 11/23/20 13:00 Potassium Chloride (Klor-Con) 20 meq BID PO 11/23/20 21:00 12/06/20 16:29 DC 12/05/20 19:14 Tramadol HCl (Ultram) 50 mg PRN Q6HRS PRN PO MODERATE PAIN 4-6 11/23/20 16:00 11/26/20 20:55 Acetaminophen (Tylenol) 500 mg PRN Q6HRS PRN PO pain or fever 11/23/20 16:00 UNV Quetiapine Fumarate (SEROquel) 100 mg QHS PO 11/23/20 21:00 12/04/20 12:02 DC 12/03/20 20:03 Risperidone (RisperDAL) 0.25 mg BID PO 11/23/20 21:00 12/11/20 17:29 DC 12/11/20 07:36 Trazodone HCl (Desyrel) 50 mg QHS PO 11/23/20 21:00 12/04/20 12:02 DC 12/03/20 20:04 Insulin Human Lispro (HumaLOG) 0-9 UNITS TIDWMEALS SQ 11/23/20 17:00 12/30/20 12:19 Dextrose (Dextrose 50%-Water Syringe) 12.5 gm PRN Q15MIN PRN IV SEE COMMENTS 11/23/20 16:15 Apixaban (Eliquis) 5 mg BID PO 11/23/20 21:00 12/13/20 14:23 DC 12/13/20 08:45 Finasteride (Proscar) 5 mg DAILY PO 11/24/20 09:00 12/30/20 08:21 Lorazepam (Ativan) 0.25 mg PRN BID PRN PO ANXIETY 11/23/20 18:30 11/30/20 21:03 Olanzapine (ZyPREXA ZYDIS) 2.5 mg PRN Q2HRS PRN PO ANXIETY / AGITATION 11/23/20 18:45 11/24/20 16:36 DC 11/24/20 08:34 Tamsulosin HCl (Flomax) 0.8 mg HS PO 11/23/20 21:00 12/30/20 19:54 Ziprasidone (Geodon Im) 10 mg PRN Q4HRS PRN IM ANXIETY / AGITATION 11/23/20 18:30 11/23/20 22:46 DC Insulin Glargine (Lantus Syringe) 20 unit BID SQ 11/23/20 21:00 12/30/20 19:57 Lactobacillus Rhamnosus (Culturelle) 1 cap BID PO 11/23/20 21:00 12/30/20 19:55 Sertraline HCl (Zoloft) 25 mg DAILY PO 11/24/20 09:00 12/11/20 17:29 DC 12/11/20 07:36 Quetiapine Fumarate (SEROquel) 25 mg PRN Q6HRS PRN PO agitation 11/24/20 16:45 12/24/20 02:53 Olanzapine (ZyPREXA ZYDIS) 5 mg 1X PRN PO PSYCHOSIS 11/26/20 17:00 12/21/20 19:43 DC 12/14/20 12:11 Levofloxacin (Levaquin) 500 mg 1X ONCE PO 11/30/20 16:00 11/30/20 16:01 DC 11/30/20 17:16 Levofloxacin (Levaquin) 250 mg DAILY16 PO 12/01/20 16:00 12/06/20 16:01 DC 12/06/20 17:35 Quetiapine Fumarate (SEROquel) 150 mg QHS PO 12/04/20 21:00 12/30/20 19:56 Trazodone HCl (Desyrel) 100 mg PRN QHS PRN PO sleep 12/04/20 12:15 12/23/20 19:56 Sertraline HCl (Zoloft) 50 mg DAILY PO 12/12/20 09:00 12/22/20 18:02 DC 12/22/20 07:58 Quetiapine Fumarate (SEROquel) 25 mg 0900,1300,1700 PO 12/12/20 09:00 12/18/20 18:16 DC 12/18/20 17:15 Divalproex Sodium (Depakote) 125 mg 0900,1700 PO 12/12/20 09:00 12/17/20 13:42 DC 12/17/20 08:37 Hydrocortisone Acetate (Anucort-Hc) 25 mg BID [place] 12/13/20 21:00 12/30/20 05:09 DC 12/28/20 08:42 Divalproex Sodium (Depakote) 250 mg 0900,1700 PO 12/17/20 17:00 12/30/20 17:14 Quetiapine Fumarate (SEROquel) 37.5 mg 0900,1300,1700 PO 12/19/20 09:00 12/30/20 17:14 Olanzapine (ZyPREXA ZYDIS) 5 mg PRN Q2HR PRN PO PSYCHOSIS 12/21/20 19:45 12/22/20 19:45 Lidocaine HCl (Glydo (Lidocaine) Jelly) 1 nasir 1X ONCE MM 12/22/20 13:30 12/22/20 13:31 DC 12/22/20 13:31 Sertraline HCl (Zoloft) 75 mg DAILY PO 12/23/20 09:00 12/30/20 08:21 Furosemide (Lasix) 40 mg 1X ONCE PO 12/23/20 14:15 12/23/20 14:16 DC 12/23/20 14:16 Furosemide (Lasix) 40 mg DAILY PO 12/26/20 09:00 12/30/20 08:21 Hydrocortisone Acetate (Anucort-Hc) 25 mg PRN BID PRN [place] RECTAL PAIN 12/30/20 05:15 I have reviewed the current psychotropics carefully including drug interactions. Risk benefit ratio favors no change other than as noted in my dictated progress note. Diagnosis: Problems: (1) Dementia, vascular, with depression (2) Dementia, vascular, with delusions (3) Dementia with behavioral disturbance (4) Dementia in Alzheimer's disease with delusions (5) Dementia in Alzheimer's disease with delirium (6) Major neurocognitive disorder (7) Dementia in Alzheimer's disease with early onset with behavioral disturbance (8) Impulse control disorder, unspecified (9) Anxiety disorder, unspecified MARIA DE JESUS LEMON MD December 31, 2020 06:38
--- NOTE | 2020-12-31 07:16 | PDOC ---
Exam Note: Marcos Note: This note is a late entry for 12/29/2020 covers elements not covered in my initial note. Subjective: The patient was seen individually in the evening of 12/29/2020 with Masoud HUFF, discussed and reviewed the chart. The patient slept 3-3/4 hours previous night. Overall the patient did well the day before and there is no change. He has not had any other behaviors of drinking from the urinal. He is a little irritable as I met with him in the evening outside his room wanting a snack but for the most part he has been less obsessed about this. He did redirect. Review of Systems: No CV, , pulmonary, eye, ENT system symptoms on review. Mental Status Exam: The patient is oriented to himself and situation. Speech is coherent. Abstraction is fair. Computation impaired. Language function intact. Attention span short. Mood and affect anxious, obsessed. Laboratory Data: Reviewed. Impression: Major neurocognitive disorder Alzheimer vascular with delusion, depression, behavioral disturbance. Anxiety disorder unspecified. Impulse control disorder unspecified. Plan: Maintain rest of the psychotropics unchanged. Assessment: Vital Signs/I&O: Vital Signs Date Time Temp Pulse Resp B/P (MAP) Pulse Ox O2 Delivery O2 Flow Rate FiO2 12/31/20 05:54 97.5 86 16 132/79 (96) 95 12/30/20 06:07 Room Air I & O 12/30/20 12/30/20 12/31/20 15:00 23:00 07:00 Intake Total 960 ml 600 ml Output Total 600 ml 750 ml Balance 360 ml -150 ml Labs: Laboratory Tests Test 12/30/20 07:43 12/30/20 11:59 12/30/20 17:05 12/30/20 19:22 Glucose (Fingerstick) 131 mg/dL (70-99) H 204 mg/dL (70-99) H 136 mg/dL (70-99) H 190 mg/dL (70-99) H Current Medications: Meds: Laboratory Tests Test 12/30/20 07:43 12/30/20 11:59 12/30/20 17:05 12/30/20 19:22 Glucose (Fingerstick) 131 mg/dL 204 mg/dL 136 mg/dL 190 mg/dL Current Medications Medications (Trade) Dose Ordered Sig/Connie Route PRN Reason Start Time Stop Time Status Last Admin Dose Admin Acetaminophen (Tylenol) 650 mg PRN Q6HRS PRN PO MILD PAIN / TEMP > 100.3'F 11/23/20 13:00 12/24/20 02:53 Multi-Ingredient Ointment (Analgesic [place]) 1 nasir PRN QID PRN TP MUSCLE PAIN 11/23/20 13:00 Al Hydroxide/Mg Hydroxide (Mylanta Plus Xs) 15 ml PRN AFTMEALHC PRN PO DYSPEPSIA 11/23/20 13:00 Magnesium Hydroxide (Milk Of Magnesia) 2,400 mg PRN QHS PRN PO CONSTIPATION 11/23/20 13:00 Potassium Chloride (Klor-Con) 20 meq BID PO 11/23/20 21:00 12/06/20 16:29 DC 12/05/20 19:14 Tramadol HCl (Ultram) 50 mg PRN Q6HRS PRN PO MODERATE PAIN 4-6 11/23/20 16:00 11/26/20 20:55 Acetaminophen (Tylenol) 500 mg PRN Q6HRS PRN PO pain or fever 11/23/20 16:00 UNV Quetiapine Fumarate (SEROquel) 100 mg QHS PO 11/23/20 21:00 12/04/20 12:02 DC 12/03/20 20:03 Risperidone (RisperDAL) 0.25 mg BID PO 11/23/20 21:00 12/11/20 17:29 DC 12/11/20 07:36 Trazodone HCl (Desyrel) 50 mg QHS PO 11/23/20 21:00 12/04/20 12:02 DC 12/03/20 20:04 Insulin Human Lispro (HumaLOG) 0-9 UNITS TIDWMEALS SQ 11/23/20 17:00 12/30/20 12:19 Dextrose (Dextrose 50%-Water Syringe) 12.5 gm PRN Q15MIN PRN IV SEE COMMENTS 11/23/20 16:15 Apixaban (Eliquis) 5 mg BID PO 11/23/20 21:00 12/13/20 14:23 DC 12/13/20 08:45 Finasteride (Proscar) 5 mg DAILY PO 11/24/20 09:00 12/30/20 08:21 Lorazepam (Ativan) 0.25 mg PRN BID PRN PO ANXIETY 11/23/20 18:30 11/30/20 21:03 Olanzapine (ZyPREXA ZYDIS) 2.5 mg PRN Q2HRS PRN PO ANXIETY / AGITATION 11/23/20 18:45 11/24/20 16:36 DC 11/24/20 08:34 Tamsulosin HCl (Flomax) 0.8 mg HS PO 11/23/20 21:00 12/30/20 19:54 Ziprasidone (Geodon Im) 10 mg PRN Q4HRS PRN IM ANXIETY / AGITATION 11/23/20 18:30 11/23/20 22:46 DC Insulin Glargine (Lantus Syringe) 20 unit BID SQ 11/23/20 21:00 12/30/20 19:57 Lactobacillus Rhamnosus (Culturelle) 1 cap BID PO 11/23/20 21:00 12/30/20 19:55 Sertraline HCl (Zoloft) 25 mg DAILY PO 11/24/20 09:00 12/11/20 17:29 DC 12/11/20 07:36 Quetiapine Fumarate (SEROquel) 25 mg PRN Q6HRS PRN PO agitation 11/24/20 16:45 12/24/20 02:53 Olanzapine (ZyPREXA ZYDIS) 5 mg 1X PRN PO PSYCHOSIS 11/26/20 17:00 12/21/20 19:43 DC 12/14/20 12:11 Levofloxacin (Levaquin) 500 mg 1X ONCE PO 11/30/20 16:00 11/30/20 16:01 DC 11/30/20 17:16 Levofloxacin (Levaquin) 250 mg DAILY16 PO 12/01/20 16:00 12/06/20 16:01 DC 12/06/20 17:35 Quetiapine Fumarate (SEROquel) 150 mg QHS PO 12/04/20 21:00 12/30/20 19:56 Trazodone HCl (Desyrel) 100 mg PRN QHS PRN PO sleep 12/04/20 12:15 12/23/20 19:56 Sertraline HCl (Zoloft) 50 mg DAILY PO 12/12/20 09:00 12/22/20 18:02 DC 12/22/20 07:58 Quetiapine Fumarate (SEROquel) 25 mg 0900,1300,1700 PO 12/12/20 09:00 12/18/20 18:16 DC 12/18/20 17:15 Divalproex Sodium (Depakote) 125 mg 0900,1700 PO 12/12/20 09:00 12/17/20 13:42 DC 12/17/20 08:37 Hydrocortisone Acetate (Anucort-Hc) 25 mg BID [place] 12/13/20 21:00 12/30/20 05:09 DC 12/28/20 08:42 Divalproex Sodium (Depakote) 250 mg 0900,1700 PO 12/17/20 17:00 12/30/20 17:14 Quetiapine Fumarate (SEROquel) 37.5 mg 0900,1300,1700 PO 12/19/20 09:00 12/30/20 17:14 Olanzapine (ZyPREXA ZYDIS) 5 mg PRN Q2HR PRN PO PSYCHOSIS 12/21/20 19:45 12/22/20 19:45 Lidocaine HCl (Glydo (Lidocaine) Jelly) 1 nasir 1X ONCE MM 12/22/20 13:30 12/22/20 13:31 DC 12/22/20 13:31 Sertraline HCl (Zoloft) 75 mg DAILY PO 12/23/20 09:00 12/30/20 08:21 Furosemide (Lasix) 40 mg 1X ONCE PO 12/23/20 14:15 12/23/20 14:16 DC 12/23/20 14:16 Furosemide (Lasix) 40 mg DAILY PO 12/26/20 09:00 12/30/20 08:21 Hydrocortisone Acetate (Anucort-Hc) 25 mg PRN BID PRN [place] RECTAL PAIN 12/30/20 05:15 I have reviewed the current psychotropics carefully including drug interactions. Risk benefit ratio favors no change other than as noted in my dictated progress note. Diagnosis: Problems: (1) Dementia, vascular, with depression (2) Dementia, vascular, with delusions (3) Dementia with behavioral disturbance (4) Dementia in Alzheimer's disease with delusions (5) Dementia in Alzheimer's disease with delirium (6) Major neurocognitive disorder (7) Dementia in Alzheimer's disease with early onset with behavioral disturbance (8) Impulse control disorder, unspecified (9) Anxiety disorder, unspecified MARIA DE JESUS LEMON MD December 31, 2020 07:16
--- NOTE | 2020-12-31 07:41 | PDOC ---
Exam Note: Marcos Note: This note is a late entry for 12/30/2020 covers elements not covered in my initial note. Subjective: The patient was seen individually in the evening of 12/30/2020 with Masoud HUFF, discussed and reviewed the chart. The patient slept 5-1/4 hours previous night. He has been isolative, spends much time in his room which is where I have met with him. Other times he can be a little irritable but redirects. He is less fixated on food and less obsessed about this. Review of Systems: No CV, , pulmonary, eye, ENT system symptoms on review. Mental Status Exam: The patient is awake, alert, oriented to himself and situation. Speech is coherent. Abstraction is fair. Computation impaired. Language function intact. Attention span short. Mood somewhat anxious at times, little irritable but improved. Laboratory Data: Reviewed. Impression: Major neurocognitive disorder Alzheimer vascular with delusion, depression, behavioral disturbance. Anxiety disorder unspecified. Impulse control disorder unspecified. Plan: No change from initial note. Assessment: Vital Signs/I&O: Vital Signs Date Time Temp Pulse Resp B/P (MAP) Pulse Ox O2 Delivery O2 Flow Rate FiO2 12/31/20 05:54 97.5 86 16 132/79 (96) 95 12/30/20 06:07 Room Air I & O 12/30/20 12/30/20 12/31/20 15:00 23:00 07:00 Intake Total 960 ml 600 ml Output Total 600 ml 750 ml Balance 360 ml -150 ml Labs: Laboratory Tests Test 12/30/20 07:43 12/30/20 11:59 12/30/20 17:05 12/30/20 19:22 Glucose (Fingerstick) 131 mg/dL (70-99) H 204 mg/dL (70-99) H 136 mg/dL (70-99) H 190 mg/dL (70-99) H Current Medications: Meds: Laboratory Tests Test 12/30/20 07:43 12/30/20 11:59 12/30/20 17:05 12/30/20 19:22 Glucose (Fingerstick) 131 mg/dL 204 mg/dL 136 mg/dL 190 mg/dL Current Medications Medications (Trade) Dose Ordered Sig/Connie Route PRN Reason Start Time Stop Time Status Last Admin Dose Admin Acetaminophen (Tylenol) 650 mg PRN Q6HRS PRN PO MILD PAIN / TEMP > 100.3'F 11/23/20 13:00 12/24/20 02:53 Multi-Ingredient Ointment (Analgesic [place]) 1 nasir PRN QID PRN TP MUSCLE PAIN 11/23/20 13:00 Al Hydroxide/Mg Hydroxide (Mylanta Plus Xs) 15 ml PRN AFTMEALHC PRN PO DYSPEPSIA 11/23/20 13:00 Magnesium Hydroxide (Milk Of Magnesia) 2,400 mg PRN QHS PRN PO CONSTIPATION 11/23/20 13:00 Potassium Chloride (Klor-Con) 20 meq BID PO 11/23/20 21:00 12/06/20 16:29 DC 12/05/20 19:14 Tramadol HCl (Ultram) 50 mg PRN Q6HRS PRN PO MODERATE PAIN 4-6 11/23/20 16:00 11/26/20 20:55 Acetaminophen (Tylenol) 500 mg PRN Q6HRS PRN PO pain or fever 11/23/20 16:00 UNV Quetiapine Fumarate (SEROquel) 100 mg QHS PO 11/23/20 21:00 12/04/20 12:02 DC 12/03/20 20:03 Risperidone (RisperDAL) 0.25 mg BID PO 11/23/20 21:00 12/11/20 17:29 DC 12/11/20 07:36 Trazodone HCl (Desyrel) 50 mg QHS PO 11/23/20 21:00 12/04/20 12:02 DC 12/03/20 20:04 Insulin Human Lispro (HumaLOG) 0-9 UNITS TIDWMEALS SQ 11/23/20 17:00 12/30/20 12:19 Dextrose (Dextrose 50%-Water Syringe) 12.5 gm PRN Q15MIN PRN IV SEE COMMENTS 11/23/20 16:15 Apixaban (Eliquis) 5 mg BID PO 11/23/20 21:00 12/13/20 14:23 DC 12/13/20 08:45 Finasteride (Proscar) 5 mg DAILY PO 11/24/20 09:00 12/30/20 08:21 Lorazepam (Ativan) 0.25 mg PRN BID PRN PO ANXIETY 11/23/20 18:30 11/30/20 21:03 Olanzapine (ZyPREXA ZYDIS) 2.5 mg PRN Q2HRS PRN PO ANXIETY / AGITATION 11/23/20 18:45 11/24/20 16:36 DC 11/24/20 08:34 Tamsulosin HCl (Flomax) 0.8 mg HS PO 11/23/20 21:00 12/30/20 19:54 Ziprasidone (Geodon Im) 10 mg PRN Q4HRS PRN IM ANXIETY / AGITATION 11/23/20 18:30 11/23/20 22:46 DC Insulin Glargine (Lantus Syringe) 20 unit BID SQ 11/23/20 21:00 12/30/20 19:57 Lactobacillus Rhamnosus (Culturelle) 1 cap BID PO 11/23/20 21:00 12/30/20 19:55 Sertraline HCl (Zoloft) 25 mg DAILY PO 11/24/20 09:00 12/11/20 17:29 DC 12/11/20 07:36 Quetiapine Fumarate (SEROquel) 25 mg PRN Q6HRS PRN PO agitation 11/24/20 16:45 12/24/20 02:53 Olanzapine (ZyPREXA ZYDIS) 5 mg 1X PRN PO PSYCHOSIS 11/26/20 17:00 12/21/20 19:43 DC 12/14/20 12:11 Levofloxacin (Levaquin) 500 mg 1X ONCE PO 11/30/20 16:00 11/30/20 16:01 DC 11/30/20 17:16 Levofloxacin (Levaquin) 250 mg DAILY16 PO 12/01/20 16:00 12/06/20 16:01 DC 12/06/20 17:35 Quetiapine Fumarate (SEROquel) 150 mg QHS PO 12/04/20 21:00 12/30/20 19:56 Trazodone HCl (Desyrel) 100 mg PRN QHS PRN PO sleep 12/04/20 12:15 12/23/20 19:56 Sertraline HCl (Zoloft) 50 mg DAILY PO 12/12/20 09:00 12/22/20 18:02 DC 12/22/20 07:58 Quetiapine Fumarate (SEROquel) 25 mg 0900,1300,1700 PO 12/12/20 09:00 12/18/20 18:16 DC 12/18/20 17:15 Divalproex Sodium (Depakote) 125 mg 0900,1700 PO 12/12/20 09:00 12/17/20 13:42 DC 12/17/20 08:37 Hydrocortisone Acetate (Anucort-Hc) 25 mg BID ID 12/13/20 21:00 12/30/20 05:09 DC 12/28/20 08:42 Divalproex Sodium (Depakote) 250 mg 0900,1700 PO 12/17/20 17:00 12/30/20 17:14 Quetiapine Fumarate (SEROquel) 37.5 mg 0900,1300,1700 PO 12/19/20 09:00 12/30/20 17:14 Olanzapine (ZyPREXA ZYDIS) 5 mg PRN Q2HR PRN PO PSYCHOSIS 12/21/20 19:45 12/22/20 19:45 Lidocaine HCl (Glydo (Lidocaine) Jelly) 1 nasir 1X ONCE MM 12/22/20 13:30 12/22/20 13:31 DC 12/22/20 13:31 Sertraline HCl (Zoloft) 75 mg DAILY PO 12/23/20 09:00 12/30/20 08:21 Furosemide (Lasix) 40 mg 1X ONCE PO 12/23/20 14:15 12/23/20 14:16 DC 12/23/20 14:16 Furosemide (Lasix) 40 mg DAILY PO 12/26/20 09:00 12/30/20 08:21 Hydrocortisone Acetate (Anucort-Hc) 25 mg PRN BID PRN ID RECTAL PAIN 12/30/20 05:15 I have reviewed the current psychotropics carefully including drug interactions. Risk benefit ratio favors no change other than as noted in my dictated progress note. Diagnosis: Problems: (1) Dementia, vascular, with depression (2) Dementia, vascular, with delusions (3) Dementia with behavioral disturbance (4) Dementia in Alzheimer's disease with delusions (5) Dementia in Alzheimer's disease with delirium (6) Major neurocognitive disorder (7) Dementia in Alzheimer's disease with early onset with behavioral disturbance (8) Impulse control disorder, unspecified (9) Anxiety disorder, unspecified MARIA DE JESUS LEMON MD December 31, 2020 07:41
[2020-12-31] MEDS: INSULIN LISPRO 300 UNITS/3 ML VIAL. SQ SCH ×3 (08:53→17:28)
[2020-12-31] MEDS: LACTOBACILLUS RHAMNOSUS GG 1 CAPSULE. PO SCH ×2 (08:55→21:16)
[2020-12-31] MEDS: FUROSEMIDE 40 MG TABLET PO SCH (08:55)
[2020-12-31] MEDS: FINASTERIDE 5 MG TABLET. PO SCH (08:55)
[2020-12-31] MEDS: SERTRALINE 25 MG TABLET. PO SCH (08:55)
[2020-12-31] MEDS: QUEtiapine 25 MG TABLET. PO SCH ×3 (08:56→17:25)
[2020-12-31] MEDS: DIVALPROEX SODIUM 125 MG TABLET.DR. PO SCH ×2 (08:56→17:25)
--- NOTE | 2020-12-31 09:45 | NUR ---
[facility] returned call to [facility] to go over an update on how pt is doing and to discuss their approval of pt. [facility] reports that they can pick pt up tomorrow around 1030 or 1100. [facility] asked [facility]IL to send over updated notes if possible. They will plan to pick pt up at 1030.
--- NOTE | 2020-12-31 10:57 | NUR ---
GAIL sent an email out to all parties to alert them of pt acceptance at [facility]. GAIL will plan to fax his guardian, environmental lawyer and state representatives all of his records once completed.
[2020-12-31] MEDS: INSULIN GLARGINE SYRINGE. SQ SCH ×2 (12:25→21:21)
--- NOTE | 2020-12-31 12:36 | NUR ---
WEEKLY ACTIVITY THERAPY NOTE Date of Admission: 11/23/20 Date of AT Assessment: 11/26 Precipitating behaviors that initiated intake and admission:Aggressive, punching and kicking staff, cursing, name calling, yelling, resisting cares Goal aimed: increase socialization and relaxation skills Initial Goal:Pt will participate in at least three individual or group Activity Therapy sessions per week. Weekly progress towards goal: achieved, 10/31 Group participation level:1 min, 2 mod Weekly highlights: flexibility exercises Thursday, guess the TV show theme song Thursday, GTKY ball toss questions Thursday Behaviors observed: is not requesting snacks as often Plan: no change to goal-pending discharge Beneficial adaptations:
--- NOTE | 2020-12-31 13:00 | NUR ---
[facility] Social Work Discharge Planning Form Patient Name ADONAY AUSTIN Admit Date: 23 November 2020 DISCHARGE PLAN Discharge Destination: Pt to discharge to [facility] Assessment: [facility] must request a PASSR screen within 30 days of admission to be completed per [facility]'s current policy. Level II Assessment: N/A Transportation: [facility] to pick pt up around 1100. Special Instructions/Notes: Please fax discharge orders, medication list and discharge summary to the fax number listed below. DISCHARGE TO FACILITY Facility: [facility] Address: [address] [place] [id number] Contact Name: Roula Gan, Quality of Life Director: Contact Name: Roula Mishra, Raw Mill Operator: PCP: Will follow up with the facility physician
[2020-12-31 15:42] VITALS: BP 141/91
--- NOTE | 2020-12-31 16:06 | NUR ---
NSG NOTE; SHIFT BEHAVIORS ADONAY HAS BEEN ALERT, CALM AND COOPERATIVE TODAY. HE STAYS MOSTLY IN THE DAYROOM BEFORE MEALS AND PARTICIPATED IN GROUPS. HE FEEDS HIMSELF AND IS MED COMPLIANT. HE HAS ASKED FOR FOOD MUCH LESS FREQUENTLY TODAY, AND NO OBSESSIVE BEHAVIORS ARE NOTED.
[2020-12-31] MEDS: TAMSULOSIN 0.4 MG CAP.ER.24H. PO SCH (21:16)
[2020-12-31] MEDS: QUEtiapine 100 MG TABLET. PO SCH (21:17)
--- NOTE | 2020-12-31 21:49 | PDOC ---
Exam Note: Marcos Note: Please also refer to the separate dictated note~for this date of service dictated separately.~Patient seen individually. Discussed the patient with Nursing staff reviewed the chart.~Reviewed interim history and current functioning. Reviewed vital signs,~Labs/ Radiology~and current medications noted below. Continue current treatment with the changes noted in the dictated addendum note Assessment: Vital Signs/I&O: Vital Signs Date Time Temp Pulse Resp B/P (MAP) Pulse Ox O2 Delivery O2 Flow Rate FiO2 12/31/20 15:42 97.4 93 18 141/91 (108) 96 12/30/20 06:07 Room Air I & O 12/30/20 12/30/20 12/31/20 15:00 23:00 07:00 Intake Total 960 ml 600 ml Output Total 600 ml 750 ml Balance 360 ml -150 ml Labs: Laboratory Tests Test 12/31/20 08:06 12/31/20 12:07 12/31/20 16:57 12/31/20 19:11 Glucose (Fingerstick) 94 mg/dL (70-99) 132 mg/dL (70-99) H 200 mg/dL (70-99) H 158 mg/dL (70-99) H Current Medications: Meds: Laboratory Tests Test 12/31/20 08:06 12/31/20 12:07 12/31/20 16:57 12/31/20 19:11 Glucose (Fingerstick) 94 mg/dL 132 mg/dL 200 mg/dL 158 mg/dL Current Medications Medications (Trade) Dose Ordered Sig/Connie Route PRN Reason Start Time Stop Time Status Last Admin Dose Admin Acetaminophen (Tylenol) 650 mg PRN Q6HRS PRN PO MILD PAIN / TEMP > 100.3'F 11/23/20 13:00 12/24/20 02:53 Multi-Ingredient Ointment (Analgesic [place]) 1 nasir PRN QID PRN TP MUSCLE PAIN 11/23/20 13:00 Al Hydroxide/Mg Hydroxide (Mylanta Plus Xs) 15 ml PRN AFTMEALHC PRN PO DYSPEPSIA 11/23/20 13:00 Magnesium Hydroxide (Milk Of Magnesia) 2,400 mg PRN QHS PRN PO CONSTIPATION 11/23/20 13:00 Potassium Chloride (Klor-Con) 20 meq BID PO 11/23/20 21:00 4/8/21 16:29 DC 12/05/20 19:14 Tramadol HCl (Ultram) 50 mg PRN Q6HRS PRN PO MODERATE PAIN 4-6 11/23/20 16:00 11/26/20 20:55 Acetaminophen (Tylenol) 500 mg PRN Q6HRS PRN PO pain or fever 11/23/20 16:00 UNV Quetiapine Fumarate (SEROquel) 100 mg QHS PO 11/23/20 21:00 12/04/20 12:02 DC 12/03/20 20:03 Risperidone (RisperDAL) 0.25 mg BID PO 11/23/20 21:00 12/11/20 17:29 DC 12/11/20 07:36 Trazodone HCl (Desyrel) 50 mg QHS PO 11/23/20 21:00 12/04/20 12:02 DC 12/03/20 20:04 Insulin Human Lispro (HumaLOG) 0-9 UNITS TIDWMEALS SQ 11/23/20 17:00 12/31/20 17:28 Dextrose (Dextrose 50%-Water Syringe) 12.5 gm PRN Q15MIN PRN IV SEE COMMENTS 11/23/20 16:15 Apixaban (Eliquis) 5 mg BID PO 11/23/20 21:00 12/13/20 14:23 DC 12/13/20 08:45 Finasteride (Proscar) 5 mg DAILY PO 11/24/20 09:00 12/31/20 08:55 Lorazepam (Ativan) 0.25 mg PRN BID PRN PO ANXIETY 11/23/20 18:30 11/30/20 21:03 Olanzapine (ZyPREXA ZYDIS) 2.5 mg PRN Q2HRS PRN PO ANXIETY / AGITATION 11/23/20 18:45 11/24/20 16:36 DC 11/24/20 08:34 Tamsulosin HCl (Flomax) 0.8 mg HS PO 11/23/20 21:00 12/31/20 21:16 Ziprasidone (Geodon Im) 10 mg PRN Q4HRS PRN IM ANXIETY / AGITATION 11/23/20 18:30 11/23/20 22:46 DC Insulin Glargine (Lantus Syringe) 20 unit BID SQ 11/23/20 21:00 12/31/20 21:21 Lactobacillus Rhamnosus (Culturelle) 1 cap BID PO 11/23/20 21:00 12/31/20 21:16 Sertraline HCl (Zoloft) 25 mg DAILY PO 11/24/20 09:00 12/11/20 17:29 DC 12/11/20 07:36 Quetiapine Fumarate (SEROquel) 25 mg PRN Q6HRS PRN PO agitation 11/24/20 16:45 12/24/20 02:53 Olanzapine (ZyPREXA ZYDIS) 5 mg 1X PRN PO PSYCHOSIS 11/26/20 17:00 12/21/20 19:43 DC 12/14/20 12:11 Levofloxacin (Levaquin) 500 mg 1X ONCE PO 11/30/20 16:00 11/30/20 16:01 DC 11/30/20 17:16 Levofloxacin (Levaquin) 250 mg DAILY16 PO 12/01/20 16:00 12/06/20 16:01 DC 12/06/20 17:35 Quetiapine Fumarate (SEROquel) 150 mg QHS PO 12/04/20 21:00 12/31/20 21:17 Trazodone HCl (Desyrel) 100 mg PRN QHS PRN PO sleep 12/04/20 12:15 12/23/20 19:56 Sertraline HCl (Zoloft) 50 mg DAILY PO 12/12/20 09:00 12/22/20 18:02 DC 12/22/20 07:58 Quetiapine Fumarate (SEROquel) 25 mg 0900,1300,1700 PO 12/12/20 09:00 12/18/20 18:16 DC 12/18/20 17:15 Divalproex Sodium (Depakote) 125 mg 0900,1700 PO 12/12/20 09:00 12/17/20 13:42 DC 12/17/20 08:37 Hydrocortisone Acetate (Anucort-Hc) 25 mg BID [place] 12/13/20 21:00 12/30/20 05:09 DC 12/28/20 08:42 Divalproex Sodium (Depakote) 250 mg 0900,1700 PO 12/17/20 17:00 12/31/20 17:25 Quetiapine Fumarate (SEROquel) 37.5 mg 0900,1300,1700 PO 12/19/20 09:00 12/31/20 17:25 Olanzapine (ZyPREXA ZYDIS) 5 mg PRN Q2HR PRN PO PSYCHOSIS 12/21/20 19:45 12/22/20 19:45 Lidocaine HCl (Glydo (Lidocaine) Jelly) 1 nasir 1X ONCE MM 12/22/20 13:30 12/22/20 13:31 DC 12/22/20 13:31 Sertraline HCl (Zoloft) 75 mg DAILY PO 12/23/20 09:00 12/31/20 08:55 Furosemide (Lasix) 40 mg 1X ONCE PO 12/23/20 14:15 12/23/20 14:16 DC 12/23/20 14:16 Furosemide (Lasix) 40 mg DAILY PO 12/26/20 09:00 12/31/20 08:55 Hydrocortisone Acetate (Anucort-Hc) 25 mg PRN BID PRN [place] RECTAL PAIN 12/30/20 05:15 I have reviewed the current psychotropics carefully including drug interactions. Risk benefit ratio favors no change other than as noted in my dictated progress note. 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
[2020-12-31] MEDS ORDERED: DIVA-53 PO (22:13)
[2020-12-31] MEDS ORDERED: FURO40TA4 PO (22:14)
[2020-12-31] MEDS ORDERED: HYDR25SU4 RC (22:15)
[2020-12-31] MEDS ORDERED: INSU100I13 SQ (22:16)
[2020-12-31] MEDS ORDERED: SERT50TA PO (22:23)
[2020-12-31] MEDS ORDERED: MAG-115 PO (22:26)
[2020-12-31] MEDS ORDERED: MAGN24003 PO (22:27)
[2020-12-31] MEDS ORDERED: TROL86CR TP (22:28)
[2020-12-31] MEDS ORDERED: QUET25TA5 PO ×2 (22:29→22:30)
[2020-12-31] MEDS ORDERED: INSU100V38 SQ (22:39)
--- NOTE | 2021-01-01 00:31 | NUR ---
Pt has been resting quietly or sleeping in his room this shift. Meds were taken whole and he was pleasant and cooperative. He remains very confused and only able to state name and date of . He has had no behaviors tonight.
[2021-01-01 04:48] VITALS: BP 136/71
[2021-01-01 05:32] VITALS: BP 134/71
[2021-01-01] MEDS: INSULIN LISPRO 300 UNITS/3 ML VIAL. SQ SCH (08:00)
[2021-01-01] MEDS: DIVALPROEX SODIUM 125 MG TABLET.DR. PO SCH (08:20)
[2021-01-01] MEDS: FINASTERIDE 5 MG TABLET. PO SCH (08:21)
[2021-01-01] MEDS: FUROSEMIDE 40 MG TABLET PO SCH (08:21)
[2021-01-01] MEDS: QUEtiapine 25 MG TABLET. PO SCH (08:22)
[2021-01-01] MEDS: LACTOBACILLUS RHAMNOSUS GG 1 CAPSULE. PO SCH (08:22)
[2021-01-01] MEDS: SERTRALINE 25 MG TABLET. PO SCH (08:22)
[2021-01-01] MEDS: INSULIN GLARGINE SYRINGE. SQ SCH (09:10)
--- NOTE | 2021-01-01 09:43 | NUR ---
NSG NOTE; REPORT CALLED TO ASHLEIGH HUFF AT 0935 AT [facility] IN [place], [place]
--- NOTE | 2021-01-01 11:25 | NUR ---
NSG NOTE; DISCHARGE Transition Record was faxed to follow-up provider with the following elements: Reason for admission, procedures, tests, principal diagnosis, pending studies, patient instructions, 23/03 contact information for unit, phone number to obtain pending test results, plan for follow-up care, physician follow-up, advanced directive information, and medication list with dose, duration and instructions. This information was included in the following documents: History and physical, lab results, study results, progress notes, social work planning form, DC instruction form, patient visit summary, and medication reconciliation form. Date & time record faxed: to [facility] in [place], [place] on 12/31/20 at 9529 Record faxed to: [phone] Record discussed with/ report given to: Maisha HUFF at 0989 Discharged to [facility] today at 1100 via amb accomp by transport staff
--- NOTE | 2021-01-01 22:53 | PDOC ---
Exam Note: Marcos Note: Please also refer to the separate dictated note~for this date of service dictated separately.~Patient seen individually. Discussed the patient with Nursing staff reviewed the chart.~Reviewed interim history and current functioning. Reviewed vital signs,~Labs/ Radiology~and current medications noted below. Continue current treatment with the changes noted in the dictated addendum note Assessment: Vital Signs/I&O: Vital Signs Date Time Temp Pulse Resp B/P (MAP) Pulse Ox O2 Delivery O2 Flow Rate FiO2 01/01/21 05:32 97.1 81 16 134/71 (92) 94 12/30/20 06:07 Room Air I & O 12/31/20 12/31/20 01/01/21 15:00 23:00 07:00 Intake Total 820 ml 480 ml Output Total 450 ml 525 ml Balance 820 ml 30 ml -525 ml Labs: Laboratory Tests Test 01/01/21 07:33 Glucose (Fingerstick) 112 mg/dL (70-99) H Current Medications: Meds: Laboratory Tests Test 01/01/21 07:33 Glucose (Fingerstick) 112 mg/dL Current Medications Medications (Trade) Dose Ordered Sig/Connie Route PRN Reason Start Time Stop Time Status Last Admin Dose Admin Acetaminophen (Tylenol) 650 mg PRN Q6HRS PRN PO MILD PAIN / TEMP > 100.3'F 11/23/20 13:00 01/01/21 11:28 DC 12/24/20 02:53 Multi-Ingredient Ointment (Analgesic [place]) 1 nasir PRN QID PRN TP MUSCLE PAIN 11/23/20 13:00 01/01/21 11:28 DC Al Hydroxide/Mg Hydroxide (Mylanta Plus Xs) 15 ml PRN AFTMEALHC PRN PO DYSPEPSIA 11/23/20 13:00 01/01/21 11:28 DC Magnesium Hydroxide (Milk Of Magnesia) 2,400 mg PRN QHS PRN PO CONSTIPATION 11/23/20 13:00 01/01/21 11:28 DC Potassium Chloride (Klor-Con) 20 meq BID PO 11/23/20 21:00 12/06/20 16:29 DC 12/05/20 19:14 Tramadol HCl (Ultram) 50 mg PRN Q6HRS PRN PO MODERATE PAIN 4-6 11/23/20 16:00 01/01/21 11:28 DC 11/26/20 20:55 Acetaminophen (Tylenol) 500 mg PRN Q6HRS PRN PO pain or fever 11/23/20 16:00 UNV Quetiapine Fumarate (SEROquel) 100 mg QHS PO 11/23/20 21:00 12/04/20 12:02 DC 12/03/20 20:03 Risperidone (RisperDAL) 0.25 mg BID PO 11/23/20 21:00 12/11/20 17:29 DC 12/11/20 07:36 Trazodone HCl (Desyrel) 50 mg QHS PO 11/23/20 21:00 12/04/20 12:02 DC 12/03/20 20:04 Insulin Human Lispro (HumaLOG) 0-9 UNITS TIDWMEALS SQ 11/23/20 17:00 01/01/21 11:28 DC 12/31/20 17:28 Dextrose (Dextrose 50%-Water Syringe) 12.5 gm PRN Q15MIN PRN IV SEE COMMENTS 11/23/20 16:15 01/01/21 11:28 DC Apixaban (Eliquis) 5 mg BID PO 11/23/20 21:00 12/13/20 14:23 DC 12/13/20 08:45 Finasteride (Proscar) 5 mg DAILY PO 11/24/20 09:00 01/01/21 11:28 DC 01/01/21 08:21 Lorazepam (Ativan) 0.25 mg PRN BID PRN PO ANXIETY 11/23/20 18:30 01/01/21 11:28 DC 11/30/20 21:03 Olanzapine (ZyPREXA ZYDIS) 2.5 mg PRN Q2HRS PRN PO ANXIETY / AGITATION 11/23/20 18:45 11/24/20 16:36 DC 11/24/20 08:34 Tamsulosin HCl (Flomax) 0.8 mg HS PO 11/23/20 21:00 01/01/21 11:28 DC 12/31/20 21:16 Ziprasidone (Geodon Im) 10 mg PRN Q4HRS PRN IM ANXIETY / AGITATION 11/23/20 18:30 11/23/20 22:46 DC Insulin Glargine (Lantus Syringe) 20 unit BID SQ 11/23/20 21:00 01/01/21 11:28 DC 01/01/21 09:10 Lactobacillus Rhamnosus (Culturelle) 1 cap BID PO 11/23/20 21:00 01/01/21 11:28 DC 01/01/21 08:22 Sertraline HCl (Zoloft) 25 mg DAILY PO 11/24/20 09:00 12/11/20 17:29 DC 12/11/20 07:36 Quetiapine Fumarate (SEROquel) 25 mg PRN Q6HRS PRN PO agitation 11/24/20 16:45 01/01/21 11:28 DC 12/24/20 02:53 Olanzapine (ZyPREXA ZYDIS) 5 mg 1X PRN PO PSYCHOSIS 11/26/20 17:00 12/21/20 19:43 DC 12/14/20 12:11 Levofloxacin (Levaquin) 500 mg 1X ONCE PO 11/30/20 16:00 11/30/20 16:01 DC 11/30/20 17:16 Levofloxacin (Levaquin) 250 mg DAILY16 PO 12/01/20 16:00 12/06/20 16:01 DC 12/06/20 17:35 Quetiapine Fumarate (SEROquel) 150 mg QHS PO 12/04/20 21:00 01/01/21 11:28 DC 12/31/20 21:17 Trazodone HCl (Desyrel) 100 mg PRN QHS PRN PO sleep 12/04/20 12:15 01/01/21 11:28 DC 12/23/20 19:56 Sertraline HCl (Zoloft) 50 mg DAILY PO 12/12/20 09:00 12/22/20 18:02 DC 12/22/20 07:58 Quetiapine Fumarate (SEROquel) 25 mg 0900,1300,1700 PO 12/12/20 09:00 12/18/20 18:16 DC 12/18/20 17:15 Divalproex Sodium (Depakote) 125 mg 0900,1700 PO 12/12/20 09:00 12/17/20 13:42 DC 12/17/20 08:37 Hydrocortisone Acetate (Anucort-Hc) 25 mg BID [place] 12/13/20 21:00 12/30/20 05:09 DC 12/28/20 08:42 Divalproex Sodium (Depakote) 250 mg 0900,1700 PO 12/17/20 17:00 01/01/21 11:28 DC 01/01/21 08:20 Quetiapine Fumarate (SEROquel) 37.5 mg 0900,1300,1700 PO 12/19/20 09:00 01/01/21 11:28 DC 01/01/21 08:22 Olanzapine (ZyPREXA ZYDIS) 5 mg PRN Q2HR PRN PO PSYCHOSIS 12/21/20 19:45 01/01/21 11:28 DC 12/22/20 19:45 Lidocaine HCl (Glydo (Lidocaine) Jelly) 1 nasir 1X ONCE MM 12/22/20 13:30 12/22/20 13:31 DC 12/22/20 13:31 Sertraline HCl (Zoloft) 75 mg DAILY PO 12/23/20 09:00 01/01/21 11:28 DC 01/01/21 08:22 Furosemide (Lasix) 40 mg 1X ONCE PO 12/23/20 14:15 12/23/20 14:16 DC 12/23/20 14:16 Furosemide (Lasix) 40 mg DAILY PO 12/26/20 09:00 01/01/21 11:28 DC 01/01/21 08:21 Hydrocortisone Acetate (Anucort-Hc) 25 mg PRN BID PRN [place] RECTAL PAIN 12/30/20 05:15 01/01/21 11:28 DC I have reviewed the current psychotropics carefully including drug interactions. Risk benefit ratio favors no change other than as noted in my dictated progress note. Diagnosis: Problems: (1) Dementia, vascular, with depression (2) Dementia, vascular, with delusions (3) Dementia with behavioral disturbance (4) Dementia in Alzheimer's disease with delusions (5) Dementia in Alzheimer's disease with delirium (6) Major neurocognitive disorder (7) Dementia in Alzheimer's disease with early onset with behavioral disturbance (8) Impulse control disorder, unspecified (9) Anxiety disorder, unspecified MARIA DE JESUS LEMON MD January 01, 2021 22:53
--- NOTE | 2021-01-02 07:43 | PDOC ---
Exam Note: Marcos Note: This note is a late entry for 12/31/2020 covers elements not covered in my initial note. Subjective: The patient was reviewed in the morning of 12/31/2020 for a treatment team meeting with Peggy Cole, Melani Medellin and Tootie (hospice social worker), Laura, activity therapy and Gisele HUFF, discussed and reviewed the chart. The patient slept 4-1/2 hours previous night, sleeping average 5-1/2 hours. Appetite is 100%. He frequently asked for extra food and snacks but less obsessive about this than in the past. Generally yelling is better. He is less impulsive. Review of Systems: No CV, , pulmonary, eye, ENT system symptoms on review. Reliability poor. Mental Status Exam: The patient is oriented to himself and situation. Speech is coherent. Abstraction is fair. Computation impaired. Language function in tact. Attention span short. Mood and affect somewhat improved. Laboratory Data: Reviewed. Impression: Major neurocognitive disorder Alzheimer vascular with delusion, depression, behavioral disturbance. Anxiety disorder unspecified. Impulse control disorder unspecified. Plan: We will transition to [facility] in [place], [place] tomorrow. Continue current psychotropics. Assessment: Vital Signs/I&O: Vital Signs Date Time Temp Pulse Resp B/P (MAP) Pulse Ox O2 Delivery O2 Flow Rate FiO2 01/01/21 05:32 97.1 81 16 134/71 (92) 94 12/30/20 06:07 Room Air I & O 01/01/21 01/01/21 01/02/21 15:00 23:00 07:00 Intake Total 660 ml Balance 660 ml Current Medications: Meds: Current Medications Medications (Trade) Dose Ordered Sig/Connie Route PRN Reason Start Time Stop Time Status Last Admin Dose Admin Acetaminophen (Tylenol) 650 mg PRN Q6HRS PRN PO MILD PAIN / TEMP > 100.3'F 11/23/20 13:00 01/01/21 11:28 DC 12/24/20 02:53 Multi-Ingredient Ointment (Analgesic [place]) 1 nasir PRN QID PRN TP MUSCLE PAIN 11/23/20 13:00 01/01/21 11:28 DC Al Hydroxide/Mg Hydroxide (Mylanta Plus Xs) 15 ml PRN AFTMEALHC PRN PO DYSPEPSIA 11/23/20 13:00 01/01/21 11:28 DC Magnesium Hydroxide (Milk Of Magnesia) 2,400 mg PRN QHS PRN PO CONSTIPATION 11/23/20 13:00 01/01/21 11:28 DC Potassium Chloride (Klor-Con) 20 meq BID PO 11/23/20 21:00 12/06/20 16:29 DC 12/05/20 19:14 Tramadol HCl (Ultram) 50 mg PRN Q6HRS PRN PO MODERATE PAIN 4-6 11/23/20 16:00 01/01/21 11:28 DC 11/26/20 20:55 Acetaminophen (Tylenol) 500 mg PRN Q6HRS PRN PO pain or fever 11/23/20 16:00 UNV Quetiapine Fumarate (SEROquel) 100 mg QHS PO 11/23/20 21:00 12/04/20 12:02 DC 12/03/20 20:03 Risperidone (RisperDAL) 0.25 mg BID PO 11/23/20 21:00 12/11/20 17:29 DC 12/11/20 07:36 Trazodone HCl (Desyrel) 50 mg QHS PO 11/23/20 21:00 12/04/20 12:02 DC 12/03/20 20:04 Insulin Human Lispro (HumaLOG) 0-9 UNITS TIDWMEALS SQ 11/23/20 17:00 01/01/21 11:28 DC 12/31/20 17:28 Dextrose (Dextrose 50%-Water Syringe) 12.5 gm PRN Q15MIN PRN IV SEE COMMENTS 11/23/20 16:15 01/01/21 11:28 DC Apixaban (Eliquis) 5 mg BID PO 11/23/20 21:00 12/13/20 14:23 DC 12/13/20 08:45 Finasteride (Proscar) 5 mg DAILY PO 11/24/20 09:00 01/01/21 11:28 DC 01/01/21 08:21 Lorazepam (Ativan) 0.25 mg PRN BID PRN PO ANXIETY 11/23/20 18:30 01/01/21 11:28 DC 11/30/20 21:03 Olanzapine (ZyPREXA ZYDIS) 2.5 mg PRN Q2HRS PRN PO ANXIETY / AGITATION 11/23/20 18:45 11/24/20 16:36 DC 11/24/20 08:34 Tamsulosin HCl (Flomax) 0.8 mg HS PO 11/23/20 21:00 01/01/21 11:28 DC 12/31/20 21:16 Ziprasidone (Geodon Im) 10 mg PRN Q4HRS PRN IM ANXIETY / AGITATION 11/23/20 18:30 11/23/20 22:46 DC Insulin Glargine (Lantus Syringe) 20 unit BID SQ 11/23/20 21:00 01/01/21 11:28 DC 01/01/21 09:10 Lactobacillus Rhamnosus (Culturelle) 1 cap BID PO 11/23/20 21:00 01/01/21 11:28 DC 01/01/21 08:22 Sertraline HCl (Zoloft) 25 mg DAILY PO 11/24/20 09:00 12/11/20 17:29 DC 12/11/20 07:36 Quetiapine Fumarate (SEROquel) 25 mg PRN Q6HRS PRN PO agitation 11/24/20 16:45 01/01/21 11:28 DC 12/24/20 02:53 Olanzapine (ZyPREXA ZYDIS) 5 mg 1X PRN PO PSYCHOSIS 11/26/20 17:00 12/21/20 19:43 DC 12/14/20 12:11 Levofloxacin (Levaquin) 500 mg 1X ONCE PO 11/30/20 16:00 11/30/20 16:01 DC 11/30/20 17:16 Levofloxacin (Levaquin) 250 mg DAILY16 PO 12/01/20 16:00 12/06/20 16:01 DC 12/06/20 17:35 Quetiapine Fumarate (SEROquel) 150 mg QHS PO 12/04/20 21:00 01/01/21 11:28 DC 12/31/20 21:17 Trazodone HCl (Desyrel) 100 mg PRN QHS PRN PO sleep 12/04/20 12:15 01/01/21 11:28 DC 12/23/20 19:56 Sertraline HCl (Zoloft) 50 mg DAILY PO 12/12/20 09:00 12/22/20 18:02 DC 12/22/20 07:58 Quetiapine Fumarate (SEROquel) 25 mg 0900,1300,1700 PO 12/12/20 09:00 12/18/20 18:16 DC 12/18/20 17:15 Divalproex Sodium (Depakote) 125 mg 0900,1700 PO 12/12/20 09:00 12/17/20 13:42 DC 12/17/20 08:37 Hydrocortisone Acetate (Anucort-Hc) 25 mg BID [place] 12/13/20 21:00 12/30/20 05:09 DC 12/28/20 08:42 Divalproex Sodium (Depakote) 250 mg 0900,1700 PO 12/17/20 17:00 01/01/21 11:28 DC 01/01/21 08:20 Quetiapine Fumarate (SEROquel) 37.5 mg 0900,1300,1700 PO 12/19/20 09:00 01/01/21 11:28 DC 01/01/21 08:22 Olanzapine (ZyPREXA ZYDIS) 5 mg PRN Q2HR PRN PO PSYCHOSIS 12/21/20 19:45 01/01/21 11:28 DC 12/22/20 19:45 Lidocaine HCl (Glydo (Lidocaine) Jelly) 1 nasir 1X ONCE MM 12/22/20 13:30 12/22/20 13:31 DC 12/22/20 13:31 Sertraline HCl (Zoloft) 75 mg DAILY PO 12/23/20 09:00 01/01/21 11:28 DC 01/01/21 08:22 Furosemide (Lasix) 40 mg 1X ONCE PO 12/23/20 14:15 12/23/20 14:16 DC 12/23/20 14:16 Furosemide (Lasix) 40 mg DAILY PO 12/26/20 09:00 01/01/21 11:28 DC 01/01/21 08:21 Hydrocortisone Acetate (Anucort-Hc) 25 mg PRN BID PRN [place] RECTAL PAIN 12/30/20 05:15 01/01/21 11:28 DC I have reviewed the current psychotropics carefully including drug interactions. Risk benefit ratio favors no change other than as noted in my dictated progress note. Diagnosis: Problems: (1) Dementia, vascular, with depression (2) Dementia, vascular, with delusions (3) Dementia with behavioral disturbance (4) Dementia in Alzheimer's disease with delusions (5) Dementia in Alzheimer's disease with delirium (6) Major neurocognitive disorder (7) Dementia in Alzheimer's disease with early onset with behavioral disturbance (8) Impulse control disorder, unspecified (9) Anxiety disorder, unspecified MARIA DE JESUS LEMON MD January 02, 2021 07:43
--- NOTE | 2021-01-03 09:27 | DS ---
DATE OF DISCHARGE: 01/01/2021 DISCHARGE SUMMARY/PSYCHIATRIC PROGRESS NOTE This is a late entry, covers elements not covered in my initial note 01/01. REASON FOR ADMISSION: Please refer to the admission history for details. Briefly, the patient is a 75-year-old male referred to us from [facility] surgical floor where he presented from [facility] on account of worsening confusion, agitation and aggression. He has been combative with staff, name calling, yelling out, worsening in the evening with owning. He had failed outpatient psychiatric interventions resulting in this referral. SIGNIFICANT FINDINGS AND CLINICAL COURSE: Following admission, the patient was seen daily individually by myself from a psychiatric standpoint. He remained extremely agitated, worsening confusion in the evening, aggressive, disruptive. He was quite obsessive about food. Adjustments were made in his psychotropics and he finally seemed to respond to a combination of Seroquel 150 mg at bedtime; trazodone 100 mg at bedtime p.r.n., december repeat x1; Depakote 250 mg twice a day; Seroquel 37.5 mg at 0900, 1300, 1700; Zoloft 50 mg a day. Gradually mood appeared to improve. He was less obsessive, anxious, disruptive. Prior to discharge on 01/01, no CV, , pulmonary, eye or ENT system symptoms on review. MENTAL STATUS EXAMINATION: Oriented to himself, time, situation. Insight, judgment, recent and remote memory, attention, concentration, fund of knowledge poor consistent with his diagnosis. CONDITION ON DISCHARGE: Improved. FINAL DIAGNOSES: Major neurocognitive disorder; Alzheimer's; vascular with delusion; depression; behavioral disturbance; bipolar disorder, unspecified; anxiety disorder, unspecified; impulse control disorder, unspecified; rest unchanged from admission. DISCHARGE MEDICATIONS: Please refer to the MRAD. DISCHARGE INSTRUCTIONS: Outpatient psychiatric and medical followup at [facility]. LUCIEN/ADY DR: Marguerite TID: [id number]
== END 2021-01-01 11:00 | DRG 56 ==
LOC: GEROPSY 12:00
PROVIDERS: ADMIT Psychiatry & Neurology Psychiatry; ATTEND Psychiatry & Neurology Psychiatry
DX: G30.9 Alzheimer's disease, unspecified (principal); F01.51 Vascular dementia, unspecified severity, with behavioral disturbance; J96.01 Acute respiratory failure with hypoxia; N18.9 Chronic kidney disease, unspecified; F02.81 Dementia in other diseases classified elsewhere, unspecified severity, with behavioral disturbance; N39.0 Urinary tract infection, site not specified; R45.851 Suicidal ideations; E11.22 Type 2 diabetes mellitus with diabetic chronic kidney disease; E11.51 Type 2 diabetes mellitus with diabetic peripheral angiopathy without gangrene; F32.9 Major depressive disorder, single episode, unspecified; F41.1 Generalized anxiety disorder; F63.9 Impulse disorder, unspecified; H91.90 Unspecified hearing loss, unspecified ear; I12.9 Hypertensive chronic kidney disease with stage 1 through stage 4 chronic kidney disease, or unspecified chronic kidney disease; N40.1 Benign prostatic hyperplasia with lower urinary tract symptoms; R32 Unspecified urinary incontinence; Z20.822 Contact with and (suspected) exposure to COVID-19; Z79.899 Other long term (current) drug therapy; Z78.9 Other specified health status; Z86.711 Personal history of pulmonary embolism; Z91.81 History of falling; Z86.718 Personal history of other venous thrombosis and embolism
CPT/HCPCS: 36415; 71045; 80048; 80053; 80061; 80164; 81001; 82947; 83036; 85025; 85027; 86592; 87077; 87086; 87186; J1815; U0003; U0005; 97116; 97530

== ENCOUNTER 2021-05-07 09:44 | Emergency (ER) | payer MEDICARE, OTHER ==
[~2021-05-07] VITALS: Ht 185.4 cm; Wt 104.7 kg
[~2021-05-07 09:44] MED LIST changes: +APIX5TAB3 PO; +DIVA-53 PO; +FINA5TAB4 PO; +FURO40TA4 PO; +HYDR25SU4 RC; +INSU100I13 SQ; +INSU100V38 SQ; +LACT1CAP14 PO; +LORA0.5T21 PO; +MAG-115 PO; +MAGN24003 PO; +OLAN5TAB67 PO; +POTA-121 PO; -POTA20TA4 PO; +QUET25TA5 PO; +SERT50TA PO; +TAMS0.4C97 PO; +TROL86CR TP; +ZIPR20VI IM
--- NOTE | 2021-05-07 10:10 | PHYS DOC ---
Past History Past Medical History: Diabetes, Hypertension (COLLINS MOONEY APRN) Past Surgical History: No Surgical History (COLLINS MOONEY APRN) Alcohol Use: None (COLLINS MOONEY APRN) General Adult EDM: Chief Complaint: SUICIDAL IDEATION HPI: HPI: Patient is a 76-year-old male presents from half-way due to suicidal ideat ion. Staff states "he has been threatening to hang himself the last few days". Patient denies any suicidal ideation or having a plan. Patient states "I just want to eat something". Patient is also reporting lower back pain, which is chronic for him. Patient has history of Lewy body dementia, hypertension, diabetes, chronic back pain. (COLLINS MOONEY APRN) Review of Systems: Review of Systems: Constitutional: Denies fever or chills Eyes: Denies change in visual acuity HENT: Denies nasal congestion or sore throat Respiratory: Denies cough or shortness of breath Cardiovascular: Denies chest pain or edema GI: Denies abdominal pain, nausea, vomiting, bloody stools or diarrhea : Denies dysuria Musculoskeletal: Reports chronic back pain Integument: Denies rash Neurologic: Denies headache, focal weakness or sensory changes Endocrine: Denies polyuria or polydipsia Lymphatic: Denies swollen glands Psychiatric: Denies depression or anxiety (COLLINS MOONEY APRN) Allergies: Allergies: Allergies Coded Allergies Type Severity Reaction Last Updated Verified No Known Drug Allergies 05/07/21 No (COLLINS MOONEY APRN) Physical Exam: PE: Constitutional: Well developed, well nourished, no acute distress, non-toxic appearance. [] HENT: Normocephalic, atraumatic, bilateral external ears normal, oropharynx mo ist, no oral exudates, nose normal. [] Eyes: PERRLA, EOMI, conjunctiva normal, no discharge. [] Neck: Normal range of motion, no tenderness, supple, no stridor. [] Cardiovascular:Heart rate regular rhythm, no murmur [] Lungs & Thorax: Bilateral breath sounds clear to auscultation [] Abdomen: Bowel sounds normal, soft, no tenderness, no masses, no pulsatile masses. [] Skin: Warm, dry, no erythema, no rash. [] Back: Lower back tenderness, no CVA tenderness. [] Extremities: No tenderness, no cyanosis, no clubbing, ROM intact, no edema. [] Neurologic: Alert and oriented X 3, normal motor function, normal sensory function, no focal deficits noted. [] Psychologic: Affect normal, judgement normal, agitated mood (COLLINS MOONEY APRN) EKG: EKG: Normal sinus rhythm. Heart rate [address] elevation or depression. Read by Dr. Whitney at 1017. [] (COLLINS MOONEY APRN) Radiology/Procedures: Radiology/Procedures: [] (COLLINS MOONEY APRN) Heart Score: C/O Chest Pain: No Risk Factors: Risk Factors: DM, Current or recent (<one month) smoker, HTN, HLP, family history of CAD, obesity. Risk Scores: Score 0 - 3: 2.5% MACE over next 6 weeks - Discharge Home Score 4 - 6: 20.3% MACE over next 6 weeks - Admit for Clinical Observation Score 7 - 10: 72.7% MACE over next 6 weeks - Early Invasive Strategies (COLLINS MOONEY APRN) Course & Med Decision Making: Course & Med Decision Making Pertinent Labs and Imaging studies reviewed. (See chart for details) [] 76-year-old male who presents from a half-way due to suicidal ideation. Staff reports patient's been threatening to hang himself last few days. Patient is denying any thoughts of harming himself or having a plan.PAT team consulted. Sheila from PAT team evaluated the patient. Patient is denying SI, HI, any plan to harm himself. Patient denies hallucinations or delusions. patient signed a safety contract and will be sent back to half-way per recommendations from PAT team. Patient is hemodynamically stable upon disposition. (COLLINS MOONEY APRN) Course & Med Decision Making I was the Attending physician on the above date of service of this patient. This patient was evaluated, examined, treated, and dispositioned from the emergency department by the mid-level practitioner. Patient seen and evaluated by Pat team, I agree with their assessment that there is no immediate indication for inpatient psychiatric placement Electronically signed, West Whitney DO (WEST WHITNEY DO) Yu Disclaimer: Dragon Disclaimer: This electronic medical record was generated, in whole or in part, using a voice recognition dictation system. (COLLINS MOONEY APRN) Departure Departure: Impression: Primary Impression: Dementia with behavioral disturbance Qualified Codes: G31.83 - Dementia with Lewy bodies; F02.81 - Dementia in other diseases classified elsewhere with behavioral disturbance Disposition: 01 HOME / SELF CARE / HOMELESS Condition: STABLE Referrals: PCP,NO (PCP) Patient Instructions: Dementia With Lewy Bodies Additional Instructions: EMERGENCY DEPARTMENT GENERAL DISCHARGE INSTRUCTIONS Thank you for coming to [facility] (ED) today and trusting us with you care. We trust that you had a positivie experience in our Emergency Department. If you wish to speak to the department management, you may call the director at [phone]. YOUR FOLLOW UP INSTRUCTIONS ARE FOLLOWS: 1. Do you have a private Doctor? If you do not have a private doctor, please ask for a resource list of physicians or clinics that may be able to assist you with follow up care. 2. The Emergency Physician has interpreted your x-rays. The X-Ray specialist will also review them. If there is a change in the findings, you will be notified in 48 hours when at all possible. 3. A lab test or culture has been done, your results will be reviewed and you will be notified if you need a change in treatment. ADDITIONAL INSTRUCTIONS AND INFORMATION: 1. Your care today has been supervised by a physician who is specially trained in emergency care. Many problems require more than one evaluation for a complete diagnosis and treatment. We recommend that you schedule your follow up appointment as recommended to ensure complete treatment of you illness or injury. If you are unable to obtain follow up care and continue to have a problem, or if your condition worsens, we recommend that you return to the ED. 2. We are not able to safely determine your condition over the phone nor are we able to give sound medical advice over the phone. For these safety reasons, if you call for medical advice we will ask you to come to the ED for further evaluation. 3. If you have any questions regarding these discharge instructions please call the ED at [phone]. SAFETY INFORMATION: In the interest of safety, wellness, and injury prevention; we encourage you to wear your sealbelt, if you smoke; quite smoking, and we encourage family to use a protective helmet for bicycling and other sporting events that present an increased risk for head injury. IF YOUR SYMPTOMS WORSEN OR NEW SYMPTOMS DEVELOP, OR YOU HAVE CONCERNS ABOUT YOUR CONDITION; OR IF YOUR CONDITION WORSENS WHILE YOU ARE WAITING FOR YOUR FOLLOW UP APPOINTMENT; EITHER CONTACT YOUR PRIMARY CARE DOCTOR, THE PHYSICIAN WHOSE NAME AND NUMBER YOU WERE GIVEN, OR RETURN TO THE ED IMMEDIATELY. COLLINS MOONEY APRN May 07, 2021 10:10 WEST WHITNEY DO May 08, 2021 07:20
[2021-05-07] MEDS ORDERED: KETOROLAC 15 MG/ML VIAL. IM ONE (10:15)
--- NOTE | 2021-05-07 10:25 | EKG ---
[address] [address] Test Date: 2021-05-07 Test Time: 10:14:30 Pat Name: ADONAY AUSTIN Department: Room: Gender: M [employer]: [place] : 1945 Requested By: COLLINS MOONEY Order Number: [id number] Reading MD: Pedro Huber MD Measurements Intervals [place] Rate: 88 P: 49 CO: 178 QRS: -20 QRSD: 88 T: 59 QT: 346 QTc: 422 Interpretive Statements SINUS RHYTHM LAD CONSIDER INFERIOR INFARCT, OLD Electronically Signed On 05-09-2021 9:16:49 CDT by Perdo Huber MD
[2021-05-07] MEDS ORDERED: LIDOCAINE (700MG/PATCH) PATCH. TD SCH (10:30)
[2021-05-07 10:33] LABS: BARBITURATES NEG (NEG); BENZODIAZEPINES NEG (NEG); CANNABINOIDS NEG (NEG); COCAINE NEG (NEG); METHADONE NEG (NEG); OPIATES NEG (NEG); PHENCYCLIDINE NEG (NEG)
[2021-05-07 10:41] LABS: AMPHETAMINE/METHAMPHETAMINE NEG (NEG)
[2021-05-07 10:50] LABS: BASO % 0 % (0-3); EOS # 0.4 x10^3/uL (0.0-0.7); EOS % 5 % (0-3); HEMATOCRIT 42.8 % (39.0-53.0); HEMOGLOBIN 13.5 g/dL (13.0-17.5); LYMPH # 1.7 x10^3/uL (1.0-4.8); LYMPH % 21 % (24-48); MEAN CORPUSCULAR HEMOGLOBIN 27 pg (25-35); MEAN CORPUSCULAR HGB CONC 32 g/dL (31-37); MEAN CORPUSCULAR VOLUME 87 fL (79-100); MONO # 0.5 x10^3/uL (0.0-1.1); MONO % 7 % (0-9); NEUT # 5.3 x10^3uL (1.8-7.7); NEUT % 67 % (31-73); PLATELET COUNT 265 x10^3/uL (140-400); RED BLOOD COUNT 4.95 x10^6/uL (4.30-5.70); RED CELL DISTRIBUTION WIDTH 18.6 % (11.5-14.5)
[2021-05-07 10:57] LABS: CALCIUM 8.6 mg/dL (8.5-10.1); CREATININE 1.4 mg/dL (0.7-1.3); GFR 49.4; POTASSIUM 4.6 mmol/L (3.5-5.1)
[2021-05-07 11:02] LABS: BILIRUBIN,URINE NEG (NEG); CLARITY,URINE CLOUDY; COLOR,URINE YELLOW; GLUCOSE,URINE NEG (NEG)
[2021-05-07 11:03] LABS: BACTERIA,URINE FEW /HPF (0-FEW); NITRITE,URINE NEG (NEG); UROBILINOGEN,URINE 0.2 mg/dL (0.2 mg/dL); WBC,URINE >40 /HPF (0-4)
[2021-05-07 15:03] VITALS: BP 131/73
[2021-05-07] MEDS ORDERED: PATCH REMOVAL. MC SCH (21:00)
== END 2021-05-07 16:11 | disposition home or self-care (01) ==
LOC: ER 09:44
DX: G31.83 Neurocognitive disorder with Lewy bodies (principal); F02.81 Dementia in other diseases classified elsewhere, unspecified severity, with behavioral disturbance; E11.9 Type 2 diabetes mellitus without complications; I10 Essential (primary) hypertension; M54.5 Low back pain; G89.29 Other chronic pain; Z20.822 Contact with and (suspected) exposure to COVID-19
CPT/HCPCS: 36415; 80048; 80307; 81001; 85025; 87086; 87426; 93005; 96372; 99284; C9803; J1885; U0003